=== PATIENT | female | born 1990 | race Caucasian/White ===

== ENCOUNTER 2016-02-28 20:34 | Emergency (ER) | payer BC, OTHER ==
[~2016-02-28] VITALS: Ht 162.6 cm; Wt 65.8 kg
--- OUTSIDE RECORDS SUMMARY | 2016-02-28 20:39 | XMS REPORT ---
Author Author [facility] Organization [facility] Address [address], [place] [id number] Phone [phone] Care Team Providers Care Air Conditioning Insulation Installer Name Role Phone VAHID DOWELL MD PP [phone] Summary purpose TRANSITION OF CARE AUTO GENERATION Chief Complaint and Reason for Visit No authorized Reason for Visit (Admitting Diagnosis) is available for this visit. Problem list No authorized problems tracked for continuity of care are available for this visit. Encounters No authorized problems tracked for encounter diagnoses are available for this visit. Medications No medications recorded for this patient visit Allergies, adverse reactions, alerts Allergen Category Ingredient Status Reaction Severity Onset No Known Drug Allergies No known drug allergies No Known Drug Allergies Confirmed or Verified No known food allergies No known food allergies No known food allergies Confirmed or Verified Immunizations No immunizations recorded for this patient visit Relevant diagnostic tests and/or laboratory data No authorized results are available for this patient visit History of procedures No procedures recorded for this patient visit. Functional status No functional or cognitive status observations are available for this visit. Vital signs No authorized vital signs are available for this visit. Social history No Social History or smoking status observations were recorded for this visit. ( Unknown if ever smoked.) Treatment Plan No treatment plan text is available for this visit. Hospital discharge instructions No discharge instruction text is available for this visit.
[2016-02-28] MEDS ORDERED: KETOROLAC 30 MG/ML VIAL IVP STA (20:56)
[2016-02-28] MEDS ORDERED: ONDANSETRON 4 MG/2 ML (SDV) Z0FRAN IVP ONE (21:00)
[2016-02-28 21:04] LABS: BASOPHILS % (AUTO) 0 % (0-10); EOSINOPHILS # (AUTO) 0.4 10^3/uL (0.0-0.3); EOSINOPHILS % (AUTO) 5 % (0-10); LYMPHOCYTES % (AUTO) 33 % (12-44); MEAN CORPUSCULAR HEMOGLOBIN 30 PG (25-34); MEAN CORPUSCULAR HGB CONC 35 G/DL (32-36); MEAN CORPUSCULAR VOLUME 85 FL (80-99); MEAN PLATELET VOLUME 8.5 FL (7.4-10.4); MONOCYTES # (AUTO) 0.7 X 10^3 (0.0-1.0); MONOCYTES % (AUTO) 7 % (0-12); NEUTROPHILS # (AUTO) 4.8 X 10^3 (1.8-7.8); NEUTROPHILS % (AUTO) 55 % (42-75); PLATELET COUNT 331 10^3/uL (130-400); RED BLOOD COUNT 4.55 10^6/uL (4.35-5.85); RED CELL DISTRIBUTION WIDTH 12.3 % (10.0-14.5); WHITE BLOOD COUNT 8.8 10^3/uL (4.3-11.0)
[2016-02-28 21:20] LABS: ALANINE AMINOTRANSFERASE 28 U/L (0-55); ALBUMIN 4.4 G/DL (3.2-4.5); ANION GAP 10 MMOL/L (5-14); ASPARTATE AMINO TRANSFERASE 36 U/L (5-34); BILIRUBIN,TOTAL 1.1 MG/DL (0.1-1.0); BLOOD UREA NITROGEN 11 MG/DL (7-18); BUN/CREATININE RATIO 14; CALCIUM 8.9 MG/DL (8.5-10.1); CARBON DIOXIDE 23 MMOL/L (21-32); CHLORIDE 108 MMOL/L (98-107); CREATININE SERUM 0.79 MG/DL (0.60-1.30); GFR ESTIMATED > 60; GLUCOSE 89 MG/DL (70-105); POTASSIUM 3.4 MMOL/L (3.6-5.0); SODIUM 141 MMOL/L (135-145); TOTAL PROTEIN 6.9 G/DL (6.4-8.2)
[2016-02-28 21:39] LABS: BILIRUBIN,URINE NEGATIVE (NEGATIVE); KETONES,URINE NEGATIVE (NEGATIVE); LEUKOCYTE ESTERASE ,URINE 1+ (NEGATIVE); NITRITE,URINE NEGATIVE (NEGATIVE); PH,URINE 6.5 (5-9); PROTEIN,URINE 1+ (NEGATIVE); UROBILINOGEN,URINE NORMAL (NORMAL)
[2016-02-28] MEDS ORDERED: CYCLOBENZAPRINE 10 MG (FLEXERIL) TAB PO STA (21:45)
[2016-02-28 21:54] LABS: SQUAMOUS EPITHELIAL CELL,UR 25-50 /HPF
[2016-02-28] MEDS ORDERED: LIDOCAINE 2% VISCOUS 15 ML UDC PO ONE (22:15)
[2016-02-28] MEDS ORDERED: ANTACID SUSP 30 ML UDC (MYLANTA) PO ONE (22:15)
[2016-02-28] MEDS ORDERED: DIAZEPAM INJ 10 MG/2 ML (VALIUM) SYR IV STA (22:43)
[2016-02-28] MEDS ORDERED: RX-LORAZEPAM (ATIVAN) 0.5 MG TAB PPK#4 PO ONE (23:30)
--- NOTE | 2016-02-28 23:31 | ED Chest Pain ---
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 PT DENIES CARDIAC HX BUT DOES REPORT HX OF PLEURISY. REPORTS PAIN IS CONSTANT BUT DOES WAX AND WANE. NO OTHER C/O VOICED Nursing Sepsis Screen: No Definite Risk (MARBIN SOFIA) History of Present Illness Time seen by provider: 20:45 Initial Comments Initial evaluation for chest tightness, nausea and vomiting. She reports similar "chest spasms" 3 years ago, treated at [facility] with something for spasms and felt better immediately. Sees psychologist for stress and anxiety, denies any medications. Timing/Duration: 1-3 hours Severity/Quality: moderate Location: epigastric, other (Bilat lower ribs, left greater than right. 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 Associated Symptoms: denies symptoms nausea/vomiting (MARBIN SOFIA) Allergies and Home Medications Allergies Coded Allergies: No Known Drug Allergies (Unverified , 08/16/10) Review of Systems Constitutional: no symptoms reported see HPI EENTM: No Symptoms Reported See HPI Respiratory: See HPI Other (spasms) Cardiovascular: See HPI Chest Pain Palpitations Gastrointestinal: See HPIDenies Constipated, Denies Diarrhea, Nausea Vomiting Genitourinary: No Symptoms Reported See HPI Musculoskeletal: no symptoms reported see HPI Skin: no symptoms reported see HPI Psychiatric/Neurological: No Symptoms Reported See HPI Endocrine: No Symptoms Reported See HPI Hematologic/Lymphatic: No Symptoms Reported See HPI (MARBIN SOFIA) All Other Systems Reviewed Negative Unless Noted: Yes (MARBIN SOFIA) Past Kvlucyr-Mqibzx-Lbwcvy Hx Patient Social History Alcohol Use: Occasionally Uses Recreational Drug Use: No Smoking Status: Never a Smoker Recent Foreign Travel: No Contact w/Someone Who Travel: No Recent Infectious Disease Expo: No Recent Hopitalizations: No Physical Abuse Screen: No Sexual Abuse: No (MARBIN SOFIA) Surgeries HX Surgeries: Yes (DENTAL) Surgeries: Gallbladder (MARBIN SOFIA) Respiratory Hx Respiratory Disorders: No (MARBIN SOFIA) Cardiovascular Hx Cardiac Disorders: No (MARBIN SOFIA) Neurological Hx Neurological Disorders: No (BISMARKMARBIN Parks) Genitourinary Hx Genitourinary Disorders: No (BISMARKMARBIN Parks) Gastrointestinal Hx Gastrointestinal Disorders: No (BISMARKMARBIN Parks) Musculoskeletal Hx Musculoskeletal Disorders: No (BISMARKMARBIN Parks) Endocrine Hx Endocrine Disorders: No (BISMARKMARBIN Parks) HEENT HX ENT Disorders: No (MARBIN SOFIA) Cancer Hx Cancer: No (MARBIN SOFIA) Psychosocial Hx Psychiatric Problems: No (BISMARKMARBIN Parks) Integumentary HX Skin/Integumentary Disorder: No (BISMARKMARBIN Parks) Blood Transfusions Hx Blood Disorders: No Adverse Reaction to a Blood Tr: No (BISMARKMARBIN Parks) Physical Exam Vital Signs Vital Sign - Last 12Hours 02/28/16 20:38 Temp 97.5 Pulse 93 Resp 20 B/P 124/89 Pulse Ox 96 O2 Delivery Room Air (JAIMIE HERNANDEZ MD) Vital Signs Capillary Refill : Less Than 3 Seconds (BISMARKMARBIN Parks) General Appearance: WD/WN Anxious HEENT: PERRL/EOMI TMs Normal Normal ENT Inspection Pharynx Normal Neck: Full Range of Motion Normal Inspection Non Tender Supple Respiratory: Lungs Clear Normal Breath Sounds No Accessory Muscle Use No Respiratory Distress Other (Tender Left lower rib, with some radiation to right chest wall. Patient describes as "Tightness") Cardiovascular: Regular Rate, Rhythm No Edema No Murmur Normal Peripheral Pulses Gastrointestinal: Normal Bowel Sounds No Organomegaly No Pulsatile Mass Non Tender Soft Extremity: Normal Capillary Refill Normal Inspection Normal Range of Motion No Calf Tenderness No Pedal Edema Neurologic/Psychiatric: Alert Oriented x3 No Motor/Sensory Deficits Normal Mood/Affect Skin: Normal Color Warm/Dry Lymphatic: No Adenopathy (BISMARKMARBIN Parks) Progress/Results/Core Measures Results/Orders Lab Results Laboratory Tests Test 02/28/16 20:40 02/28/16 21:30 Range/Units Alanine Aminotransferase (ALT/SGPT) 28 0-55 U/L Albumin 4.4 3.2-4.5 G/DL Alkaline Phosphatase 64 40-136 U/L Anion Gap 10 5-14 MMOL/L Aspartate Amino Transf (AST/SGOT) 36 H 5-34 U/L BUN/Creatinine Ratio 14 Basophils # (Auto) 0.0 0.0-0.1 10^3/uL Basophils (%) (Auto) 0 0-10 % Blood Urea Nitrogen 11 7-18 MG/DL Calcium Level 8.9 8.5-10.1 MG/DL Carbon Dioxide Level 23 21-32 MMOL/L Chloride Level 108 H 98-107 MMOL/L Creatinine 0.79 0.60-1.30 MG/DL Eosinophils # (Auto) 0.4 H 0.0-0.3 10^3/uL Eosinophils (%) (Auto) 5 0-10 % Estimat Glomerular Filtration Rate > 60 Glucose Level 89 70-105 MG/DL Hematocrit 39 35-52 % Hemoglobin 13.7 11.5-16.0 G/DL Lymphocytes # (Auto) 3.0 1.0-4.0 X 10^3 Lymphocytes (%) (Auto) 33 12-44 % Mean Corpuscular Hemoglobin 30 25-34 PG Mean Corpuscular Hemoglobin Concent 35 32-36 G/DL Mean Corpuscular Volume 85 80-99 FL Mean Platelet Volume 8.5 7.4-10.4 FL Monocytes # (Auto) 0.7 0.0-1.0 X 10^3 Monocytes (%) (Auto) 7 0-12 % Neutrophils # (Auto) 4.8 1.8-7.8 X 10^3 Neutrophils (%) (Auto) 55 42-75 % Platelet Count 331 130-400 10^3/uL Potassium Level 3.4 L 3.6-5.0 MMOL/L Red Blood Count 4.55 4.35-5.85 10^6/uL Red Cell Distribution Width 12.3 10.0-14.5 % Serum Test, Qualitative NEGATIVE NEGATIVE Sodium Level 141 135-145 MMOL/L Total Bilirubin 1.1 H 0.1-1.0 MG/DL Total Protein 6.9 6.4-8.2 G/DL White Blood Count 8.8 4.3-11.0 10^3/uL Urine Bacteria FEW H /HPF Urine Bilirubin NEGATIVE NEGATIVE Urine Casts NONE /LPF Urine Clarity CLEAR Urine Color YELLOW Urine Crystals NONE /LPF Urine Culture Indicated NO Urine Glucose (UA) NEGATIVE NEGATIVE Urine Ketones NEGATIVE NEGATIVE Urine Leukocyte Esterase 1+ H NEGATIVE Urine Mucus NEGATIVE /LPF Urine Nitrite NEGATIVE NEGATIVE Urine Protein 1+ H NEGATIVE Urine RBC 0-2 /HPF Urine RBC (Auto) 1+ H NEGATIVE Urine Specific [place] 1.015 L 1.016-1.022 Urine Squamous Epithelial Cells 25-50 H /HPF Urine Urobilinogen NORMAL NORMAL MG/DL Urine WBC 2-5 /HPF Urine pH 6.5 5-9 (JAIMIE HERNANDEZ MD) Vital Signs/I&O Vital Sign - Last 12Hours 02/28/16 02/28/16 20:38 23:38 Temp 97.5 98.0 Pulse 93 72 Resp 20 14 B/P 124/89 Pulse Ox 96 99 O2 Delivery Room Air (JAIMIE HERNANDEZ MD) Blood Pressure Mean: 101 Progress Note : Time: 21:00 Progress Note Initial evaluation completed, Zofran 4 mg IV and Toradol 30 mg IV. Will reevaluate. EKG normal, labs ordered. 0 Labs essentially normal; continued chest tightness Flexeril 10 mg po. 5 Pain improved slightly, then RUQ spasms noted. Pt reports "the sensation starts deep, makes me nauseated" Will try GI cocktail and obtain CXR. 0 CXR normal, continued spasms, no change with GI cocktail. Will try Valium 5 mg IV. 2300 Patient sleeping, no distress. in room. 2315 Patient aroused easily, reports pain/spasms resolved. Feels comfortable to return home, will see PCP tomorrow. (MARBIN SOFIA) ECG EKG : EKG Time: 20:41 Rate: 96 Rhythm: Normal Sinus Intervals: Normal, MO (176), QRS (80), QT (348) ECG Comparisson: Unchanged ECG Impression: Normal Comment Reviewed with Dr. Rivas, agreed with interpretation. AxisP 72; QRS -15; T 33 (MARBIN SOFIA) EKG : Comment 02/28/16, 2040. SR with nl axis, no STEMI, unchanged from previous. (JAIMIE HERNANDEZ MD) Diagnostic Imaging Diagonstic Imaging: Xray Plain Films/CT/US/NM/MRI: chest Comments Normal Chest Xray, no acute changes note. Reviewed with Dr. Rivas, agreed. (MARBIN SOFIA) Departure Impression Impression: Primary Impression: Chest wall pain Disposition: HOME, SELF-CARE Condition: Improved Departure-Patient Inst. Decision time for Depature: 23:10 (MARBIN SOFIA) Referrals: NO,LOCAL PHYSICIAN (PCP/Family) Primary Care Physician Patient Instructions: Pleuritic Chest Pain (DC) Add. Discharge Instructions: All discharge instructions reviewed with patient and/or family. Voiced understanding. Follow up with family doctor. Return to ER for acute chest pain, ongoing symptoms, worsening or new problems. MARBIN SOFIA Feb 28, 2016 23:31 JAIMIE HERNANDEZ MD Mar 02, 2016 09:07 Departure-Patient Inst. Decision time for Depature: 23:10 Referrals: NO,LOCAL PHYSICIAN (PCP/Family) Primary Care Physician Patient Instructions: Pleuritic Chest Pain (DC) Add. Discharge Instructions: All discharge instructions reviewed with patient and/or family. Voiced understanding. Follow up with family doctor. Return to ER for acute chest pain, ongoing symptoms, worsening or new problems. MARBIN SOFIA Feb 28, 2016 23:31
[2016-02-28 23:38] VITALS: BP 107/72
--- NOTE | 2016-02-29 07:24 | Diagnostic Imaging Report ---
PA and lateral views of the chest Indication: Chest pain Findings: The lungs are clear. The heart size is normal. There is no effusion or pneumothorax The mediastinum and vanessa appear unremarkable. Impression: Unremarkable study. Dictated by: Dictated on workstation # [id number]
== END 2016-02-28 23:38 | disposition home or self-care (01) ==
LOC: EDUNIT# 20:34 → ER 20:36
DX: R07.89 Other chest pain (principal); R11.2 Nausea with vomiting, unspecified; F41.9 Anxiety disorder, unspecified
CPT/HCPCS: 36415; 71020; 80053; 81000; 84703; 85025; 93005; 96374; 96375

== ENCOUNTER 2019-08-17 15:37 | Day surgery (SDC) | payer BC ==
[2019-08-17] VITALS (8 sets, daily range): BP systolic 75–112; BP diastolic 35–71
[~2019-08-17] VITALS: Ht 152 cm; Wt 68.1 kg
[2019-08-17] MEDS ORDERED: fentaNYL INJECTION 100 MCG/2 ML AMP ONE ×2 (15:48→17:27)
[2019-08-17] MEDS ORDERED: ONDANSETRON 4 MG/2 ML (SDV) Z0FRAN ONE ×3 (15:49→21:09)
[2019-08-17] MEDS ORDERED: NS IV 1000 ML 1,000 ML ONE (15:49)
--- NOTE | 2019-08-17 15:58 | ED GU-Female ---
General Chief Complaint: OB > 20 WEEKS Stated Complaint: DAY 4 OF MISCARRIAGE Source: patient Exam Limitations: no limitations History of Present Illness Date Seen by Provider: Aug 17, 2019 Time Seen by Provider: 15:55 Initial Comments TO ER with c/o faintness, lower abdominal cramping/bleeding. Started a miscarriage on 08/13/19. This would Be her third miscarriage but she states this one is very different than previous. She went to urgent care just prior to comi ng here and had a hemoglobin checked and was found to be 11. She went home but noticed more bleeding and came to the emergency room. She follows with Dr. Plata out of [place] for obstetrical care. This is her third miscarriage. 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 Timing/Duration: constant, getting worse Severity/Quality: moderate, cramping Location: suprapubic Radiation: none Activities at Onset: none Prior Genitourinary Problems: none Allergies and Home Medications Allergies Coded Allergies: No Known Drug Allergies (Unverified , 08/16/10) Home Medications Ibuprofen 800 Mg Tablet, 800 MG PO Q6H PRN for PAIN Prescribed by: STACI ZAVALA on 08/17/19 1706 Patient Home Medication List Home Medication List Reviewed: Yes Review of Systems Review of Systems Constitutional: see HPI EENTM: see HPI Respiratory: no symptoms reported Cardiovascular: no symptoms reported Genitourinary: no symptoms reported Musculoskeletal: no symptoms reported Skin: no symptoms reported Psychiatric/Neurological: No Symptoms Reported Endocrine: No Symptoms Reported Past Taudnah-Hbgtlg-Gdkske Hx Patient Social History Recent Foreign Travel: No Contact w/Someone Who Travel: No Recent Hopitalizations: No Past Medical History Gallbladder Adverse Reaction/Blood Tranf: No Physical Exam Vital Signs Vital Signs - First Documented 08/17/19 15:41 Temp 36.8 Pulse 117 Resp 18 B/P (MAP) 131/81 (98) Pulse Ox 100 Capillary Refill : Height, Weight, BMI Height: 5'4" Weight: 145lbs. oz. [age]yo; BMI Method:Stated General Appearance: WD/WN, mild distress, other (tachycardic with a rate of 120 blood pressure 130/100, lower abdominal cramping with a trail of blood from the waiting room to room 6. When she takes off her pad there is a large clot palm sized with a large amount of tissue in it. A large amount of blood in the vaginal vault with a large clot in the cervical os. This was suctioned.) Neck: non-tender, full range of motion Cardiovascular: tachycardia Respiratory: no respiratory distress, no accessory muscle use Gastrointestinal: normal bowel sounds Extremities: normal range of motion, non-tender Neurologic/Psychiatric: alert, normal mood/affect, oriented x 3 Skin: normal color, warm/dry 1550-spoke with Dr. Rodriguez, would like an ultrasound to help determine need for D&C versus expectant management. Progress/Results/Core Measures Suspected Sepsis SIRS Temperature: Pulse: Respiratory Rate: Laboratory Tests 08/17/19 15:46: White Blood Count 17.9H Blood Pressure / Mean: Laboratory Tests 08/17/19 15:46: Creatinine 0.86, INR Comment 1.0, Platelet Count 355 Results/Orders Lab Results Laboratory Tests Test 08/17/19 15:46 08/17/19 17:36 Range/Units White Blood Count 17.9 H 4.3-11.0 10^3/uL Red Blood Count 4.11 L 4.35-5.85 10^6/uL Hemoglobin 12.4 11.5-16.0 G/DL Hematocrit 36 35-52 % Mean Corpuscular Volume 88 80-99 FL Mean Corpuscular Hemoglobin 30 25-34 PG Mean Corpuscular Hemoglobin Concent 34 32-36 G/DL Red Cell Distribution Width 12.7 10.0-14.5 % Platelet Count 355 130-400 10^3/uL Mean Platelet Volume 8.5 7.4-10.4 FL Neutrophils (%) (Auto) 78 H 42-75 % Lymphocytes (%) (Auto) 15 12-44 % Monocytes (%) (Auto) 5 0-12 % Eosinophils (%) (Auto) 2 0-10 % Basophils (%) (Auto) 0 0-10 % Neutrophils # (Auto) 13.9 H 1.8-7.8 X 10^3 Lymphocytes # (Auto) 2.7 1.0-4.0 X 10^3 Monocytes # (Auto) 0.9 0.0-1.0 X 10^3 Eosinophils # (Auto) 0.4 H 0.0-0.3 10^3/uL Basophils # (Auto) 0.1 0.0-0.1 10^3/uL Neutrophils % (Manual) 77 % Lymphocytes % (Manual) 15 % Monocytes % (Manual) 5 % Eosinophils % (Manual) 2 % Basophils % (Manual) 1 % Blood Morphology Comment NORMAL Prothrombin Time 13.4 12.2-14.7 SEC INR Comment 1.0 0.8-1.4 Activated Partial Thromboplast Time 33 24-35 SEC Sodium Level 137 135-145 MMOL/L Potassium Level 3.9 3.6-5.0 MMOL/L Chloride Level 105 98-107 MMOL/L Carbon Dioxide Level 17 L 21-32 MMOL/L Anion Gap 15 H 5-14 MMOL/L Blood Urea Nitrogen 10 7-18 MG/DL Creatinine 0.86 0.60-1.30 MG/DL Estimat Glomerular Filtration Rate > 60 BUN/Creatinine Ratio 12 Glucose Level 66 L 70-105 MG/DL Calcium Level 9.0 8.5-10.1 MG/DL Human Chorionic Gonadotropin, Quant 65628 H <5 MIU/ML My Orders Orders - JACK SAN APRN Fentanyl Injection (Sublimaze Injection (08/17/19 15:48) Ns Iv 1000 Ml (Sodium Chloride 0.9%) (08/17/19 15:49) Ondansetron Injection (Zofran Injectio (08/17/19 15:49) Cbc With Automated Diff (08/17/19 15:53) Red Cells Leukocytes Reduced (08/17/19 15:53) Basic Metabolic Panel (08/17/19 15:53) Hcg,Quantitative (08/17/19 15:53) Ondansetron Injection (Zofran Injectio (08/17/19 16:00) Ns Iv 1000 Ml (Sodium Chloride 0.9%) (08/17/19 16:00) Fentanyl Injection (Sublimaze Injection (08/17/19 16:00) Type And Screen (08/17/19 15:53) Partial Thromboplastin Time (08/17/19 15:59) Protime With Inr (08/17/19 15:59) Manual Differential (08/17/19 15:46) Blood Culture (08/17/19 16:06) Clindamycin 900 Mg/50 Ml Ivpb (Cleocin P (08/17/19 16:15) Us Ob Transvaginal [id number] (08/17/19 15:53) Hydromorphone Injection (Dilaudid Inject (08/17/19 16:30) Hydromorphone Injection (Dilaudid Inject (08/17/19 17:00) Ondansetron Injection (Zofran Injectio (08/17/19 17:30) Coronavirus Sars-Cov-2 So 2018 (08/17/19 17:24) Medications Given in ED Current Medications Medications Dose Ordered Sig/Randal Route Start Time Stop Time Status Last Admin Dose Admin Clindamycin Phosphate/Dextrose 50 ml @ 100 mls/hr ONCE ONCE IV 08/17/19 16:15 08/17/19 16:44 DC 08/17/19 17:10 100 MLS/HR Fentanyl Citrate 50 mcg ONCE ONCE IVP 08/17/19 16:00 08/17/19 16:01 DC 08/17/19 16:00 50 MCG Hydromorphone HCl 0.5 mg ONCE ONCE IV 08/17/19 16:30 08/17/19 16:31 DC 08/17/19 16:33 0.5 MG Hydromorphone HCl 0.5 mg ONCE ONCE IV 08/17/19 17:00 08/17/19 17:01 DC 08/17/19 17:09 0.5 MG Ondansetron HCl 4 mg ONCE ONCE IVP 08/17/19 16:00 08/17/19 16:01 DC 08/17/19 16:00 4 MG Vital Signs/I&O 08/17/19 08/17/19 08/17/19 08/17/19 15:41 17:40 18:18 18:18 Temp 36.8 36.2 Pulse 117 100 Resp 18 18 16 B/P (MAP) 131/81 (98) 104/69 75/37 (50) Pulse Ox 100 98 100 O2 Delivery OxyMask OxyMask O2 Flow Rate 8 8 08/17/19 08/17/19 08/17/19 08/17/19 18:20 18:30 18:30 18:40 Resp 16 20 20 B/P (MAP) 78/35 (49) 78/35 (49) 86/63 (71) Pulse Ox 100 100 100 O2 Delivery OxyMask OxyMask OxyMask OxyMask O2 Flow Rate 8 8 8 5 08/17/19 08/17/19 08/17/19 08/17/19 18:45 18:50 19:00 19:00 Resp 20 20 B/P (MAP) 103/71 (82) 103/62 (76) Pulse Ox 99 100 O2 Delivery OxyMask Room Air Room Air Room Air O2 Flow Rate 5 08/17/19 08/17/19 19:10 19:10 Temp 36.6 Resp 20 B/P (MAP) 98/66 (77) Pulse Ox 100 O2 Delivery Room Air Room Air Capillary Refill : Diagnostic Imaging Diagonstic Imaging: Ultrasound Comments NAME: DIAMANTE ROBLES [facility] REC#: [id number] PT STATUS: REG [facility] : 1990 PHYSICIAN: JACK SAN APRN ADMIT DATE: 08/17/19/[facility] Draft Date of Exam:08/17/19 US OB TRANSVAGINAL [id number] INDICATION: Possible miscarriage, bleeding, cramping. COMPARISON: None available. TECHNIQUE: Transvaginal pelvic ultrasound was performed on August 17, 2019. FINDINGS: The uterus measures 11.2 x 5.4 x 5.8 cm. The endometrium is thickened measuring at least 2.8 cm. It appears extremely heterogeneous with associated cystic components. There is also prominence of the underlying cervical canal. The right ovary measures 2.9 x 2.3 x 2.3 cm. It is grossly unremarkable. Vascular flow is present in the right ovary. Left ovary is unable to be visualized secondary to overlying bowel. No abnormal adnexal mass lesion. No significant free fluid. IMPRESSION: Severely heterogeneous and thickened endometrium. This could relate to blood products and retained products of conception status post spontaneous . Recommend clinical correlation and correlation with beta-hCG levels. Alternatively, malignancy should be considered. If beta-hCG level is negative, then tissue sampling would be recommended. If beta-hCG levels is positive, then follow-up ultrasound and beta-hCG levels would be recommended in 3-5 days. No evidence of an intrauterine or extrauterine gestational sac. Dictated on workstation # [id number] Dict: 08/17/191709 Trans: 08/17/191715 [facility] [id number] Interpreted by: CORINNA FIGUEROA MD Electronically signed by: Departure Communication (Admissions) [id number]-Dr Rodriguez coming to see patient. Impression Primary Impression: Uterine hemorrhage Disposition: ADMITTED INPATIENT Condition: Stable Admissions Decision to Admit Reason: Admit from ER (General) Decision to Admit/Date: Aug 17, 2019 Time/Decision to Admit Time: 16:32 Departure-Patient Inst. Referrals: NO,LOCAL PHYSICIAN (PCP/Family) Primary Care Physician Scripts Ibuprofen (Ibuprofen) 800 Mg Tablet 800 MG PO Q6H PRN for PAIN, #60 TAB Prov: STACI RODRIGUEZ MD 08/17/19 JACK SAN APRN Aug 17, 2019 15:58
[2019-08-17 15:59] LABS: BASOPHILS # (AUTO) 0.1 10^3/uL (0.0-0.1); BASOPHILS % (AUTO) 0 % (0-10); EOSINOPHILS # (AUTO) 0.4 10^3/uL (0.0-0.3); EOSINOPHILS % (AUTO) 2 % (0-10); HEMATOCRIT 36 % (35-52); HEMOGLOBIN 12.4 G/DL (11.5-16.0); LYMPHOCYTES # (AUTO) 2.7 X 10^3 (1.0-4.0); LYMPHOCYTES % (AUTO) 15 % (12-44); MEAN CORPUSCULAR HEMOGLOBIN 30 PG (25-34); MEAN CORPUSCULAR HGB CONC 34 G/DL (32-36); MEAN CORPUSCULAR VOLUME 88 FL (80-99); MEAN PLATELET VOLUME 8.5 FL (7.4-10.4); MONOCYTES # (AUTO) 0.9 X 10^3 (0.0-1.0); MONOCYTES % (AUTO) 5 % (0-12); NEUTROPHILS # (AUTO) 13.9 X 10^3 (1.8-7.8); NEUTROPHILS % (AUTO) 78 % (42-75); PLATELET COUNT 355 10^3/uL (130-400); RED CELL DISTRIBUTION WIDTH 12.7 % (10.0-14.5); WHITE BLOOD COUNT 17.9 10^3/uL (4.3-11.0)
[2019-08-17] MEDS ORDERED: fentaNYL INJECTION 100 MCG/2 ML AMP IVP ONE ×2 (16:00→17:45)
[2019-08-17] MEDS ORDERED: ONDANSETRON 4 MG/2 ML (SDV) Z0FRAN IVP ONE ×2 (16:00→17:30)
[2019-08-17] MEDS ORDERED: NS IV 1000 ML 1,000 ML IV SCH (16:00)
[2019-08-17 16:15] LABS: CHLORIDE 105 MMOL/L (98-107); POTASSIUM 3.9 MMOL/L (3.6-5.0)
[2019-08-17] MEDS ORDERED: CLINDAMYCIN 900 MG/50 ML IVPB 50 ML IV ONE (16:15)
[2019-08-17 16:16] LABS: PROTHROMBIN TIME PATIENT 13.4 SEC (12.2-14.7); SODIUM 137 MMOL/L (135-145)
--- NOTE | 2019-08-17 16:16 | NUR ---
SONO TO BEDSIDE.
[2019-08-17 16:17] LABS: GLUCOSE 66 MG/DL (70-105)
[2019-08-17 16:19] LABS: CARBON DIOXIDE 17 MMOL/L (21-32)
[2019-08-17 16:20] LABS: BASOPHILS % (MANUAL) 1 %; EOSINOPHILS % (MANUAL) 2 %; LYMPHOCYTES % (MANUAL) 15 %; MONOCYTES % (MANUAL) 5 %; NEUTROPHILS % (MANUAL) 77 %; RBC MORPH NORMAL
[2019-08-17 16:21] LABS: CREATININE SERUM 0.86 MG/DL (0.60-1.30); GFR ESTIMATED > 60
[2019-08-17 16:22] LABS: BUN/CREATININE RATIO 12
[2019-08-17] MEDS ORDERED: HYDROmorphone 2 MG/ML VIAL (DILAUDID) IV ONE ×2 (16:30→17:00)
--- NOTE | 2019-08-17 16:40 | NUR ---
DR FALK HERE
[2019-08-17] MEDS ORDERED: D5 LR IV SOLUTION 1,000 ML IV SCH (17:04)
--- NOTE | 2019-08-17 17:04 | History & Physical ---
History and Physical Date Seen by Provider: Aug 17, 2019 Time Seen by Provider: 16:59 This patient is a 28-year-old 4 para 1 Ab 2 white female currently at about 10 weeks gestation with a last menstrual period of June 04, 2019. She reports that she has been miscarrying now for 4 days. She presented to the ED department on this day with heavy vaginal bleeding. She complains of cramps and large clots. She started having nausea last evening. She was seen this morning in an urgent care and given a prescription for Zofran that she has not feel. After that appointment she began bleeding heavier and decided to come to our emergency department. Ultrasound shows 2-1/2 cm plus echogenic debris in the uterus with apparently a somewhat open cervix. Patient is still bleeding somewhat vigorously. This patient had been seen on August 09 of this year with an material spreader who did an ultrasound so a gestational sac and a yolk sac and significant apparently subchorionic hematoma with no heart motion. 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 Past surgical history patient had a gallbladder taken out in June 2014 Patient had a T&A in childhood Social history patient is she denies tobacco or drug use she has occasional alcohol she denies any STDs Family history is noncontributory Lab work is as follows Laboratory Tests Test 08/17/19 15:46 Range/Units White Blood Count 17.9 H 4.3-11.0 10^3/uL Red Blood Count 4.11 L 4.35-5.85 10^6/uL Hemoglobin 12.4 11.5-16.0 G/DL Hematocrit 36 35-52 % Mean Corpuscular Volume 88 80-99 FL Mean Corpuscular Hemoglobin 30 25-34 PG Mean Corpuscular Hemoglobin Concent 34 32-36 G/DL Red Cell Distribution Width 12.7 10.0-14.5 % Platelet Count 355 130-400 10^3/uL Mean Platelet Volume 8.5 7.4-10.4 FL Neutrophils (%) (Auto) 78 H 42-75 % Lymphocytes (%) (Auto) 15 12-44 % Monocytes (%) (Auto) 5 0-12 % Eosinophils (%) (Auto) 2 0-10 % Basophils (%) (Auto) 0 0-10 % Neutrophils # (Auto) 13.9 H 1.8-7.8 X 10^3 Lymphocytes # (Auto) 2.7 1.0-4.0 X 10^3 Monocytes # (Auto) 0.9 0.0-1.0 X 10^3 Eosinophils # (Auto) 0.4 H 0.0-0.3 10^3/uL Basophils # (Auto) 0.1 0.0-0.1 10^3/uL Neutrophils % (Manual) 77 % Lymphocytes % (Manual) 15 % Monocytes % (Manual) 5 % Eosinophils % (Manual) 2 % Basophils % (Manual) 1 % Blood Morphology Comment NORMAL Prothrombin Time 13.4 12.2-14.7 SEC INR Comment 1.0 0.8-1.4 Activated Partial Thromboplast Time 33 24-35 SEC Sodium Level 137 135-145 MMOL/L Potassium Level 3.9 3.6-5.0 MMOL/L Chloride Level 105 98-107 MMOL/L Carbon Dioxide Level 17 L 21-32 MMOL/L Anion Gap 15 H 5-14 MMOL/L Blood Urea Nitrogen 10 7-18 MG/DL Creatinine 0.86 0.60-1.30 MG/DL Estimat Glomerular Filtration Rate > 60 BUN/Creatinine Ratio 12 Glucose Level 66 L 70-105 MG/DL Calcium Level 9.0 8.5-10.1 MG/DL Human Chorionic Gonadotropin, Quant 41215 H <5 MIU/ML Physical exam HEENT exam is normal patient appears a little bit uncomfortable she is alert and oriented 4 Neck is supple no lymphadenopathy no thyromegaly Abdomen is soft nontender nondistended Extremities show no clubbing or cyanosis. There is no Homans sign. Pelvic exam is deferred there is blood on the perineum and patient is actively bleeding Assessment and plan approximately 10 week with incomplete/missed . I have discussed treatment options with the patient including observation versus follow-up with her physician versus proceeding with a D&C. She does want to proceed with termination of the this point. Patient obviously does not have a viable . We have discussed surgical risk complication recovering follow-up and patient wishes to proceed. Surgical crews have been called. 10 week with incomplete/missed AB Allergies and Home Medications Allergies Coded Allergies: No Known Drug Allergies (Unverified , 7/8/11) Patient Home Medication List Home Medication List Reviewed: Yes STACI FALK MD Aug 17, 2019 17:04
[2019-08-17] MEDS ORDERED: IBUP-1780 PO (17:06)
--- NOTE | 2019-08-17 17:08 | Discharge Inst-Surgical ---
Discharge Inst-Surgical Depart Medication/Instructions New, Converted or Re-Newed RX: RX on Chart Consults/Follow Up Patient Instructions: As directed Orders & Referrals Follow Up Appt: Call to make follow up appt. for patient with me in 2 weeks or patient may follow up with her PCP and one or 2 weeks Activity: Rest for 24 hours, than as tolerated. Please call in RX to patient pharmacy. Diet: As tolerated-Clear Liquids only if nauseated. shower or tub bathe as desired. No driving for 24 hours, no alcoholic beverages for 24 hours, and nothing per vagina (no tampons, douching, or intercourse) for 2 weeks. Patient to return to the clinic as soon as possible for: Temperature greater than 101F, Severe Pain, Foul discharge from incision or vagina, Excessive Bleeding (more than a period). Activity Activity as Tolerated: No Diet Discharge Diet: No Restrictions STACI FALK MD Aug 17, 2019 17:08
[2019-08-17] MEDS ORDERED: HYDROcodone/APAP 10 MG/325 MG (LORTAB) TAB PO PRN (17:15)
[2019-08-17] MEDS ORDERED: MEPERIDINE (DEMEROL) INJ 100 MG/ML IM ONE (17:15)
[2019-08-17] MEDS ORDERED: ONDANSETRON 4 MG/2 ML (SDV) Z0FRAN IVP PRN ×2 (17:15→17:45)
[2019-08-17] MEDS ORDERED: PROMETHAZINE INJ 25 MG/ML (PHENERGAN) AMP IM ONE (17:15)
[2019-08-17] MEDS ORDERED: KETOROLAC 30 MG/ML VIAL IVP ONE (17:15)
--- NOTE | 2019-08-17 17:18 | Diagnostic Imaging Report ---
INDICATION: Possible miscarriage, bleeding, cramping. COMPARISON: None available. TECHNIQUE: Transvaginal pelvic ultrasound was performed on August 17, 2019. FINDINGS: The uterus measures 11.2 x 5.4 x 5.8 cm. The endometrium is thickened measuring at least 2.8 cm. It appears extremely heterogeneous with associated cystic components. There is also prominence of the underlying cervical canal. The right ovary measures 2.9 x 2.3 x 2.3 cm. It is grossly unremarkable. Vascular flow is present in the right ovary. Left ovary is unable to be visualized secondary to overlying bowel. No abnormal adnexal mass lesion. No significant free fluid. IMPRESSION: Severely heterogeneous and thickened endometrium. This could relate to blood products and retained products of conception status post spontaneous . Recommend clinical correlation and correlation with beta-hCG levels. Alternatively, malignancy should be considered. If beta-hCG level is negative, then tissue sampling would be recommended. If beta-hCG levels is positive, then follow-up ultrasound and beta-hCG levels would be recommended in 3-5 days. No evidence of an intrauterine or extrauterine gestational sac. Dictated by: Dictated on workstation # [id number]
--- NOTE | 2019-08-17 17:25 | NUR ---
CALLED TO ROOM PATIENT REPORTED THAT HER FAMILY MEMBER HAD TESTED POS FOR COVID AND THEY HAVE BEEN AROUND HIM AND NOW BOYFRIEND IS HAVING SYMPTOMS AND SHE IS NOT. JACK SAN APRN NOTIFIED. TALKED WTH DR JUAREZ WILL SWAB FOR COVID.
[2019-08-17] MEDS ORDERED: MIDAZOLAM 2 MG/2 ML (VERSED) VIAL ONE (17:27)
--- NOTE | 2019-08-17 17:30 | NUR ---
SWAB FOR COVID SURG HERE.
[2019-08-17] MEDS ORDERED: morphine INJ 10 MG/ML 1ML (SYR OR VIAL) IVP ONE (17:45)
[2019-08-17] MEDS ORDERED: MEPERIDINE (DEMEROL) INJ 50 MG/ML IVP ONE (17:45)
[2019-08-17] MEDS: LACTATED RINGERS 1,000 ML IV PRN ×2 (17:47→18:28)
[2019-08-17] MEDS ORDERED: SUCCINYLCHOLINE INJ 100 MG/5 ML SYR ONE (18:02)
[2019-08-17] MEDS ORDERED: proPOfol 200 MG/20 ML (DIPRIVAN) VIAL IV ONE (18:03)
[2019-08-17] MEDS ORDERED: LIDOCAINE PF 2% 5 ML (XYLOCAINE) VIAL ONE (18:03)
[2019-08-17] MEDS ORDERED: SEVOFLURANE (ULTANE) 15 ML INHAL SOLN ONE (18:03)
[2019-08-17] MEDS ORDERED: LACTATED RINGERS 1,000 ML IV ONE (18:21)
--- NOTE | 2019-08-17 19:10 | NUR ---
Pt. to rm 304 via bed from recovery following D&C, oriented to rm, call light given. Report rc'd from Toni Owen RN.
--- NOTE | 2019-08-17 19:40 | NUR ---
POC reviewed, pt. verbalized understanding, denies needs @ this time.
--- NOTE | 2019-08-17 19:45 | NUR ---
Strip Tank Tender notified this RN that pt. needs to be isolation as PUI d/t being tested for COVID, brought cart up. Will don & doff w/PPE.
[2019-08-17] MEDS ORDERED: oxyCODONE/APAP 10/325MG (PERCOCET 10) TABLET PO ONE (20:31)
--- NOTE | 2019-08-17 20:37 | NUR ---
Pt. c/o nausea, Zofran offered & will give. Also requesting pain meds, Percocet is only med ordered. Pt. also verbalized that she is staying all night, POC reviewed that she has D/C orders. Called Dr. Rodriguez, update given, new orders rc'd to D/C Percocet, repeat Toradol now, D/C home. POC again reviewed w/pt, verbalized understanding & stated now that she does want to go home. Meds given, pt. up to BR w/standby assist, tolerated well, voided, pericare done. Scant rubra lochia on pad, pt. back to bed on own. Instructed to call after able to drink & nausea better.
[2019-08-17] MEDS ORDERED: KETOROLAC 30 MG/ML VIAL ONE (20:39)
--- OUTSIDE RECORDS SUMMARY | 2019-08-17 21:24 | XMS REPORT ---
Author Author [facility] Medic al Staff, DIAMANTE Organization [facility] Address [address], [place] [id number] Phone [phone] Care Team Providers Care Nurse Infection Control Name Role Phone MAGALYS SHIN, VAHID ABRAHAM [phone] MAGALYS SHIN, VAHID ABRAHAM [phone] MAGALYS SHIN, VAHID PP [phone] MAGALYS SHIN, VAHID ABRAHAM [phone] Summary purpose TRANSITION OF CARE AUTO GENERATION Chief Complaint and Reason for Visit Admit Diagnosis 1 SUPERVIS NORMAL 1ST PREG Problem list No authorized problems tracked for continuity of care are available for this vis it. Encounters The following conditions tracked for encounter diagnoses were recorded for this visit: Finding or Diagnosis Status Certainty Chronicity Onset *VAGINAL DELIVERY Active Medications Discharge Medications Status Medication Directions Current Acetaminophen (TYLENOL) 325 mg: TABLET 3 25 MG oral Give PO Q4 Hours As Needed for PAIN/FEVER Current Alum-Mag Hydroxide-Simeth (MAALOX ADVANC ED SUSPENSION): ORAL SUSP 30 milliliter(s) oral Give PO Q6 Hours As Needed for HEARTBURN Current benzocaine-menthol (DERMOPLAST SPRAY) 20 -0.5 %: AEROSOL 1 spary(s) topical Give TOP As Needed for DISCOMFORT Current Diphenhydramine HCl (BENADRYL) 50 mg: CA PSULE 50 MG oral Give PO Q6 Hours As Needed for ITCHING Current Docusate Sodium (COLACE): CAPSULE 100 MG oral Give PO Twice a day Current Glycerin-Witch Shruti (A.E.R PADS) 12.5-5 0 %: MED. PAD 1 pad(s) topical Give TOP As Needed for DISCOMFORT Current IBUPROFEN 800 mg: TABLET 800 MG oral G graham PO Q8 Hours As Needed for PAIN/FEVER Current Lanolin (LANOLIN OINTMENT) 1 applicator: OINT.%28GM%29 1 applicator(s) topical Give TOP As Needed for SORENESS Current Magnesium Hydroxide (MILK OF MAGNESIA) 4 00 mg/5 mL: ORAL SUSP 2400 MG oral Give PO Q12 hours as needed for CONSTIPATION Current Oxycodone-Acetaminophen (PERCOCET) 5-325 mg: TABLET 1 tab(s) oral Give PO Q4 Hours As Needed for PAIN Current Oxycodone-Acetaminophen (PERCOCET) 5-325 mg: TABLET 2 tab(s) oral Give PO Q4 Hours As Needed for PAIN Current Polysaccharide Iron Complex (FERREX): CA PSULE 150 MG oral Give PO Daily Current 1 1 mg tablet 1 tab(s) oral Nya ly Current Vit-Iron Fumarate-FA (PRENAVITE TABLET): TABLET 1 TAB oral Give PO Daily Stopped ferrous sulfate 325 mg (65 mg iron) tabl et 325 milligram (s) oral Daily Allergies, adverse reactions, alerts Allergen Category Ingredient Status Reaction Severity Onset No Known Drug Allergies No known drug allergies No Known Drug Al lergies Confirmed or Verified No known food allergies No known food allergies No known food al lergies Confirmed or Verified Immunizations No immunizations recorded for this patient visit Relevant diagnostic tests and/or laboratory data RESULTS Routine Urinalysis :20:00 Result Normal Range Units Color YELLOW Clarity Clear Specific [place] 1.015 1.003-1.035 pH 7.0 4.5-8.0 Glucose NEGATIVE Bilirubin NEGATIVE Ketones NEGATIVE Protein NEGATIVE Urobilinogen 0.2 0-0.2 E.U./dL Nitrites NEGATIVE Blood NEGATIVE Leukocytes NEGATIVE WBCs 0-5 RBCs No RBC's Seen. Squamous Epithelial 2+ Transitional Epithelial Cells 1+ Amorphous Crystals 1+ Bacteria Occasional Hyaline Casts 2+ Mucous Occasional Hematology :30:00 Result Normal Range Units WBC 10.3 4.8-10.8 103/uL RBC L 3.5 4.2-5.4 106/uL HGB L 10.3 12.0-16.0 g/dl HCT L 30.3 36.9-47.0 % MCV 87.1 81-99 FL MCH 29.6 27-31 pg MCHC 34.0 33-37 g/dl RDW 14.3 11.5-15.5 % PLT 275 130-400 103/uL MPV 8.7 7.3-10.4 FL Body Fluid :20:00 Result Normal Range Units pH 7.0 4.5-8.0 Radiology Results :30:00 Result Normal Range Units MPV 8.7 7.3-10.4 FL History of procedures Procedure Code Code Type Description Date Performed Performing Physician 73.6 ICD9-CM EPISIOTOMY 06-26-2014 75.69 ICD9-CM REPAIR OB LACERATION NEC 06-26-2014 K TODD PORRAS 03.90 ICD9-CM INSER CATH SPINAL CANAL 06-26-2014 AUBREY JO Functional status Functional Status Finding Observation Time Hearing Prob Loc none :10 Vision Problems no :10 Ambulation Asst Dev none :10 Range of Motion full :00 Muscle Strength RUE 5 ROM full resist :00 Muscle Strength RLE 5 ROM full resist :00 Muscle Strength LUE 5 ROM full resist :00 Muscle Strength LLE 5 ROM full resist :00 Transfers independent :15 Ambulation up ad cody :15 Balance steady :00 Bathing Assistance none :10 Eating Assistance none :10 Dressing Assistance none :10 Toileting Assistance none :10 Transfer Assistance none :10 Decline Slf Care/Mob no :10 Phys Cond Stable yes :10 Nutrition normal :15 Diet regular :15 Oral Cavity moist and intact :15 Teeth intact :15 Dental Hygiene good :15 Abdomen Appearance other (specify) :15 Abdomen soft :15 Bowel Sounds present :15 NG Tube no :00 Feeding Tube none :00 Peacock no :15 Cont Bladder Irr no :00 Ostomy no :00 Stool normal [id number] Color normal :30 Consistency normal :30 Urination normal :15 Urine Clarity clear :15 Urine Color straw :15 Quality sym/unlabored : Cough absent : Secretions no : Breath Sounds RUL clear :15 Breath Sounds RML clear : Breath Sounds RLL clear :15 Breath Sounds LANI clear : Breath Sounds LLL clear :15 Airway natural :00 Chest Tube no :00 Oxygen no :15 Oxygen Mask Type non-rebreather :40 Oxygen Flow Rate 10 :40 C-PAP no :00 BI-PAP no :00 Temp >100.4 no : Temp <96.8 no :00 Chills with rigors no : HR > 90bpm yes : Respirations > 20 no :00 Systolic <90 no :00 headache stiff neck no :00 WBC > 69619 no : WBC < 4000 no :00 IV Site Location L arm :15 IV Type peripheral :15 IV Site Information discontinued :15 IV Site Start Attmpt 1 times :21 IV Site Jere 18 :15 IV Site Appearance other (specify) :15 IV Site Color other (specify) : IV Site Patent yes :23 Dressing Changed no (explain) Comment: c/d/i :23 Dressing Type occlusive :23 Nursing Note Pt here to have baby checked . States her milk coming in. States her pain is minimal. Pt and SO bonding well. NO concerns. Will cont to monitor. :40 Cognitive Status Finding Observation Time Oriented To Date 5 Yes :[address] 5 Yes :10 Name 3 Objects 3 Yes :10 Name Object in Rm 2 Yes :10 Recall 3 Objects 3 Yes :10 Repeats a Phrase 1 Yes : Follows Verbal Direc 3 Yes : Follows Written Dire 1 Yes : Write a Sentance 1 Yes : Draw an Object 1 Yes :10 Mini Mental Total 25 points :10 Learning Ability comprehends well :15 Neurological no :15 Psychological no :15 Physical no :15 Hearing no :15 Regrind Mill Operator Needed no : Sign Language no :15 Emotional no :15 Vision no :15 Laguage no :15 Financial no :15 Vital signs Type Value Date Respiration Rate 18breaths per minute : Pulse 82beats per minute :15 Oxygen Saturation 98% :15 BP Systolic 111mmHg :15 BP Diastolic 64mmHg :15 Temperature 98.5F :15 Height 64inches :19 Weight 165LB :19 Social history Type Value Smoking Status NEVER SMOKER Treatment Plan No treatment plan text is available for this visit. Hospital discharge instructions Discharge Date/Time 06-28-142009 Accompanied By Zackary Relationship spouse/signif other Dismissal Condition good Disposition on DC home Valuables yes Valuable Type cell phone Valuables Returned T patient DC Inst/Educ Give yes Exit Care Educ Given yes Med/Side Effects Rev yes DC Med Rec Rev yes Immun Indicated yes PNE Vac n/a Vaccines Ord Given yes Flu Vac utd Tetanus Vac utd Medical Equipment none Diet Explained yes Follow up appt already scheduled Follow Up Appt D/T 6 weeks
--- OUTSIDE RECORDS SUMMARY | 2019-08-17 21:24 | XMS REPORT ---
Author Author E-Health Records [employer] [facility] E-Health Records [employer] [facility] [employer] Address [address] [address] Care Team Providers Care Leather Colorer Name Role Phone COLBY INGRAM Unavailable NO, LOCAL PHYSICIAN Unavailable Unavailable VAHID DOWELL Unavailable OBDULIA MAURER Unavailable Unavailable SKYLER VO Unavailable Jennifer Caruso Unavailable Unavailable MARBIN SOFIA Unavailable Unavailable JAYLEN SHIN, STORMY Higgins Unavailable Unavailable Unavailable Unavailable [facility] Unavailable Dee vailable PCP, NONE Unavailable Unavailable [facility] Unavailable Dee vailable ADALGISA STEVENSON Unavailable Unavailable ADALGISA STEVENSON Unavailable Unavailable ADALGISA STEVENSON Unavailable Unavailable DEYA SHIN, STACI Griffiths Unavailable Unavailable Unavailable Unavailable Unavailable Unavailable Unavailable Unavailable Unavailable Unavailable Unavailable Unavailable Unavailable Unavailable Unavailable Unavailable Unavailable Unavailable Unavailable Unavailable Allergies The data below is from unstructured sources Allergy Name Reaction Description Start Date Severity Status Provider No Known Allergies 201 06/16/04 Karen Ellsworth Allergy Name Reaction Description Start Date Severity Status Provider No Known Allergies 201 06/15/15 ELIZABETH Vega Allergy Name Reaction Description Start Date Severity Status Provider No Known Allergies 201 06/11/19 Christy Jay SNOW RANGER Allergy Name Reaction Description Start Date Severity Status Provider Allergies Unknown Allergy Name Reaction Description Start Date Severity Status Provider No Known Allergies 201 06/11/30 Monika Joselin Allergy Name Reaction Description Start Date Severity Status Provider No Known Allergies 201 05/21/29 Monika Joselin Allergy Name Reaction Description Start Date Severity Status Provider No Known Allergies 201 06/11/19 Ce Infante RMA Allergy Name Reaction Description Start Date Severity Status Provider No Known Allergies 201 06/13/27 Monika Joselin Allergy Name Reaction Description Start Date Severity Status Provider No Known Allergies 201 06/13/12 Christy Jay SNOW RANGER Allergy Name Reaction Description Start Date Severity Status Provider No Known Allergies 201 06/14/28 Monika Joseiln Allergy Name Reaction Description Start Date Severity Status Provider No Known Allergies 201 06/12/13 Monika Joselin Allergy Name Reaction Description Start Date Severity Status Provider No Known Allergies 201 06/13/04 Monika Joselin Allergen Category Ingred ient Status Reaction Severity Onset No Known Drug Allergies No known drug allergies No Known Drug Allergies Confirmed or Verified Allergy Name Reaction Description Start Date Severity Status Provider No Known Allergies 201 06/10/27 Monika Joselin Allergy Name Reaction Description Start Date Severity Status Provider No Known Allergies 201 05/21/03 Monika Joselin Allergy Name Reaction Description Start Date Severity Status Provider No Known Allergies 201 05/21/01 Monika Joselin Substance Reaction Event Type Date Status N.K.D.A. Unknown Non Jean g Allergy Feb, Unknown Allergy Name Reaction Description Start Date Severity Status Provider No Known Allergies 201 09/19/26 Eugenia Shaw SNOW RANGER Allergy Name Reaction Description Start Date Severity Status Provider No Known Allergies 201 09/19/26 Eugenia Shaw SNOW RANGER Encounters Encounter Date Encounter Type Encounter Diagnosis Care Provider Facility Start: Patient encounter [facility] 08-17-2019 procedure [facility] Start: Patient encounter [facility] 07-18-2019 procedure of [facility] End: 07-18-2019 Start: Patient encounter NA NA [facility] 03-04-2019 procedure [facility] ([id number]) Start: Patient encounter NONE PCP [facility] 11-04-2018 procedure [facility] ([id number]) Start: Office outpatient panda Plata MD [facility] 01-05-2018 30 minutes Work Phone: Work Phone: Start: Patient encounter 05-28-2017 procedure End: 05-28-2017 Start: Patient encounter Evelin Vuong Not Availab le ([id number]) 07-08-2016 procedure Start: Patient encounter Evelin Vuong Not Availab le ([id number]) 06-25-2016 procedure Start: Patient encounter Jennifer Zuly Not Avail able ([id number]) 06-16-2016 procedure End: 06-17-2016 Start: Patient encounter MARBIN SOFIA Not Availab le ([id number]) 02-28-2016 procedure Patient encounter NA NA [facility] Medical Equipment No Information Goals No Information Immunizations The data below is from unstructured sources No Known ImmunizationsNo immunization records.No immunization records.No immunizations recorded for this patient visitNo immunizations recorded for this patient visitNo immunizations recorded for this patient visitNo immunizations recorded for this patient visitNo immunizations recorded for this patient visitNo immunizations recorded for this patient visitNo immunizations recorded for this patient visitNo immunizations recorded for this patient visitNo immunizations recorded for this patient visitNo immunizations recorded for this patient visitNo immunizations recorded for this patient visitNo immunizations recorded for this patient visitNo immunizations recorded for this patient visitNo immunizations recorded for this patient visitNo immunizations recorded for this patient visitNo immunizations recorded for this patient visitNo immunizations recorded for this patient visitNo immunizations recorded for this patient visitNo immunizations recorded for this patient visitNo immunizations recorded for this patient visitNo immunizations recorded for this patient visitNo immunizations recorded for this patient visitNo immunizations recorded for this patient visitNo immunizations recorded for this patient visitNo immunizations recorded for this patient visitNo immunizations recorded for this patient visitNo immunizations recorded for this patient visitNo immunizations recorded for this patient visitNo immunizations recorded for this patient visit No immunizations recorded for this patient visitNo immunizations recorded for th is patient visitNo immunizations recorded for this patient visit No Known Immunizations No Known Immunizations Interventions No Information Medications Medication Drug Dates Sig Sig (Original) Class(es) (Normalized) azithromycin 250 mg oral Macrolide Start: ZITHR OMAX Z-GABBY 250 MG ORAL TABLET 2 tablet Antimicrob 04-15-2019 tabs day 1 then one tab daily days 2-5 (1 source) ial AZITHROM YCIN [id number] Active 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 NORGESTIMATE-ETH Progestin, Start: take 1 tablet SPRINTE C 28 0.25-35 MG-MCG ORAL TABLET 1 ESTRADIOL 0.25-35 MG-MCG Estrogen 04-13-2018 by mouth once pill by mouth daily for control TABS daily NORGESTI MATE-ETH ESTRADIOL (2 sources) [id number] Active Eugenia jimenez LPN Active Start: 04-13-2018 take 1 SPRINTEC 28 tablet by 0.25-35 MG-MCG mouth once ORAL TABLET 1 daily pill by mouth daily for control NORGESTIMATE-E TH ESTRADIOL [id number] Active Eugenia Squires LPN Active FENUGREEK BLOOD SUGAR Start: FENUGREEK BLOOD SUGAR HEALTH 500 MG ORAL HEALTH 500 MG ORAL 08-07-2014 CAPSULE FENUGREEK CAPSULE [id number] No Longer Active Rhina Parks (4 sources) End: Boni SHIN Active 01-05-2018 Start: 08-07-2014 FENUGREEK End: 01-05-2018 BLOOD SUGAR HEALTH 500 MG ORAL CAPSULE FENUGREEK BLOOD SUGAR HEALTH 500 MG ORAL CAPSULE FENUGREEK Inactive fenugreek seed meal Start: FENUGREEK BLOOD S UGAR HEALTH 500 MG ORAL (4 sources) 08-07-2014 CAPSULE FENUGREEK [id number] No Longer Active Rhina Parks End: Boni SHIN Active 01-05-2018 Start: 08-07-2014 FENUGREEK End: 01-05-2018 BLOOD SUGAR HEALTH 500 MG ORAL CAPSULE FENUGREEK BLOOD SUGAR HEALTH 500 MG ORAL CAPSULE FENUGREEK Inactive Start: 08-07-2014 FENUGREEK End: 01-05-2018 BLOOD SUGAR HEALTH 500 MG ORAL CAPSULE FENUGREEK [id number] No Longer Active Rhina Plata MD Active Start: 08-07-2014 FENUGREEK End: 01-05-2018 BLOOD SUGAR HEALTH 500 MG ORAL CAPSULE FENUGREEK BLOOD SUGAR HEALTH 500 MG ORAL CAPSULE FENUGREEK Inactive 1 ml medroxyPROGESTERone Progestin Start: DEPO- PROVERA 150 MG/ML INTRAMUSCULAR acetate 150 mg/ml 01-05-2018 SUSPENSION Use as d irected injection DEPO-PROVERA 150 MG/ML (6 sources) End: INTRAMUSCULAR SUSPE NSION [id number] 04-13-2018 MEDROXYPROGESTERONE ACETATE Inactive Start: 01-05-2018 DEPO-PROVERA End: 04-13-2018 150 MG/ML INTRAMUSCULAR SUSPENSION Use as directed MEDROXYPROGEST ERONE ACETATE [id number] No Longer Active Eugenia Squires LPN Active 1 30-0.975-200 Start: take 1 capsule PRENA VENKATA 1 30-0.975-200 MG ORAL CAPSULE MG ORAL CAPSULE 08-07-2014 by mouth once 1 qDay 08/07 (2 sources) daily MV-MIN-FE FUM-FA-DHA [id number] No End: Longer Active Rhina Plata MD Active 01-05-2018 MV-MIN-FE Start: take 1 capsule 1 30-0.975-200 MG ORAL CAPSULE FUM-FA-DHA 08-07-2014 by mouth once 1 qDay (6 sources) daily MV-MIN-FE FUM-FA-DHA [id number] [id number] No End: Longer Active Rhina Plata MD Active 01-05-2018 Start: 08-07-2014 take 1 1 End: 01-05-2018 capsule by 30-0.975-200 mouth once MG ORAL daily CAPSULE 1 qDay 1 30-0.975-200 MG ORAL CAPSULE MV-MIN-FE FUM-FA-DHA Inactive Start: 08-07-2014 take 1 1 End: 01-05-2018 capsule by 30-0.975-200 mouth once MG ORAL daily CAPSULE 1 qDay MV-MIN-FE FUM-FA-DHA [id number] No Longer Active Rhina Plata MD Active Start: 08-07-2014 take 1 1 End: 01-05-2018 capsule by 30-0.975-200 mouth once MG ORAL daily CAPSULE 1 qDay 1 30-0.975-200 MG ORAL CAPSULE MV-MIN-FE FUM-FA-DHA Inactive Payers Date Payer Normalized Payer Policy ID [facility] BLUE CROSS/BLUE SHIELD [id number] [employer] BLUE CROSS/BLUE SHIELD SELF PAY Self-[place] BLUE CROSS/BLUE SHIELD [id number] [facility]UR[facility] Plan of Treatment The data below is from unstructured sources Discharge Date 02/28/16 11:38pm Disposition 01 HOME, SELF-CARE Condition at Discharge Improved Instructions/Education Provided Pleu ritic Chest Pain (DC) Prescriptions See Medication Section Referrals NO,LOCAL PHYSICIAN - [facility] Physician Additional Instructions/Education Al l discharge instructions reviewed with patient and/or family. Voiced understanding. Follow up with family doctor. Return to ER for acute chest pain, ongoing symptoms, worsening or new problems. Activity Details Follow Up prn Reason: Problems Active Problems Problem Problem Date Last Documented Episodic/Chr Provider Classificati Recorded Date onic on Administrati Encounter for pre-employment Episodi c ve/social examination ; Translations: admission [Encounter for administrati ve (2 sources) examinations, unspecified] Anxiety Anxiety disorder, unspecified Chronic MARBIN BISMARK disorders (2 sources) Past or Other Problems Problem Problem Date Last Documented Episodic/Chr Provider Classificati Recorded Date onic on Diseases of Unspecified lesions of oral mucosa Episodic Jennifer mouth; Zuly excluding dental (2 sources) Nausea and Nausea with vomiting, unspecified Episodic MARBIN BISMARK vomiting (2 sources) Procedures Date Procedure Procedure Detail Performing Cl inician Start: Therapeutic Amaris Lambert LP N 01-05-2018 prophylactic/dx Work Phone: [phone] injection subq/im Start: Medroxyprogesteron Amaris Lambert L PN 01-05-2018 e acetate Work Phone: [phone] Start: Urine Rhina Plata MD 01-05-2018 test visual color Work Phone: [phone] cmprsn meths Results Test Name Value Interpreta Reference Facilit Date tion Range y Time not yet categorized on null (ACCRELATEDVI) : No~(CONVERS) : [facility] Client Not Billing~(FTRELTNCVG) : Availab Freetext~(REALRELTNCVG) : Real~(RELATINSTR) : le Please search using the first and last name ([phone] ) in the person search box. If you select add person the first and last name will pop ulate the name jeong above. (FTRELTNCVG) : Freetext~(RELATINSTR) : Please Not search using the first and last name in the Availa b person search box. If you select add person le the first and last name will populate the ([phone]) name jeong above.~(REALRELTNCVG) : Real~(NOEMAIL) : No Email not yet categorized on 2019-08-17 RED CELLS LEUKO [phone] OP RCLR ~ READY ~[id number] Invalid PENDING REDUCED AS1 OP RCLR ~ READY Interpreta LOCATIO tion Code N [facility] ([id number]) WRISTBAND NUMBER [id number] Invalid PENDING Interpreta LOCATIO 020 tion Code N [facility] 12:19-0 ([id number]) 400 laboratory on 2019-08-17 ABO and Rh group Nom OP Invalid PENDING 08-16 (Bld) Interpreta LOCATIO 020 tion Code [facility] 12:20-0 ([id number]) 400 Anion gap 15 mmol/L High 5-14 PENDING [Moles/Vol] mmol/L LOCATIO 020 [facility] 11:46-0 ([id number]) 400 aPTT Coag (PPP) 33 s Negative 24-35 s PENDING [Time] LOCATIO 020 [facility] 11:46-0 ([id number]) 400 Basophils (Bld) 0.1 10*3/uL Negative 0.0-0.1 PENDING 08-16 [#/Vol] 10*3/uL LOCATIO 020 [facility] 11:46-0 ([id number]) 400 Basophils/100 WBC 0 % Negative 0-10 % PENDING 08-16 (Bld) LOCATIO 020 [facility] 11:46-0 (02524) 400 Basophils/100 WBC 1 % Invalid % PENDING 08-16 (Bld) Interpreta LOCATIO 020 tion Code [facility] 11:46-0 (07032) 400 Blood group antibody Negative Invalid PENDING 08-16 screen Ql Interpreta LOCATIO 020 tion Code [facility] 12:42-0 (00008) 400 Calcium [Mass/Vol] 9.0 mg/dL Negative 8.5-10.1 PENDING 07-0 8-2 mg/dL LOCATIO 020 [facility] 11:46-0 ([id number]) 400 Chloride [Moles/Vol] 105 mmol/L Negative 98-107 PENDING 0 7-08-2 mmol/L LOCATIO 020 [facility] 11:46-0 (86071) 400 CO2 [Moles/Vol] 17 mmol/L Low 21-32 PENDING mmol/L LOCATIO 020 [facility] 11:46-0 (21080) 400 Creatinine 0.86 mg/dL Negative 0.60-1.30 PENDING [Mass/Vol] mg/dL LOCATIO 020 [facility] 11:46-0 (61743) 400 Creatinine and > Invalid PENDING Glomerular Interpreta LOCATIO 020 filtration tion Code N [facility] 11:46-0 rate.predicted panel ([id number]) 400 - Serum, Plasma or Blood Eosinophils (Bld) 0.4 10*3/uL High 0.0-0.3 PENDING 09-10 [#/Vol] 10*3/uL LOCATIO 020 [facility] 11:46-0 (11943) 400 Eosinophils/100 WBC 2 % Negative 0-10 % PENDING 09-10 (Bld) LOCATIO 020 [facility] 11:46-0 (58525) 400 Eosinophils/100 WBC 2 % Invalid % PENDING 09-10 (Nose) Interpreta LOCATIO 020 tion Code N [facility] 11:46-0 ([id number]) 400 Erythrocyte 12.7 % Negative 10.0-14.5 PENDING distribution width % LOCATIO 020 (RBC) [Ratio] N [facility] 11:46-0 (07319) 400 Glucose [Mass/Vol] 66 mg/dL Low 70-105 PENDING 07-0 8-2 mg/dL LOCATIO 020 [facility] 11:46-0 (29063) [place] [address] m[IU]/mL High <5 PENDING m[iU]/mL LOCATIO 020 [facility] 11:46-0 (65823) 400 Hematocrit (Bld) 36 % Negative 35-52 % PENDING [Volume fraction] LOCATIO 020 [facility] 11:46-0 (08426) 400 Hemoglobin (Bld) 12.4 g/dL Negative 11.5-16.0 PENDING [Mass/Vol] g/dL LOCATIO 020 N [facility] 11:46-0 ([id number]) 400 INR Coag (Platelet 1.0 Negative 0.8-1.4 PENDING 8-2 poor plasma or LOCATIO 020 blood) [Relative N [facility] 11:46-0 time] ([id number]) 400 Lymphocytes (Bld) 2.7 10*3/uL Negative 1.0-4.0 PENDING 2 [#/Vol] 10*3 [facility] 11:46-0 (61747) 400 Lymphocytes/100 WBC 15 % Negative PENDING (Bld) [facility] 020 [facility] 11:46-0 (34470) 400 MCH (RBC) [Entitic 30 pg Negative 25-34 pg PENDING 8-2 mass] [facility] Anand [facility] 11:46-0 (76453) 400 MCHC (RBC) 34 g/dL Negative 32-36 g/dL PENDING [Mass/Vol] [facility] 11:46-0 (54910) 400 MCV (RBC) [Entitic 88 Negative 80-99 PENDING 8-2 vol] [foz_us] [facility] 11:46-0 (67391) 400 Monocytes (Bld) 0.9 10*3/uL Negative 0.0-1.0 PENDING 08-16 [#/Vol] 10*3 [facility] Anand [facility] 11:46-0 (57536) 400 Monocytes/100 WBC 5 % Negative PENDING (Bld) [facility] 11:46-0 (52417) 400 Neutrophils (Bld) 13.9 10*3/uL High 1.8-7.8 PENDING [#/Vol] 10*3 [facility] Anand [facility] 11:46-0 (26608) 400 Neutrophils/100 WBC 78 % High 42-75 % PENDING 2 (Bld) [facility] An[facility] 11:46-0 (88614) 400 Platelet mean volume 8.5 Negative 7.4-10.4 PENDING 2 (Bld) [Entitic vol] [foz_us] LOCATIO 020 [facility] 11:46-0 ([id number]) 400 Platelets (Bld) 355 10*3/uL Negative 130-400 PENDING 08-16 [#/Vol] 10*3/uL LOCATIO 020 N [facility] 11:46-0 (26160) 400 Potassium 3.9 mmol/L Negative 3.6-5.0 PENDING [Moles/Vol] mmol/L LOCATIO 020 [facility] 11:46-0 (28686) 400 PT Coag (PPP) [Time] 13.4 s Negative 12.2-14.7 PENDING s LOCATIO 020 N [facility] 11:46-0 (93178) 400 RBC (Bld) [#/Vol] 4.11 10*6/uL Low 4.35-5.85 PENDING 10*6/uL LOCATIO 020 [facility] 11:46-0 (76949) 400 RBC morphology NORMAL Invalid PENDING finding Nom (Bld) Interpreta LOCATIO 020 tion Code N [facility] 11:46-0 (28895) 400 Segmented 77 % Invalid % PENDING neutrophils/100 WBC Interpreta LOCATIO 020 (Bld) tion Code N [facility] 11:46-0 (70213) 400 Sodium [Moles/Vol] 137 mmol/L Negative 135-145 PENDING 09-10 mmol/L LOCATIO 020 N [facility] 11:46-0 (73630) 400 Urea nitrogen 10 mg/dL Negative 7-18 mg/dL PENDING [Mass/Vol] LOCATIO 020 [facility] 11:46-0 (37699) 400 Urea 12 mg/mg Invalid PENDING nitrogen/Creatinine Interpreta LOCATIO 020 [Mass ratio] tion Code N [facility] 11:46-0 (10702) 400 WBC (Bld) [#/Vol] 17.9 10*3/uL High 4.3-11.0 PENDING 10*3/uL LOCATIO 020 [facility] 11:46-0 (31572) 400 laboratory on 2019-07-19 HBV surface Ab Ql Non Reactive Invalid [facility] (S) Interpreta (25115) 020 tion Code 13:44-0 400 MeV IgG IA Qn (S) 128.0 Invalid Immune [facility] 07-18 Interpreta >16.4 (10371) 020 tion Code AU/mL 13:44-0 400 MuV IgG IA Qn (S) 20.3 Invalid Immune [facility] 07-18 Interpreta >10.9 (26347) 020 tion Code AU/mL 13:44-0 400 Rubella virus IgG Qn 3.76 Invalid Immune [facility] (S) Interpreta >0.99 (33123) 020 tion Code index 20:00-0 400 VZV IgG IA Qn (S) 2805 Invalid Immune [facility] 07-18 Interpreta >165 index (23788) 020 tion Code 13:44-0 400 not yet categorized on 2019-07-18 Barbiturates Negative Invalid Hospita Interpreta l 020 tion Code [facility] 07:50-[address] [place] [address] (24436) Employee Representative Marielle Sommers Invalid Hospita Interpreta l 020 tion Code [facility] 07:50-[address] [place] [address] ([id number]) Donor ID By Photo ID Invalid Hospita Interpreta l 020 tion Code [facility] 07:50-[address] [place] [address] (33063) HEP B SURFACE AB, NON REACTIVE Invalid Hospita QUAL Interpreta l 020 tion Code Distric 07:50-0 [address] [place] [address] (05716) Location C Employee Invalid Hospita Interpreta l 020 tion Code Distric 07:50-0 [address] [place] [address] (13990) MDMA Negative Invalid Hospita Interpreta l 020 tion Code Distric 07:50-0 [address] [place] [address] (55051) MEASLES ANTIBODIES, 128.0 Invalid IMMUNE Hospita 09-10 IGG Interpreta >16.4 l 020 tion Code AU/ML Distric 07:50-0 [address] [place] [address] (44819) MUMPS ABS, IGG 20.3 Invalid IMMUNE Hospita Interpreta >10.9 l 020 tion Code AU/ML Distric 07:50-0 [address] [place] [address] (27609) Oxycodone Negative Invalid Hospita Interpreta l 020 tion Code Distric 07:50-0 [address] [place] [address] (54189) PCP Negative Invalid Hospita Interpreta l 020 tion Code Distric 07:50-0 [address] [place] [address] (23301) Reason For Test Pre-Employment Invalid Hospita Interpreta l 020 tion Code Distric 07:50-0 [address] [place] [address] (71545) RUBELLA ANTIBODIES, 3.76 Invalid IMMUNE Hospita 09-10 IGG Interpreta >0.99 l 020 tion Code INDEX Distric 07:50-0 [address] [place] [address] (44469) Temperature In Range YES Invalid 90.00-100. Hospita 0 07-17-2 Interpreta 00 Deg F l 020 tion Code Distric 07:50-0 [address] [place] [address] (45863) THC Metabolite Negative Invalid Hospita Interpreta l 020 tion Code Distric 07:50-0 [address] [place] [address] (96031) VARICELLA ZOSTER IGG 2805 Invalid IMMUNE Hospita Interpreta >165 INDEX l 020 tion Code Distric 07:50-0 [address] [place] [address] (91427) laboratory on 2019-07-18 Amphetamines Ql (U) Negative Invalid Hospita Interpreta l 020 tion Code Distric 07:50-0 [address] [place] [address] (92602) Benzodiazepines Ql Negative Invalid Hospita (U) Interpreta l 020 tion Code Distric 07:50-0 [address] [place] [address] (13712) Cocaine Ql (U) Negative Invalid Hospita Interpreta l 020 tion Code Distric 07:50-0 [address] [place] [address] (03228) Dextromethamphetamin Negative Invalid Hospita 07-17 e Screen Ql (U) Interpreta l 020 tion Code Distric 07:50-0 [address] [place] [address] (00010) Ethanol Ql (U) <10.00 Low 20.00-80.0 Hospita 0 mg/dL l 020 Distric 07:50-0 t #1 of 400 [facility] (56636) Methadone Ql (U) Negative Invalid Hospita Interpreta l 020 tion Code Distric 07:50-0 t #1 of 400 [facility] (85097) Mycobacterium Submitted to [facility] tuberculosis for testing. Interpreta l 020 stimulated gamma tion Code Distric 07:50-0 interferon and spot t #1 of 400 count panel - Blood [facility] (91261) Opiates Ql (U) Negative Invalid Hospita Interpreta l 020 tion Code Distric 07:50-0 t #1 of 400 [facility] (47230) not yet categorized on 2019-03-04 COMMENT Invalid Communi Interpreta ty tion Code [facility] (26554) laboratory on 2019-03-04 C. trachomatis rRNA Detected Abnormal NOT Commun i SAMARA+probe Ql (Unsp DETECTED ty spec) [facility] (41151) N. gonorrhoeae rRNA Not detected Normal NOT Commu ni SAMARA+probe Ql (Unsp DETECTED ty spec) [facility] (44698) laboratory on 2018-01-05 Beta HCG ( Negative [place] test) Ql (U) [address] 13:00-0 (20482) 500 Work Phone: not yet categorized on 2016-06-16 TAMIR Prep No Yeast Seen Invalid Not Interpreta Availab 017 tion Code le 21:52-0 (30347) 400 Social History No Information Vital Signs Date Time Vital Sign Value Performing Clinician Facil ity 01-05-2018 Body height 165.1 cm QIE Admin [facility] 13:000500 (00346) Work Phone: 01-05-2018 Body temperature 99 [degF] QIE [facility] 13:000500 (37043) Work Phone: 01-05-2018 Body weight 66.86 kg QIE Admin [facility] 13:000500 (54764) Work Phone: 01-05-2018 Blood Pressure 125/ QIE Admin [employer] [facility] 13:00-0500 72mm[Hg] (29737) Work Phone: 01-05-2018 Heart rate 86 /min QIE Admin Luda [facility] 13:00-0500 ([id number]) Work Phone: Functional Status The data below is from unstructured sources Functional Status Finding Observation Time Hearing Prob Loc none 03:35 Vision Problems no 07-1603:35 Ambulation Asst Dev none 11-59-118916:35 Range of Motion full :00 Muscle Strength RUE 5 ROM full resist :00 Muscle Strength RLE 5 ROM full resist :00 Muscle Strength LUE 5 ROM full resist :00 Muscle Strength LLE 5 ROM full resist :00 Transfers independent 07:00 Ambulation in room 07-17:00 Balance steady 507:00 Bathing Assistance none 25-75-194051:35 Eating Assistance none 0 07-16-201403:35 Dressing Assistance none 98-60-781722:35 Toileting Assistance none :35 Transfer Assistance none :35 Decline Slf Care/Mob no :35 Phys Cond Stable yes 03:35 Nutrition normal 27539:00 Diet clear 82-15-642655 :00 Oral Cavity moist and intact :00 Teeth intact 07-17-2014 07:00 Dental Hygiene good 07:00 Abdomen Appearance flat :00 Abdomen tender 507:00 Bowel Sounds present 07:00 NG Tube no :00 Feeding Tube none 201407:00 Peacock no 12-72-492741:0 0 Cont Bladder Irr no 07:00 Ostomy no 81-24-108286: 00 Stool normal 07-17-2014 07:00 Urination normal 76135:00 Urine Clarity clear 07:00 Urine Color straw 201407:00 Quality sym/unlabored 07:00 Cough absent 07-17-2014 07:00 Secretions no 07-17-2014 07:00 Breath Sounds RUL clear 62-64-429253:00 Breath Sounds RML clear 16-66-920981:00 Breath Sounds RLL clear :00 Breath Sounds LANI clear :00 Breath Sounds LLL clear 51-76-100739:00 Airway natural 507:00 Chest Tube no 07-17-2014 07:00 Oxygen no 64-55-898722: 37 Oxygen Flow Rate RA 19:37 C-PAP no 97-80-184267:0 0 BI-PAP no 14-29-170197: 00 Temp >100.4 no 507:00 Temp <96.8 no 07-17-2014 07:00 Chills with rigors no 07:00 HR > 90bpm no 07-17-2014 07:00 Respirations > 20 no 07:00 Systolic <90 no 07-18-19 1507:00 headache stiff neck no 0 07-17-201407:00 WBC > 76689 no 507:00 WBC < 4000 no 07-17-2014 07:00 Rapid Resp no 07-17-2014 07:00 IV Site Location R AC 0 :37 IV Type peripheral 07-17:37 IV Site Information discontinued :37 IV Site Start Attmpt 1 times 15-84-695579:11 IV Site Jere 20 07-18-19 1519:37 IV Site Appearance WNL 0 :37 IV Site Color clear :37 IV Site Patent no [id number] Dressing Type gauze :37 Nursing Note Pt dc in good condition . she amb off unit accompanied by family. Has dc instructions in hand. No questions at this x. :37 Cognitive Status Finding Observation Time Oriented To Date 5 Yes 0 07-16-201403:[address] 5 Yes :35 Name 3 Objects 3 Yes :35 Name Object in Rm 2 Yes :35 Recall 3 Objects 3 Yes 0 :35 Repeats a Phrase 1 Yes 0 :35 Follows Verbal Direc 3 Yes :35 Follows Written Dire 1 Yes :35 Write a Sentance 1 Yes 0 :35 Draw an Object 1 Yes :35 Mini Mental Total 25 points 16-30-356594:35 Learning Ability comprehends well 60-53-621886:00 Neurological no 07-18-19 1507:00 Psychological no 54133:00 Physical no 7:00 Hearing no 95-87-707351 :00 Gasket Notcher Needed no 07:00 [place] [address]:00 Emotional no 07-17-2014 07:00 Vision no 87-48-198675: 00 Laguage no 83-24-004621 :00 Financial no 07-17-2014 07:00 Functional Status Finding Observation Time Diet regular 07-16-2014 00:00 Abdomen Appearance flat 95-74-926544:00 Abdomen tender 500:00 Bowel Sounds present 00:00 Peacock no 17-20-271814:0 0 Urination normal 43193:00 Quality sym/unlabored 00:00 Cough absent 07-16-2014 00:00 Secretions no 07-16-2014 00:00 Airway natural 500:00 Oxygen no 92-89-954909: 38 Temp >100.4 no 500:00 Temp <96.8 no 07-16-2014 00:00 Chills with rigors no 00:00 HR > 90bpm no 07-16-2014 00:00 Respirations > 20 no 00:00 Rapid Resp no 07-16-2014 00:00 IV Site Location Left AC 47-03-651922:35 IV Type peripheral 07-1601:35 IV Site Information discontinued 95-07-093841:35 IV Site Start Attmpt 1 times :20 IV Site Jere 20 07-17-19 1501:35 IV Site Patent yes 07-16:35 Dressing Type occlusive :35 Nursing Note patient returns to unit to get medicaitons. She however decides that the pain is back and she would like to be seen and kept for observation. Dr. Sharma notified. Will reassess patient and check in for new visit. No meds were given for take home at this time. :42 Functional Status Finding Observation Time Hearing Prob Loc none :35 Vision Problems no 07-16:35 Ambulation Asst Dev none :35 Range of Motion full :00 Muscle Strength RUE 5 ROM full resist :00 Muscle Strength RLE 5 ROM full resist :00 Muscle Strength LUE 5 ROM full resist :00 Muscle Strength LLE 5 ROM full resist :00 Transfers independent :00 Ambulation in room 07-17:00 Balance steady 507:00 Bathing Assistance none :35 Eating Assistance none 0 :35 Dressing Assistance none :35 Toileting Assistance none :35 Transfer Assistance none :35 Decline Slf Care/Mob no :35 Phys Cond Stable yes :35 Nutrition normal 37169:00 Diet clear :00 Oral Cavity moist and intact :00 Teeth intact 07-17-2014 07:00 Dental Hygiene good :00 Abdomen Appearance flat :00 Abdomen tender 507:00 Bowel Sounds present 07:00 NG Tube no :00 Feeding Tube none :00 Peacock no :0 0 Cont Bladder Irr no 06-0 8-417046:00 Ostomy no 04-66-015858: 00 Stool normal 07-17-2014 07:00 Urination normal 60830:00 Urine Clarity clear 07:00 Urine Color straw 201407:00 Quality sym/unlabored 07:00 Cough absent 07-17-2014 07:00 Secretions no 07-17-2014 07:00 Breath Sounds RUL clear 94-14-933082:00 Breath Sounds RML clear 75-73-619121:00 Breath Sounds RLL clear 95-47-631734:00 Breath Sounds LANI clear :00 Breath Sounds LLL clear 21-17-930460:00 Airway natural 507:00 Chest Tube no 07-17-2014 07:00 Oxygen no 66-09-057136: 37 Oxygen Flow Rate RA 19:37 C-PAP no 21-81-719703:0 0 BI-PAP no 90-43-327212: 00 Temp >100.4 no 507:00 Temp <96.8 no 07-17-2014 07:00 Chills with rigors no 07:00 HR > 90bpm no 07-17-2014 07:00 Respirations > 20 no 07:00 Systolic <90 no 07-18-19 1507:00 headache stiff neck no 0 07-17-201407:00 WBC > 49127 no 507:00 WBC < 4000 no 07-17-2014 07:00 Rapid Resp no 07-17-2014 07:00 IV Site Location R AC 0 :37 IV Type peripheral 07-17:37 IV Site Information discontinued 74-33-488318:37 IV Site Start Attmpt 1 times 27-03-950576:11 IV Site Jere 20 07-18-19 1519:37 IV Site Appearance WNL 0 :37 IV Site Color clear :37 IV Site Patent no [id number] Dressing Type gauze 19:37 Nursing Note Pt states she is soure but healing. Pt states doing well at home. Pt states Penelope and Edith form [facility] were woderful nurses and took care of her and her whole family. :31 Cognitive Status Finding Observation Time Oriented To Date 5 Yes 0 :[address] 5 Yes :35 Name 3 Objects 3 Yes :35 Name Object in Rm 2 Yes :35 Recall 3 Objects 3 Yes 0 :35 Repeats a Phrase 1 Yes 0 : Follows Verbal Direc 3 Yes : Follows Written Dire 1 Yes : Write a Sentance 1 Yes 0 : Draw an Object 1 Yes :35 Mini Mental Total 25 points :35 Learning Ability comprehends well :00 Neurological no 07-18-19 1507:00 Psychological no 05871:00 Physical no 7:00 Hearing no :00 Gasket Notcher Needed no :00 [place] [address]:00 Emotional no 07-17-2014 07:00 Vision no : 00 Laguage no :00 Financial no 07-17-2014 07:00 Functional Status Finding Observation Time Hearing Prob Loc none :10 Vision Problems no 06-25:10 Ambulation Asst Dev none :10 Range of Motion full :00 Muscle Strength RUE 5 ROM full resist :00 Muscle Strength RLE 5 ROM full resist :00 Muscle Strength LUE 5 ROM full resist :00 Muscle Strength LLE 5 ROM full resist :00 Transfers independent : Ambulation up ad cody :15 Balance steady 513:00 Bathing Assistance none :10 Eating Assistance none 0 :10 Dressing Assistance none :10 Toileting Assistance none :10 Transfer Assistance none 53-75-022833:10 Decline Slf Care/Mob no 04-16-316862:10 Phys Cond Stable yes :10 Nutrition normal 17656:15 Diet regular 06-28-2014 19:15 Oral Cavity moist and intact :15 Teeth intact 06-28-2014 19:15 Dental Hygiene good 06-1019:15 Abdomen Appearance other (specify) 99-15-191877:15 Abdomen soft 06-28-2014 19:15 Bowel Sounds present 19:15 NG Tube no 02-34-151978 :00 Feeding Tube none 201413:00 Peacock no 63-72-146917:1 5 Cont Bladder Irr no 06-0913:00 Ostomy no 46-18-318591: 00 Stool normal 06-25-2014 17:30 Color normal 06-25-2014 17:30 Consistency normal 06-2517:30 Urination normal 82487:15 Urine Clarity clear 06-1019:15 Urine Color straw 201419:15 Quality sym/unlabored 19:15 Cough absent 06-28-2014 19:15 Secretions no 06-28-2014 19:15 Breath Sounds RUL clear :15 Breath Sounds RML clear :15 Breath Sounds RLL clear :15 Breath Sounds LANI clear :15 Breath Sounds LLL clear 48-02-349700:15 Airway natural 513:00 Chest Tube no 06-27-2014 13:00 Oxygen no 13-53-830799: 15 Oxygen Mask Type non-rebreather 46-86-289610:40 Oxygen Flow Rate 10 15:40 C-PAP no :0 0 BI-PAP no 82-34-228897: 00 Temp >100.4 no 513:00 Temp <96.8 no 06-27-2014 13:00 Chills with rigors no 13:00 HR > 90bpm yes 513:00 Respirations > 20 no :00 Systolic <90 no 06-28-19 1513:00 headache stiff neck no 0 06-27-201413:00 WBC > 66342 no 513:00 WBC < 4000 no 06-27-2014 13:00 IV Site Location L arm :15 IV Type peripheral 06-26:15 IV Site Information discontinued : IV Site Start Attmpt 1 times 80-92-715658:21 IV Site Jere 18 06-27-19 1523:15 IV Site Appearance other (specify) : IV Site Color other (specify) : IV Site Patent yes 06-26: Dressing Changed no (explain) Comment: c/d/i : Dressing Type occlusive : Nursing Note Pt here to have baby ch ecked. States her milk coming in. States her pain is minimal. Pt and SO bonding well. NO concerns. Will cont to monitor. :40 Cognitive Status Finding Observation Time Oriented To Date 5 Yes 0 :[address] 5 Yes :10 Name 3 Objects 3 Yes :10 Name Object in Rm 2 Yes :10 Recall 3 Objects 3 Yes 0 :10 Repeats a Phrase 1 Yes 0 :10 Follows Verbal Direc 3 Yes :10 Follows Written Dire 1 Yes :10 Write a Sentance 1 Yes 0 :10 Draw an Object 1 Yes :10 Mini Mental Total 25 points :10 Learning Ability comprehends well :15 Neurological no 06-29-19 1519:15 Psychological no 06367:15 Physical no 9:15 Hearing no :15 Gasket Notcher Needed no :15 [place] [address]:15 Emotional no 06-28-2014 19:15 Vision no : 15 Laguage no :15 Financial no 06-28-2014 19:15 Functional Status Finding Observation Time Hearing Prob Loc none :10 Vision Problems no 06-25:10 Ambulation Asst Dev none :10 Range of Motion full :00 Muscle Strength RUE 5 ROM full resist :00 Muscle Strength RLE 5 ROM full resist :00 Muscle Strength LUE 5 ROM full resist :00 Muscle Strength LLE 5 ROM full resist :00 Transfers independent :15 Ambulation up ad cody :15 Balance steady 513:00 Bathing Assistance none :10 Eating Assistance none 0 :10 Dressing Assistance none :10 Toileting Assistance none :10 Transfer Assistance none :10 Decline Slf Care/Mob no :10 Phys Cond Stable yes :10 Nutrition normal 05089:15 Diet regular 06-28-2014 19:15 Oral Cavity moist and intact :15 Teeth intact 06-28-2014 19:15 Dental Hygiene good 06-1019:15 Abdomen Appearance other (specify) 46-87-145022:15 Abdomen soft 06-28-2014 19:15 Bowel Sounds present 19:15 NG Tube no 69-24-197081 :00 Feeding Tube none 201413:00 Peacock no 49-49-233604:1 5 Cont Bladder Irr no 06-09:00 Ostomy no : 00 Stool normal 06-25-2014 17:30 Color normal 06-25-2014 17:30 Consistency normal 06-2517:30 Urination normal 00387:15 Urine Clarity clear 06-1019:15 Urine Color straw 201419:15 Quality sym/unlabored 19:15 Cough absent 06-28-2014 19:15 Secretions no 06-28-2014 19:15 Breath Sounds RUL clear :15 Breath Sounds RML clear :15 Breath Sounds RLL clear :15 Breath Sounds LANI clear :15 Breath Sounds LLL clear :15 Airway natural 513:00 Chest Tube no 06-27-2014 13:00 Oxygen no : 15 Oxygen Mask Type non-rebreather :40 Oxygen Flow Rate 10 :40 C-PAP no 83-67-938016:0 0 BI-PAP no 15-68-913238: 00 Temp >100.4 no 513:00 Temp <96.8 no 06-27-2014 13:00 Chills with rigors no 13:00 HR > 90bpm yes 513:00 Respirations > 20 no :00 Systolic <90 no 06-28-19 1513:00 headache stiff neck no 0 06-27-201413:00 WBC > 62762 no 513:00 WBC < 4000 no 06-27-2014 13:00 IV Site Location L arm :15 IV Type peripheral 06-26:15 IV Site Information discontinued :15 IV Site Start Attmpt 1 times 67-46-018887:21 IV Site Jere 18 06-27-19 1523:15 IV Site Appearance other (specify) :15 IV Site Color other (specify) :15 IV Site Patent yes 06-26:23 Dressing Changed no (explain) Comment: c/d/i :23 Dressing Type occlusive :23 Nursing Note Patient dismissed with accomp by nurse and to private car. Damar secured in rear seat of car by FOB. :10 Cognitive Status Finding Observation Time Oriented To Date 5 Yes 0 :[address] 5 Yes 24-67-161865:10 Name 3 Objects 3 Yes :10 Name Object in Rm 2 Yes :10 Recall 3 Objects 3 Yes 0 :10 Repeats a Phrase 1 Yes 0 :10 Follows Verbal Direc 3 Yes : Follows Written Dire 1 Yes :10 Write a Sentance 1 Yes 0 :10 Draw an Object 1 Yes :10 Mini Mental Total 25 points :10 Learning Ability comprehends well :15 Neurological no 06-29-19 1519:15 [place] [address]:15 Physical no 9:15 Hearing no :15 Gasket Notcher Needed no : [place] [address]797:15 Emotional no 06-28-2014 19:15 Vision no : 15 Laguage no :15 Financial no 06-28-2014 19:15 Mental Status No Information Advance Directives Directive Response Recor ded Date/Time Advance Directives No 8:38pm Resuscitation Status Full Code 02/28/16 8:38pm Discharge Instructions Discharge Date/Time 07/18/2014 19:37 Accompanied By father and friend Relationship parent Dismissal Condition good Disposition on DC home Valuables yes Valuable Type cell phone Valuables Returned T patient DC Inst/Educ Give yes Exit Care Educ Given yes Med/Side Effects Rev yes DC Med Rec Rev yes Immun Indicated no PNE Vac n/a Flu Vac utd Tetanus Vac utd Medical Equipment none Diet Explained yes Follow up appt call for appointment Follow Up Appt D/T prn Dismissal Condition good Disposition on DC home DC Inst/Educ Give yes Med/Side Effects Rev yes Discharge Date/Time 07/18/2014 19:37 Accompanied By father and friend Relationship parent Dismissal Condition good Disposition on DC home Valuables yes Valuable Type cell phone Valuables Returned T patient DC Inst/Educ Give yes Exit Care Educ Given yes Med/Side Effects Rev yes DC Med Rec Rev yes Immun Indicated no PNE Vac n/a Flu Vac utd Tetanus Vac utd Medical Equipment none Diet Explained yes Follow up appt already scheduled Follow Up Appt D/T prn Discharge Date/Time 06-28-142009 Accompanied By Zackary Relationship [...] scheduled Follow Up Appt D/T 6 weeks Valuables yes Valuable Type cell phone Flu Vac 12-13-2013 Tetanus Vac 04-24-14 Summary Purpose TRANSITION OF CARE AUTO GENERATIONTRANSITION OF CARE AUTO GENERATIONeClinicalWorks SubmissionTRANSITION OF CARE AUTO GENERATIONTRANSITION OF CARE AUTO GENERATIONTRANSITION OF CARE AUTO GENERATIONTRANSITION OF CARE AUTO GENERATIONTRANSITION OF CARE AUTO GENERATIONTRANSITION OF CARE AUTO GENERATIONTRANSITION OF CARE AUTO GENERATIONTRANSITION OF CARE AUTO GENERATIONTRANSITION OF CARE AUTO GENERATIONTRANSITION OF CARE AUTO GENERATIONTRANSITION OF CARE AUTO GENERATIONTRANSITION OF CARE AUTO GENERATIONTRANSITION OF CARE AUTO GENERATIONTRANSITION OF CARE AUTO GENERATION Additional Source Comments This clinical document has been generated using [employer] software that has been certified by the Office of the National Coordinator for Health Information Technology (ONC 15.99.04.3023.Diam.[id number]) and the National Committee for Director Of Construction (NCQA, as an eMeasure certified technology). FOR RECORDS PERTAINING TO PATIENTS WHO ARE OR HAVE BEEN ENROLLED IN A CHEMICAL D EPENDENCY/SUBSTANCE ABUSE PROGRAM, SOME INFORMATION MAY BE OMITTED. This clinica l summary was aggregated from multiple sources. Caution should be exercised in using it in the provision of clinical care. This summary normalizes information from multiple sources, and as a consequence, information in this document may ma terially change the coding, format and clinical context of patient data. In martin tion, data may be omitted in some cases. CLINICAL DECISIONS SHOULD BE BASED ON T HE PRIMARY CLINICAL RECORDS. [employer]. provides no warranty or guara ntee of the accuracy or completeness of information in this document.The followi ng information is based on time limited clinical information
--- OUTSIDE RECORDS SUMMARY | 2019-08-17 21:24 | XMS REPORT ---
Author Author [facility] Medic al Staff, DIAMANTE Organization [facility] Address [address], [place] [address] Phone [phone] Care Team Providers Care Stuffing Machine Operator Name Role Phone MAGALYS SHIN, VAHID ABRAHAM [phone] VAHID DOWELL MD, PP [phone] Summary purpose TRANSITION OF CARE AUTO GENERATION Chief Complaint and Reason for Visit Admit Diagnosis 1 ABDOMINAL PAIN, RT UP QU Problem list No authorized problems tracked for continuity of care are available for this vis it. Encounters The following conditions tracked for encounter diagnoses were recorded for this visit: Finding or Diagnosis Status Certainty Chronicity Onset *ABDOMINAL PAIN Active Medications No medications recorded for this patient [...] Relevant diagnostic tests and/or laboratory data RESULTS Chemistry [id number]:45:00 Result Normal Range Units Sodium 144 134-145 mEq/l Potassium 3.7 3.5-5.1 mEq/l Chloride H 109 98-107 mEq/l CO2 H 30.2 22-28 mEq/l Glucose 76 70-105 mg/dl BUN L 6 7-18 mg/dl Creatinine 0.77 0.6-1.0 mg/dl Calcium L 8.0 8.4-10.2 mg/dl TP - Total Protein L 5.6 6.0-8.3 g /dl Albumin L 2.9 3.5-5 g/dl Bilirubin - Total 1.0 0.1-1.0 mg /dl AST 35 10-42 IU/L ALT 49 12-65 IU/L ALP H 85 25-72 IU/L Osmolality 283.2 280-300 mOsm/L Albumin/Globulin Ratio 1.1 0-8 Anion GAP L 4.8 8-16 BUN/Creatinine Ratio L 7.8 10-20 Estimated GFR 94 >= 60 mL/min /1.7 Hematology 24-28-128215:45:00 Result Normal Range Units WBC 7.8 4.8-10.8 103/uL RBC L 3.5 4.2-5.4 106/uL HGB L 10.4 12.0-16.0 g/dl HCT L 31.0 36.9-47.0 % MCV 88.1 81-99 FL MCH 29.5 27-31 pg MCHC 33.5 33-37 g/dl RDW 13.4 11.5-15.5 % PLT 328 130-400 103/uL MPV 8.5 7.3-10.4 FL Segs L 34.0 40-70 % Bands 1.0 0-5 % Lymphs H 49.0 20-40 % Kimball 8.0 0-10 % Eos 7.0 0-7 % Baso 1.0 0-2 % Special Chemistry [id number]:13:00 Result Normal Range Units HCG (Qualitative) Negative Radiology Results [id number]:18:00 Gallbladder Sono PACs Image DATE OF EXAM: 2014 [id number] SONO : RADIOLOGY REPORT DATE OF SERVICE:07/16/2014 HISTORY:Patient has right upper quad rant pain. GALLBLADDER ULTRASOUND:0842 HOURS The head and body of pancreas appear nor mal. The gallbladder contains a few very small dependent movable calculi . There is no gallbladder wall thickening. There is no biliary ductal d ilatation. The liver is homogeneous in echodensity. IMPRESSION: Cholelithiasis with multiple small stones. No dilatation of the common duct, which is only seen over a very short length. DO NENA Gutierrez/nola 07/16/2014 10:40:00 / 06/0 08/2014 17:55:45 cc:Dr Dowell This document has been electronically Signed by: On: DATE OF EXAM: 2014 [id number] SONO : RADIOLOGY REPORT DATE OF SERVICE:07/16/2014 HISTORY:Patient has right upper quad rant pain. GALLBLADDER ULTRASOUND:0842 HOURS The head and body of pancreas appear nor mal. The gallbladder contains a few very small dependent movable calculi . There is no gallbladder wall thickening. There is no biliary ductal d ilatation. The liver is homogeneous in echodensity. IMPRESSION: Cholelithiasis with multiple small stones. No dilatation of the common duct, which is only seen over a very short length. DO NENA Gutierrez/nola 07/16/2014 10:40:00 / 06/0 08/2014 17:55:45 cc:Dr Dowell This document has been electronically Signed by: TWIN PRINCE DO On: Jul 17 2014 10:18A RIGHT UPPER QUAD PAIN (RUQ) Result Amended on 2014-07-17 at 10:18:17 . Previous status was IN. RIGHT UPPER QUAD PAIN (RUQ) [id number]:45:00 Result Normal Range Units MPV 8.5 7.3-10.4 FL History of procedures Procedure Code Code Type Description Date Performed Performing Physician 51.23 ICD9-CM LAPAROSCOPIC CHOLECYSTEC 07-17-2014 92125 CPT-4 LAPAROSCOPIC CHOLECYSTECTOMY 07-17-2014 [place] [address] CPT-4 ECHO EXAM OF ABDOMEN 07-16-2014 JD DOWELL 51333 CPT-4 CHORIONIC GONADOTROPIN ASSAY 07-16-2014 VAHID DOWELL J7120 CPT-4 RINGERS LACTATE INFUSION 07-16-2014 M ARK COLT J7120 CPT-4 RINGERS LACTATE INFUSION 07-16-2014 M ARK COLT J1170 CPT-4 HYDROMORPHONE INJECTION 07-16-2014 MA RK COLT J1170 CPT-4 HYDROMORPHONE INJECTION 07-16-2014 MA RK COLT J1170 CPT-4 HYDROMORPHONE INJECTION 07-16-2014 MA RK COLT J2550 CPT-4 PROMETHAZIEN 25MG/ML 07-16-2014 JD DOWELL J2405 CPT-4 ONDANSETRON HCL INJECTION 07-16-2014 VAHID DOWELL J1170 CPT-4 HYDROMORPHONE INJECTION 07-16-2014 VE [place] DOWELL J7120 CPT-4 RINGERS LACTATE INFUSION 07-16-2014 V ZO DOWELL 93268 CPT-4 COMPLETE CBC, AUTOMATED 07-17-2014 VE [place] DOWELL 38592 CPT-4 COMPREHEN METABOLIC PANEL 07-17-2014 VAHID DOWELL 88582 CPT-4 BL SMEAR W/DIFF WBC COUNT 07-17-2014 VAHID DOWELL J1170 CPT-4 HYDROMORPHONE INJECTION 07-16-2014 MA RK COLT J7120 CPT-4 RINGERS LACTATE INFUSION 07-17-2014 M ARK COLT J1170 CPT-4 HYDROMORPHONE INJECTION 07-17-2014 MA RK COLT J1170 CPT-4 HYDROMORPHONE INJECTION 07-17-2014 MA RK COLT J1170 CPT-4 HYDROMORPHONE INJECTION 07-17-2014 NH RK COLT J2550 CPT-4 PROMETHAZIEN 25MG/ML 07-17-2014 JD DOWELL J2405 CPT-4 ONDANSETRON HCL INJECTION 07-17-2014 VAHID DOWELL J1100 CPT-4 DEXAMETHASONE SODIUM PHOS 07-17-2014 VAHID DOWELL J3010 CPT-4 FENTANYL CITRATE INJECITON 07-17-2014 VAHID DOWELL J2704 CPT-4 INJ, PROPOFOL, 10 MG 07-17-2014 JD DOWELL J0131 CPT-4 ACETAMINOPHEN INJECTION 07-17-2014 VE [place] DOWELL J2250 CPT-4 INJ MIDAZOLAM HYDROCHLORIDE 07-17-2014 VAHID DOWELL J7030 CPT-4 NORMAL SALINE SOLUTION INFUS 07-17-2014 VAHID DOWELL C9290 CPT-4 INJ, BUPIVICAINE LIPOSOME 07-17-2014 VAHID DOWELL J1170 CPT-4 HYDROMORPHONE INJECTION 07-17-2014 VE [place] DOWELL J7120 CPT-4 RINGERS LACTATE INFUSION 07-17-2014 V ZO DOWELL J1170 CPT-4 HYDROMORPHONE INJECTION 07-17-2014 VE [place] DOWELL 26651 CPT-4 ROUTINE VENIPUNCTURE 07-17-2014 JD DOWELL 32079 CPT-4 EMERGENCY DEPT VISIT 07-16-2014 TWIN GREGORY 76718 CPT-4 EMERGENCY DEPT VISIT 07-16-2014 TWIN GREGORY 68426 CPT-4 THER/PROPH/DIAG INJ, IV PUSH 07-16-2014 VAHID DOWELL 56481 CPT-4 TX/PRO/DX INJ NEW DRUG ADDON 07-16-2014 VAHID DOWELL 38780 CPT-4 OBSERVATION CARE 07-16-2014 VAHID BARAJAS 54445 CPT-4 OBSERVATION CARE 07-16-2014 VAHID BARAJAS 93220 CPT-4 OBSERVATION CARE 07-17-2014 VAHID BARAJAS 95253 CPT-4 TX/PRO/DX INJ NEW DRUG ADDON 07-16-2014 VAHID DOWELL 43886 CPT-4 TX/PRO/DX INJ NEW DRUG LOADING SHOVEL OILER 07-16-2014 VAHID DOWELL 85928 CPT-4 TX/PRO/DX INJ NEW DRUG LOADING SHOVEL OILER 07-17-2014 VAHID DOWELL Functional status Functional Status Finding Observation Time Hearing Prob Loc none 22-72-295858:35 Vision Problems no 44-82-390548:35 Ambulation Asst Dev none 22-08-481417:35 Range of Motion full :00 Muscle Strength RUE 5 ROM full resist :00 Muscle Strength RLE 5 ROM full resist :00 Muscle Strength LUE 5 ROM full resist :00 Muscle Strength LLE 5 ROM full resist :00 Transfers independent :00 Ambulation in room :00 Balance steady :00 Bathing Assistance none 00-27-020688:35 Eating Assistance none :35 Dressing Assistance none 07-72-821347:35 Toileting Assistance none :35 Transfer Assistance none :35 Decline Slf Care/Mob no 34-24-549680:35 Phys Cond Stable yes 99-15-203250:35 Nutrition normal :00 Diet clear :00 Oral Cavity moist and intact :00 Teeth intact :00 Dental Hygiene good :00 Abdomen Appearance flat :00 Abdomen tender :00 Bowel Sounds present :00 NG Tube no :00 Feeding Tube none :00 Peacock no :00 Cont Bladder Irr no :00 Ostomy no :00 Stool normal :00 Urination normal :00 Urine Clarity clear :00 Urine Color straw 00-94-512769:00 Quality sym/unlabored :00 Cough absent :00 Secretions no :00 Breath Sounds RUL clear :00 Breath Sounds RML clear :00 Breath Sounds RLL clear :00 Breath Sounds LANI clear :00 Breath Sounds LLL clear :00 Airway natural :00 Chest Tube no :00 Oxygen no :37 Oxygen Flow Rate RA :37 C-PAP no :00 BI-PAP no :00 Temp >100.4 no :00 Temp <96.8 no :00 Chills with rigors no :00 HR > 90bpm no :00 Respirations > 20 no :00 Systolic <90 no :00 headache stiff neck no :00 WBC > 29531 no :00 WBC < 4000 no :00 Rapid Resp no :00 IV Site Location R AC :37 IV Type peripheral :37 IV Site Information discontinued :37 IV Site Start Attmpt 1 times 91-44-431639:11 IV Site Jere 20 :37 IV Site Appearance WNL :37 IV Site Color clear :37 IV Site Patent no :37 Dressing Type gauze :37 Nursing Note Pt states she is soure but h ealing. Pt states doing well at home. Pt states Penelope and Edith form [facility] were woderful nurses and took care of her and her whole family. :31 Cognitive Status Finding Observation Time Oriented To Date 5 Yes :[address] 5 Yes 39-10-448673:35 Name 3 Objects 3 Yes :35 Name Object in Rm 2 Yes :35 Recall 3 Objects 3 Yes :35 Repeats a Phrase 1 Yes :35 Follows Verbal Direc 3 Yes :35 Follows Written Dire 1 Yes :35 Write a Sentance 1 Yes :35 Draw an Object 1 Yes :35 Mini Mental Total 25 points :35 Learning Ability comprehends well : Neurological no :00 Psychological no :00 Physical no :00 Hearing no :00 Nurses Assistant Needed no :00 Sign Language no :00 Emotional no :00 Vision no :00 Laguage no :00 Financial no :00 Vital signs Type Value Date Respiration Rate 20breaths per minute : 37 Pulse 84beats per minute :37 Oxygen Saturation 97% :37 BP Systolic 96mmHg :37 BP Diastolic 60mmHg :37 Temperature 98.6F :37 Height 64inches 43-25-956292:08 Weight 145LB 63-35-388257:08 Social history Type Value Smoking Status NEVER SMOKER Treatment Plan No treatment plan text is available for this visit. Hospital discharge instructions Discharge Date/Time 07/18/2014 19:37 Accompanied By father [...]
--- OUTSIDE RECORDS SUMMARY | 2019-08-17 21:24 | XMS REPORT ---
Author Author [facility] Medic al Staff, DIAMANTE Organization [facility] Address [address], [place] [address] Phone [phone] Care Team Providers Care Trash Collector Name Role Phone VAHID DOWELL MD PP [phone] Summary purpose TRANSITION OF CARE AUTO GENERATION Chief Complaint and Reason for Visit No authorized Reason for Visit (Admitting Diagnosis) is available for this visit . Problem list No authorized problems tracked for continuity of care are available for this vis it. Encounters No authorized problems tracked for encounter diagnoses are available for this vi sit. Medications No home medications recorded for this patient visit Allergies, adverse reactions, alerts Allergen Category Ingredient Status Reaction Severity Onset No Known Drug Allergies No known drug allergies No Known Drug Al lergies Confirmed or Verified Immunizations No immunizations recorded for this patient visit Relevant diagnostic tests and/or laboratory data RESULTS Routine Urinalysis 27-82-168567:15:00 Result Normal Range Units Color YELLOW Clarity Clear Specific [place] 1.010 1.003-1.035 pH 7.0 4.5-8.0 Glucose NEGATIVE Bilirubin NEGATIVE Ketones NEGATIVE Protein NEGATIVE Urobilinogen 0.2 0-0.2 E.U./dL Nitrites NEGATIVE Blood 1+ Leukocytes NEGATIVE WBCs 0-5 RBCs 10-20 Squamous Epithelial Few Bacteria 2+ Microbiology [id number]:15:00 Result Normal Range Units TAMIR Yeast Seen Body Fluid 63-01-080120:15:00 Result Normal Range Units pH 7.0 4.5-8.0 History of procedures No procedures recorded for [...]
--- OUTSIDE RECORDS SUMMARY | 2019-08-17 21:24 | XMS REPORT ---
Author Author [facility] Medic al Staff, DIAMANTE Organization [facility] Address [address], [place] [address] Phone [phone] Care Team Providers Care Regulatory Assistant Name Role Phone MAGALYS SHIN, VAHID ABRAHAM [phone] MAGALYS SHIN, VAHID ABRAHAM [phone] MAGALYS SHIN, VAHID ABRAHAM [phone] Summary purpose TRANSITION OF CARE AUTO GENERATION Chief Complaint and Reason for Visit Admit Diagnosis 1 THREAT LABOR NEC-ANTEPAR Problem list No authorized problems tracked for continuity of care are available for this vis it. Encounters No authorized problems tracked for encounter diagnoses are available for this vi sit. Medications No medications recorded for this patient visit Allergies, adverse reactions, alerts Allergen Category Ingredient Status Reaction Severity Onset No Known Drug Allergies No known drug allergies No Known Drug Al lergies Confirmed or Verified Immunizations No immunizations recorded for this patient visit Relevant diagnostic tests and/or laboratory data RESULTS Routine Urinalysis 14-67-706714:15:00 Result Normal Range Units Color YELLOW Clarity Hazy Specific [place] 1.020 1.003-1.035 pH 7.0 4.5-8.0 Glucose NEGATIVE Bilirubin NEGATIVE Ketones NEGATIVE Protein NEGATIVE Urobilinogen 0.2 0-0.2 E.U./dL Nitrites NEGATIVE Blood TRACE Leukocytes NEGATIVE WBCs 0-5 RBCs 5-10 Squamous Epithelial 1+ Amorphous Crystals 1+ Bacteria Occasional Mucous Occasional Body Fluid 49-34-672323:15:00 Result Normal Range Units pH 7.0 4.5-8.0 History of procedures Procedure Code Code Type Description Date Performed Performing Physician 94836 CPT-4 URINALYSIS, AUTO W/SCOPE 06-12-2014 Marta PORRAS 51499 CPT-4 EMERGENCY DEPT VISIT 06-12-2014 YASMINE PORRAS Functional status No functional or cognitive status [...]
--- OUTSIDE RECORDS SUMMARY | 2019-08-17 21:24 | XMS REPORT ---
Author Author [facility] Medic al Staff, DIAMANTE Organization [facility] Address [address], [place] [address] Phone [phone] Care Team Providers Care Senior Payroll Administrator Name Role Phone MAGALYS SHIN, VAHID ABRAHAM [phone] MAGALYS SHIN, VAHID ABRAHAM [phone] MAGALYS SHIN, VAHID ABRAHAM [phone] Summary purpose TRANSITION OF CARE AUTO GENERATION [...] tests and/or laboratory data RESULTS Routine Urinalysis [id number]:15:00 Result Normal Range Units Color YELLOW Clarity Hazy Specific [place] 1.020 1.003-1.035 pH 7.0 4.5-8.0 Glucose NEGATIVE Bilirubin NEGATIVE Ketones NEGATIVE Protein NEGATIVE Urobilinogen 0.2 0-0.2 E.U./dL Nitrites NEGATIVE Blood TRACE Leukocytes NEGATIVE WBCs 0-5 RBCs 5-10 Squamous Epithelial 1+ Amorphous Crystals 1+ Bacteria Occasional Mucous Occasional Body Fluid [id number]:15:00 Result Normal Range Units pH 7.0 4.5-8.0 [...]
--- OUTSIDE RECORDS SUMMARY | 2019-08-17 21:24 | XMS REPORT ---
Author Author [facility] Medic al Staff, DIAMANTE Organization [facility] Address [address] [place], [place] [address] Phone [phone] Care Team Providers Care Police Judge Name Role Phone MAGALYS SHIN, VAHID ABRAHAM [phone] MAGALYS SHIN, VAHID ABRAHAM [phone] MAGALYS SHIN, VAHID PP [phone] MAGALYS SHIN, VAHID PP [phone] Summary purpose TRANSITION OF CARE AUTO GENERATION [...] Range Units Color YELLOW Clarity Clear Specific [place] 1.015 1.003-1.035 pH 7.0 4.5-8.0 Glucose NEGATIVE [...] MPV 8.7 7.3-10.4 FL History of procedures No procedures recorded for this patient visit. Functional status Functional Status Finding Observation Time Hearing Prob Loc none :10 Vision Problems no :10 Ambulation Asst Dev none :10 Range of Motion full : Muscle Strength RUE 5 ROM full resist [...] no :00 Ostomy no :00 Stool normal :30 Color normal :30 Consistency normal :30 Urination normal :15 Urine Clarity clear :15 Urine Color straw :15 Quality sym/unlabored : Cough absent :15 Secretions no : Breath Sounds RUL clear : Breath Sounds RML clear : Breath Sounds RLL clear : Breath Sounds LANI clear : Breath Sounds LLL clear :15 Airway natural : Chest Tube no :00 Oxygen no : Oxygen Mask Type non-rebreather :40 Oxygen Flow Rate 10 :40 C-PAP no : BI-PAP no :00 Temp >100.4 no : Temp <96.8 no : Chills with rigors no : HR > 90bpm yes : Respirations > 20 no : Systolic <90 no :00 headache stiff neck no :00 WBC > 50990 no : WBC < 4000 no :00 IV Site Location L arm :15 IV Type peripheral :15 IV Site Information discontinued :15 IV Site Start Attmpt 1 times :21 IV Site Jere 18 :15 IV Site Appearance other (specify) :15 IV Site Color other (specify) :15 IV Site Patent yes :23 Dressing Changed no (explain) Comment: c/d/i : Dressing Type occlusive :23 Nursing Note Patient dismissed with william venegas accomp by nurse and to private car. secured in rear seat of car by FOB. :10 Cognitive Status Finding Observation Time Oriented To Date 5 Yes 17-13-086859:[address] 5 Yes :10 Name 3 Objects 3 Yes :10 Name Object in Rm 2 Yes :10 Recall 3 Objects 3 Yes :10 Repeats a Phrase 1 Yes :10 Follows Verbal Direc 3 Yes :10 Follows Written Dire 1 Yes : Write a Sentance 1 Yes : Draw an Object 1 Yes :10 Mini Mental Total 25 points :10 Learning Ability comprehends well :15 Neurological no :15 Psychological no :15 Physical no :15 Hearing no :15 General Engineering Teacher Needed no :15 Sign Language no :15 Emotional no :15 Vision no :15 Laguage no :15 Financial no :15 Vital signs Type Value Date Respiration Rate 18breaths per minute : 15 Pulse 82beats per minute :15 Oxygen Saturation 98% :15 BP Systolic 111mmHg :15 BP Diastolic 64mmHg :15 Temperature 98.5F :15 Height 64inches :19 Weight 165LB :19 Social history Type Value Smoking Status NEVER SMOKER Treatment Plan No treatment plan text is available for this visit. Hospital discharge instructions Valuables yes Valuable Type cell phone Flu Vac 12-13-2013 Tetanus Vac 04-24-14
--- OUTSIDE RECORDS SUMMARY | 2019-08-17 21:24 | XMS REPORT ---
Author Author [facility] Medic al Staff, DIAMANTE Organization [facility] Address [address] [place], [place] [address] Phone [phone] Care Team Providers Care Oven Dauber Name Role Phone VAHID DOWELL MD PP [phone] Summary purpose TRANSITION OF CARE AUTO GENERATION [...]
--- OUTSIDE RECORDS SUMMARY | 2019-08-17 21:25 | XMS REPORT ---
Author Author Kalina VO Organization [facility] Address [address] [place] [address] Care Team Providers Care Poultry Farmer Meat Name Role Phone GILDA SKYLER Unavailable PROBLEMS Type Condition ICD9-CM Code ZXV85-CM Code Onset Dates Condition S tatus SNOMED Code Problem Adjustment disorder with mixed anxiety and depressed mood F43.23 Active 54811028 ALLERGIES Substance Reaction Event Type Date Status N.K.D.A. Unknown Non Drug Allergy Feb, Unknown SOCIAL HISTORY No smoking Hx information available PLAN OF CARE Activity Details Follow Up prn Reason: VITAL SIGNS Height 64 in 2016-02-21 Weight 145.8 lbs 2016-02-21 Temperature 97.2 degrees Fahrenheit 2016-02-21 Heart Rate 84 bpm 2016-02-21 Respiratory Rate 18 2016-02-21 BMI 25.02 kg/m2 2016-02-21 Blood pressure systolic 122 mmHg 2016-02-21 Blood pressure diastolic 72 mmHg 2016-02-21 MEDICATIONS Medication Instructions Dosage Frequency Start Date End Date Duration S tatus Promethazine HCl 25 MG Orally every 6 hrs 1 tablet as needed 6h Feb, Feb, 4 days Active RESULTS Name Result Date Reference Range UA LONG DIP (IN HOUSE) 2016-02-21 Lot # [id number] Exp date 2017 Clarity clear Color yellow Odor none GLU negative GLADIS negative KET negative SG >1.030 BLO trace pH 5.5 Protein negative URO 0.2 NIT negative JACINTO negative Lot # [id number] Exp date 2017 03 PROCEDURES Procedure Date Ordered Related Diagnosis Body Site URINALYSIS, AUTO, W/O SCOPE Feb 21, 2016 Office Visit, Est Pt., Level 3 Feb 21, 2016 IMMUNIZATIONS No Known Immunizations
--- OUTSIDE RECORDS SUMMARY | 2019-08-17 21:25 | XMS REPORT ---
Author Author [facility] Medic al Staff, DIAMANTE Organization [facility] Address [address] [place], [place] [address] Phone [phone] Care Team Providers Care Cinema Operator Name Role Phone VAHID DOWELL MD PP [phone] Summary purpose TRANSITION OF CARE AUTO GENERATION [...] diagnostic tests and/or laboratory data RESULTS Chemistry 90-44-470238:13:00 Result Normal Range Units Sodium 142 134-145 mEq/l Potassium 4.3 3.5-5.1 mEq/l Moderate Hemolysis Chloride 106 98-107 mEq/l CO2 26.9 22-28 mEq/l Glucose 93 70-105 mg/dl BUN 12 7-18 mg/dl Creatinine 0.87 0.6-1.0 mg/dl Calcium 8.6 8.4-10.2 mg/dl TP - Total Protein 7.2 6.0-8.3 g /dl Albumin 3.8 3.5-5 g/dl Bilirubin - Total 0.5 0.1-1.0 mg /dl AST 36 10-42 IU/L ALT 29 12-65 IU/L ALP H 112 25-72 IU/L Lipase 175 73-393 U/L Osmolality 282.6 280-300 mOsm/L Albumin/Globulin Ratio 1.1 0-8 Anion GAP 9.1 8-16 BUN/Creatinine Ratio 13.8 10-20 Estimated GFR 81 >= 60 mL/min /1.7 Hematology :13:00 Result Normal Range Units WBC 9.3 4.8-10.8 103/uL RBC L 4.1 4.2-5.4 106/uL HGB 12.2 12.0-16.0 g/dl HCT L 33.8 36.9-47.0 % MCV 82.2 81-99 FL MCH 29.7 27-31 pg MCHC 36.1 33-37 g/dl RDW 13.5 11.5-15.5 % PLT H 411 130-400 103/uL MPV 8.5 7.3-10.4 FL Neutro % 51.1 40-70 % Lymph % 34.6 20-40 % [place] % 6.0 0-10.0 % Eos % H 7.8 0-7.0 % Baso % 0.5 0-2 % Neutro # 4.7 1.5-7.5 103/uL Lymph # 3.2 0.9-4.0 103/uL [place] # 0.6 0-0.8 103/uL Eos # H 0.7 0-0.6 103/uL Baso # 0.1 0-0.1 103/uL Radiology Results :13:00 Result Normal Range Units MPV 8.5 7.3-10.4 FL History of procedures No procedures recorded for this patient visit. Functional status Functional Status Finding Observation Time Diet regular 08-75-781001:00 Abdomen Appearance flat 60-59-191655:00 Abdomen tender 12-50-426673:00 Bowel Sounds present 10-10-849000:00 Peacock no :00 Urination normal 07-63-262345:00 Quality sym/unlabored :00 Cough absent 71-66-893677:00 Secretions no 87-86-336598:00 Airway natural 85-50-344898:00 Oxygen no 15-47-917751:38 Temp >100.4 no 65-66-936158:00 Temp <96.8 no 89-08-612859:00 Chills with rigors no 19-19-732039:00 HR > 90bpm no 55-38-850615:00 Respirations > 20 no :00 Rapid Resp no :00 IV Site Location Left AC 78-79-172289:35 IV Type peripheral :35 IV Site Information discontinued :35 IV Site Start Attmpt 1 times :20 IV Site Jere 20 :35 IV Site Patent yes :35 Dressing Type occlusive :35 Nursing Note patient returns to unit to [facility]. She however decides that the pain is back and she would like to be seen and kept for observation. Dr. Sharma notified. Will reassess patient and check in for new visit. No meds were given for take home at this time. 40-11-574780:42 Vital signs Type Value Date Respiration Rate 18breaths per minute : 38 Pulse 55beats per minute :38 Oxygen Saturation 99% :38 BP Systolic 107mmHg :38 BP Diastolic 60mmHg :38 Temperature 98.0F :38 Social history No Social History or smoking status observations were recorded for this visit. ( Unknown if ever smoked.) Treatment Plan No treatment plan text is available for this visit. Hospital discharge instructions Dismissal Condition good Disposition on DC home DC Inst/Educ Give yes Med/Side Effects Rev yes
--- OUTSIDE RECORDS SUMMARY | 2019-08-17 21:25 | XMS REPORT | Clinical Summary ---
Author Author Admin, Kalina Hollis Organization [employer] [facility] Address Unknown Phone Unavailable Allergies, Adverse Reactions, Alerts Allergy Name Reaction Description Start Date Severity Status Pr ovider No Known Allergies Eugenia Squires LPN Conditions or Problems Problem Name Problem Code Onset Date Status Entry Date Provider Comment Standard Description Annotate Supervision of normal first V22.0 Resolved Loren Weber DOCK ATTENDANT Supervision of normal first Pelvic pain 789.09 Resolved Loren Greerum DOCK ATTENDANT Abdominal pain, other specified site; multiple sites Uterine size date discrepancy, antepartum condition or compl ication 649.63 Resolved Loren Yokum DOCK ATTENDANT Uterine siz e date discrepancy, antepartum condition or complication Pharyngitis-Acute 462 Resolved Loren Yokum APR N Acute pharyngitis AFTERCARE FLW SURG TEETH ORL CAV&DIGESTV SYS NEC V58.75 07/25 Resolved Loren Yokum DOCK ATTENDANT Aftercare following surgery of the teeth,oral cavity and digestive system, NEC Physical examination V70.0 Active Loren Greerum A PRN Routine general medical examination at a health care facility Contraceptive management V25.9 Active Amaris Lambert FINGERER Encounter for unspecified contraceptive management Absent heart tones, unspecified trimester 659.73 08/08 Active Monika Joselin Abnormality in heart rate or rhythm, antepartum condition or complication Supervision of normal first ICD-V22.0 5 Inactive Loren Weber APRN Pelvic pain ICD-789.09 Inactive Loren JOHNSON RN Uterine size date discrepancy, antepartum condition or compl ication ICD-649.63 Inactive Loren Weber DOCK ATTENDANT Pharyngitis-Acute ICD-462 Inactive Loren slater DOCK ATTENDANT AFTERCARE FLW SURG TEETH ORL CAV&DIGESTV SYS NEC ICD-V58.75 Inactive Loren Weber DOCK ATTENDANT Medication List Medication Instructions Start Date Stop Date Generic Name NDC Status Provider Patient Instruction ZITHROMAX Z-GABBY 250 MG ORAL TABLET 2 tabs day 1 then one tab daily days 2-5 AZITHROMYCIN 07437154334 Active 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 DOCK ATTENDANT-C Active SPRINTEC 28 0.25-35 MG-MCG ORAL TABLET 1 pill by mouth daily for control NORGESTIMATE-ETH ESTRADIOL 58167528064 Active Eugenia jimenez FINGERER Active DEPO-PROVERA 150 MG/ML INTRAMUSCULAR SUSPENSION Use as directed MEDROXYPROGESTERONE ACETATE 66939758790 No Longer Active Chasidy Squires FINGERER Active FLONASE 50 MCG/ACT NASAL SUSPENSION 1 spray each nostril am and hs as needed FLUTICASONE PROPIONATE 97417701260 No Longer Active Marta Plata MD Active 1 30-0.975-200 MG ORAL CAPSULE 1 qDay 2 MV-MIN-FE FUM-FA-DHA 23256919559 No Longer Active Rhina Plata MD Active FENUGREEK BLOOD SUGAR HEALTH 500 MG ORAL CAPSULE 08/07 FENUGREEK 17368112481 No Longer Active Rhina Plata MD Active ORTHO MICRONOR 0.35 MG ORAL TABLET 1 tab po q day 2017 NORETHINDRONE (CONTRACEPTIVE) 02100051753 No Longer Active Rhina Plata MD Active [facility] IRON 325 (65 Fe) MG ORAL TABLET Take one by mouth daily 2014 FERROUS SULFATE 71251077856 No Longer Active Bev Dove APRN Active PREDNISONE 20 MG ORAL TABLET 1 tablet twice daily for 2 days, then 1 tablet once daily for 2 days PREDNISONE 25061072201 No Longer Active Rhina Plata MD Active EPIPEN 2-GABBY 0.3 MG/0.3ML INJECTION SOLUTION AUTO-INJECTOR as direc xavier EPINEPHRINE 61673045237 Active Rhina Plata MD Active PREDNISONE 20 MG ORAL TABLET 1 tablet twice daily for 2 days, then 1 tablet once daily for 2 days PREDNISONE 20 MG ORAL TABLET 204120 PREDNISONE Inactive [facility] IRON 325 (65 Fe) MG ORAL TABLET Take one by mouth daily 2014 [facility] IRON 325 (65 Fe) MG ORAL TABLET 560259 FERROUS SULF ATE Inactive ORTHO MICRONOR 0.35 MG ORAL TABLET 1 tab po q day 2017 ORTHO MICRONOR 0.35 MG ORAL TABLET 315530 NORETHINDRONE (CONTRACEPTIVE) I nactive FENUGREEK BLOOD SUGAR HEALTH 500 MG ORAL CAPSULE 08/07 FENUGREEK BLOOD SUGAR HEALTH 500 MG ORAL CAPSULE FENUGREEK Inactive 1 30-0.975-200 MG ORAL CAPSULE 1 qDay 2 1 30-0.975-200 MG ORAL CAPSULE MV-MIN-FE FUM-FA-DHA I nactive FLONASE 50 MCG/ACT NASAL SUSPENSION 1 spray each nostril am and hs as needed FLONASE 50 MCG/ACT NASAL SUSPENSION FLUTICASONE PROPIONATE Inactive DEPO-PROVERA 150 MG/ML INTRAMUSCULAR SUSPENSION Use as directed DEPO-PROVERA 150 MG/ML INTRAMUSCULAR SUSPENSION 3365098 MEDROXYPROGESTERONE ACETATE Inactive Immunizations Vaccine Administration Date Value Standard Kaiden cription hepatitis B vaccine series yes hepat itis B vaccine, unspecified formulation Encounters Code Encounter Date Provider Facility CPT-53643 Level 3 New Patient 12:35:11 GRAB OPERATOR Rhina worthy MD [facility] CPT-20477 Level 3 Est. Patient 16:43:13 CDT Loren slater APRN [facility] CPT-33233 Level 3 Est. Patient 09:56:59 GRAB OPERATOR Benjamin hussein DO [facility] Procedures Code Procedure Name Date Entry Date Standard Desc ription CPT-J1050 Depo Provera 150 mg (Medroxyprogesterone) 03/07 12:59:10 GRAB OPERATOR CPT-45488 Abx/Therapy Injection 12:59:10 GRAB OPERATOR CPT-J1050 Depo Provera 150 mg (Medroxyprogesterone) 03/07 12:35:12 GRAB OPERATOR CPT-25026 UHCG Urine - [place] ONLY 12:35:12 GRAB OPERATOR 01/05 CPT-85090 Abx/Therapy Injection 17:04:17 CDT CPT-J1050 Depo Provera 150 mg (Medroxyprogesterone) 08/15 17:04:17 CDT CPT-J1050 Depo Provera 150 mg (Medroxyprogesterone) 08/15 14:53:29 CDT CPT-44121 Postop F/U Visit 15:53:52 CDT CPT-18585 Visit 09:52:43 CDT CPT-98065 Visit 15:13:51 CDT CPT-52857 Visit 11:49:28 CDT CPT-20754 Visit 12:15:02 CDT CPT-29179 Visit 12:08:30 CDT CPT-00509 Adacel 16:55:52 CDT CPT-88605 Administration single or combination vac cine inc oral 16:55:52 CDT CPT-72668 Tdap 7yrs or > 16:19:02 CDT CPT-50608 Visit 16:19:02 CDT CPT-36926 Visit 10:35:45 GRAB OPERATOR CPT-12462 Venipuncture Draw Fee 08:56:41 GRAB OPERATOR CPT-35454 Visit 08:59:48 GRAB OPERATOR CPT-13822 Sono OB comp > 14 weeks 08:41:26 GRAB OPERATOR 02/13 CPT-19755 Visit 09:15:49 GRAB OPERATOR CPT-29406 Visit 10:52:07 GRAB OPERATOR CPT-65765 Visit 12:10:53 GRAB OPERATOR CPT-14704A Sono OB comp <14 weeks ([place] Only) 16:57:48 CDT CPT-33301 Fluzone 14:23:28 CDT CPT-74175 Spec Collection and Handling Fee 14:10:55 C DT CPT-90190 Visit 14:10:55 CDT
--- OUTSIDE RECORDS SUMMARY | 2019-08-17 21:25 | XMS REPORT | Clinical Summary ---
Author Author Tawanda, Kalina Hollis Organization [facility] [employer] Address Unknown Phone Unavailable Allergies, Adverse Reactions, Alerts Allergy Name Reaction Description Start Date Severity Status Pr ovider No Known Allergies Eugenia Squires LPN Conditions or Problems Problem Name Problem Code Onset Date Status Entry Date Provider Comment Standard Description Annotate Supervision of normal first V22.0 Resolved Loren Weber SALVAGE MACHINE OPERATOR Supervision of normal first Pelvic pain 789.09 Resolved Loren Yomesfinum SALVAGE MACHINE OPERATOR Abdominal pain, other specified site; multiple sites Uterine size date discrepancy, antepartum condition or compl ication 649.63 Resolved Loren Yokum SALVAGE MACHINE OPERATOR Uterine siz e date discrepancy, antepartum condition or complication Pharyngitis-Acute 462 Resolved Loren Yokum APR N Acute pharyngitis AFTERCARE FLW SURG TEETH ORL CAV&DIGESTV SYS NEC V58.75 07/25 Resolved Loren Yokum SALVAGE MACHINE OPERATOR Aftercare following surgery of the teeth,oral cavity and digestive system, NEC Physical examination V70.0 Active Loren Grereum A PRN Routine general medical examination at a health care facility Contraceptive management V25.9 Active Amaris Lambert INSPECTOR OUTSIDE STEAM DISTRIBUTION Encounter for unspecified contraceptive management Supervision of normal first ICD-V22.0 5 Inactive Loren Greerum SALVAGE MACHINE OPERATOR Pelvic pain ICD-789.09 Inactive Loren JOHNSON RN Uterine size date discrepancy, antepartum condition or compl ication ICD-649.63 Inactive Loren Weber SALVAGE MACHINE OPERATOR Pharyngitis-Acute ICD-462 Inactive Loren slater SALVAGE MACHINE OPERATOR AFTERCARE FLW SURG TEETH ORL CAV&DIGESTV SYS NEC ICD-V58.75 Inactive Loren Weber SALVAGE MACHINE OPERATOR Medication List Medication Instructions Start Date Stop Date Generic Name NDC Status Provider Patient Instruction DEPO-PROVERA 150 MG/ML INTRAMUSCULAR SUSPENSION Use as directed 201 09/19/26 MEDROXYPROGESTERONE ACETATE 08497459890 Active Amaris Lambert INSPECTOR OUTSIDE STEAM DISTRIBUTION Active FLONASE 50 MCG/ACT NASAL SUSPENSION 1 spray each nostril am and hs as needed FLUTICASONE PROPIONATE 43018759704 No Longer Active Mesfin Plata MD Active 1 30-0.975-200 MG ORAL CAPSULE 1 qDay 2 MV-MIN-FE FUM-FA-DHA 44534353063 No Longer Active Rhina Plata MD Active FENUGREEK BLOOD SUGAR HEALTH 500 MG ORAL CAPSULE 08/07 FENUGREEK 71450712487 No Longer Active Rhina Plata MD Active ORTHO MICRONOR 0.35 MG ORAL TABLET 1 tab po q day 2017 NORETHINDRONE (CONTRACEPTIVE) 90389084362 No Longer Active Rhina Plata MD Active [facility] IRON 325 (65 Fe) MG ORAL TABLET Take one by mouth daily 2014 FERROUS SULFATE 86638183418 No Longer Active Bev Dove SALVAGE MACHINE OPERATOR Active PREDNISONE 20 MG ORAL TABLET 1 tablet twice daily for 2 days, then 1 tablet once daily for 2 days PREDNISONE 41005896970 No Longer Active Rhina Plata MD Active EPIPEN 2-GABBY 0.3 MG/0.3ML INJECTION SOLUTION AUTO-INJECTOR as direc xavier EPINEPHRINE 33769617549 Active Rhina Plata MD Active PREDNISONE 20 MG ORAL TABLET 1 tablet twice daily for 2 days, then 1 tablet once daily for 2 days PREDNISONE 20 MG ORAL TABLET 895399 PREDNISONE Inactive [facility] IRON 325 (65 Fe) MG ORAL TABLET Take one by mouth daily 2014 [facility] IRON 325 (65 Fe) MG ORAL TABLET 490904 FERROUS SULF ATE Inactive ORTHO MICRONOR 0.35 MG ORAL TABLET 1 tab po q day 2017 ORTHO MICRONOR 0.35 MG ORAL TABLET 490103 NORETHINDRONE (CONTRACEPTIVE) I nactive FENUGREEK BLOOD SUGAR HEALTH 500 MG ORAL CAPSULE 08/07 FENUGREEK BLOOD SUGAR HEALTH 500 MG ORAL CAPSULE FENUGREEK Inactive 1 30-0.975-200 MG ORAL CAPSULE 1 qDay 2 1 30-0.975-200 MG ORAL CAPSULE MV-MIN-FE FUM-FA-DHA I nactive FLONASE 50 MCG/ACT NASAL SUSPENSION 1 spray each nostril am and hs as needed FLONASE 50 MCG/ACT NASAL SUSPENSION 4052043 FLUTICASONE PROPIONATE Inactive Immunizations Vaccine Administration Date Value Standard Kaiden cription hepatitis B vaccine series yes hepat itis B vaccine, unspecified formulation Vital Signs Date Name Value Unit Range Description blood pressure, diastolic 72 mm[Hg] BP ralph blood pressure, systolic 125 mm[Hg] BP sys height E&M 65 [in_us] Bdy height pulse rate E&M 86 /min Heart rate temperature E&M 99.0 [degF] Body temp erature weight E&M 147.40 [lb_av] Weight Measure d Diagnostic Results Date Name Value Unit Range Description Office Visit: Discuss Control - Ch emistry human chorionic gonadotropin , urine, qualitative (urine test) Negative Encounters Code Encounter Date Provider Facility CPT-68799 Level 3 New Patient 12:35:11 URBAN DESIGN CONSULTANT Rhina worthy MD [facility] CPT-68520 Level 3 Est. Patient 16:43:13 CDT Loren slater APRN [facility] CPT-34915 Level 3 Est. Patient 09:56:59 URBAN DESIGN CONSULTANT Benjamin hussein DO [facility] Procedures Code Procedure Name Date Entry Date Standard Desc ription CPT-J1050 Depo Provera 150 mg (Medroxyprogesterone) 03/07 12:59:10 URBAN DESIGN CONSULTANT CPT-13945 Abx/Therapy Injection 12:59:10 URBAN DESIGN CONSULTANT CPT-J1050 Depo Provera 150 mg (Medroxyprogesterone) 03/07 12:35:12 URBAN DESIGN CONSULTANT CPT-83925 UHCG Urine - [place] ONLY 12:35:12 URBAN DESIGN CONSULTANT 01/05 CPT-11200 Abx/Therapy Injection 17:04:17 CDT CPT-J1050 Depo Provera 150 mg (Medroxyprogesterone) 08/15 17:04:17 CDT CPT-J1050 Depo Provera 150 mg (Medroxyprogesterone) 08/15 14:53:29 CDT CPT-96306 Postop F/U Visit 15:53:52 CDT CPT-02031 Visit 09:52:43 CDT CPT-63442 Visit 15:13:51 CDT CPT-66696 Visit 11:49:28 CDT CPT-37486 Visit 12:15:02 CDT CPT-49504 Visit 12:08:30 CDT CPT-19314 Adacel 16:55:52 CDT CPT-28362 Administration single or combination vac cine inc oral 16:55:52 CDT CPT-08190 Tdap 7yrs or > 16:19:02 CDT CPT-81249 Visit 16:19:02 CDT CPT-74530 Visit 10:35:45 URBAN DESIGN CONSULTANT CPT-85438 Venipuncture Draw Fee 08:56:41 URBAN DESIGN CONSULTANT CPT-42356 Visit 08:59:48 URBAN DESIGN CONSULTANT CPT-74819 Sono OB comp > 14 weeks 08:41:26 URBAN DESIGN CONSULTANT 02/13 CPT-50887 Visit 09:15:49 URBAN DESIGN CONSULTANT CPT-09489 Visit 10:52:07 URBAN DESIGN CONSULTANT CPT-28799 Visit 12:10:53 URBAN DESIGN CONSULTANT CPT-26522N Sono OB comp <14 weeks ([place] Only) 16:57:48 CDT CPT-37189 Fluzone 14:23:28 CDT CPT-48035 Spec Collection and Handling Fee 14:10:55 C DT CPT-91980 Visit 14:10:55 CDT
--- OUTSIDE RECORDS SUMMARY | 2019-08-17 21:25 | XMS REPORT ---
Author Author Kalina INGRAM [facility] Address [address] [place] [address] Care Team Providers Care Assistant Manager Retail Name Role Phone COLBY INGRAM Unavailable PROBLEMS Type Condition ICD9-CM Code [id number] Code Onset Dates Condition S tatus SNOMED Code Problem Adjustment disorder with mixed anxiety and depressed mood F43.23 Active [id number] Assessment Adjustment disorder with mixed anxiety and depressed m ood F43.23 Dec, Active [id number] ALLERGIES Unknown Allergies SOCIAL HISTORY No smoking Hx information available PLAN OF CARE VITAL SIGNS MEDICATIONS Unknown Medications RESULTS No Results PROCEDURES Procedure Date Ordered Related Diagnosis Body Site Psych diagnostic evaluation, new patient Jan 08, 2016 IMMUNIZATIONS No Known Immunizations
--- OUTSIDE RECORDS SUMMARY | 2019-08-17 21:25 | XMS REPORT | Clinical Summary ---
Author Author Admin, Kalina Hollis Organization [employer] Address Unknown Phone Unavailable Allergies, Adverse Reactions, Alerts Allergy Name Reaction Description Start Date Severity Status Pr ovider No Known Allergies Eugenia Squires LPN Conditions or Problems Problem Name Problem Code Onset Date Status Entry Date Provider Comment Standard Description Annotate Supervision of normal first V22.0 Resolved Loren Yomesfinum CAR PRE COOLER Supervision of normal first Pelvic pain 789.09 Resolved Loren Yokum CAR PRE COOLER Abdominal pain, other specified site; multiple sites Uterine size date discrepancy, antepartum condition or compl ication 649.63 Resolved Loren Yokum CAR PRE COOLER Uterine siz e date discrepancy, antepartum condition or complication Pharyngitis-Acute 462 Resolved Loren Yokum APR N Acute pharyngitis AFTERCARE FLW SURG TEETH ORL CAV&DIGESTV SYS NEC V58.75 07/25 Resolved Loren Yokum CAR PRE COOLER Aftercare following surgery of the teeth,oral cavity and digestive system, NEC Physical examination V70.0 Active Loren Yomesfinum A PRN Routine general medical examination at a health care facility Contraceptive management V25.9 Active Amaris Lambert COOK NIGHT Encounter for unspecified contraceptive management Supervision of normal first ICD-V22.0 5 Inactive Loren Yokum CAR PRE COOLER Pelvic pain ICD-789.09 Inactive Loren JOHNSON RN Uterine size date discrepancy, antepartum condition or compl ication ICD-649.63 Inactive Loren Yokum CAR PRE COOLER Pharyngitis-Acute ICD-462 Inactive Loren slater CAR PRE COOLER AFTERCARE FLW SURG TEETH ORL CAV&DIGESTV SYS NEC ICD-V58.75 Inactive Loren Weber CAR PRE COOLER Medication List Medication Instructions Start Date Stop Date Generic Name NDC Status Provider Patient Instruction ZITHROMAX Z-GABBY 250 MG ORAL TABLET 2 tabs day 1 then one tab daily days 2-5 AZITHROMYCIN 37593739710 Active 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 CAR PRE COOLER-C Active SPRINTEC 28 0.25-35 MG-MCG ORAL TABLET 1 pill by mouth daily for control NORGESTIMATE-ETH ESTRADIOL 83943787362 Active Eugeniayani jimenez COOK NIGHT Active DEPO-PROVERA 150 MG/ML INTRAMUSCULAR SUSPENSION Use as directed MEDROXYPROGESTERONE ACETATE 86754129022 No Longer Active Chasidy Squires COOK NIGHT Active FLONASE 50 MCG/ACT NASAL SUSPENSION 1 spray each nostril am and hs as needed FLUTICASONE PROPIONATE 90747406098 No Longer Active Mesfin Plata MD Active 1 30-0.975-200 MG ORAL CAPSULE 1 qDay 2 MV-MIN-FE FUM-FA-DHA 80761169302 No Longer Active Rhina Plata MD Active FENUGREEK BLOOD SUGAR HEALTH 500 MG ORAL CAPSULE 08/07 FENUGREEK 64885391319 No Longer Active Rhina Plata MD Active ORTHO MICRONOR 0.35 MG ORAL TABLET 1 tab po q day 2017 NORETHINDRONE (CONTRACEPTIVE) 13361302858 No Longer Active Rhina Plata MD Active [facility] IRON 325 (65 Fe) MG ORAL TABLET Take one by mouth daily 2014 FERROUS SULFATE 54029416840 No Longer Active Bev Dove CAR PRE COOLER Active PREDNISONE 20 MG ORAL TABLET 1 tablet twice daily for 2 days, then 1 tablet once daily for 2 days PREDNISONE 44336287685 No Longer Active Rhina Plata MD Active EPIPEN 2-GABBY 0.3 MG/0.3ML INJECTION SOLUTION AUTO-INJECTOR as direc xavier EPINEPHRINE 78061109040 Active Rhina Plata MD Active PREDNISONE 20 MG ORAL TABLET 1 tablet twice daily for 2 days, then 1 tablet once daily for 2 days PREDNISONE 20 MG ORAL TABLET 408438 PREDNISONE Inactive [facility] IRON 325 (65 Fe) MG ORAL TABLET Take one by mouth daily 2014 [facility] IRON 325 (65 Fe) MG ORAL TABLET 633978 FERROUS SULF ATE Inactive ORTHO MICRONOR 0.35 MG ORAL TABLET 1 tab po q day 2017 ORTHO MICRONOR 0.35 MG ORAL TABLET 520016 NORETHINDRONE (CONTRACEPTIVE) I nactive FENUGREEK BLOOD SUGAR [...] as directed DEPO-PROVERA 150 MG/ML INTRAMUSCULAR SUSPENSION 4300524 MEDROXYPROGESTERONE ACETATE Inactive Immunizations Vaccine Administration Date Value Standard Kaiden cription hepatitis B vaccine series yes hepat itis B vaccine, unspecified formulation Encounters Code Encounter Date Provider Facility CPT-74818 Level 3 New Patient 12:35:11 PHOTOGRAPHER Rhina worthy MD [facility] CPT-34743 Level 3 Est. Patient 16:43:13 CDT Loren slater APRN [facility] CPT-66026 Level 3 Est. Patient 09:56:59 PHOTOGRAPHER Benjamin hussein DO [facility] Procedures Code Procedure Name Date Entry Date Standard Desc ription CPT-J1050 Depo Provera 150 mg (Medroxyprogesterone) 03/07 12:59:10 PHOTOGRAPHER CPT-76154 Abx/Therapy Injection 12:59:10 PHOTOGRAPHER CPT-J1050 Depo Provera 150 mg (Medroxyprogesterone) 03/07 12:35:12 PHOTOGRAPHER [facility]PT-60022 [facility] - [facility] ONLY 12:35:12 PHOTOGRAPHER 01/05 CPT-01964 Abx/Therapy Injection 17:04:17 CDT CPT-J1050 Depo Provera 150 mg (Medroxyprogesterone) 08/15 17:04:17 CDT CPT-J1050 Depo Provera 150 mg (Medroxyprogesterone) 08/15 14:53:29 CDT CPT-03033 Postop F/U Visit 15:53:52 CDT CPT-06333 Visit 09:52:43 CDT CPT-76179 Visit 15:13:51 CDT CPT-82661 Visit 11:49:28 CDT CPT-79655 Visit 12:15:02 CDT CPT-40894 Visit 12:08:30 CDT CPT-20321 Adacel 16:55:52 CDT CPT-44474 Administration single or combination vac cine inc oral 16:55:52 CDT CPT-06482 Tdap 7yrs or > 16:19:02 CDT CPT-56288 Visit 16:19:02 CDT CPT-40217 Visit 10:35:45 PHOTOGRAPHER CPT-39037 Venipuncture Draw Fee 08:56:41 PHOTOGRAPHER CPT-41806 Visit 08:59:48 PHOTOGRAPHER CPT-48913 Sono OB comp > 14 weeks 08:41:26 PHOTOGRAPHER 02/13 CPT-72657 Visit 09:15:49 PHOTOGRAPHER CPT-25241 Visit 10:52:07 PHOTOGRAPHER CPT-91198 Visit 12:10:53 PHOTOGRAPHER CPT-99557Y Sono OB comp <14 weeks ([place] Only) 16:57:48 CDT CPT-86377 Fluzone 14:23:28 CDT CPT-88175 Spec Collection and Handling Fee 14:10:55 C DT CPT-72143 Visit 14:10:55 CDT
--- OUTSIDE RECORDS SUMMARY | 2019-08-17 21:25 | XMS REPORT | Clinical Summary ---
Author Author Tawanda, Kalina Hollis Organization [facility] Data Address Unknown Phone Unavailable Allergies, Adverse Reactions, Alerts Allergy Name Reaction Description Start Date Severity Status Pr ovider No Known Allergies Eugenia Squires LPN Conditions or Problems Problem Name Problem Code Onset Date Status Entry Date Provider Comment Standard Description Annotate Supervision of normal first V22.0 Resolved Loren Weber PRINTING GRAY CLOTH TENDER Supervision of normal first Pelvic pain 789.09 Resolved Loren Yomesfinum PRINTING GRAY CLOTH TENDER Abdominal pain, other specified site; multiple sites Uterine size date discrepancy, antepartum condition or compl ication 649.63 Resolved Loren Yokum PRINTING GRAY CLOTH TENDER Uterine siz e date discrepancy, antepartum condition or complication Pharyngitis-Acute 462 Resolved Loren Yokum APR N Acute pharyngitis AFTERCARE FLW SURG TEETH ORL CAV&DIGESTV SYS NEC V58.75 07/25 Resolved Loren Yokum PRINTING GRAY CLOTH TENDER Aftercare following surgery of the teeth,oral cavity and digestive system, NEC Physical examination V70.0 Active Loren Greerum A PRN Routine general medical examination at a health care facility Contraceptive management V25.9 Active Amaris Lambert MEDIA SPECIALIST Encounter for unspecified contraceptive management Supervision of normal first ICD-V22.0 5 Inactive Loren Greerum PRINTING GRAY CLOTH TENDER Pelvic pain ICD-789.09 Inactive Loren JOHNSON RN Uterine size date discrepancy, antepartum condition or compl ication ICD-649.63 Inactive Loren Weber PRINTING GRAY CLOTH TENDER Pharyngitis-Acute ICD-462 Inactive Loren slater PRINTING GRAY CLOTH TENDER AFTERCARE FLW SURG TEETH ORL CAV&DIGESTV SYS NEC ICD-V58.75 Inactive Loren Weber PRINTING GRAY CLOTH TENDER Medication List Medication Instructions Start Date Stop Date Generic Name NDC Status Provider Patient Instruction DEPO-PROVERA 150 MG/ML INTRAMUSCULAR SUSPENSION Use as directed 201 09/19/26 MEDROXYPROGESTERONE ACETATE 29343029717 Active Amaris Lambert MEDIA SPECIALIST Active FLONASE 50 MCG/ACT NASAL SUSPENSION 1 spray each nostril am and hs as needed FLUTICASONE PROPIONATE 83717162718 No Longer Active Mesfin Plata MD Active 1 30-0.975-200 MG ORAL CAPSULE 1 qDay 2 MV-MIN-FE FUM-FA-DHA 52497500062 No Longer Active Rhina Plata MD Active FENUGREEK BLOOD SUGAR HEALTH 500 MG ORAL CAPSULE 08/07 FENUGREEK 14676477487 No Longer Active Rhina Plata MD Active ORTHO MICRONOR 0.35 MG ORAL TABLET 1 tab po q day 2017 NORETHINDRONE (CONTRACEPTIVE) 56603554548 No Longer Active Rhina Plata MD Active [facility] IRON 325 (65 Fe) MG ORAL TABLET Take one by mouth daily 2014 FERROUS SULFATE 58800855991 No Longer Active Bev Dove PRINTING GRAY CLOTH TENDER Active PREDNISONE 20 MG ORAL TABLET 1 tablet twice daily for 2 days, then 1 tablet once daily for 2 days PREDNISONE 43945890854 No Longer Active Rhina Plata MD Active EPIPEN 2-GABBY 0.3 MG/0.3ML INJECTION SOLUTION AUTO-INJECTOR as direc xavier EPINEPHRINE 41007716785 Active Rhina Plata MD Active PREDNISONE 20 MG ORAL TABLET 1 tablet twice daily for 2 days, then 1 tablet once daily for 2 days PREDNISONE 20 MG ORAL TABLET 597703 PREDNISONE Inactive [facility] IRON 325 (65 Fe) MG ORAL TABLET Take one by mouth daily 2014 [facility] IRON 325 (65 Fe) MG ORAL TABLET 853476 FERROUS SULF ATE Inactive ORTHO MICRONOR 0.35 MG ORAL TABLET 1 tab po q day 2017 ORTHO MICRONOR 0.35 MG ORAL TABLET 869053 NORETHINDRONE (CONTRACEPTIVE) I nactive FENUGREEK BLOOD SUGAR HEALTH 500 MG ORAL CAPSULE 08/07 FENUGREEK BLOOD SUGAR HEALTH 500 MG ORAL CAPSULE FENUGREEK Inactive 1 30-0.975-200 MG ORAL CAPSULE 1 qDay 2 1 30-0.975-200 MG ORAL CAPSULE MV-MIN-FE FUM-FA-DHA I nactive FLONASE 50 MCG/ACT NASAL SUSPENSION 1 spray each nostril am and hs as needed FLONASE 50 MCG/ACT NASAL SUSPENSION 2810251 FLUTICASONE PROPIONATE Inactive Immunizations Vaccine Administration Date [...] Negative Encounters Code Encounter Date Provider Facility CPT-13504 Level 3 New Patient 12:35:11 WAREHOUSE PERSON Rhina worthy MD [facility] CPT-77242 Level 3 Est. Patient 16:43:13 CDT Loren slater APRN [facility] CPT-34986 Level 3 Est. Patient 09:56:59 WAREHOUSE PERSON Benjamin hussein DO [facility] Procedures Code Procedure Name Date Entry Date Standard Desc ription CPT-J1050 Depo Provera 150 mg (Medroxyprogesterone) 03/07 12:59:10 WAREHOUSE PERSON CPT-63698 Abx/Therapy Injection 12:59:10 WAREHOUSE PERSON CPT-J1050 Depo Provera 150 mg (Medroxyprogesterone) 03/07 12:35:12 WAREHOUSE PERSON CPT-12394 UHCG Urine - [facility] ONLY 12:35:12 WAREHOUSE PERSON 01/05 CPT-76713 Abx/Therapy Injection 17:04:17 CDT CPT-J1050 Depo Provera 150 mg (Medroxyprogesterone) 08/15 17:04:17 CDT CPT-J1050 Depo Provera 150 mg (Medroxyprogesterone) 08/15 14:53:29 CDT CPT-37486 Postop F/U Visit 15:53:52 CDT CPT-28960 Visit 09:52:43 CDT CPT-92295 Visit 15:13:51 CDT CPT-52848 Visit 11:49:28 CDT CPT-55987 Visit 12:15:02 CDT CPT-18275 Visit 12:08:30 CDT CPT-15329 Adacel 16:55:52 CDT CPT-73562 Administration single or combination vac cine inc oral 16:55:52 CDT CPT-88023 Tdap 7yrs or > 16:19:02 CDT CPT-56976 Visit 16:19:02 CDT CPT-47790 Visit 10:35:45 WAREHOUSE PERSON CPT-40193 Venipuncture Draw Fee 08:56:41 WAREHOUSE PERSON CPT-42665 Visit 08:59:48 WAREHOUSE PERSON CPT-31386 Sono OB comp > 14 weeks 08:41:26 WAREHOUSE PERSON 02/13 CPT-82915 Visit 09:15:49 WAREHOUSE PERSON CPT-04978 Visit 10:52:07 WAREHOUSE PERSON CPT-66923 Visit 12:10:53 WAREHOUSE PERSON CPT-79831N Sono OB comp <14 weeks ([place] Only) 16:57:48 CDT CPT-31953 Fluzone 14:23:28 CDT CPT-74671 Spec Collection and Handling Fee 14:10:55 C DT CPT-60284 Visit 14:10:55 CDT
--- OUTSIDE RECORDS SUMMARY | 2019-08-17 21:25 | XMS REPORT | Clinical Summary ---
Author Author Tawanda, Kalina Hollis Organization [facility] Address Unknown Phone Unavailable Allergies, Adverse Reactions, Alerts Allergy Name Reaction Description Start Date Severity Status Pr ovider No Known Allergies Eugenia Squires LPN Conditions or Problems Problem Name Problem Code Onset Date Status Entry Date Provider Comment Standard Description Annotate Supervision of normal first V22.0 Resolved Loren Greerum CHORAL DIRECTOR Supervision of normal first Pelvic pain 789.09 Resolved Loren Yokum CHORAL DIRECTOR Abdominal pain, other specified site; multiple sites Uterine size date discrepancy, antepartum condition or compl ication 649.63 Resolved Loren Yokum CHORAL DIRECTOR Uterine siz e date discrepancy, antepartum condition or complication Pharyngitis-Acute 462 Resolved Loren Yokum APR N Acute pharyngitis AFTERCARE FLW SURG TEETH ORL CAV&DIGESTV SYS NEC V58.75 07/25 Resolved Loren Yokum CHORAL DIRECTOR Aftercare following surgery of the teeth,oral cavity and digestive system, NEC Physical examination V70.0 Active Loren Greerum A PRN Routine general medical examination at a health care facility Contraceptive management V25.9 Active Amaris Lambert CREW LEADER Encounter for unspecified contraceptive management Supervision of normal first ICD-V22.0 5 Inactive Loren Yomesfinum CHORAL DIRECTOR Pelvic pain ICD-789.09 Inactive Loren JOHNSON RN Uterine size date discrepancy, antepartum condition or compl ication ICD-649.63 Inactive Loren Weber CHORAL DIRECTOR Pharyngitis-Acute ICD-462 Inactive Loren slater CHORAL DIRECTOR AFTERCARE FLW SURG TEETH ORL CAV&DIGESTV SYS NEC ICD-V58.75 Inactive Loren Weber CHORAL DIRECTOR Medication List Medication Instructions Start Date Stop Date Generic Name NDC Status Provider Patient Instruction SPRINTEC 28 0.25-35 MG-MCG ORAL TABLET 1 pill by mouth daily for control NORGESTIMATE-ETH ESTRADIOL 67373562432 Active Eugenia M arshall CREW LEADER Active DEPO-PROVERA 150 MG/ML INTRAMUSCULAR SUSPENSION Use as directed MEDROXYPROGESTERONE ACETATE 67858823204 No Longer Active Chasidy nna Shaw CREW LEADER Active FLONASE 50 MCG/ACT NASAL SUSPENSION 1 spray each nostril am and hs as needed FLUTICASONE PROPIONATE 53044349887 No Longer Active Mesfin Plata MD Active 1 30-0.975-200 MG ORAL CAPSULE 1 qDay 2 MV-MIN-FE FUM-FA-DHA 68872146584 No Longer Active Rhina Plata MD Active FENUGREEK BLOOD SUGAR HEALTH 500 MG ORAL CAPSULE 08/07 FENUGREEK 50628529055 No Longer Active Rhina Plata MD Active ORTHO MICRONOR 0.35 MG ORAL TABLET 1 tab po q day 2017 NORETHINDRONE (CONTRACEPTIVE) 50836259100 No Longer Active Rhina Plata MD Active [facility] IRON 325 (65 Fe) MG ORAL TABLET Take one by mouth daily 2014 FERROUS SULFATE 26950294406 No Longer Active Bev Dove CHORAL DIRECTOR Active PREDNISONE 20 MG ORAL TABLET 1 tablet twice daily for 2 days, then 1 tablet once daily for 2 days PREDNISONE 18172757688 No Longer Active Rhina Plata MD Active EPIPEN 2-GABBY 0.3 MG/0.3ML INJECTION SOLUTION AUTO-INJECTOR as direc xavier EPINEPHRINE 49095069661 Active Rhina Plata MD Active PREDNISONE 20 MG ORAL TABLET 1 tablet twice daily for 2 days, then 1 tablet once daily for 2 days PREDNISONE 20 MG ORAL TABLET 422910 PREDNISONE Inactive [facility] IRON 325 (65 Fe) MG ORAL TABLET Take one by mouth daily 2014 [facility] IRON 325 (65 Fe) MG ORAL TABLET 289659 FERROUS SULF ATE Inactive ORTHO MICRONOR 0.35 MG ORAL TABLET 1 tab po q day 2017 ORTHO MICRONOR 0.35 MG ORAL TABLET 908279 NORETHINDRONE (CONTRACEPTIVE) I nactive FENUGREEK BLOOD SUGAR [...] as directed DEPO-PROVERA 150 MG/ML INTRAMUSCULAR SUSPENSION 7905609 MEDROXYPROGESTERONE ACETATE Inactive Immunizations Vaccine Administration Date [...] Negative Encounters Code Encounter Date Provider Facility CPT-95498 Level 3 New Patient 12:35:11 FUELS ENGINEER Rhina worthy MD [facility] CPT-67481 Level 3 Est. Patient 16:43:13 CDT Loren Greer bryon VASQUEZ [facility] CPT-40199 Level 3 Est. Patient 09:56:59 FUELS ENGINEER Benjamin hussein DO [facility] Procedures Code Procedure Name Date Entry Date Standard Desc ription CPT-J1050 Depo Provera 150 mg (Medroxyprogesterone) 03/07 12:59:10 FUELS ENGINEER CPT-54321 Abx/Therapy Injection 12:59:10 FUELS ENGINEER CPT-J1050 Depo Provera 150 mg (Medroxyprogesterone) 03/07 12:35:12 FUELS ENGINEER CPT-78410 [facility] [place] Urine - [facility] ONLY 12:35:12 FUELS ENGINEER 01/05 CPT-08214 Abx/Therapy Injection 17:04:17 CDT CPT-J1050 Depo Provera 150 mg (Medroxyprogesterone) 08/15 17:04:17 CDT CPT-J1050 Depo Provera 150 mg (Medroxyprogesterone) 08/15 14:53:29 CDT CPT-83312 Postop F/U Visit 15:53:52 CDT CPT-70586 Visit 09:52:43 CDT CPT-18827 Visit 15:13:51 CDT CPT-36592 Visit 11:49:28 CDT CPT-61587 Visit 12:15:02 CDT CPT-10880 Visit 12:08:30 CDT CPT-46287 Adacel 16:55:52 CDT CPT-29143 Administration single or combination vac cine inc oral 16:55:52 CDT CPT-16475 Tdap 7yrs or > 16:19:02 CDT CPT-93784 Visit 16:19:02 CDT CPT-43699 Visit 10:35:45 FUELS ENGINEER CPT-95953 Venipuncture Draw Fee 08:56:41 FUELS ENGINEER CPT-90691 Visit 08:59:48 FUELS ENGINEER CPT-74252 Sono OB comp > 14 weeks 08:41:26 FUELS ENGINEER 02/13 CPT-91553 Visit 09:15:49 FUELS ENGINEER CPT-77822 Visit 10:52:07 FUELS ENGINEER CPT-32131 Visit 12:10:53 FUELS ENGINEER CPT-24767C Sono OB comp <14 weeks ([place] Only) 16:57:48 CDT CPT-03159 Fluzone 14:23:28 CDT CPT-73901 Spec Collection and Handling Fee 14:10:55 C DT CPT-53958 Visit 14:10:55 CDT
--- OUTSIDE RECORDS SUMMARY | 2019-08-17 21:25 | XMS REPORT ---
Author Author Kalina MAURER Organization [employer] Address Unknown Phone Unavailable Care Team Providers Care Insurance Rater Name Role Phone OBDULIA MAURER Unavailable Allergies No Known Allergies Problems No Known Problems Medications No Known Medications Results No Known Results Summary Purpose [employer] Submission
--- OUTSIDE RECORDS SUMMARY | 2019-08-17 21:25 | XMS REPORT ---
Author Author EDUARDOBeijing [employer] [facility] Medic al Staff, DIAMANTE Organization [facility] Address [address], [place] [address] Phone [phone] Care Team Providers Care Center Director Name Role Phone VAHID DOWELL MD PP [phone] Summary purpose TRANSITION OF CARE AUTO GENERATION Chief Complaint and Reason for Visit Admit Diagnosis 1 SPOTTING COMP PREG-AP Problem list No authorized problems tracked for [...] tests and/or laboratory data RESULTS Routine Urinalysis [id number]:15:00 Result Normal Range Units Color YELLOW Clarity Clear Specific [place] 1.010 1.003-1.035 pH 7.0 4.5-8.0 Glucose NEGATIVE Bilirubin NEGATIVE Ketones NEGATIVE Protein NEGATIVE Urobilinogen 0.2 0-0.2 E.U./dL Nitrites NEGATIVE Blood 1+ Leukocytes NEGATIVE WBCs 0-5 RBCs 10-20 Squamous Epithelial Few Bacteria 2+ Microbiology [id number]:15:00 Result Normal Range Units TAMIR Yeast Seen Strep Screen Plate Date and Time 05/30/2014 16:27 SourceVAGINAL CULTURE REPORT Negative for Group B Streptococcus. Release Date/Time: 0 06/01/2014 12:00 Reference Lab (Sendout) [id number]:15:00 Result Normal Range Units Chlamydia Trachomatis DNA NOT DETECTED NOT DET ECTED Neisseria Gonorrhea DNA NOT DETECTED NOT DETEC [place] Notes SEE NOTE This test was performed using the APTIMA COMBO2 Assay ([employer] The analytical performance characteristi cs of this assay, when used to test SurePath specim ens have been determined by [employer]. TEST PERFORMED AT: [employer] [address] [address] [place] [address] GOLDIE BROWN DO,MPH Body Fluid [id number]:15:00 Result Normal Range Units pH 7.0 4.5-8.0 Reference Lab (Sendout) [id number]:15:00 Result Normal Range Units Chlamydia Trachomatis DNA NOT DETECTED NOT DET ECTED Neisseria Gonorrhea DNA NOT DETECTED NOT DETEC [place] Notes SEE NOTE This test was performed using the APTNovus COMBO2 Assay ([employer] The analytical performance characteristi cs of this assay, when used to test SurePath specim ens have been determined by [employer]. TEST PERFORMED AT: [employer] [facility] [employer] [address] [place] [address] GOLDIE BROWN DO,MPH History of procedures Procedure Code Code Type Description Date Performed Performing Physician 60585 CPT-4 URINALYSIS, AUTO W/SCOPE 05-30-2014 Marta PORRAS 97996 CPT-4 SMEAR, WET MOUNT, SALINE/INK 05-30-2014 YASMINE PORRAS 61185 CPT-4 CULTURE SCREEN ONLY 05-30-2014 YASMINE GREENE 74874 CPT-4 CHYLMD TRACH, DNA, AMP PROBE 05-30-2014 YASMINE PORRAS Functional status No functional or [...]
--- OUTSIDE RECORDS SUMMARY | 2019-08-17 21:25 | XMS REPORT ---
Author Author EDUARDODentalink [facility] Medic al Staff, DIAMANTE Organization [facility] Address [address], [place] [address] Phone [phone] Care Team Providers Care Vortex Operator Name Role Phone MAGALYS SHIN, VAHID ABRAHAM [phone] VAHID DOWELL MD, PP [phone] Summary purpose TRANSITION OF CARE AUTO GENERATION Chief Complaint and Reason for Visit Admit Diagnosis 1 RIGHT UPPER QUAD PAIN (RUQ) Problem list No authorized problems tracked for [...] diagnostic tests and/or laboratory data RESULTS Chemistry [id number]:45:00 Result Normal Range Units Sodium 144 134-145 [...] GFR 94 >= 60 mL/min /1.7 Hematology 05-42-406570:45:00 Result Normal Range Units WBC 7.8 4.8-10.8 103/uL RBC L 3.5 4.2-5.4 106/uL HGB L 10.4 12.0-16.0 g/dl HCT L 31.0 36.9-47.0 % MCV 88.1 81-99 FL MCH 29.5 27-31 pg MCHC 33.5 33-37 g/dl RDW 13.4 11.5-15.5 % PLT 328 130-400 103/uL MPV 8.5 7.3-10.4 FL Segs L 34.0 40-70 % Bands 1.0 0-5 % Lymphs H 49.0 20-40 % [place] 8.0 0-10 % Eos 7.0 0-7 % Baso 1.0 0-2 % Special Chemistry [id number]:13:00 Result Normal Range Units HCG (Qualitative) Negative Radiology Results [id number]:18:00 Gallbladder Sono PACs Image DATE OF EXAM: 2014 [id number] SONO : RADIOLOGY REPORT DATE OF SERVICE:07/16/2014 [...] Signed by: On: DATE OF EXAM: 2014 [id number] SONO : RADIOLOGY REPORT DATE OF SERVICE:07/16/2014 [...] 2014-07-17 at 10:18:17 . Previous status was MI. RIGHT UPPER QUAD PAIN (RUQ) [id number]:45:00 Result Normal Range Units MPV 8.5 7.3-10.4 FL History of procedures No procedures recorded for this patient visit. Functional status Functional Status Finding Observation Time Hearing Prob Loc none 93-30-493607:35 Vision Problems no 33-20-369503:35 Ambulation Asst Dev none 29-66-074436:35 Range of Motion full :00 Muscle Strength RUE 5 ROM full resist 80-32-848195:00 Muscle Strength RLE 5 ROM full resist :00 Muscle Strength LUE 5 ROM full resist 33-58-469174:00 Muscle Strength LLE 5 ROM full resist 60-70-327263:00 Transfers independent 58-70-835514:00 Ambulation in room 20-69-156415:00 Balance steady 79-68-036460:00 Bathing Assistance none 53-50-423942:35 Eating Assistance none 92-47-708855:35 Dressing Assistance none 89-95-713596:35 Toileting Assistance none 02-68-169100:35 Transfer Assistance none 45-03-844303:35 Decline Slf Care/Mob no 53-23-398568:35 Phys Cond Stable yes 40-80-857170:35 Nutrition normal 50-56-801500:00 Diet clear 52-14-686280:00 Oral Cavity moist and intact 89-22-556220:00 Teeth intact 60-77-923646:00 Dental Hygiene good 64-10-484539:00 Abdomen Appearance flat 12-06-089661:00 Abdomen tender 59-70-302549:00 Bowel Sounds present 79-10-314869:00 NG Tube no :00 Feeding Tube none :00 Peacock no :00 Cont Bladder Irr no :00 Ostomy no :00 Stool normal :00 Urination normal :00 Urine Clarity clear :00 Urine Color straw :00 Quality sym/unlabored :00 Cough absent :00 Secretions [...] headache stiff neck no :00 WBC > 36258 no :00 WBC < 4000 no :00 Rapid Resp no 67-13-926539:00 IV Site Location R AC :37 IV Type peripheral :37 IV Site Information discontinued :37 IV Site Start Attmpt 1 times 49-45-566397:11 IV Site Jere 20 :37 IV Site Appearance WNL :37 IV Site Color clear :37 IV Site Patent no :37 Dressing Type gauze :37 Nursing Note Pt dc in good condition. she amb off unit accompanied by family. Has dc instructions in hand. No questions at this x. :37 Cognitive Status Finding Observation Time Oriented To Date 5 Yes :[address] 5 Yes :35 Name 3 Objects 3 Yes :35 Name Object in Rm 2 Yes :35 Recall 3 Objects 3 Yes :35 Repeats a Phrase 1 Yes :35 Follows Verbal Direc 3 Yes :35 Follows Written Dire 1 Yes : Write a Sentance 1 Yes : Draw an Object 1 Yes :35 Mini Mental Total 25 points :35 Learning Ability comprehends well : Neurological no :00 Psychological no :00 Physical no :00 Hearing no :00 Medical Assembler Needed no :00 Sign Language no :00 Emotional no :00 Vision no :00 Laguage no :00 Financial no :00 Vital signs Type Value Date Respiration Rate 20breaths per minute : 37 Pulse 84beats per minute :37 Oxygen Saturation 97% :37 BP Systolic 96mmHg :37 BP Diastolic 60mmHg :37 Temperature 98.6F :37 Height 64inches :08 Weight 145LB :08 Social history Type Value Smoking Status NEVER [...]
--- OUTSIDE RECORDS SUMMARY | 2019-08-17 21:25 | XMS REPORT ---
Author Author EDUARDOReciclata [facility] Medic al Staff, DIAMANTE Organization [facility] Address [address], [place] [address] Phone [phone] Care Team Providers Care Paste Mixer Liquid Name Role Phone VAHID DOWELL MD PP [phone] Summary purpose TRANSITION OF CARE AUTO GENERATION Chief Complaint and Reason for Visit Admit Diagnosis 1 OTH CURR COND-ANTEPARTUM Problem list No authorized problems tracked for [...] tests and/or laboratory data RESULTS Routine Urinalysis [id number]:00:00 Result Normal Range Units Color YELLOW Clarity Clear Specific [place] 1.005 1.003-1.035 pH 6.0 4.5-8.0 Glucose NEGATIVE Bilirubin NEGATIVE Ketones NEGATIVE Protein NEGATIVE Urobilinogen 0.2 0-0.2 E.U./dL Nitrites NEGATIVE Blood 2+ Leukocytes NEGATIVE WBCs 0-5 RBCs 5-10 Squamous Epithelial 1+ Bacteria 1+ Routine Cultures [id number]:00:00 Urine Culture Plate Date and Time 05/17/2014 16:38 SourceURINE CULTURE REPORT 20,000 colonies/ml Gram Pos Maya Release Date/Time: 0 05/18/2014 07:46 CULTURE REPORT 40,000 colonies/ml Mixed Gram Pos Maya Release Date/Time: 0 05/19/2014 07:58 Chemistry 10-30-205700:55:00 Result Normal Range Units Sodium 139 134-145 mEq/l Potassium 3.9 3.5-5.1 mEq/l Chloride 106 98-107 mEq/l CO2 25.2 22-28 mEq/l Glucose 78 70-105 mg/dl BUN L 5 7-18 mg/dl Creatinine 0.68 0.6-1.0 mg/dl Calcium 8.4 8.4-10.2 mg/dl Uric Acid 2.7 2.6-7.2 mg/dl TP - Total Protein 6.2 6.0-8.3 g /dl Albumin L 2.8 3.5-5 g/dl Bilirubin - Total 0.4 0.1-1.0 mg /dl AST 20 10-42 IU/L LD 126 82-234 IU/L ALT 20 12-65 IU/L ALP H 89 25-72 IU/L Osmolality L 273.7 280-300 mOsm/L Albumin/Globulin Ratio 0.8 0-8 Anion GAP L 7.8 8-16 BUN/Creatinine Ratio L 7.4 10-20 Estimated GFR 108 >= 60 mL/min /1.7 Hematology [id number]:55:00 Result Normal Range Units WBC H 11.1 4.8-10.8 103/uL RBC L 3.3 4.2-5.4 106/uL HGB L 9.5 12.0-16.0 g/dl HCT L 29.0 36.9-47.0 % MCV 89.2 81-99 FL MCH 29.2 27-31 pg MCHC L 32.8 33-37 g/dl RDW 14.0 11.5-15.5 % PLT 287 130-400 103/uL MPV 8.1 7.3-10.4 FL Segs H 71.0 40-70 % Lymphs L 18.0 20-40 % [place] 8.0 0-10 % Eos 3.0 0-7 % Body Fluid [id number]:00:00 Result Normal Range Units pH 6.0 4.5-8.0 Thyroid Testing 56-28-733266:55:00 Result Normal Range Units TSH 1.40 0.36-3.74 uIU/mL Radiology Results [id number]:55:00 Result Normal Range Units MPV 8.1 7.3-10.4 FL History of procedures Procedure Code Code Type Description Date Performed Performing Physician 35822 CPT-4 NON-STRESS TEST 05-17-2014 JOSE PATRICK 26872 CPT-4 COMPREHEN METABOLIC PANEL 05-17-2014 YASMINE PORRAS 61966 CPT-4 ASSAY OF BLOOD/URIC ACID 05-17-2014 Marta PORRAS 37878 CPT-4 URINALYSIS, AUTO W/SCOPE 05-17-2014 Marta AMBROSIOLIN 23575 CPT-4 ASSAY THYROID STIM HORMONE 05-17-2014 YASMINE VERN 06539 CPT-4 LACTATE (LD) (LDH) ENZYME 05-17-2014 YASMINE VERN 42782 CPT-4 URINE CULTURE/COLONY COUNT 05-17-2014 YASMINE VERN 83229 CPT-4 NON-STRESS TEST 05-17-2014 JOSE Nichols DARNELL 62047 CPT-4 ROUTINE VENIPUNCTURE 05-17-2014 YASMINEJose G PORRAS 11769 CPT-4 COMPLETE CBC, AUTOMATED 05-17-2014 DEB FOY VERN 34874 CPT-4 BL SMEAR W/DIFF WBC COUNT 05-17-2014 YASMINE PORRAS Functional status No functional or [...]
--- OUTSIDE RECORDS SUMMARY | 2019-08-17 21:25 | XMS REPORT | Clinical Summary ---
Author Author Tawanda, Kalina Hollis Organization [facility] Address Unknown Phone Unavailable Allergies, Adverse Reactions, Alerts Allergy Name Reaction Description Start Date Severity Status Pr ovider No Known Allergies Eugenia Squires LPN Conditions or Problems Problem Name Problem Code Onset Date Status Entry Date Provider Comment Standard Description Annotate Supervision of normal first V22.0 Resolved Loren Weber POLICE PATROL OFFICER Supervision of normal first Pelvic pain 789.09 Resolved Loren Weber POLICE PATROL OFFICER Abdominal pain, other specified site; multiple sites Uterine size date discrepancy, antepartum condition or compl ication 649.63 Resolved Loren Weber POLICE PATROL OFFICER Uterine siz e date discrepancy, antepartum condition or complication Pharyngitis-Acute 462 Resolved Loren Yokum APR N Acute pharyngitis AFTERCARE FLW SURG TEETH ORL CAV&DIGESTV SYS NEC V58.75 07/25 Resolved Loren Weber POLICE PATROL OFFICER Aftercare following surgery of the teeth,oral cavity and digestive system, NEC Physical examination V70.0 Active Loren Long PRN Routine general medical examination at a health care facility Contraceptive management V25.9 Active Amaris Lambert SBA UNDERWRITER Encounter for unspecified contraceptive management Pelvic pain ICD-789.09 Inactive Loren JOHNSON RN Uterine size date discrepancy, antepartum condition or compl ication ICD-649.63 Inactive Loren Weber POLICE PATROL OFFICER Pharyngitis-Acute ICD-462 Inactive Loren slater POLICE PATROL OFFICER AFTERCARE FLW SURG TEETH ORL CAV&DIGESTV SYS NEC ICD-V58.75 Inactive Loren Weber POLICE PATROL OFFICER Supervision of normal first ICD-V22.0 5 Inactive Loren Weber POLICE PATROL OFFICER Medication List Medication Instructions Start Date Stop Date Generic Name NDC Status Provider Patient Instruction DEPO-PROVERA 150 MG/ML INTRAMUSCULAR SUSPENSION Use as directed 201 09/19/26 MEDROXYPROGESTERONE ACETATE 81136318081 Active Amaris Lambert SBA UNDERWRITER Active FLONASE 50 MCG/ACT NASAL SUSPENSION 1 spray each nostril am and hs as needed FLUTICASONE PROPIONATE 88811507861 No Longer Active Marta Plata MD Active 1 30-0.975-200 MG ORAL CAPSULE 1 qDay 2 MV-MIN-FE FUM-FA-DHA 80745675804 No Longer Active Rhina Plata MD Active FENUGREEK BLOOD SUGAR HEALTH 500 MG ORAL CAPSULE 08/07 FENUGREEK 59218618220 No Longer Active Rhina Plata MD Active ORTHO MICRONOR 0.35 MG ORAL TABLET 1 tab po q day 2017 NORETHINDRONE (CONTRACEPTIVE) 72297650427 No Longer Active Rhina Plata MD Active [facility] IRON 325 (65 Fe) MG ORAL TABLET Take one by mouth daily 2014 FERROUS SULFATE 20982654200 No Longer Active Bev Dove POLICE PATROL OFFICER Active PREDNISONE 20 MG ORAL TABLET 1 tablet twice daily for 2 days, then 1 tablet once daily for 2 days PREDNISONE 23246470929 No Longer Active Rhina Plata MD Active EPIPEN 2-GABBY 0.3 MG/0.3ML INJECTION SOLUTION AUTO-INJECTOR as direc xavier EPINEPHRINE 97591700530 Active Rhina Plata MD Active PREDNISONE 20 MG ORAL TABLET 1 tablet twice daily for 2 days, then 1 tablet once daily for 2 days PREDNISONE 20 MG ORAL TABLET 025816 PREDNISONE Inactive [facility] IRON 325 (65 Fe) MG ORAL TABLET Take one by mouth daily 2014 [facility] IR[facility] 325 (65 Fe) MG ORAL TABLET 364388 FERROUS SULF ATE Inactive ORTHO MICRONOR 0.35 MG ORAL TABLET 1 tab po q day 2017 ORTHO MICRONOR 0.35 MG ORAL TABLET 416358 NORETHINDRONE (CONTRACEPTIVE) I nactive FENUGREEK BLOOD SUGAR HEALTH 500 MG ORAL CAPSULE 08/07 FENUGREEK BLOOD SUGAR HEALTH 500 MG ORAL CAPSULE FENUGREEK Inactive 1 30-0.975-200 MG ORAL CAPSULE 1 qDay 2 1 30-0.975-200 MG ORAL CAPSULE MV-MIN-FE FUM-FA-DHA I nactive FLONASE 50 MCG/ACT NASAL SUSPENSION 1 spray each nostril am and hs as needed FLONASE 50 MCG/ACT NASAL SUSPENSION 4019844 FLUTICASONE PROPIONATE Inactive Immunizations Vaccine Administration Date [...] Negative Encounters Code Encounter Date Provider Facility CPT-94146 Level 3 New Patient 12:35:11 TIRE SERVICER Rhina worthy MD [facility] CPT-02188 Level 3 Est. Patient 16:43:13 CDT Loren slater APRN [facility] CPT-36373 Level 3 Est. Patient 09:56:59 TIRE SERVICER Benjamin hussein DO [facility] Procedures Code Procedure Name Date Entry Date Standard Desc ription CPT-J1050 Depo Provera 150 mg (Medroxyprogesterone) 03/07 12:59:10 TIRE SERVICER CPT-79614 Abx/Therapy Injection 12:59:10 TIRE SERVICER CPT-J1050 Depo Provera 150 mg (Medroxyprogesterone) 03/07 12:35:12 TIRE SERVICER CPT-23871 UHCG Urine - [place] ONLY 12:35:12 TIRE SERVICER 01/05 CPT-79981 Abx/Therapy Injection 17:04:17 CDT CPT-J1050 Depo Provera 150 mg (Medroxyprogesterone) 08/15 17:04:17 CDT CPT-J1050 Depo Provera 150 mg (Medroxyprogesterone) 08/15 14:53:29 CDT CPT-24105 Postop F/U Visit 15:53:52 CDT CPT-86869 Visit 09:52:43 CDT CPT-57683 Visit 15:13:51 CDT CPT-52410 Visit 11:49:28 CDT CPT-75060 Visit 12:15:02 CDT CPT-69982 Visit 12:08:30 CDT CPT-76405 Adacel 16:55:52 CDT CPT-92638 Administration single or combination vac cine inc oral 16:55:52 CDT CPT-55296 Tdap 7yrs or > 16:19:02 CDT CPT-77758 Visit 16:19:02 CDT CPT-56768 Visit 10:35:45 TIRE SERVICER CPT-56725 Venipuncture Draw Fee 08:56:41 TIRE SERVICER CPT-18566 Visit 08:59:48 TIRE SERVICER CPT-37470 Sono OB comp > 14 weeks 08:41:26 TIRE SERVICER 02/13 CPT-07164 Visit 09:15:49 TIRE SERVICER CPT-44655 Visit 10:52:07 TIRE SERVICER CPT-33080 Visit 12:10:53 TIRE SERVICER CPT-93429Q Sono OB comp <14 weeks ([place] Only) 16:57:48 CDT CPT-79735 Fluzone 14:23:28 CDT CPT-37909 Spec Collection and Handling Fee 14:10:55 C DT CPT-50150 Visit 14:10:55 CDT
--- OUTSIDE RECORDS SUMMARY | 2019-08-17 21:25 | XMS REPORT ---
Author Author [facility] Medic [facility] Staff, DIAMANTE Organization [facility] Address [address], [place] [address] Phone [phone] Care Team Providers Care Aerospace Engineer Name Role Phone VAHID DOWELL MD PP [phone] Summary purpose TRANSITION OF CARE AUTO GENERATION [...]
--- OUTSIDE RECORDS SUMMARY | 2019-08-17 21:26 | XMS REPORT | Clinical Summary ---
Author Author Tawanda, Kalina Hollis Organization [facility] [email or web address] Address Unknown Phone Unavailable Allergies, Adverse Reactions, Alerts Allergy Name Reaction Description Start Date Severity Status Pr ovider No Known Allergies Eugenia Squires LPN Conditions or Problems Problem Name Problem Code Onset Date Status Entry Date Provider Comment Standard Description Annotate Supervision of normal first V22.0 Resolved Loren Greerum HEATER HELPER Supervision of normal first Pelvic pain 789.09 Resolved Loren Yokum HEATER HELPER Abdominal pain, other specified site; multiple sites Uterine size date discrepancy, antepartum condition or compl ication 649.63 Resolved Loren Yokum HEATER HELPER Uterine siz e date discrepancy, antepartum condition or complication Pharyngitis-Acute 462 Resolved Loren Yokum APR N Acute pharyngitis AFTERCARE FLW SURG TEETH ORL CAV&DIGESTV SYS NEC V58.75 07/25 Resolved Loren Yokum HEATER HELPER Aftercare following surgery of the teeth,oral cavity and digestive system, NEC Physical examination V70.0 Active Loren Greerum A PRN Routine general medical examination at a health care facility Contraceptive management V25.9 Active Amaris Lambert MOTORCYCLE MECHANIC Encounter for unspecified contraceptive management Supervision of normal first ICD-V22.0 5 Inactive Loren Greerum HEATER HELPER Pelvic pain ICD-789.09 Inactive Loren JOHNSON RN Uterine size date discrepancy, antepartum condition or compl ication ICD-649.63 Inactive Loren Weber HEATER HELPER Pharyngitis-Acute ICD-462 Inactive Loren slater HEATER HELPER AFTERCARE FLW SURG TEETH ORL CAV&DIGESTV SYS NEC ICD-V58.75 Inactive Loren Weber HEATER HELPER Medication List Medication Instructions Start Date Stop Date Generic Name NDC Status Provider Patient Instruction DEPO-PROVERA 150 MG/ML INTRAMUSCULAR SUSPENSION Use as directed 201 09/19/26 MEDROXYPROGESTERONE ACETATE 84634665963 Active Amaris Lambert MOTORCYCLE MECHANIC Active FLONASE 50 MCG/ACT NASAL SUSPENSION 1 spray each nostril am and hs as needed FLUTICASONE PROPIONATE 59275597094 No Longer Active Marta Plata MD Active 1 30-0.975-200 MG ORAL CAPSULE 1 qDay 2 MV-MIN-FE FUM-FA-DHA 76407926391 No Longer Active Rhina Plata MD Active FENUGREEK BLOOD SUGAR HEALTH 500 MG ORAL CAPSULE 08/07 FENUGREEK 54041139259 No Longer Active Rhina Plata MD Active ORTHO MICRONOR 0.35 MG ORAL TABLET 1 tab po q day 2017 NORETHINDRONE (CONTRACEPTIVE) 51838328561 No Longer Active Rhina Plata MD Active [facility] IRON 325 (65 Fe) MG ORAL TABLET Take one by mouth daily 2014 FERROUS SULFATE 86929206816 No Longer Active Bev Dove HEATER HELPER Active PREDNISONE 20 MG ORAL TABLET 1 tablet twice daily for 2 days, then 1 tablet once daily for 2 days PREDNISONE 18351179426 No Longer Active Rhina Plata MD Active EPIPEN 2-GABBY 0.3 MG/0.3ML INJECTION SOLUTION AUTO-INJECTOR as direc xavier EPINEPHRINE 33806490965 Active Rhina Plata MD Active PREDNISONE 20 MG ORAL TABLET 1 tablet twice daily for 2 days, then 1 tablet once daily for 2 days PREDNISONE 20 MG ORAL TABLET 998612 PREDNISONE Inactive [facility] IR[facility] 325 (65 Fe) MG ORAL TABLET Take one by mouth daily 2014 [facility] IR[facility] 325 (65 Fe) MG ORAL TABLET 851148 FERROUS SULF ATE Inactive ORTHO MICRONOR 0.35 MG ORAL TABLET 1 tab po q day 2017 ORTHO MICRONOR 0.35 MG ORAL TABLET 259124 NORETHINDRONE (CONTRACEPTIVE) I nactive FENUGREEK BLOOD SUGAR HEALTH 500 MG ORAL CAPSULE 08/07 FENUGREEK BLOOD SUGAR HEALTH 500 MG ORAL CAPSULE FENUGREEK Inactive 1 30-0.975-200 MG ORAL CAPSULE 1 qDay 2 1 30-0.975-200 MG ORAL CAPSULE MV-MIN-FE FUM-FA-DHA I nactive FLONASE 50 MCG/ACT NASAL SUSPENSION 1 spray each nostril am and hs as needed FLONASE 50 MCG/ACT NASAL SUSPENSION 8118499 FLUTICASONE PROPIONATE Inactive Immunizations Vaccine Administration Date [...] Negative Encounters Code Encounter Date Provider Facility CPT-42948 Level 3 New Patient 12:35:11 NETWORK OPERATIONS ANALYST Rhina worthy MD [facility] CPT-94158 Level 3 Est. Patient 16:43:13 CDT Loren slater APRN [facility] CPT-33509 Level 3 Est. Patient 09:56:59 NETWORK OPERATIONS ANALYST Benjamin hussein DO [facility] Procedures Code Procedure Name Date Entry Date Standard Desc ription CPT-J1050 Depo Provera 150 mg (Medroxyprogesterone) 03/07 12:59:10 NETWORK OPERATIONS ANALYST CPT-64669 Abx/Therapy Injection 12:59:10 NETWORK OPERATIONS ANALYST CPT-J1050 Depo Provera 150 mg (Medroxyprogesterone) 03/07 12:35:12 NETWORK OPERATIONS ANALYST CPT-25358 UHCG Urine - [facility] ONLY 12:35:12 NETWORK OPERATIONS ANALYST 01/05 CPT-09283 Abx/Therapy Injection 17:04:17 CDT CPT-J1050 Depo Provera 150 mg (Medroxyprogesterone) 08/15 17:04:17 CDT CPT-J1050 Depo Provera 150 mg (Medroxyprogesterone) 08/15 14:53:29 CDT CPT-30799 Postop F/U Visit 15:53:52 CDT CPT-25459 Visit 09:52:43 CDT CPT-63034 Visit 15:13:51 CDT CPT-19388 Visit 11:49:28 CDT CPT-05586 Visit 12:15:02 CDT CPT-41391 Visit 12:08:30 CDT CPT-46893 Adacel 16:55:52 CDT CPT-33675 Administration single or combination vac cine inc oral 16:55:52 CDT CPT-38392 Tdap 7yrs or > 16:19:02 CDT CPT-33085 Visit 16:19:02 CDT CPT-28900 Visit 10:35:45 NETWORK OPERATIONS ANALYST CPT-27159 Venipuncture Draw Fee 08:56:41 NETWORK OPERATIONS ANALYST CPT-10865 Visit 08:59:48 NETWORK OPERATIONS ANALYST CPT-98012 Sono OB comp > 14 weeks 08:41:26 NETWORK OPERATIONS ANALYST 02/13 CPT-43488 Visit 09:15:49 NETWORK OPERATIONS ANALYST CPT-24505 Visit 10:52:07 NETWORK OPERATIONS ANALYST CPT-37857 Visit 12:10:53 NETWORK OPERATIONS ANALYST CPT-25514J Sono OB comp <14 weeks ([place] Only) 16:57:48 CDT CPT-34252 Fluzone 14:23:28 CDT CPT-38634 Spec Collection and Handling Fee 14:10:55 C DT CPT-68971 Visit 14:10:55 CDT
--- OUTSIDE RECORDS SUMMARY | 2019-08-17 21:26 | XMS REPORT | Clinical Summary ---
Author Author Tawanda, Kalina Hollis Organization [facility] Address Unknown Phone Unavailable Allergies, Adverse Reactions, Alerts Allergy Name Reaction Description Start Date Severity Status Pr ovider No Known Allergies Eugenia Squires LPN Conditions or Problems Problem Name Problem Code Onset Date Status Entry Date Provider Comment Standard Description Annotate Supervision of normal first V22.0 Resolved Loren Greerum NUCLEAR MEDICINE PHYSICIAN Supervision of normal first Pelvic pain 789.09 Resolved Loren Yokum NUCLEAR MEDICINE PHYSICIAN Abdominal pain, other specified site; multiple sites Uterine size date discrepancy, antepartum condition or compl ication 649.63 Resolved Loren Yokum NUCLEAR MEDICINE PHYSICIAN Uterine siz e date discrepancy, antepartum condition or complication Pharyngitis-Acute 462 Resolved Loren Yokum APR N Acute pharyngitis AFTERCARE FLW SURG TEETH ORL CAV&DIGESTV SYS NEC V58.75 07/25 Resolved Loren Yokum NUCLEAR MEDICINE PHYSICIAN Aftercare following surgery of the teeth,oral cavity and digestive system, NEC Physical examination V70.0 Active Loren Greerum A PRN Routine general medical examination at a health care facility Contraceptive management V25.9 Active Amaris Lambert HOOKER OPERATOR Encounter for unspecified contraceptive management Supervision of normal first ICD-V22.0 5 Inactive Loren Greerum NUCLEAR MEDICINE PHYSICIAN Pelvic pain ICD-789.09 Inactive Loren JOHNSON RN Uterine size date discrepancy, antepartum condition or compl ication ICD-649.63 Inactive Loren Weber NUCLEAR MEDICINE PHYSICIAN Pharyngitis-Acute ICD-462 Inactive Loren slater NUCLEAR MEDICINE PHYSICIAN AFTERCARE FLW SURG TEETH ORL CAV&DIGESTV SYS NEC ICD-V58.75 Inactive Loren Weber NUCLEAR MEDICINE PHYSICIAN Medication List Medication Instructions Start Date Stop Date Generic Name NDC Status Provider Patient Instruction DEPO-PROVERA 150 MG/ML INTRAMUSCULAR SUSPENSION Use as directed 201 09/19/26 MEDROXYPROGESTERONE ACETATE 30332508923 Active Amaris Lambert HOOKER OPERATOR Active FLONASE 50 MCG/ACT NASAL SUSPENSION 1 spray each nostril am and hs as needed FLUTICASONE PROPIONATE 38543813275 No Longer Active Marta Plata MD Active 1 30-0.975-200 MG ORAL CAPSULE 1 qDay 2 MV-MIN-FE FUM-FA-DHA 23456730288 No Longer Active Rhina Plata MD Active FENUGREEK BLOOD SUGAR HEALTH 500 MG ORAL CAPSULE 08/07 FENUGREEK 91849947086 No Longer Active Rhina Plata MD Active ORTHO MICRONOR 0.35 MG ORAL TABLET 1 tab po q day 2017 NORETHINDRONE (CONTRACEPTIVE) 59630635214 No Longer Active Rhina Plata MD Active [facility] IRON 325 (65 Fe) MG ORAL TABLET Take one by mouth daily 2014 FERROUS SULFATE 87147918164 No Longer Active Bev Dove NUCLEAR MEDICINE PHYSICIAN Active PREDNISONE 20 MG ORAL TABLET 1 tablet twice daily for 2 days, then 1 tablet once daily for 2 days PREDNISONE 39805912432 No Longer Active Rhina Plata MD Active EPIPEN 2-GABBY 0.3 MG/0.3ML INJECTION SOLUTION AUTO-INJECTOR as direc xavier EPINEPHRINE 27769291848 Active Rhina Plata MD Active PREDNISONE 20 MG ORAL TABLET 1 tablet twice daily for 2 days, then 1 tablet once daily for 2 days PREDNISONE 20 MG ORAL TABLET 450325 PREDNISONE Inactive [facility] 325 (65 Fe) MG ORAL TABLET Take one by mouth daily 2014 [facility] IR[facility] 325 (65 Fe) MG ORAL TABLET 993133 FERROUS SULF ATE Inactive ORTHO MICRONOR 0.35 MG ORAL TABLET 1 tab po q day 2017 ORTHO MICRONOR 0.35 MG ORAL TABLET 104836 NORETHINDRONE (CONTRACEPTIVE) I nactive FENUGREEK BLOOD SUGAR HEALTH 500 MG ORAL CAPSULE 08/07 FENUGREEK BLOOD SUGAR HEALTH 500 MG ORAL CAPSULE FENUGREEK Inactive 1 30-0.975-200 MG ORAL CAPSULE 1 qDay 2 1 30-0.975-200 MG ORAL CAPSULE MV-MIN-FE FUM-FA-DHA I nactive FLONASE 50 MCG/ACT NASAL SUSPENSION 1 spray each nostril am and hs as needed FLONASE 50 MCG/ACT NASAL SUSPENSION 0614784 FLUTICASONE PROPIONATE Inactive Immunizations Vaccine Administration Date [...] Negative Encounters Code Encounter Date Provider Facility CPT-49646 Level 3 New Patient 12:35:11 TARIFF PUBLISHING AGENT Rhina worthy MD [facility] CPT-44811 Level 3 Est. Patient 16:43:13 CDT Loren slater APRN [facility] CPT-06437 Level 3 Est. Patient 09:56:59 TARIFF PUBLISHING AGENT Benjamin hussein DO [facility] Procedures Code Procedure Name Date Entry Date Standard Desc ription CPT-J1050 Depo Provera 150 mg (Medroxyprogesterone) 03/07 12:59:10 TARIFF PUBLISHING AGENT CPT-30883 Abx/Therapy Injection 12:59:10 TARIFF PUBLISHING AGENT CPT-J1050 Depo Provera 150 mg (Medroxyprogesterone) 03/07 12:35:12 TARIFF PUBLISHING AGENT CPT-80374 UHCG Urine - [facility] ONLY 12:35:12 TARIFF PUBLISHING AGENT 01/05 CPT-46537 Abx/Therapy Injection 17:04:17 CDT CPT-J1050 Depo Provera 150 mg (Medroxyprogesterone) 08/15 17:04:17 CDT CPT-J1050 Depo Provera 150 mg (Medroxyprogesterone) 08/15 14:53:29 CDT CPT-88415 Postop F/U Visit 15:53:52 CDT CPT-90524 Visit 09:52:43 CDT CPT-99965 Visit 15:13:51 CDT CPT-70452 Visit 11:49:28 CDT CPT-31341 Visit 12:15:02 CDT CPT-54834 Visit 12:08:30 CDT CPT-59223 Adacel 16:55:52 CDT CPT-34083 Administration single or combination vac cine inc oral 16:55:52 CDT CPT-15240 Tdap 7yrs or > 16:19:02 CDT CPT-63514 Visit 16:19:02 CDT CPT-63861 Visit 10:35:45 TARIFF PUBLISHING AGENT CPT-67857 Venipuncture Draw Fee 08:56:41 TARIFF PUBLISHING AGENT CPT-81590 Visit 08:59:48 TARIFF PUBLISHING AGENT CPT-08503 Sono OB comp > 14 weeks 08:41:26 TARIFF PUBLISHING AGENT 02/13 CPT-93484 Visit 09:15:49 TARIFF PUBLISHING AGENT CPT-46136 Visit 10:52:07 TARIFF PUBLISHING AGENT CPT-02535 Visit 12:10:53 TARIFF PUBLISHING AGENT CPT-06051V Sono OB comp <14 weeks ([place] Only) 16:57:48 CDT CPT-79768 Fluzone 14:23:28 CDT CPT-51485 Spec Collection and Handling Fee 14:10:55 C DT CPT-09991 Visit 14:10:55 CDT
--- OUTSIDE RECORDS SUMMARY | 2019-08-17 21:26 | XMS REPORT | Clinical Summary ---
Author Author Tawanda, Kalina Hollis Organization [employer] [facility] Address Unknown Phone Unavailable Allergies, Adverse Reactions, Alerts Allergy Name Reaction Description Start Date Severity Status Pr ovider No Known Allergies Karen Seng Conditions or Problems Problem Name Problem Code Onset Date Status Entry Date Provider Comment Standard Description Annotate Supervision of normal first V22.0 Resolved Loren Yomesfinum SENIOR SOFTWARE DEVELOPMENT ENGINEER Supervision of normal first Pelvic pain 789.09 Resolved Loren Yokum SENIOR SOFTWARE DEVELOPMENT ENGINEER Abdominal pain, other specified site; multiple sites Uterine size date discrepancy, antepartum condition or compl ication 649.63 Resolved Loren Yokum SENIOR SOFTWARE DEVELOPMENT ENGINEER Uterine siz e date discrepancy, antepartum condition or complication Pharyngitis-Acute 462 Resolved Loren Yokum APR N Acute pharyngitis AFTERCARE FLW SURG TEETH ORL CAV&DIGESTV SYS NEC V58.75 07/25 Resolved Loren Yokum SENIOR SOFTWARE DEVELOPMENT ENGINEER Aftercare following surgery of the teeth,oral cavity and digestive system, NEC Physical examination V70.0 Active Loren Yokum A PRN Routine general medical examination at a health care facility Contraceptive management V25.9 Active Amaris Lambert SOFTWOOD FALLER Encounter for unspecified contraceptive management Supervision of normal first ICD-V22.0 5 Inactive Loren Yokum SENIOR SOFTWARE DEVELOPMENT ENGINEER Pelvic pain ICD-789.09 Inactive Loren JOHNSON RN Uterine size date discrepancy, antepartum condition or compl ication ICD-649.63 Inactive Loren Yokum SENIOR SOFTWARE DEVELOPMENT ENGINEER Pharyngitis-Acute ICD-462 Inactive Loren slater SENIOR SOFTWARE DEVELOPMENT ENGINEER AFTERCARE FLW SURG TEETH ORL CAV&DIGESTV SYS NEC ICD-V58.75 Inactive Loren Weber SENIOR SOFTWARE DEVELOPMENT ENGINEER Medication List Medication Instructions Start Date Stop Date Generic Name NDC Status Provider Patient Instruction DEPO-PROVERA 150 MG/ML INTRAMUSCULAR SUSPENSION Use as directed 201 09/19/26 MEDROXYPROGESTERONE ACETATE 29867217733 Active Amaris Lambert SOFTWOOD FALLER Active FLONASE 50 MCG/ACT NASAL SUSPENSION 1 spray each nostril am and hs as needed FLUTICASONE PROPIONATE 68932837560 No Longer Active Mesfin Plata MD Active 1 30-0.975-200 MG ORAL CAPSULE 1 qDay 2 MV-MIN-FE FUM-FA-DHA 72069065579 No Longer Active Rhina Plata MD Active FENUGRJARAD BLOOD SUGAR HEALTH 500 MG ORAL CAPSULE 08/07 FENUGREEK 15854843015 No Longer Active Rhina Plata MD Active ORTHO MICRONOR 0.35 MG ORAL TABLET 1 tab po q day 2017 NORETHINDRONE (CONTRACEPTIVE) 47864396613 No Longer Active Rhina Plata MD Active [facility] IRON 325 (65 Fe) MG ORAL TABLET Take one by mouth daily 2014 FERROUS SULFATE 24379211614 No Longer Active Bev Dove SENIOR SOFTWARE DEVELOPMENT ENGINEER Active PREDNISONE 20 MG ORAL TABLET 1 tablet twice daily for 2 days, then 1 tablet once daily for 2 days PREDNISONE 89353139157 No Longer Active Rhina Plata MD Active EPIPEN 2-GABBY 0.3 MG/0.3ML INJECTION SOLUTION AUTO-INJECTOR as direc xavier EPINEPHRINE 06758153301 Active Rhina Plata MD Active PREDNISONE 20 MG ORAL TABLET 1 tablet twice daily for 2 days, then 1 tablet once daily for 2 days PREDNISONE 20 MG ORAL TABLET 896362 PREDNISONE Inactive [facility] IRON 325 (65 Fe) MG ORAL TABLET Take one by mouth daily 2014 [facility] 325 (65 Fe) MG ORAL TABLET 506985 FERROUS SULF ATE Inactive ORTHO MICRONOR 0.35 MG ORAL TABLET 1 tab po q day 2017 ORTHO MICRONOR 0.35 MG ORAL TABLET 174249 NORETHINDRONE (CONTRACEPTIVE) I nactive FENUGREEK BLOOD SUGAR HEALTH 500 MG ORAL CAPSULE 08/07 FENUGREEK BLOOD SUGAR HEALTH 500 MG ORAL CAPSULE FENUGREEK Inactive 1 30-0.975-200 MG ORAL CAPSULE 1 qDay 2 1 30-0.975-200 MG ORAL CAPSULE MV-MIN-FE FUM-FA-DHA I nactive FLONASE 50 MCG/ACT NASAL SUSPENSION 1 spray each nostril am and hs as needed FLONASE 50 MCG/ACT NASAL SUSPENSION 4019498 FLUTICASONE PROPIONATE Inactive Immunizations Vaccine Administration Date Value Standard Kaiden cription hepatitis B vaccine series yes hepat itis B vaccine, unspecified formulation Encounters Code Encounter Date Provider Facility CPT-74116 Level 3 New Patient 12:35:11 INSTALLATION SUPERINTENDENT Rhina worthy MD [facility] CPT-95645 Level 3 Est. Patient 16:43:13 CDT Loren slater APRN [facility] CPT-05956 Level 3 Est. Patient 09:56:59 INSTALLATION SUPERINTENDENT Benjamin hussein DO [facility] Procedures Code Procedure Name Date Entry Date Standard Desc ription CPT-J1050 Depo Provera 150 mg (Medroxyprogesterone) 03/07 12:59:10 INSTALLATION SUPERINTENDENT CPT-15270 Abx/Therapy Injection 12:59:10 INSTALLATION SUPERINTENDENT CPT-J1050 Depo Provera 150 mg (Medroxyprogesterone) 03/07 12:35:12 INSTALLATION SUPERINTENDENT CPT-67718 [facility] Urine - [place] ONLY 12:35:12 INSTALLATION SUPERINTENDENT 01/05 CPT-27813 Abx/Therapy Injection 17:04:17 CDT CPT-J1050 Depo Provera 150 mg (Medroxyprogesterone) 08/15 17:04:17 CDT CPT-J1050 Depo Provera 150 mg (Medroxyprogesterone) 08/15 14:53:29 CDT CPT-63939 Postop F/U Visit 15:53:52 CDT CPT-28700 Visit 09:52:43 CDT CPT-20376 Visit 15:13:51 CDT CPT-28930 Visit 11:49:28 CDT CPT-59776 Visit 12:15:02 CDT CPT-75850 Visit 12:08:30 CDT CPT-69897 Adacel 16:55:52 CDT CPT-04411 Administration single or combination vac cine inc oral 16:55:52 CDT CPT-00063 Tdap 7yrs or > 16:19:02 CDT CPT-22256 Visit 16:19:02 CDT CPT-13865 Visit 10:35:45 INSTALLATION SUPERINTENDENT CPT-12446 Venipuncture Draw Fee 08:56:41 INSTALLATION SUPERINTENDENT CPT-06571 Visit 08:59:48 INSTALLATION SUPERINTENDENT CPT-57521 Sono OB comp > 14 weeks 08:41:26 INSTALLATION SUPERINTENDENT 02/13 CPT-86113 Visit 09:15:49 INSTALLATION SUPERINTENDENT CPT-71419 Visit 10:52:07 INSTALLATION SUPERINTENDENT CPT-20700 Visit 12:10:53 INSTALLATION SUPERINTENDENT CPT-31093D Sono OB comp <14 weeks ([place] Only) 16:57:48 CDT CPT-12749 Fluzone 14:23:28 CDT CPT-23960 Spec Collection and Handling Fee 14:10:55 C DT CPT-64767 Visit 14:10:55 CDT
--- OUTSIDE RECORDS SUMMARY | 2019-08-17 21:26 | XMS REPORT | Clinical Summary ---
Author Author Tawanda, Kalina Hollis Organization [facility] Address Unknown Phone Unavailable Allergies, Adverse Reactions, Alerts Allergy Name Reaction Description Start Date Severity Status Pr ovider No Known Allergies Monika Olivera Conditions or Problems Problem Name Problem Code Onset Date Status Entry Date Provider Comment Standard Description Annotate Supervision of normal first V22.0 Active Rhina Plata MD Supervision of normal first Pelvic pain 789.09 Active Rhina Plata MD Abdominal pain, other specified site; multiple sites Uterine size date discrepancy, antepartum condition or compl ication 649.63 Active Rhina Plata MD Uterine siz e date discrepancy, antepartum condition or complication Pharyngitis-Acute 462 Active Benjamin Bejarano DO Acute pharyngitis Medication List Medication Instructions Start Date Stop Date Generic Name NDC Status Provider Patient Instruction FLONASE 50 MCG/ACT SUSP 1 spray each nostril am and hs FLUTICASONE PROPIONATE 89989986277 Active Benjamin Bejarano DO Active PREDNISONE 20 MG TAB 1 tablet twice daily for 2 d ays, then 1 tablet once daily for 2 days PREDNISONE 59059057760 Active Benjamin Bejarano DO Active EPIPEN 2-GABBY 0.3 MG/0.3ML SOAJ as directed EPINEPHRINE 5 6771581510 Active Rhina Plata MD Active Immunizations Vaccine Administration Date Value Standard Kaiden cription hepatitis B vaccine series yes hepat itis B vaccine, unspecified formulation Vital Signs Date Name Value Unit Range Description blood pressure, diastolic - 8462-4 66 mm[Hg] BP ralph blood pressure, systolic - 8480-6 93 mm[Hg] BP sys pulse rate E&M - 8867-4 80 /min H eart rate temperature E&M 98.5 [degF] Body temp erature weight E&M - 3141-9 162 [lb_av] Weigh t Measured blood pressure, diastolic - 8462-4 76 mm[Hg] BP ralph blood pressure, systolic - 8480-6 96 mm[Hg] BP sys pulse rate E&M - 8867-4 84 /min H eart rate temperature E&M 98.8 [degF] Body temp erature weight E&M - 3141-9 160 [lb_av] Weigh t Measured blood pressure, diastolic - 8462-4 75 mm[Hg] BP ralph blood pressure, systolic - 8480-6 115 mm[Hg] BP sys pulse rate E&M - 8867-4 93 /min H eart rate temperature E&M 98.6 [degF] Body temp erature weight E&M - 3141-9 161 [lb_av] Weigh t Measured blood pressure, diastolic - 8462-4 76 mm[Hg] BP ralph blood pressure, systolic - 8480-6 111 mm[Hg] BP sys pulse rate E&M - 8867-4 94 /min H eart rate temperature E&M 97.8 [degF] Body temp erature weight E&M - 3141-9 158.6 [lb_av] Weigh t Measured blood pressure, diastolic - 8462-4 68 mm[Hg] BP ralph blood pressure, systolic - 8480-6 100 mm[Hg] BP sys pulse rate E&M - 8867-4 92 /min H eart rate temperature E&M 99.1 [degF] Body temp erature weight E&M - 3141-9 158 [lb_av] Weigh t Measured blood pressure, diastolic - 8462-4 71 mm[Hg] BP ralph blood pressure, systolic - 8480-6 103 mm[Hg] BP sys pulse rate E&M - 8867-4 92 /min H eart rate temperature E&M 97.5 [degF] Body temp erature weight E&M - 3141-9 155 [lb_av] Weigh t Measured blood pressure, diastolic - 8462-4 65 mm[Hg] BP ralph blood pressure, systolic - 8480-6 97 mm[Hg] BP sys pulse rate E&M - 8867-4 89 /min H eart rate temperature E&M 97.6 [degF] Body temp erature weight E&M - 3141-9 149 [lb_av] Weigh t Measured blood pressure, diastolic - 8462-4 87 mm[Hg] BP ralph blood pressure, systolic - 8480-6 102 mm[Hg] BP sys pulse rate E&M - 8867-4 89 /min H eart rate temperature E&M 98.7 [degF] Body temp erature weight E&M - 3141-9 144 [lb_av] Weigh t Measured blood pressure, diastolic - 8462-4 72 mm[Hg] BP ralph blood pressure, systolic - 8480-6 104 mm[Hg] BP sys pulse rate E&M - 8867-4 88 /min H eart rate temperature E&M 97.2 [degF] Body temp erature weight E&M - 3141-9 143 [lb_av] Weigh t Measured blood pressure, diastolic - 8462-4 58 mm[Hg] BP ralph blood pressure, systolic - 8480-6 109 mm[Hg] BP sys height E&M - 8302-2 65 [in_us] Bdy h eight pulse rate E&M - 8867-4 91 /min H eart rate temperature E&M 98.8 [degF] Body temp erature weight E&M - 3141-9 145 [lb_av] Weigh t Measured Diagnostic Results Date Name Value Unit Range Description Chart Maintenance: Outside labs entered on flowsheet - Chemistry sodium, serum 137 mmol/L potassium, serum 3.3 mmol/L blood glucose 81 mg/dL creatinine, serum 0.61 mg/dL aspartate aminotransferase (SGOT), serum 34 U/L alanine aminotransferase (SGPT), serum 29 U/L alkaline phosphatase, serum 80 U/L thyroid stimulating hormone, serum 1.40 u[iU]/mL sodium, serum 139 mmol/L potassium, serum 3.9 mmol/L blood glucose 78 mg/dL creatinine, serum 0.68 mg/dL aspartate aminotransferase (SGOT), serum 20 U/L alanine aminotransferase (SGPT), serum 20 U/L alkaline phosphatase, serum 89 U/L protein, total urine random Negative mg/dL Chart Maintenance: Outside labs entered on flowsheet - Hematology leukocyte count, blood 9.5 10*3/mm3 hemoglobin, blood 10.8 g/dL platelet count 225 10*3/mm3 leukocyte count, blood 11.1 10*3/mm3 hemoglobin, blood 9.5 g/dL platelet count 287 10*3/mm3 Lab Report: ABO GROUP & RH TYPE, ANTIBOD Y SCREEN, RBCW/REFL I, CBC (IN ... - Blood bank Rh antigen RH(D) POSITIVE antibody screen, serum NO ANTIBODIES DETECTED Lab Report: ABO GROUP & RH TYPE, ANTIBOD Y SCREEN, RBCW/REFL I, CBC (IN ... - Chemistry hepatitis B surface antigen NON-REACTIVE NON-RE ACTIVE Lab Report: ABO GROUP & RH TYPE, ANTIBOD Y SCREEN, RBCW/REFL I, CBC (IN ... - Hematology leukocyte count, blood 10.5 THOUSAND/UL 10*3/mm3 3.8-10. 8 erythrocyte (RBC) count 4.19 MILLION/UL 10*6/mm3 3.80-5. 10 hemoglobin, blood 12.3 g/dL 11.7-15.5 hematocrit, blood 36.8 % 35.0-45.0 mean corpuscular volume, RBC 87.8 fL 80.0-10 0.0 mean corpuscular hemoglobin, RBC 29.5 pg 27. 0-33.0 mean corpuscular hemoglobin concentration, RBC 33.6 G/DL % 32.0-36.0 red blood cell distribution width 12.5 % 11 .0-15.0 platelet count 315 THOUSAND/UL 10*3/mm3 840-884 9049/10/01 Blood type O Lab Report: ABO GROUP & RH TYPE, ANTIBOD Y SCREEN, RBCW/REFL I, CBC (IN ... - Lab chlamydia DNA probe NOT DETECTED NOT DETECTED Lab Report: ABO GROUP & RH TYPE, ANTIBOD Y SCREEN, RBCW/REFL I, CBC (IN ... - Microbiology Neisseria gonorrhoeae DNA probe NOT DETECTED NO T DETECTED Lab Report: ABO GROUP & RH TYPE, ANTIBOD Y SCREEN, RBCW/REFL I, CBC (IN ... - Serology rapid plasma reagin antibody titer NON-REACTIVE NON-REACTIVE rubella antibody, serum, IgG 2.80 Lab Report: ANTIBODY SCREEN, RBCW/REFL I - Blood bank antibody screen, serum NO ANTIBODIES DETECTED Lab Report: CBC - Hematology leukocyte count, blood 10.4 10^3/MM^3 10*3/mm3 4.6-10.2 erythrocyte (RBC) count 3.45 10^6/MM^3 10*6/mm3 4.04-5.4 8 hemoglobin, blood 10.6 g/dL 12.0-16.0 hematocrit, blood 31.2 % 36.0-46.0 mean corpuscular volume, RBC 90 fL 80-97 mean corpuscular hemoglobin, RBC 30.7 pg 27. 0-31.2 mean corpuscular hemoglobin concentration, RBC 33.9 G/DL % 31.8-35.4 red blood cell distribution width 12.9 % 11 .6-14.8 platelet count 309 10^3/MM^3 10*3/mm3 142-424 Office Visit: Initial OB Visit - Blood b ank blood type with RH factor O Office Visit: Initial OB Visit - Wrestling Coach ry Neisseria gonorrhoeae, genital culture negative protein, total urine random N mg/dL Office Visit: Initial OB Visit - Genetic s/fertility test, date 10/14/2013 Office Visit: Initial OB Visit - Microbi ology Herpes Simplex Virus Genital no urine culture (with units of CFunits/mL) negative {cfu}/ mL Office Visit: Initial OB Visit - Urinaly sis glucose, urine, semiquantitative N nitrite, urine, semiquantitative N Office Visit: OB Visit - Chemistry protein, total urine random N mg/dL protein, total urine random Tr mg/dL protein, total urine random Tr mg/dL protein, total urine random N mg/dL protein, total urine random N mg/dL protein, total urine random Tr mg/dL protein, total urine random Tr mg/dL Office Visit: OB Visit - Urinalysis glucose, urine, semiquantitative N nitrite, urine, semiquantitative N glucose, urine, semiquantitative N nitrite, urine, semiquantitative N glucose, urine, semiquantitative N nitrite, urine, semiquantitative N urine color yellow appearance, urine clear leukocyte esterase, urine, by dipstick N glucose, urine, semiquantitative N nitrite, urine, semiquantitative N glucose, urine, semiquantitative N nitrite, urine, semiquantitative N glucose, urine, semiquantitative N nitrite, urine, semiquantitative N glucose, urine, semiquantitative N nitrite, urine, semiquantitative N Encounters Code Encounter Date Provider Facility CPT-72799 Level 3 Est. Patient 09:56:59 COMMUNITY PRODUCT SPECIALIST Benjamin hussein [facility] Procedures Code Procedure Name Date Entry Date Standard Desc ription CPT-32156 Visit 12:15:02 CDT CPT-49750 Visit 12:08:30 CDT CPT-78750 Adacel 16:55:52 CDT CPT-83720 Administration single or combination vac cine inc oral 16:55:52 CDT CPT-32358 Tdap 7yrs or > 16:19:02 CDT CPT-12164 Visit 16:19:02 CDT CPT-46277 Visit 10:35:45 COMMUNITY PRODUCT SPECIALIST CPT-38408 Venipuncture Draw Fee 08:56:41 COMMUNITY PRODUCT SPECIALIST CPT-84296 Visit 08:59:48 COMMUNITY PRODUCT SPECIALIST CPT-47867 Sono OB comp > 14 weeks 08:41:26 COMMUNITY PRODUCT SPECIALIST 02/13 CPT-99987 Visit 09:15:49 COMMUNITY PRODUCT SPECIALIST CPT-81721 Visit 10:52:07 COMMUNITY PRODUCT SPECIALIST CPT-25281 Visit 12:10:53 COMMUNITY PRODUCT SPECIALIST CPT-97794O Sono OB comp <14 weeks ([place] Only) 16:57:48 CDT CPT-84394 Fluzone 14:23:28 CDT CPT-83875 Spec Collection and Handling Fee 14:10:55 C DT CPT-20115 Visit 14:10:55 CDT
--- OUTSIDE RECORDS SUMMARY | 2019-08-17 21:26 | XMS REPORT | Clinical Summary ---
Author Author Tawanda, Kalina Hollis Organization [facility] Address Unknown Phone Unavailable Allergies, Adverse Reactions, [...] each nostril am and hs FLUTICASONE PROPIONATE 57890736456 Active Benjamin Bejarano DO Active PREDNISONE 20 MG TAB 1 tablet twice daily for 2 d ays, then 1 tablet once daily for 2 days PREDNISONE 94030675228 Active Benjamin Bejarano DO Active EPIPEN 2-GABBY 0.3 MG/0.3ML SOAJ as directed EPINEPHRINE 5 1379328494 Active Rhina Plata MD Active Immunizations Vaccine Administration Date Value Standard Kaiden cription hepatitis B vaccine series yes hepat itis B vaccine, unspecified formulation Vital Signs Date Name Value Unit Range Description blood pressure, diastolic - 8462-4 69 mm[Hg] BP ralph blood pressure, systolic - 8480-6 105 mm[Hg] BP sys pulse rate E&M - 8867-4 88 /min H eart rate temperature E&M 98.1 [degF] Body temp erature weight E&M - 3141-9 163 [lb_av] Weigh t Measured blood pressure, diastolic - 8462-4 70 mm[Hg] BP ralph blood pressure, systolic - 8480-6 102 mm[Hg] BP sys pulse rate E&M - 8867-4 92 /min H eart rate temperature E&M 98.6 [degF] Body temp erature weight E&M - 3141-9 163 [lb_av] Weigh t Measured blood pressure, diastolic - 8462-4 66 mm[Hg] [...] 11 .0-15.0 platelet count 315 THOUSAND/UL 10*3/mm3 372-612 8533/10/01 Blood type O Lab Report: ABO GROUP [...] O Office Visit: Initial OB Visit - Deep Fryer Assembler ry Neisseria gonorrhoeae, genital culture negative protein, [...] N Encounters Code Encounter Date Provider Facility CPT-12052 Level 3 Est. Patient 09:56:59 RAHUL hussein [facility] Procedures Code Procedure Name Date Entry Date Standard Desc ription CPT-84541 Visit 15:13:51 CDT CPT-95926 Visit 11:49:28 CDT CPT-31312 Visit 12:15:02 CDT CPT-22796 Visit 12:08:30 CDT CPT-27463 Adacel 16:55:52 CDT CPT-07905 Administration single or combination vac cine inc oral 16:55:52 CDT CPT-21849 Tdap 7yrs or > 16:19:02 CDT CPT-39912 Visit 16:19:02 CDT CPT-91682 Visit 10:35:45 ELECTRICAL EQUIPMENT ASSEMBLER CPT-88072 Venipuncture Draw Fee 08:56:41 ELECTRICAL EQUIPMENT ASSEMBLER CPT-93794 Visit 08:59:48 ELECTRICAL EQUIPMENT ASSEMBLER CPT-32142 Sono OB comp > 14 weeks 08:41:26 ELECTRICAL EQUIPMENT ASSEMBLER 02/13 CPT-43588 Visit 09:15:49 ELECTRICAL EQUIPMENT ASSEMBLER CPT-53087 Visit 10:52:07 ELECTRICAL EQUIPMENT ASSEMBLER CPT-91998 Visit 12:10:53 ELECTRICAL EQUIPMENT ASSEMBLER CPT-95353U Sono OB comp <14 weeks ([place] Only) 16:57:48 CDT CPT-55739 Fluzone 14:23:28 CDT CPT-21409 Spec Collection and Handling Fee 14:10:55 C DT CPT-94558 Visit 14:10:55 CDT
--- OUTSIDE RECORDS SUMMARY | 2019-08-17 21:26 | XMS REPORT | Clinical Summary ---
Author Author Tawanda, Kalina Hollis Organization [facility] Address Unknown Phone Unavailable Allergies, Adverse Reactions, Alerts Allergy Name Reaction Description Start Date Severity Status Pr ovider No Known Allergies Yana hutchinsonMELOMercedes Conditions or Problems Problem Name Problem Code [...] 462 Active Benjamin Bejarano DO Acute pharyngitis AFTERCARE FLW SURG TEETH ORL CAV&DIGESTV SYS NEC V58.75 07/25 Active Walter Lo MD Aftercare following surgery of the teeth,oral cavity and digestive system, NEC Medication List Medication Instructions Start Date Stop Date Generic Name NDC Status Provider Patient Instruction MICRONOR 0.35 MG TAB 1 tab po q day NORETHINDRO NE (CONTRACEPTIVE) 38884982646 Active Jillina Fragilsonl DIRECTOR SCRIPT Active FENUGREEK BLOOD SUGAR HEALTH 500 MG ORAL CAPS FENUGREEK 76929732132 Active Jillina Fragilsonl DIRECTOR SCRIPT Active 1 30-0.975-200 MG CAPS 1 qDay MV-MIN-FE FUM-FA-DHA 39278934047 Active Jillina Frazell DIRECTOR SCRIPT Active [facility] IRON 325 (65 FE) MG ORAL TABS Take one by mouth daily 6 FERROUS SULFATE 21929849167 No Longer Active Bev Dove APRN Active PREDNISONE 20 MG TAB 1 tablet twice daily for 2 d ays, then 1 tablet once daily for 2 days PREDNISONE 75621784755 No Longer Active Rhina Plata MD Active FLONASE 50 MCG/ACT SUSP 1 spray each nostril am and hs FLUTICASONE PROPIONATE 97023211294 Active Benjamin Bejarano DO Active EPIPEN 2-GABBY 0.3 MG/0.3ML SOAJ as directed EPINEPHRINE 5 8834415975 Active Rhina Plata MD Active PREDNISONE 20 MG TAB 1 tablet twice daily for 2 d ays, then 1 tablet once daily for 2 days PREDNISONE 20 MG TAB 730893 PREDNISONE Inac tive [facility] IRON 325 (65 FE) MG ORAL TABS Take one by mouth daily 6 [facility] IRON 325 (65 FE) MG ORAL TABS 879486 FERROUS SULFATE Inacti ve Immunizations Vaccine Administration Date Value Standard Kaiden cription hepatitis B vaccine series yes hepat itis B vaccine, unspecified formulation Vital Signs Date Name Value Unit Range Description blood pressure, diastolic - 8462-4 62 mm[Hg] BP ralph blood pressure, systolic - 8480-6 93 mm[Hg] BP sys pulse rate E&M - 8867-4 90 /min H eart rate temperature E&M 98.8 [degF] Body temp erature weight E&M - 3141-9 139 [lb_av] Weigh t Measured blood pressure, diastolic - 8462-4 73 mm[Hg] BP ralph blood pressure, systolic - 8480-6 108 mm[Hg] BP sys pulse rate E&M - 8867-4 92 /min H eart rate temperature E&M 98.8 [degF] Body temp erature weight E&M - 3141-9 165.6 [lb_av] Weigh t Measured blood pressure, diastolic - 8462-4 69 mm[Hg] [...] 11 .0-15.0 platelet count 315 THOUSAND/UL 10*3/mm3 896-366 2596/10/01 Blood type O Lab Report: ABO GROUP [...] .6-14.8 platelet count 309 10^3/MM^3 10*3/mm3 142-424 Lab Report: Chlamydia/GC APTIMA/[id number] - Lab chlamydia DNA probe NOT DETECTED NOT DETECTED Lab Report: Chlamydia/GC APTIMA/[id number] - Microbiology Neisseria gonorrhoeae DNA probe NOT DETECTED NO T DETECTED Office Visit: Initial OB Visit - Blood b ank blood type with RH factor O Office Visit: Initial OB Visit - Cloth Mercerizer Operator ry Neisseria gonorrhoeae, genital culture negative protein, [...] urine, semiquantitative N nitrite, urine, semiquantitative N leukocyte esterase, urine, by dipstick negative glucose, urine, semiquantitative N nitrite, urine, semiquantitative [...] N Encounters Code Encounter Date Provider Facility CPT-97318 Level 3 Est. Patient 09:56:59 FIRER POWERHOUSE Benjamin hussein [facility] Procedures Code Procedure Name Date Entry Date Standard Desc ription CPT-76663 Postop F/U Visit 15:53:52 CDT CPT-53145 Visit 09:52:43 CDT CPT-41867 Visit 15:13:51 CDT CPT-49877 Visit 11:49:28 CDT CPT-21361 Visit 12:15:02 CDT CPT-17120 Visit 12:08:30 CDT CPT-94151 Adacel 16:55:52 CDT CPT-22123 Administration single or combination vac cine inc oral 16:55:52 CDT CPT-93602 Tdap 7yrs or > 16:19:02 CDT CPT-44022 Visit 16:19:02 CDT CPT-02479 Visit 10:35:45 FIRER POWERHOUSE CPT-92768 Venipuncture Draw Fee 08:56:41 FIRER POWERHOUSE CPT-83619 Visit 08:59:48 FIRER POWERHOUSE CPT-47438 Sono OB comp > 14 weeks 08:41:26 FIRER POWERHOUSE 02/13 CPT-18166 Visit 09:15:49 FIRER POWERHOUSE CPT-50237 Visit 10:52:07 FIRER POWERHOUSE CPT-81085 Visit 12:10:53 FIRER POWERHOUSE CPT-76591W Sono OB comp <14 weeks ([place] Only) 16:57:48 CDT CPT-80485 Fluzone 14:23:28 CDT CPT-90903 Spec Collection and Handling Fee 14:10:55 C DT CPT-01259 Visit 14:10:55 CDT
--- OUTSIDE RECORDS SUMMARY | 2019-08-17 21:26 | XMS REPORT | Clinical Summary ---
Author Author Admin, Kalina Hollis Organization [facility] Address Unknown Phone Unavailable Allergies, Adverse Reactions, Alerts Allergy Name Reaction Description Start Date Severity Status Pr ovider Allergies Unknown Conditions or Problems Problem Name Problem Code Onset Date Status Entry Date Provider Comment Standard Description Annotate Supervision of normal first V22.0 Resolved Loren Yokum MUFFLE OPERATOR Supervision of normal first Pelvic pain 789.09 Resolved Loren Yokum MUFFLE OPERATOR Abdominal pain, other specified site; multiple sites Uterine size date discrepancy, antepartum condition or compl ication 649.63 Resolved Loren Yokum MUFFLE OPERATOR Uterine siz e date discrepancy, antepartum condition or complication Pharyngitis-Acute 462 Resolved Loren Yokum APR N Acute pharyngitis AFTERCARE FLW SURG TEETH ORL CAV&DIGESTV SYS NEC V58.75 07/25 Resolved Loren Yokum MUFFLE OPERATOR Aftercare following surgery of the teeth,oral cavity and digestive system, NEC Physical examination V70.0 Active Loren Weber A PRN Routine general medical examination at a health care facility Supervision of normal first ICD-V22.0 5 Inactive Loren Yokum MUFFLE OPERATOR Pelvic pain ICD-789.09 Inactive Loren JOHSNON RN Uterine size date discrepancy, antepartum condition or compl ication ICD-649.63 Inactive Loren Yokum MUFFLE OPERATOR Pharyngitis-Acute ICD-462 Inactive Loren slater MUFFLE OPERATOR AFTERCARE FLW SURG TEETH ORL CAV&DIGESTV SYS NEC ICD-V58.75 Inactive Loren Weber APRN Medication List Medication Instructions Start Date Stop Date Generic Name NDC Status Provider Patient Instruction FLONASE 50 MCG/ACT SUSP 1 spray each nostril am and hs as needed 20 26/03/19 FLUTICASONE PROPIONATE 68590618923 Active Loren Weber APRN A ctive MICRONOR 0.35 MG TAB 1 tab po q day NORETHINDRO NE (CONTRACEPTIVE) 44076685221 Active Rhina Plata MD Active FENUGRJARAD BLOOD SUGAR HEALTH 500 MG ORAL CAPS FENUGREEK 15322876110 Active Bev Dove APRN Active 1 30-0.975-200 MG CAPS 1 qDay MV-MIN-FE FUM-FA-DHA 76853708667 Active Bev Dove APRN Active [facility] IRON 325 (65 FE) MG ORAL TABS Take one by mouth daily 6 FERROUS SULFATE 88549351010 No Longer Active Bev Dove APRN Active PREDNISONE 20 MG TAB 1 tablet twice daily for 2 d ays, then 1 tablet once daily for 2 days PREDNISONE 86826859036 No Longer Active Rhina Plata MD Active EPIPEN 2-GABBY 0.3 MG/0.3ML SOAJ as directed EPINEPHRINE 5 5662743671 Active Rhina Plata MD Active PREDNISONE 20 MG TAB 1 tablet twice daily for 2 d ays, then 1 tablet once daily for 2 days PREDNISONE 20 MG TAB 170455 PREDNISONE Inac tive [facility] IRON 325 (65 FE) MG ORAL TABS Take one by mouth daily 6 [facility] IRON 325 (65 FE) MG ORAL TABS 176942 FERROUS SULFATE Inacti ve Immunizations Vaccine Administration Date Value Standard Kaiden cription hepatitis B vaccine series yes hepat itis B vaccine, unspecified formulation Vital Signs Date Name Value Unit Range Description blood pressure, diastolic - 8462-4 66 mm[Hg] BP ralph blood pressure, systolic - 8480-6 98 mm[Hg] BP sys pulse rate E&M - 8867-4 75 /min H eart rate temperature E&M 98.2 [degF] Body temp erature weight E&M - 3141-9 138 [lb_av] Weigh t Measured blood pressure, diastolic - 8462-4 62 mm[Hg] [...] 11 .0-15.0 platelet count 315 THOUSAND/UL 10*3/mm3 276-155 4140/10/01 Blood type O Lab Report: ABO GROUP [...] 309 10^3/MM^3 10*3/mm3 142-424 Lab Report: Chlamydia/GC APTIMA/[id number] - Lab chlamydia DNA probe NOT DETECTED NOT DETECTED Lab Report: Chlamydia/GC APTIMA/[id number] - Microbiology Neisseria gonorrhoeae DNA probe NOT DETECTED NO T DETECTED Office Visit: Initial OB Visit - Blood b ank blood type with RH factor O Office Visit: Initial OB Visit - 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 Patient 16:43:13 CDT Loren slater APRN [facility] CPT-23780 Level 3 Est. Patient 09:56:59 RECHECKER Benjamin hussein DO [facility] Procedures Code Procedure Name Date Entry Date Standard Desc ription CPT-85485 Postop F/U Visit 15:53:52 CDT CPT-73387 Visit 09:52:43 CDT CPT-49389 Visit 15:13:51 CDT CPT-51359 Visit 11:49:28 CDT CPT-20395 Visit 12:15:02 CDT CPT-76489 Visit 12:08:30 CDT CPT-62965 Adacel 16:55:52 CDT CPT-84971 Administration single or combination vac cine inc oral 16:55:52 CDT CPT-11988 Tdap 7yrs or > 16:19:02 CDT CPT-17720 Visit 16:19:02 CDT CPT-72418 Visit 10:35:45 RECHECKER CPT-49056 Venipuncture Draw Fee 08:56:41 RECHECKER CPT-90316 Visit 08:59:48 RECHECKER CPT-31116 Sono OB comp > 14 weeks 08:41:26 RECHECKER 02/13 CPT-09306 Visit 09:15:49 RECHECKER CPT-47755 Visit 10:52:07 RECHECKER CPT-45092 Visit 12:10:53 RECHECKER CPT-43912V Sono OB comp <14 weeks ([place] Only) 16:57:48 CDT CPT-31998 Fluzone 14:23:28 CDT CPT-97803 Spec Collection and Handling Fee 14:10:55 C DT CPT-71547 Visit 14:10:55 CDT
--- OUTSIDE RECORDS SUMMARY | 2019-08-17 21:26 | XMS REPORT | Clinical Summary ---
Author Author Tawanda, Kalina Hollis Organization [facility] Address Unknown Phone Unavailable Allergies, Adverse Reactions, Alerts Allergy Name Reaction Description Start Date Severity Status Pr ovider No Known Allergies Karen Seng Conditions or Problems Problem Name Problem Code Onset Date Status Entry Date Provider Comment Standard Description Annotate Supervision of normal first V22.0 Resolved Loren Yomesfinum VOICE ENGINEER Supervision of normal first Pelvic pain 789.09 Resolved Loren Yokum VOICE ENGINEER Abdominal pain, other specified site; multiple sites Uterine size date discrepancy, antepartum condition or compl ication 649.63 Resolved Loren Yokum VOICE ENGINEER Uterine siz e date discrepancy, antepartum condition or complication Pharyngitis-Acute 462 Resolved Loren Yokum APR N Acute pharyngitis AFTERCARE FLW SURG TEETH ORL CAV&DIGESTV SYS NEC V58.75 07/25 Resolved Loren Yokum VOICE ENGINEER Aftercare following surgery of the teeth,oral cavity and digestive system, NEC Physical examination V70.0 Active Loren Yokum A PRN Routine general medical examination at a health care facility Contraceptive management V25.9 Active Amaris Lambert WIRELESS DEVELOPMENT MANAGER Encounter for unspecified contraceptive management Supervision of normal first ICD-V22.0 5 Inactive Loren Yokum VOICE ENGINEER Pelvic pain ICD-789.09 Inactive Loren JOHNSON RN Uterine size date discrepancy, antepartum condition or compl ication ICD-649.63 Inactive Loren Yokum VOICE ENGINEER Pharyngitis-Acute ICD-462 Inactive Loren slater VOICE ENGINEER AFTERCARE FLW SURG TEETH ORL CAV&DIGESTV SYS NEC ICD-V58.75 Inactive Loren Weber VOICE ENGINEER Medication List Medication Instructions Start Date Stop Date Generic Name NDC Status Provider Patient Instruction DEPO-PROVERA 150 MG/ML INTRAMUSCULAR SUSPENSION Use as directed 201 09/19/26 MEDROXYPROGESTERONE ACETATE 90131434555 Active Amaris Lambert WIRELESS DEVELOPMENT MANAGER Active FLONASE 50 MCG/ACT NASAL SUSPENSION 1 spray each nostril am and hs as needed FLUTICASONE PROPIONATE 41473405010 No Longer Active Mesfin Plata MD Active 1 30-0.975-200 MG ORAL CAPSULE 1 qDay 2 MV-MIN-FE FUM-FA-DHA 54843901739 No Longer Active Rhina Plata MD Active FENUGRJARAD BLOOD SUGAR HEALTH 500 MG ORAL CAPSULE 08/07 FENUGREEK 06676988607 No Longer Active Rhina Plata MD Active ORTHO MICRONOR 0.35 MG ORAL TABLET 1 tab po q day 2017 NORETHINDRONE (CONTRACEPTIVE) 59411443348 No Longer Active Rhina Plata MD Active [facility] IRON 325 (65 Fe) MG ORAL TABLET Take one by mouth daily 2014 FERROUS SULFATE 58547455395 No Longer Active Bev Dove VOICE ENGINEER Active PREDNISONE 20 MG ORAL TABLET 1 tablet twice daily for 2 days, then 1 tablet once daily for 2 days PREDNISONE 64277371894 No Longer Active Rhina Plata MD Active EPIPEN 2-GABBY 0.3 MG/0.3ML INJECTION SOLUTION AUTO-INJECTOR as direc xavier EPINEPHRINE 77881068343 Active Rhina Plata MD Active PREDNISONE 20 MG ORAL TABLET 1 tablet twice daily for 2 days, then 1 tablet once daily for 2 days PREDNISONE 20 MG ORAL TABLET 753898 PREDNISONE Inactive [facility] IRON 325 (65 Fe) MG ORAL TABLET Take one by mouth daily 2014 [facility] IRON 325 (65 Fe) MG ORAL TABLET 342841 FERROUS SULF ATE Inactive ORTHO MICRONOR 0.35 MG ORAL TABLET 1 tab po q day 2017 ORTHO MICRONOR 0.35 MG ORAL TABLET 472382 NORETHINDRONE (CONTRACEPTIVE) I nactive FENUGREEK BLOOD SUGAR HEALTH 500 MG ORAL CAPSULE 08/07 FENUGREEK BLOOD SUGAR HEALTH 500 MG ORAL CAPSULE FENUGREEK Inactive 1 30-0.975-200 MG ORAL CAPSULE 1 qDay 2 1 30-0.975-200 MG ORAL CAPSULE MV-MIN-FE FUM-FA-DHA I nactive FLONASE 50 MCG/ACT NASAL SUSPENSION 1 spray each nostril am and hs as needed FLONASE 50 MCG/ACT NASAL SUSPENSION 5055461 FLUTICASONE PROPIONATE Inactive Immunizations Vaccine Administration Date Value Standard Kaiden cription hepatitis B vaccine series yes hepat itis B vaccine, unspecified formulation Encounters Code Encounter Date Provider Facility CPT-21323 Level 3 New Patient 12:35:11 ROAD SUPERVISOR Rhina worthy MD [facility] CPT-05876 Level 3 Est. Patient 16:43:13 CDT Loren slater APRN [facility] CPT-77132 Level 3 Est. Patient 09:56:59 RO[address] SUPERVISOR Benjamin hussein DO [facility] Procedures Code Procedure Name Date Entry Date Standard Desc ription CPT-J1050 Depo Provera 150 mg (Medroxyprogesterone) 03/07 12:59:10 ROAD SUPERVISOR CPT-41793 Abx/Therapy Injection 12:59:10 ROAD SUPERVISOR CPT-J1050 Depo Provera 150 mg (Medroxyprogesterone) 03/07 12:35:12 ROAD SUPERVISOR CPT-37562 [facility] [place] - [place] ONLY 12:35:12 ROAD SUPERVISOR 01/05 CPT-82773 Abx/Therapy Injection 17:04:17 CDT CPT-J1050 Depo Provera 150 mg (Medroxyprogesterone) 08/15 17:04:17 CDT CPT-J1050 Depo Provera 150 mg (Medroxyprogesterone) 08/15 14:53:29 CDT CPT-09655 Postop F/U Visit 15:53:52 CDT CPT-71848 Visit 09:52:43 CDT CPT-46096 Visit 15:13:51 CDT CPT-27374 Visit 11:49:28 CDT CPT-33496 Visit 12:15:02 CDT CPT-75123 Visit 12:08:30 CDT CPT-24418 Adacel 16:55:52 CDT CPT-87211 Administration single or combination vac cine inc oral 16:55:52 CDT CPT-43594 Tdap 7yrs or > 16:19:02 CDT CPT-65125 Visit 16:19:02 CDT CPT-71659 Visit 10:35:45 RO[address] SUPERVISOR CPT-78460 Venipuncture Draw Fee 08:56:41 RO[address] SUPERVISOR CPT-38336 Visit 08:59:48 [address] SUPERVISOR CPT-37034 Sono OB comp > 14 weeks 08:41:26 [address] SUPERVISOR 02/13 CPT-54807 Visit 09:15:[address] SUPERVISOR CPT-81817 Visit 10:52:[address] SUPERVISOR CPT-68752 Visit 12:10:53 RO[address] SUPERVISOR CPT-52689H Sono OB comp <14 weeks ([place] Only) 16:57:48 CDT CPT-50583 Fluzone 14:23:28 CDT CPT-59160 Spec Collection and Handling Fee 14:10:55 C DT CPT-04382 Visit 14:10:55 CDT
--- OUTSIDE RECORDS SUMMARY | 2019-08-17 21:27 | XMS REPORT | Clinical Summary ---
Author Author Tawanda, Kalina Hollis Organization [facility] Address Unknown Phone Unavailable Allergies, Adverse Reactions, Alerts Allergy Name Reaction Description Start Date Severity Status Pr ovider No Known Allergies Agnes Jay MANAGER SPANISH Conditions or Problems Problem Name Problem Code [...] Generic Name NDC Status Provider Patient Instruction PREDNISONE 20 MG TAB 1 tablet twice daily for 2 d ays, then 1 tablet once daily for 2 days PREDNISONE 50060178436 No Longer Active Rhina Plata MD Active FLONASE 50 MCG/ACT SUSP 1 spray each nostril am and hs FLUTICASONE PROPIONATE 59838142704 Active Benjamin Bejarano DO Active EPIPEN 2-GABBY 0.3 MG/0.3ML SOAJ as directed EPINEPHRINE 5 2244719998 Active Rhina Plata MD Active PREDNISONE 20 MG TAB 1 tablet twice daily for 2 d ays, then 1 tablet once daily for 2 days PREDNISONE 20 MG TAB 770104 PREDNISONE Inac tive Immunizations Vaccine Administration Date Value Standard Kaiden cription hepatitis B vaccine series yes hepat itis B vaccine, unspecified formulation Vital Signs Date Name Value Unit Range Description blood pressure, diastolic - 8462-4 73 mm[Hg] [...] on flowsheet - Hematology leukocyte count, blood 11.1 10*3/mm3 hemoglobin, blood 9.5 g/dL platelet count 287 10*3/mm3 leukocyte count, blood 9.5 10*3/mm3 hemoglobin, blood 10.8 g/dL platelet count 225 10*3/mm3 Lab Report: ABO GROUP & RH TYPE, ANTIBOD Y SCREEN, RBCW/REFL I, CBC (IN ... - Blood bank antibody screen, serum NO ANTIBODIES DETECTED Rh antigen RH(D) POSITIVE Lab Report: ABO GROUP & RH TYPE, ANTIBOD Y SCREEN, RBCW/REFL I, CBC (IN ... - Chemistry hepatitis B surface antigen NON-REACTIVE NON-RE ACTIVE Lab Report: ABO GROUP & RH TYPE, ANTIBOD Y SCREEN, RBCW/REFL I, CBC (IN ... - Hematology hemoglobin, blood 12.3 g/dL 11.7-15.5 hematocrit, blood 36.8 % 35.0-45.0 mean corpuscular volume, RBC 87.8 fL 80.0-10 0.0 mean corpuscular hemoglobin, RBC 29.5 pg 27. 0-33.0 mean corpuscular hemoglobin concentration, RBC 33.6 G/DL % 32.0-36.0 red blood cell distribution width 12.5 % 11 .0-15.0 platelet count 315 THOUSAND/UL 10*3/mm3 116-617 4372/10/01 Blood type O erythrocyte (RBC) count 4.19 MILLION/UL 10*6/mm3 3.80-5. 10 leukocyte count, blood 10.5 THOUSAND/UL 10*3/mm3 3.8-10. 8 Lab Report: ABO GROUP & RH TYPE, [...] ANTIBODIES DETECTED Lab Report: CBC - Hematology hemoglobin, blood 10.6 g/dL 12.0-16.0 hematocrit, blood 31.2 % 36.0-46.0 mean corpuscular volume, RBC 90 fL 80-97 mean corpuscular hemoglobin, RBC 30.7 pg 27. 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 Patient 09:56:59 OTORHINOLARYNGOLOGIST Benjamin Parker [facility] Procedures Code Procedure Name Date Entry Date Standard Desc ription CPT-01430 Visit 09:52:43 CDT CPT-00164 Visit 15:13:51 CDT CPT-27282 Visit 11:49:28 CDT CPT-81257 Visit 12:15:02 CDT CPT-09143 Visit 12:08:30 CDT CPT-78079 Adacel 16:55:52 CDT CPT-64026 Administration single or combination vac cine inc oral 16:55:52 CDT CPT-29552 Tdap 7yrs or > 16:19:02 CDT CPT-99222 Visit 16:19:02 CDT CPT-22954 Visit 10:35:45 OTORHINOLARYNGOLOGIST CPT-90222 Venipuncture Draw Fee 08:56:41 OTORHINOLARYNGOLOGIST CPT-33391 Visit 08:59:48 OTORHINOLARYNGOLOGIST CPT-05665 Sono OB comp > 14 weeks 08:41:26 OTORHINOLARYNGOLOGIST 02/13 CPT-57925 Visit 09:15:49 OTORHINOLARYNGOLOGIST CPT-03438 Visit 10:52:07 OTORHINOLARYNGOLOGIST CPT-48853 Visit 12:10:53 OTORHINOLARYNGOLOGIST CPT-36212L Sono OB comp <14 weeks ([place] Only) 16:57:48 CDT CPT-01735 Fluzone 14:23:28 CDT CPT-03055 Spec Collection and Handling Fee 14:10:55 C DT CPT-69337 Visit 14:10:55 CDT
--- OUTSIDE RECORDS SUMMARY | 2019-08-17 21:27 | XMS REPORT | Clinical Summary ---
Author Author Tawanda, Kalina Hollis Organization [facility] Address Unknown Phone Unavailable Allergies, Adverse Reactions, [...] tab po q day NORETHINDRO NE (CONTRACEPTIVE) 23456033475 Active Jillina Frazell COMPREHENSIVE OPHTHALMOLOGIST Active FENUGREEK BLOOD SUGAR HEALTH 500 MG ORAL CAPS FENUGREEK 81879054402 Active Jillina Frazell COMPREHENSIVE OPHTHALMOLOGIST Active 1 30-0.975-200 MG CAPS 1 qDay MV-MIN-FE FUM-FA-DHA 19443943645 Active Jillina Frazell COMPREHENSIVE OPHTHALMOLOGIST Active [facility]S IRON 325 (65 FE) MG ORAL TABS Take one by mouth daily 6 FERROUS SULFATE 28221438911 No Longer Active Jillina Frazell COMPREHENSIVE OPHTHALMOLOGIST Active PREDNISONE 20 MG TAB 1 tablet twice daily for 2 d ays, then 1 tablet once daily for 2 days PREDNISONE 65347407402 No Longer Active Rhina Plata MD Active FLONASE 50 MCG/ACT SUSP 1 spray each nostril am and hs FLUTICASONE PROPIONATE 65646346825 Active Benjamin Bejarano DO Active EPIPEN 2-GABBY 0.3 MG/0.3ML SOAJ as directed EPINEPHRINE 5 4512352351 Active Rhina Plata MD Active PREDNISONE 20 MG TAB 1 tablet twice daily for 2 d ays, then 1 tablet once daily for 2 days PREDNISONE 20 MG TAB 685380 PREDNISONE Inac tive [facility] IRON 325 (65 FE) MG ORAL TABS Take one by mouth daily 6 [facility] IRON 325 (65 FE) MG ORAL TABS 982561 FERROUS SULFATE Inacti ve Immunizations Vaccine Administration [...] 11 .0-15.0 platelet count 315 THOUSAND/UL 10*3/mm3 219-786 4662/10/01 Blood type O Lab Report: ABO GROUP [...] 309 10^3/MM^3 10*3/mm3 142-424 Lab Report: Chlamydia/GC APTIMA/94008 - Lab chlamydia DNA probe NOT DETECTED NOT DETECTED Lab Report: Chlamydia/GC APTIMA/80031 - Microbiology Neisseria gonorrhoeae DNA probe NOT DETECTED NO T DETECTED Office Visit: Initial OB Visit - Blood b ank blood type with RH factor O Office Visit: Initial OB Visit - Billet Heater ry Neisseria gonorrhoeae, genital culture negative protein, [...] N Encounters Code Encounter Date Provider Facility CPT-13605 Level 3 Est. Patient 09:56:59 ENTRY LEVEL MANUFACTURING ENGINEER Benjamin hussein [facility] Procedures Code Procedure Name Date Entry Date Standard Desc ription CPT-74700 Postop F/U Visit 15:53:52 CDT CPT-43792 Visit 09:52:43 CDT CPT-43024 Visit 15:13:51 CDT CPT-66294 Visit 11:49:28 CDT CPT-46209 Visit 12:15:02 CDT CPT-46082 Visit 12:08:30 CDT CPT-46629 Adacel 16:55:52 CDT CPT-88276 Administration single or combination vac cine inc oral 16:55:52 CDT CPT-19229 Tdap 7yrs or > 16:19:02 CDT CPT-16534 Visit 16:19:02 CDT CPT-94131 Visit 10:35:45 ENTRY LEVEL MANUFACTURING ENGINEER CPT-81162 Venipuncture Draw Fee 08:56:41 ENTRY LEVEL MANUFACTURING ENGINEER CPT-65119 Visit 08:59:48 ENTRY LEVEL MANUFACTURING ENGINEER CPT-58044 Sono OB comp > 14 weeks 08:41:26 ENTRY LEVEL MANUFACTURING ENGINEER 02/13 CPT-19398 Visit 09:15:49 ENTRY LEVEL MANUFACTURING ENGINEER CPT-56835 Visit 10:52:07 ENTRY LEVEL MANUFACTURING ENGINEER CPT-37245 Visit 12:10:53 ENTRY LEVEL MANUFACTURING ENGINEER CPT-10631E Sono OB comp <14 weeks ([place] Only) 16:57:48 CDT CPT-47990 Fluzone 14:23:28 CDT CPT-71426 Spec Collection and Handling Fee 14:10:55 C DT CPT-71840 Visit 14:10:55 CDT
--- OUTSIDE RECORDS SUMMARY | 2019-08-17 21:27 | XMS REPORT | Clinical Summary ---
Author Author Tawanda, Kalina Hollis Organization [facility] Address Unknown Phone Unavailable Allergies, Adverse [...] each nostril am and hs FLUTICASONE PROPIONATE 58829145490 Active Benjamin Bejarano DO Active PREDNISONE 20 MG TAB 1 tablet twice daily for 2 d ays, then 1 tablet once daily for 2 days PREDNISONE 07147269369 Active Benjamin Bejarano DO Active EPIPEN 2-GABBY 0.3 MG/0.3ML SOAJ as directed EPINEPHRINE 5 3164057472 Active Rhina Plata MD Active Immunizations Vaccine Administration Date Value Standard Kaiden cription hepatitis B vaccine series yes hepat itis B vaccine, unspecified formulation Vital Signs Date Name Value Unit Range Description blood pressure, diastolic - 8462-4 70 mm[Hg] [...] 11 .0-15.0 platelet count 315 THOUSAND/UL 10*3/mm3 576-400 1586/10/01 Blood type O Lab Report: ABO GROUP [...] O Office Visit: Initial OB Visit - Cigar Making Supervisor ry Neisseria gonorrhoeae, genital culture negative protein, [...] N Encounters Code Encounter Date Provider Facility CPT-95953 Level 3 Est. 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 Benjamin hussein [facility] Procedures Code Procedure Name Date Entry Date Standard Desc ription CPT-35483 Visit 11:49:28 CDT CPT-51082 Visit 12:15:02 CDT CPT-70603 Visit 12:08:30 CDT CPT-51597 Adacel 16:55:52 CDT CPT-44831 Administration single or combination vac cine inc oral 16:55:52 CDT CPT-36452 Tdap 7yrs or > 16:19:02 CDT CPT-51357 Visit 16:19:02 CDT CPT-34314 Visit 10:35:45 TREE AND SHRUB TECHNICIAN CPT-65486 Venipuncture Draw Fee 08:56:41 TREE AND SHRUB TECHNICIAN CPT-76365 Visit 08:59:48 TREE AND SHRUB TECHNICIAN CPT-16678 Sono OB comp > 14 weeks 08:41:26 TREE AND SHRUB TECHNICIAN 02/13 CPT-25685 Visit 09:15:49 TREE AND SHRUB TECHNICIAN CPT-33355 Visit 10:52:07 TREE AND SHRUB TECHNICIAN CPT-73102 Visit 12:10:53 TREE AND SHRUB TECHNICIAN CPT-75584O Sono OB comp <14 weeks ([place] Only) 16:57:48 CDT CPT-40870 Fluzone 14:23:28 CDT CPT-73768 Spec Collection and Handling Fee 14:10:55 C DT CPT-49643 Visit 14:10:55 CDT
--- OUTSIDE RECORDS SUMMARY | 2019-08-17 21:27 | XMS REPORT | Clinical Summary ---
Author Author Tawanda, Kalina Hollis Organization [facility] Address Unknown Phone Unavailable Allergies, Adverse [...] each nostril am and hs FLUTICASONE PROPIONATE 07599175082 Active Benjamin Bejarano DO Active PREDNISONE 20 MG TAB 1 tablet twice daily for 2 d ays, then 1 tablet once daily for 2 days PREDNISONE 62232055826 Active Benjamin Bejarano DO Active EPIPEN 2-GABBY 0.3 MG/0.3ML SOAJ as directed EPINEPHRINE 5 2759686751 Active Rhina Plata MD Active Immunizations Vaccine Administration Date Value Standard Kaiden cription hepatitis B vaccine series yes hepat itis B vaccine, unspecified formulation Vital Signs Date Name Value Unit Range Description blood pressure, diastolic - 8462-4 76 mm[Hg] [...] 29 U/L alkaline phosphatase, serum 80 U/L Chart Maintenance: Outside labs entered on flowsheet [...] RBCW/REFL I, CBC (IN ... - Hematology erythrocyte (RBC) count 4.19 MILLION/UL 10*6/mm3 3.80-5. 10 hemoglobin, blood 12.3 g/dL 11.7-15.5 hematocrit, blood 36.8 % 35.0-45.0 mean corpuscular volume, RBC 87.8 fL 80.0-10 0.0 mean corpuscular hemoglobin, RBC 29.5 pg 27. 0-33.0 mean corpuscular hemoglobin concentration, RBC 33.6 G/DL % 32.0-36.0 red blood cell distribution width 12.5 % 11 .0-15.0 platelet count 315 THOUSAND/UL 10*3/mm3 691-199 2730/10/01 Blood type O leukocyte count, blood 10.5 THOUSAND/UL 10*3/mm3 3.8-10. 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 Patient 09:56:59 YOGHURT MAKER Benjamin hussein [facility] Procedures Code Procedure Name Date Entry Date Standard Desc ription CPT-58683 Visit 12:08:30 CDT CPT-44358 Adacel 16:55:52 CDT CPT-73764 Administration single or combination vac cine inc oral 16:55:52 CDT CPT-48597 Tdap 7yrs or > 16:19:02 CDT CPT-12374 Visit 16:19:02 CDT CPT-03236 Visit 10:35:45 YOGHURT MAKER CPT-98974 Venipuncture Draw Fee 08:56:41 YOGHURT MAKER CPT-19714 Visit 08:59:48 YOGHURT MAKER CPT-49081 Sono OB comp > 14 weeks 08:41:26 YOGHURT MAKER 02/13 CPT-15300 Visit 09:15:49 YOGHURT MAKER CPT-61617 Visit 10:52:07 YOGHURT MAKER CPT-67580 Visit 12:10:53 YOGHURT MAKER CPT-76622Z Sono OB comp <14 weeks ([place] Only) 16:57:48 CDT CPT-29936 Fluzone 14:23:28 CDT CPT-09441 Spec Collection and Handling Fee 14:10:55 C DT CPT-82235 Visit 14:10:55 CDT
--- OUTSIDE RECORDS SUMMARY | 2019-08-17 21:27 | XMS REPORT | Clinical Summary ---
Author Author Tawanda, Kalina Hollis Organization [facility] Address Unknown Phone Unavailable Allergies, Adverse [...] each nostril am and hs FLUTICASONE PROPIONATE 49856137637 Active Benjamin Bejarano DO Active PREDNISONE 20 MG TAB 1 tablet twice daily for 2 d ays, then 1 tablet once daily for 2 days PREDNISONE 92179646756 Active Benjamin Bejarano DO Active EPIPEN 2-GABBY 0.3 MG/0.3ML SOAJ as directed EPINEPHRINE 5 8471332607 Active Rhina Plata MD Active Immunizations Vaccine [...] 11 .0-15.0 platelet count 315 THOUSAND/UL 10*3/mm3 953-854 4300/10/01 Blood type O Lab Report: ABO GROUP [...] O Office Visit: Initial OB Visit - Physician Neonatology ry Neisseria gonorrhoeae, genital culture negative protein, [...] N Encounters Code Encounter Date Provider Facility CPT-67888 Level 3 Est. 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 Benjamin hussein [facility] Procedures Code Procedure Name Date Entry Date Standard Desc ription CPT-89885 Visit 12:08:30 CDT CPT-20637 Adacel 16:55:52 CDT CPT-47816 Administration single or combination vac cine inc oral 16:55:52 CDT CPT-36158 Tdap 7yrs or > 16:19:02 CDT CPT-00032 Visit 16:19:02 CDT CPT-12329 Visit 10:35:45 TELESALES PROFESSIONAL CPT-60029 Venipuncture Draw Fee 08:56:41 TELESALES PROFESSIONAL CPT-36386 Visit 08:59:48 TELESALES PROFESSIONAL CPT-08447 Sono OB comp > 14 weeks 08:41:26 TELESALES PROFESSIONAL 02/13 CPT-32774 Visit 09:15:49 TELESALES PROFESSIONAL CPT-98931 Visit 10:52:07 TELESALES PROFESSIONAL CPT-71272 Visit 12:10:53 TELESALES PROFESSIONAL CPT-59216G Sono OB comp <14 weeks ([place] Only) 16:57:48 CDT CPT-24135 Fluzone 14:23:28 CDT CPT-03447 Spec Collection and Handling Fee 14:10:55 C DT CPT-06699 Visit 14:10:55 CDT
--- OUTSIDE RECORDS SUMMARY | 2019-08-17 21:27 | XMS REPORT | Clinical Summary ---
Author Author Tawanda, Kalina Hollis Organization [facility] Address Unknown Phone Unavailable Allergies, Adverse Reactions, Alerts Allergy Name Reaction Description Start Date Severity Status Pr ovider No Known Allergies Karen Seng Conditions or Problems Problem Name Problem Code Onset Date Status Entry Date Provider Comment Standard Description Annotate Supervision of normal first V22.0 Resolved Loren Yomesfinum GAMEPLAY ENGINEER Supervision of normal first Pelvic pain 789.09 Resolved Loren Yokum GAMEPLAY ENGINEER Abdominal pain, other specified site; multiple sites Uterine size date discrepancy, antepartum condition or compl ication 649.63 Resolved Loren Yokum GAMEPLAY ENGINEER Uterine siz e date discrepancy, antepartum condition or complication Pharyngitis-Acute 462 Resolved Loren Yokum APR N Acute pharyngitis AFTERCARE FLW SURG TEETH ORL CAV&DIGESTV SYS NEC V58.75 07/25 Resolved Loren Yokum GAMEPLAY ENGINEER Aftercare following surgery of the teeth,oral cavity and digestive system, NEC Physical examination V70.0 Active Loren Greerum A PRN Routine general medical examination at a health care facility Supervision of normal first ICD-V22.0 5 Inactive Loren Yokum GAMEPLAY ENGINEER Pelvic pain ICD-789.09 Inactive Loren JOHNSON RN Uterine size date discrepancy, antepartum condition or compl ication ICD-649.63 Inactive Loren Yokum GAMEPLAY ENGINEER Pharyngitis-Acute ICD-462 Inactive Loren slater GAMEPLAY ENGINEER AFTERCARE FLW SURG TEETH ORL CAV&DIGESTV SYS NEC ICD-V58.75 Inactive Loren Weber GAMEPLAY ENGINEER Medication List Medication Instructions Start Date Stop Date Generic Name NDC Status Provider Patient Instruction FLONASE 50 MCG/ACT SUSP 1 spray each nostril am and hs as needed 20 26/03/19 FLUTICASONE PROPIONATE 06345523260 Active Loren Weber GAMEPLAY ENGINEER A ctive MICRONOR 0.35 MG TAB 1 tab po q day NORETHINDRO NE (CONTRACEPTIVE) 32295010709 Active Rhina Plata MD Active FENUGREEMesfin BLOOD SUGAR HEALTH 500 MG ORAL CAPS FENUGREEK 57005531410 Active Bev Dove APRN Active 1 30-0.975-200 MG CAPS 1 qDay MV-MIN-FE FUM-FA-DHA 27632143629 Active Bev Dove APRN Active CVS IRON 325 (65 FE) MG ORAL TABS Take one by mouth daily 6 FERROUS SULFATE 36830898064 No Longer Active Bev Dove APRN Active PREDNISONE 20 MG TAB 1 tablet twice daily for 2 d ays, then 1 tablet once daily for 2 days PREDNISONE 38475088897 No Longer Active Rhina Plata MD Active EPIPEN 2-GABBY 0.3 MG/0.3ML SOAJ as directed EPINEPHRINE 5 6077592753 Active Rhina Plata MD Active PREDNISONE 20 MG TAB 1 tablet twice daily for 2 d ays, then 1 tablet once daily for 2 days PREDNISONE 20 MG TAB 737510 PREDNISONE Inac tive CVS IRON 325 (65 FE) MG ORAL TABS Take one by mouth daily 6 CVS IRON 325 (65 FE) MG ORAL TABS 627740 FERROUS SULFATE Inacti ve Immunizations Vaccine Administration Date Value Standard Kaiden cription hepatitis B vaccine series yes hepat itis B vaccine, unspecified formulation Vital Signs Date Name Value Unit Range Description blood pressure, diastolic - 8462-4 60 mm[Hg] BP ralph blood pressure, systolic - 8480-6 95 mm[Hg] BP sys pulse rate E&M - 8867-4 59 /min H eart rate temperature E&M 97.8 [degF] Body temp erature weight E&M - 3141-9 139.2 [lb_av] Weigh t Measured Encounters Code Encounter Date Provider Facility CPT-70467 Level 3 Est. Patient 16:43:13 CDT Loren slater GAMEPLAY ENGINEER [facility] CPT-77549 Level 3 Est. Patient 09:56:59 EDUCATIONAL INTERPRETER Benjamin hussein DO [facility] Procedures Code Procedure Name Date Entry Date Standard Desc ription CPT-J1050 Depo Provera 150 mg (Medroxyprogesterone) 08/15 14:53:29 CDT CPT-06625 Postop F/U Visit 15:53:52 CDT CPT-32247 Visit 09:52:43 CDT CPT-70341 Visit 15:13:51 CDT CPT-71169 Visit 11:49:28 CDT CPT-62039 Visit 12:15:02 CDT CPT-36797 Visit 12:08:30 CDT CPT-86662 Adacel 16:55:52 CDT CPT-26581 Administration single or combination vac cine inc oral 16:55:52 CDT CPT-56043 Tdap 7yrs or > 16:19:02 CDT CPT-83658 Visit 16:19:02 CDT CPT-51319 Visit 10:35:45 EDUCATIONAL INTERPRETER CPT-20484 Venipuncture Draw Fee 08:56:41 EDUCATIONAL INTERPRETER CPT-63979 Visit 08:59:48 EDUCATIONAL INTERPRETER CPT-54907 Sono OB comp > 14 weeks 08:41:26 EDUCATIONAL INTERPRETER 02/13 CPT-64045 Visit 09:15:49 EDUCATIONAL INTERPRETER CPT-98696 Visit 10:52:07 EDUCATIONAL INTERPRETER CPT-44050 Visit 12:10:53 EDUCATIONAL INTERPRETER CPT-53577N Sono OB comp <14 weeks ([place] Only) 16:57:48 CDT CPT-19454 Fluzone 14:23:28 CDT CPT-34698 Spec Collection and Handling Fee 14:10:55 C DT CPT-08005 Visit 14:10:55 CDT
--- OUTSIDE RECORDS SUMMARY | 2019-08-17 21:27 | XMS REPORT | Clinical Summary ---
Author Author Tawanda, Kalina Hollis Organization [facility] Address Unknown Phone Unavailable Allergies, Adverse Reactions, Alerts Allergy Name Reaction Description Start Date Severity Status Pr ovider No Known Allergies Karen Seng Conditions or Problems Problem Name Problem Code Onset Date Status Entry Date Provider Comment Standard Description Annotate Supervision of normal first V22.0 Resolved Loren Yomesfinum LOGGING SHOVEL OPERATOR Supervision of normal first Pelvic pain 789.09 Resolved Loren Yokum LOGGING SHOVEL OPERATOR Abdominal pain, other specified site; multiple sites Uterine size date discrepancy, antepartum condition or compl ication 649.63 Resolved Loren Yokum LOGGING SHOVEL OPERATOR Uterine siz e date discrepancy, antepartum condition or complication Pharyngitis-Acute 462 Resolved Loren Yokum APR N Acute pharyngitis AFTERCARE FLW SURG TEETH ORL CAV&DIGESTV SYS NEC V58.75 07/25 Resolved Loren Yokum LOGGING SHOVEL OPERATOR Aftercare following surgery of the teeth,oral cavity and digestive system, NEC Physical examination V70.0 Active Loren Yokum A PRN Routine general medical examination at a health care facility Contraceptive management V25.9 Active Amaris Lambert APPRENTICE JOCKEY Encounter for unspecified contraceptive management Supervision of normal first ICD-V22.0 5 Inactive Loren Yokum LOGGING SHOVEL OPERATOR Pelvic pain ICD-789.09 Inactive Loren JOHNSON RN Uterine size date discrepancy, antepartum condition or compl ication ICD-649.63 Inactive Loren Yokum LOGGING SHOVEL OPERATOR Pharyngitis-Acute ICD-462 Inactive Loren slater LOGGING SHOVEL OPERATOR AFTERCARE FLW SURG TEETH ORL CAV&DIGESTV SYS NEC ICD-V58.75 Inactive Loren Weber LOGGING SHOVEL OPERATOR Medication List Medication Instructions Start Date Stop Date Generic Name NDC Status Provider Patient Instruction FLONASE 50 MCG/ACT SUSP 1 spray each nostril am and hs as needed 20 26/03/19 FLUTICASONE PROPIONATE 67218465195 Active Loren Weber LOGGING SHOVEL OPERATOR A ctive MICRONOR 0.35 MG TAB 1 tab po q day NORETHINDRO NE (CONTRACEPTIVE) 18462461139 Active Rhina Plata MD Active FENMARI BLOOD SUGAR HEALTH 500 MG ORAL CAPS FENUGREEK 69993303801 Active Bev Dove APRN Active 1 30-0.975-200 MG CAPS 1 qDay MV-MIN-FE FUM-FA-DHA 24540987650 Active Bev Dove APRN Active CVS IRON 325 (65 FE) MG ORAL TABS Take one by mouth daily 6 FERROUS SULFATE 60714059356 No Longer Active Bev Dove APRN Active PREDNISONE 20 MG TAB 1 tablet twice daily for 2 d ays, then 1 tablet once daily for 2 days PREDNISONE 97941033548 No Longer Active Rhina Plata MD Active EPIPEN 2-GABBY 0.3 MG/0.3ML SOAJ as directed EPINEPHRINE 5 0850967705 Active Rhina Plata MD Active PREDNISONE 20 MG TAB 1 tablet twice daily for 2 d ays, then 1 tablet once daily for 2 days PREDNISONE 20 MG TAB 495896 PREDNISONE Inac tive CVS IRON 325 (65 FE) MG ORAL TABS Take one by mouth daily 6 CVS IRON 325 (65 FE) MG ORAL TABS 897385 FERROUS SULFATE Inacti ve Immunizations Vaccine Administration Date Value Standard Kadien cription hepatitis B vaccine series yes hepat [...] - 3141-9 139.2 [lb_av] Weigh t Measured Diagnostic Results Date Name Value Unit Range Description Lab Report: [facility] - Chemistry human chorionic gonadotropin , urine, qualitative (urine test) Negative Negative Encounters Code Encounter Date Provider Facility CPT-66478 Level 3 Est. Patient 16:43:13 CDT Loren slater [facility] CPT-53208 Level 3 Est. 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 BEAM DEPARTMENT Benjamin hussein [facility] Procedures Code Procedure Name Date Entry Date Standard Desc ription CPT-88533 Abx/Therapy Injection 17:04:17 CDT CPT-J1050 Depo Provera 150 mg (Medroxyprogesterone) 08/15 17:04:17 CDT CPT-J1050 Depo Provera 150 mg (Medroxyprogesterone) 08/15 14:53:29 CDT CPT-60221 Postop F/U Visit 15:53:52 CDT CPT-96927 Visit 09:52:43 CDT CPT-25475 Visit 15:13:51 CDT CPT-26947 Visit 11:49:28 CDT CPT-52376 Visit 12:15:02 CDT CPT-43685 Visit 12:08:30 CDT CPT-90401 Adacel 16:55:52 CDT CPT-68531 Administration single or combination vac cine inc oral 16:55:52 CDT CPT-47259 Tdap 7yrs or > 16:19:02 CDT CPT-14915 Visit 16:19:02 CDT CPT-17933 Visit 10:35:45 SUPERVISOR BEAM DEPARTMENT CPT-20005 Venipuncture Draw Fee 08:56:41 SUPERVISOR BEAM DEPARTMENT CPT-89204 Visit 08:59:48 SUPERVISOR BEAM DEPARTMENT CPT-73258 Sono OB comp > 14 weeks 08:41:26 SUPERVISOR BEAM DEPARTMENT 02/13 CPT-68301 Visit 09:15:49 SUPERVISOR BEAM DEPARTMENT CPT-07504 Visit 10:52:07 SUPERVISOR BEAM DEPARTMENT CPT-79035 Visit 12:10:53 SUPERVISOR BEAM DEPARTMENT CPT-56047L Sono OB comp <14 weeks ([place] Only) 16:57:48 CDT CPT-47990 Fluzone 14:23:28 CDT CPT-39182 Spec Collection and Handling Fee 14:10:55 C DT CPT-25878 Visit 14:10:55 CDT
--- OUTSIDE RECORDS SUMMARY | 2019-08-17 21:27 | XMS REPORT | Clinical Summary ---
Author Author Tawanda, Kalina Hollis Organization [facility] Address Unknown Phone Unavailable Allergies, Adverse Reactions, [...] each nostril am and hs FLUTICASONE PROPIONATE 86311765808 Active Benjamin Bejarano DO Active PREDNISONE 20 MG TAB 1 tablet twice daily for 2 d ays, then 1 tablet once daily for 2 days PREDNISONE 43114977082 Active Benjamin Bejarano DO Active EPIPEN 2-GABBY 0.3 MG/0.3ML SOAJ as directed EPINEPHRINE 5 7425338986 Active Rhina Plata MD Active Immunizations Vaccine [...] 11 .0-15.0 platelet count 315 THOUSAND/UL 10*3/mm3 807-668 1204/10/01 Blood type O Lab Report: ABO GROUP [...] O Office Visit: 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 Patient 09:56:59 MERCHANDISING DIRECTOR Benjamin hussein [facility] Procedures Code Procedure Name Date Entry Date Standard Desc ription CPT-90379 Visit 11:49:28 CDT CPT-31201 Visit 12:15:02 CDT CPT-01468 Visit 12:08:30 CDT CPT-35683 Adacel 16:55:52 CDT CPT-99112 Administration single or combination vac cine inc oral 16:55:52 CDT CPT-46306 Tdap 7yrs or > 16:19:02 CDT CPT-38228 Visit 16:19:02 CDT CPT-94427 Visit 10:35:45 MERCHANDISING DIRECTOR CPT-30404 Venipuncture Draw Fee 08:56:41 MERCHANDISING DIRECTOR CPT-46741 Visit 08:59:48 MERCHANDISING DIRECTOR CPT-41461 Sono OB comp > 14 weeks 08:41:26 MERCHANDISING DIRECTOR 02/13 CPT-73035 Visit 09:15:49 MERCHANDISING DIRECTOR CPT-44766 Visit 10:52:07 MERCHANDISING DIRECTOR CPT-28587 Visit 12:10:53 MERCHANDISING DIRECTOR CPT-53876L Sono OB comp <14 weeks ([place] Only) 16:57:48 CDT CPT-05848 Fluzone 14:23:28 CDT CPT-53576 Spec Collection and Handling Fee 14:10:55 C DT CPT-92302 Visit 14:10:55 CDT
--- OUTSIDE RECORDS SUMMARY | 2019-08-17 21:28 | XMS REPORT | Clinical Summary ---
Author Author Tawanda, Kalina Hollis Organization [facility] Address Unknown Phone Unavailable Allergies, Adverse Reactions, Alerts Allergy Name Reaction Description Start Date Severity Status Pr ovider No Known Allergies Agnes Jay POOL HAND Conditions or Problems Problem Name Problem Code [...] tablet once daily for 2 days PREDNISONE 19231969055 No Longer Active Rhina Plata MD Active FLONASE 50 MCG/ACT SUSP 1 spray each nostril am and hs FLUTICASONE PROPIONATE 73351231417 Active Benjamin Bejarano DO Active EPIPEN 2-GABBY 0.3 MG/0.3ML SOAJ as directed EPINEPHRINE 5 0508458936 Active Rhina Plata MD Active PREDNISONE 20 MG TAB 1 tablet twice daily for 2 d ays, then 1 tablet once daily for 2 days PREDNISONE 20 MG TAB 549520 PREDNISONE Inac tive Immunizations Vaccine Administration Date [...] 11 .0-15.0 platelet count 315 THOUSAND/UL 10*3/mm3 414-914 7398/10/01 Blood type O Lab Report: ABO GROUP [...] O Office Visit: Initial OB Visit - 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 Patient 09:56:59 COPY CHASER Benjamin Parker [facility] Procedures Code Procedure Name Date Entry Date Standard Desc ription CPT-81468 Visit 09:52:43 CDT CPT-14186 Visit 15:13:51 CDT CPT-39283 Visit 11:49:28 CDT CPT-42084 Visit 12:15:02 CDT CPT-03218 Visit 12:08:30 CDT CPT-56700 Adacel 16:55:52 CDT CPT-94689 Administration single or combination vac cine inc oral 16:55:52 CDT CPT-22803 Tdap 7yrs or > 16:19:02 CDT CPT-39207 Visit 16:19:02 CDT CPT-03024 Visit 10:35:45 COPY CHASER CPT-18296 Venipuncture Draw Fee 08:56:41 COPY CHASER CPT-06253 Visit 08:59:48 COPY CHASER CPT-12825 Sono OB comp > 14 weeks 08:41:26 COPY CHASER 02/13 CPT-69301 Visit 09:15:49 COPY CHASER CPT-66118 Visit 10:52:07 COPY CHASER CPT-21354 Visit 12:10:53 COPY CHASER CPT-71851I Sono OB comp <14 weeks ([place] Only) 16:57:48 CDT CPT-10059 Fluzone 14:23:28 CDT CPT-93712 Spec Collection and Handling Fee 14:10:55 C DT CPT-61449 Visit 14:10:55 CDT
--- OUTSIDE RECORDS SUMMARY | 2019-08-17 21:28 | XMS REPORT | Clinical Summary ---
Author Author Tawanda, Kalina Hollis Organization [facility] Address Unknown Phone Unavailable Allergies, Adverse [...] each nostril am and hs FLUTICASONE PROPIONATE 82326140673 Active Benjamin Bejarano DO Active PREDNISONE 20 MG TAB 1 tablet twice daily for 2 d ays, then 1 tablet once daily for 2 days PREDNISONE 61815616981 Active Benjamin Bejaraon DO Active EPIPEN 2-GABBY 0.3 MG/0.3ML SOAJ as directed EPINEPHRINE 5 1576311847 Active Rhina Plata MD Active Immunizations Vaccine [...] 11 .0-15.0 platelet count 315 THOUSAND/UL 10*3/mm3 814-057 2434/10/01 Blood type O erythrocyte (RBC) count 4.19 [...] O Office Visit: Initial OB Visit - Deaf Interpreter ry Neisseria gonorrhoeae, genital culture negative protein, [...] N Encounters Code Encounter Date Provider Facility CPT-84061 Level 3 Est. 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 Benjamin hussein [facility] Procedures Code Procedure Name Date Entry Date Standard Desc ription CPT-36536 Visit 12:08:30 CDT CPT-52091 Adacel 16:55:52 CDT CPT-01410 Administration single or combination vac cine inc oral 16:55:52 CDT CPT-82077 Tdap 7yrs or > 16:19:02 CDT CPT-02868 Visit 16:19:02 CDT CPT-74454 Visit 10:35:45 MUSIC VIDEO PRODUCER CPT-40504 Venipuncture Draw Fee 08:56:41 MUSIC VIDEO PRODUCER CPT-49942 Visit 08:59:48 MUSIC VIDEO PRODUCER CPT-23366 Sono OB comp > 14 weeks 08:41:26 MUSIC VIDEO PRODUCER 02/13 CPT-88781 Visit 09:15:49 MUSIC VIDEO PRODUCER CPT-13819 Visit 10:52:07 MUSIC VIDEO PRODUCER CPT-80160 Visit 12:10:53 MUSIC VIDEO PRODUCER CPT-29671T Sono OB comp <14 weeks ([place] Only) 16:57:48 CDT CPT-14228 Fluzone 14:23:28 CDT CPT-56793 Spec Collection and Handling Fee 14:10:55 C DT CPT-11776 Visit 14:10:55 CDT
--- OUTSIDE RECORDS SUMMARY | 2019-08-17 21:28 | XMS REPORT | Clinical Summary ---
Author Author Tawanda, Kalina Hollis Organization [facility] Address Unknown Phone Unavailable Allergies, Adverse Reactions, Alerts Allergy Name Reaction Description Start Date Severity Status Pr ovider No Known Allergies ELIZABETH [place] Conditions or Problems Problem Name Problem Code [...] Generic Name NDC Status Provider Patient Instruction CVS IRON 325 (65 FE) MG ORAL TABS Take one by mouth daily 6 FERROUS SULFATE 40069331747 Active Walter Lo MD Active PREDNISONE 20 MG TAB 1 tablet twice daily for 2 d ays, then 1 tablet once daily for 2 days PREDNISONE 36944968753 No Longer Active Rhina Plata MD Active FLONASE 50 MCG/ACT SUSP 1 spray each nostril am and hs FLUTICASONE PROPIONATE 59676618038 Active Benjamin Bejarano DO Active EPIPEN 2-GABBY 0.3 MG/0.3ML SOAJ as directed EPINEPHRINE 5 4461649691 Active Rhina Plata MD Active PREDNISONE 20 MG TAB 1 tablet twice daily for 2 d ays, then 1 tablet once daily for 2 days PREDNISONE 20 MG TAB 405656 PREDNISONE Inac tive Immunizations Vaccine Administration Date [...] Outside labs entered on flowsheet - Chemistry blood glucose 81 mg/dL creatinine, serum 0.61 mg/dL aspartate aminotransferase (SGOT), serum 34 U/L alanine aminotransferase (SGPT), serum 29 U/L alkaline phosphatase, serum 80 U/L sodium, serum 139 mmol/L potassium, serum 3.9 mmol/L blood glucose 78 mg/dL creatinine, serum 0.68 mg/dL aspartate aminotransferase (SGOT), serum 20 U/L alanine aminotransferase (SGPT), serum 20 U/L alkaline phosphatase, serum 89 U/L protein, total urine random Negative mg/dL thyroid stimulating hormone, serum 1.40 u[iU]/mL sodium, serum 137 mmol/L potassium, serum 3.3 mmol/L Chart Maintenance: Outside labs entered on flowsheet [...] RBCW/REFL I, CBC (IN ... - Hematology red blood cell distribution width 12.5 % 11 .0-15.0 platelet count 315 THOUSAND/UL 10*3/mm3 336-504 8722/10/01 Blood type O mean corpuscular hemoglobin, RBC 29.5 pg 27. 0-33.0 mean corpuscular volume, RBC 87.8 fL 80.0-10 0.0 hematocrit, blood 36.8 % 35.0-45.0 hemoglobin, blood 12.3 g/dL 11.7-15.5 mean corpuscular hemoglobin concentration, RBC 33.6 G/DL % 32.0-36.0 erythrocyte (RBC) count 4.19 MILLION/UL 10*6/mm3 3.80-5. [...] 11 .6-14.8 platelet count 309 10^3/MM^3 10*3/mm3 971-924 6787/02/20 erythrocyte (RBC) count 3.45 10^6/MM^3 10*6/mm3 4.04-5.4 8 hemoglobin, blood 10.6 g/dL 12.0-16.0 hematocrit, blood 31.2 % 36.0-46.0 mean corpuscular volume, RBC 90 fL 80-97 mean corpuscular hemoglobin, RBC 30.7 pg 27. 0-31.2 Office Visit: Initial OB Visit - Blood b ank blood type with RH factor O Office Visit: Initial OB Visit - Bankruptcy Manager ry Neisseria gonorrhoeae, genital culture negative protein, [...] N Encounters Code Encounter Date Provider Facility CPT-47695 Level 3 Est. Patient 09:56:59 RAHUL hussein [facility] Procedures Code Procedure Name Date Entry Date Standard Desc ription CPT-04961 Postop F/U Visit 15:53:52 CDT CPT-39492 Visit 09:52:43 CDT CPT-54411 Visit 15:13:51 CDT CPT-03243 Visit 11:49:28 CDT CPT-66870 Visit 12:15:02 CDT CPT-65864 Visit 12:08:30 CDT CPT-02209 Adacel 16:55:52 CDT CPT-81128 Administration single or combination vac cine inc oral 16:55:52 CDT CPT-06584 Tdap 7yrs or > 16:19:02 CDT CPT-03012 Visit 16:19:02 CDT CPT-51831 Visit 10:35:45 BRICK WASHER CPT-20361 Venipuncture Draw Fee 08:56:41 BRICK WASHER CPT-50235 Visit 08:59:48 BRICK WASHER CPT-30613 Sono OB comp > 14 weeks 08:41:26 BRICK WASHER 02/13 CPT-12395 Visit 09:15:49 BRICK WASHER CPT-53325 Visit 10:52:07 BRICK WASHER CPT-18696 Visit 12:10:53 BRICK WASHER CPT-40561O Sono OB comp <14 weeks ([place] Only) 16:57:48 CDT CPT-73441 Fluzone 14:23:28 CDT CPT-49603 Spec Collection and Handling Fee 14:10:55 C DT CPT-20755 Visit 14:10:55 CDT
--- OUTSIDE RECORDS SUMMARY | 2019-08-17 21:28 | XMS REPORT | Clinical Summary ---
Author Author Tawanda, Kalina Hollis Organization [facility] Address Unknown Phone Unavailable Allergies, Adverse Reactions, Alerts Allergy Name Reaction Description Start Date Severity Status Pr ovider No Known Allergies Agnes Jay CLIENT ADVOCATE Conditions or Problems Problem Name Problem Code [...] tablet once daily for 2 days PREDNISONE 72410433940 No Longer Active Rhina Plata MD Active FLONASE 50 MCG/ACT SUSP 1 spray each nostril am and hs FLUTICASONE PROPIONATE 98647430728 Active Benjamin Bejarano DO Active EPIPEN 2-GABBY 0.3 MG/0.3ML SOAJ as directed EPINEPHRINE 5 3480419524 Active Rhina Plata MD Active PREDNISONE 20 MG TAB 1 tablet twice daily for 2 d ays, then 1 tablet once daily for 2 days PREDNISONE 20 MG TAB 830095 PREDNISONE Inac tive Immunizations Vaccine Administration Date [...] 11 .0-15.0 platelet count 315 THOUSAND/UL 10*3/mm3 581-917 8280/10/01 Blood type O Lab Report: ABO GROUP [...] O Office Visit: Initial OB Visit - Shaker Operator ry Neisseria gonorrhoeae, genital culture negative [...] N Encounters Code Encounter Date Provider Facility CPT-04718 Level 3 Est. 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 Benjamin Parker [facility] Procedures Code Procedure Name Date Entry Date Standard Desc ription CPT-91742 Visit 09:52:43 CDT CPT-88281 Visit 15:13:51 CDT CPT-11271 Visit 11:49:28 CDT CPT-62246 Visit 12:15:02 CDT CPT-35677 Visit 12:08:30 CDT CPT-15588 Adacel 16:55:52 CDT CPT-80525 Administration single or combination vac cine inc oral 16:55:52 CDT CPT-79687 Tdap 7yrs or > 16:19:02 CDT CPT-82772 Visit 16:19:02 CDT CPT-98327 Visit 10:35:45 PUBLIC HEALTH STAFF NURSE CPT-94842 Venipuncture Draw Fee 08:56:41 PUBLIC HEALTH STAFF NURSE CPT-69582 Visit 08:59:48 PUBLIC HEALTH STAFF NURSE CPT-82647 Sono OB comp > 14 weeks 08:41:26 PUBLIC HEALTH STAFF NURSE 02/13 CPT-07177 Visit 09:15:49 PUBLIC HEALTH STAFF NURSE CPT-32093 Visit 10:52:07 PUBLIC HEALTH STAFF NURSE CPT-49951 Visit 12:10:53 PUBLIC HEALTH STAFF NURSE CPT-73523X Sono OB comp <14 weeks ([place] Only) 16:57:48 CDT CPT-48671 Fluzone 14:23:28 CDT CPT-68306 Spec Collection and Handling Fee 14:10:55 C DT CPT-71833 Visit 14:10:55 CDT
--- OUTSIDE RECORDS SUMMARY | 2019-08-17 21:28 | XMS REPORT | Clinical Summary ---
Author Author Tawanda, Kalina Hollis Organization [employer] Address Unknown Phone Unavailable Allergies, Adverse Reactions, Alerts Allergy Name Reaction Description Start Date Severity Status Pr ovider No Known Allergies Karen Seng Conditions or Problems Problem Name Problem Code Onset Date Status Entry Date Provider Comment Standard Description Annotate Supervision of normal first V22.0 Resolved Loren Yomesfinum TRUCK PACKER Supervision of normal first Pelvic pain 789.09 Resolved Loren Yokum TRUCK PACKER Abdominal pain, other specified site; multiple sites Uterine size date discrepancy, antepartum condition or compl ication 649.63 Resolved Loren Yokum TRUCK PACKER Uterine siz e date discrepancy, antepartum condition or complication Pharyngitis-Acute 462 Resolved Loren Yokum APR N Acute pharyngitis AFTERCARE FLW SURG TEETH ORL CAV&DIGESTV SYS NEC V58.75 07/25 Resolved Loren Yokum TRUCK PACKER Aftercare following surgery of the teeth,oral cavity and digestive system, NEC Physical examination V70.0 Active Loren Greerum A PRN Routine general medical examination at a health care facility Supervision of normal first ICD-V22.0 5 Inactive Loren Yokum TRUCK PACKER Pelvic pain ICD-789.09 Inactive Loren JOHNSON RN Uterine size date discrepancy, antepartum condition or compl ication ICD-649.63 Inactive Loren Yokum TRUCK PACKER Pharyngitis-Acute ICD-462 Inactive Loren slater TRUCK PACKER AFTERCARE FLW SURG TEETH ORL CAV&DIGESTV SYS NEC ICD-V58.75 Inactive Loren Weber TRUCK PACKER Medication List Medication Instructions Start Date Stop Date Generic Name NDC Status Provider Patient Instruction FLONASE 50 MCG/ACT SUSP 1 spray each nostril am and hs as needed 20 26/03/19 FLUTICASONE PROPIONATE 76006970602 Active Loren Weber TRUCK PACKER A ctive MICRONOR 0.35 MG TAB 1 tab po q day NORETHINDRO NE (CONTRACEPTIVE) 04682554242 Active Rhina Plata MD Active FENUGREEMesfin BLOOD SUGAR HEALTH 500 MG ORAL CAPS FENUGREEK 43220602250 Active Bev Dove APRN Active 1 30-0.975-200 MG CAPS 1 qDay MV-MIN-FE FUM-FA-DHA 66275451321 Active Bev Dove APRN Active [facility] IRON 325 (65 FE) MG ORAL TABS Take one by mouth daily 6 FERROUS SULFATE 47546435206 No Longer Active Bev Dove APRN Active PREDNISONE 20 MG TAB 1 tablet twice daily for 2 d ays, then 1 tablet once daily for 2 days PREDNISONE 96676067941 No Longer Active Rhina Plata MD Active EPIPEN 2-GABBY 0.3 MG/0.3ML SOAJ as directed EPINEPHRINE 5 3690616310 Active Rhina Plata MD Active PREDNISONE 20 MG TAB 1 tablet twice daily for 2 d ays, then 1 tablet once daily for 2 days PREDNISONE 20 MG TAB 272766 PREDNISONE Inac tive [facility] IRON 325 (65 FE) MG ORAL TABS Take one by mouth daily 6 [facility] IRON 325 (65 FE) MG ORAL TABS 090528 FERROUS SULFATE Inacti ve Immunizations Vaccine Administration [...] - 3141-9 139.2 [lb_av] Weigh t Measured blood pressure, diastolic [...] 11 .0-15.0 platelet count 315 THOUSAND/UL 10*3/mm3 666-685 6543/10/01 Blood type O Lab Report: ABO GROUP [...] 309 10^3/MM^3 10*3/mm3 142-424 Lab Report: Chlamydia/GC APTIMA/80497 - Lab chlamydia DNA probe NOT DETECTED NOT DETECTED Lab Report: Chlamydia/GC APTIMA/46450 - Microbiology Neisseria gonorrhoeae DNA probe NOT DETECTED NO T DETECTED Office Visit: Initial OB Visit - Blood b ank blood type with RH factor O Office Visit: Initial OB Visit - Bobbin Fixer ry Neisseria gonorrhoeae, genital culture negative protein, [...] N Encounters Code Encounter Date Provider Facility CPT-32241 Level 3 Est. Patient 16:43:13 CDT Loren slater TRUCK PACKER [facility] CPT-55589 Level 3 Est. Patient 09:56:59 PRINCIPAL CLERK TYPIST Benjamin hussein DO [facility] Procedures Code Procedure Name Date Entry Date Standard Desc ription CPT-43060 Postop F/U Visit 15:53:52 CDT CPT-33973 Visit 09:52:43 CDT CPT-10102 Visit 15:13:51 CDT CPT-96950 Visit 11:49:28 CDT CPT-37365 Visit 12:15:02 CDT CPT-26885 Visit 12:08:30 CDT CPT-98873 Adacel 16:55:52 CDT CPT-75536 Administration single or combination vac cine inc oral 16:55:52 CDT CPT-33164 Tdap 7yrs or > 16:19:02 CDT CPT-04362 Visit 16:19:02 CDT CPT-34986 Visit 10:35:45 PRINCIPAL CLERK TYPIST CPT-85465 Venipuncture Draw Fee 08:56:41 PRINCIPAL CLERK TYPIST CPT-19222 Visit 08:59:48 PRINCIPAL CLERK TYPIST CPT-39256 Sono OB comp > 14 weeks 08:41:26 PRINCIPAL CLERK TYPIST 02/13 CPT-98054 Visit 09:15:49 PRINCIPAL CLERK TYPIST CPT-74240 Visit 10:52:07 PRINCIPAL CLERK TYPIST CPT-56037 Visit 12:10:53 PRINCIPAL CLERK TYPIST CPT-58614C Sono OB comp <14 weeks ([place] Only) 16:57:48 CDT CPT-51996 Fluzone 14:23:28 CDT CPT-91332 Spec Collection and Handling Fee 14:10:55 C DT CPT-51092 Visit 14:10:55 CDT
--- OUTSIDE RECORDS SUMMARY | 2019-08-17 21:28 | XMS REPORT | Clinical Summary ---
Author Author Tawanda, Kalina Hollis Organization [employer] Address Unknown Phone Unavailable Allergies, Adverse Reactions, [...] tab po q day NORETHINDRO NE (CONTRACEPTIVE) 11474393425 Active Jillina Fragilsonl HORSE RACE STARTER Active FENUGREEK BLOOD SUGAR HEALTH 500 MG ORAL CAPS FENUGREEK 76588740757 Active Jillina Fragilsonl HORSE RACE STARTER Active 1 30-0.975-200 MG CAPS 1 qDay MV-MIN-FE FUM-FA-DHA 45586920881 Active Jillina Frazell HORSE RACE STARTER Active [facility]S IRON 325 (65 FE) MG ORAL TABS Take one by mouth daily 6 FERROUS SULFATE 55987197772 No Longer Active Bev Dvoe APRN Active PREDNISONE 20 MG TAB 1 tablet twice daily for 2 d ays, then 1 tablet once daily for 2 days PREDNISONE 98122106106 No Longer Active Rhina Plata MD Active FLONASE 50 MCG/ACT SUSP 1 spray each nostril am and hs FLUTICASONE PROPIONATE 43663520200 Active Benjamin Bejarano DO Active EPIPEN 2-GABBY 0.3 MG/0.3ML SOAJ as directed EPINEPHRINE 5 6652943507 Active Rhina Plata MD Active PREDNISONE 20 MG TAB 1 tablet twice daily for 2 d ays, then 1 tablet once daily for 2 days PREDNISONE 20 MG TAB 239422 PREDNISONE Inac tive [facility]S IRON 325 (65 FE) MG ORAL TABS Take one by mouth daily 6 [facility]S IRON 325 (65 FE) MG ORAL TABS 762929 FERROUS SULFATE Inacti ve Immunizations Vaccine Administration [...] 11 .0-15.0 platelet count 315 THOUSAND/UL 10*3/mm3 190-808 8263/10/01 Blood type O Lab Report: ABO GROUP [...] 309 10^3/MM^3 10*3/mm3 142-424 Lab Report: Chlamydia/GC APTIMA/54869 - Lab chlamydia DNA probe NOT DETECTED NOT DETECTED Lab Report: Chlamydia/GC APTIMA/67876 - Microbiology Neisseria gonorrhoeae DNA probe NOT DETECTED NO T DETECTED Office Visit: Initial OB Visit - Blood b ank blood type with RH factor O Office Visit: Initial OB Visit - [employer] ry Neisseria gonorrhoeae, genital culture negative protein, [...] N Encounters Code Encounter Date Provider Facility CPT-11856 Level 3 Est. 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 Benjamin hussein [facility] Procedures Code Procedure Name Date Entry Date Standard Desc ription CPT-08294 Postop F/U Visit 15:53:52 CDT CPT-88764 Visit 09:52:43 CDT CPT-69453 Visit 15:13:51 CDT CPT-00503 Visit 11:49:28 CDT CPT-34705 Visit 12:15:02 CDT CPT-20992 Visit 12:08:30 CDT CPT-92558 Adacel 16:55:52 CDT CPT-13718 Administration single or combination vac cine inc oral 16:55:52 CDT CPT-85065 Tdap 7yrs or > 16:19:02 CDT CPT-94875 Visit 16:19:02 CDT CPT-56226 Visit 10:35:45 MERCHANDISE FLOW TEAM LEADER CPT-66850 Venipuncture Draw Fee 08:56:41 MERCHANDISE FLOW TEAM LEADER CPT-66215 Visit 08:59:48 MERCHANDISE FLOW TEAM LEADER CPT-95205 Sono OB comp > 14 weeks 08:41:26 MERCHANDISE FLOW TEAM LEADER 02/13 CPT-22473 Visit 09:15:49 MERCHANDISE FLOW TEAM LEADER CPT-26314 Visit 10:52:07 MERCHANDISE FLOW TEAM LEADER CPT-49977 Visit 12:10:53 MERCHANDISE FLOW TEAM LEADER CPT-79088T Sono OB comp <14 weeks ([place] Only) 16:57:48 CDT CPT-34353 Fluzone 14:23:28 CDT CPT-63576 Spec Collection and Handling Fee 14:10:55 C DT CPT-76327 Visit 14:10:55 CDT
--- OUTSIDE RECORDS SUMMARY | 2019-08-17 21:28 | XMS REPORT | Clinical Summary ---
Author Author Tawanda, Kalina Hollis Organization [facility] Address Unknown Phone Unavailable Allergies, Adverse Reactions, [...] each nostril am and hs FLUTICASONE PROPIONATE 33007356470 Active Benjamin Bejarano DO Active PREDNISONE 20 MG TAB 1 tablet twice daily for 2 d ays, then 1 tablet once daily for 2 days PREDNISONE 39199572509 Active Benjamin Bejarano DO Active EPIPEN 2-GABBY 0.3 MG/0.3ML SOAJ as directed EPINEPHRINE 5 6498519334 Active Rhina Plata MD Active Immunizations Vaccine [...] 11 .0-15.0 platelet count 315 THOUSAND/UL 10*3/mm3 129-614 9156/10/01 Blood type O Lab Report: ABO GROUP [...] O Office Visit: Initial OB 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 Patient 09:56:59 RAHUL hussein [facility] Procedures Code Procedure Name Date Entry Date Standard Desc ription CPT-65336 Visit 15:13:51 CDT CPT-26798 Visit 11:49:28 CDT CPT-79570 Visit 12:15:02 CDT CPT-25497 Visit 12:08:30 CDT CPT-15192 Adacel 16:55:52 CDT CPT-64271 Administration single or combination vac cine inc oral 16:55:52 CDT CPT-20825 Tdap 7yrs or > 16:19:02 CDT CPT-17946 Visit 16:19:02 CDT CPT-78497 Visit 10:35:45 BEARING MACHINE OPERATOR CPT-38032 Venipuncture Draw Fee 08:56:41 BEARING MACHINE OPERATOR CPT-66149 Visit 08:59:48 BEARING MACHINE OPERATOR CPT-86104 Sono OB comp > 14 weeks 08:41:26 BEARING MACHINE OPERATOR 02/13 CPT-38466 Visit 09:15:49 BEARING MACHINE OPERATOR CPT-66870 Visit 10:52:07 BEARING MACHINE OPERATOR CPT-07947 Visit 12:10:53 BEARING MACHINE OPERATOR CPT-87426A Sono OB comp <14 weeks ([place] Only) 16:57:48 CDT CPT-14913 Fluzone 14:23:28 CDT CPT-11919 Spec Collection and Handling Fee 14:10:55 C DT CPT-47620 Visit 14:10:55 CDT
--- OUTSIDE RECORDS SUMMARY | 2019-08-17 21:29 | XMS REPORT | Clinical Summary ---
Author Author Tawanda, Kalina Hollis Organization [employer] Address Unknown Phone Unavailable Allergies, Adverse Reactions, Alerts Allergy Name Reaction Description Start Date Severity Status Pr ovider No Known Allergies Karen Seng Conditions or Problems Problem Name Problem Code Onset Date Status Entry Date Provider Comment Standard Description Annotate Supervision of normal first V22.0 Resolved Loren Yomesfinum OR ASSISTANT Supervision of normal first Pelvic pain 789.09 Resolved Loren Yokum OR ASSISTANT Abdominal pain, other specified site; multiple sites Uterine size date discrepancy, antepartum condition or compl ication 649.63 Resolved Loren Yokum OR ASSISTANT Uterine siz e date discrepancy, antepartum condition or complication Pharyngitis-Acute 462 Resolved Loren Yokum APR N Acute pharyngitis AFTERCARE FLW SURG TEETH ORL CAV&DIGESTV SYS NEC V58.75 07/25 Resolved Loren Yokum OR ASSISTANT Aftercare following surgery of the teeth,oral cavity and digestive system, NEC Physical examination V70.0 Active Loren Greerum A PRN Routine general medical examination at a health care facility Supervision of normal first ICD-V22.0 5 Inactive Loren Yokum OR ASSISTANT Pelvic pain ICD-789.09 Inactive Loren JOHNSON RN Uterine size date discrepancy, antepartum condition or compl ication ICD-649.63 Inactive Loren Yokum OR ASSISTANT Pharyngitis-Acute ICD-462 Inactive Loren slater OR ASSISTANT AFTERCARE FLW SURG TEETH ORL CAV&DIGESTV SYS NEC ICD-V58.75 Inactive Loren Weber OR ASSISTANT Medication List Medication Instructions Start Date Stop Date Generic Name NDC Status Provider Patient Instruction FLONASE 50 MCG/ACT SUSP 1 spray each nostril am and hs as needed 20 26/03/19 FLUTICASONE PROPIONATE 81171038458 Active Loren Weber OR ASSISTANT A ctive MICRONOR 0.35 MG TAB 1 tab po q day NORETHINDRO NE (CONTRACEPTIVE) 17650608236 Active Rhina Plata MD Active FENUGREEMesfin BLOOD SUGAR HEALTH 500 MG ORAL CAPS FENUGREEK 41053638595 Active Bev Dove APRN Active 1 30-0.975-200 MG CAPS 1 qDay MV-MIN-FE FUM-FA-DHA 73486277370 Active Bev Dove APRN Active [facility]S IRON 325 (65 FE) MG ORAL TABS Take one by mouth daily 6 FERROUS SULFATE 84844863911 No Longer Active Bev Dove APRN Active PREDNISONE 20 MG TAB 1 tablet twice daily for 2 d ays, then 1 tablet once daily for 2 days PREDNISONE 29636454978 No Longer Active Rhina Plata MD Active EPIPEN 2-GABBY 0.3 MG/0.3ML SOAJ as directed EPINEPHRINE 5 6410280987 Active Rhina Plata MD Active PREDNISONE 20 MG TAB 1 tablet twice daily for 2 d ays, then 1 tablet once daily for 2 days PREDNISONE 20 MG TAB 561514 PREDNISONE Inac tive [facility]S IRON 325 (65 FE) MG ORAL TABS Take one by mouth daily 6 [facility]S IRON 325 (65 FE) MG ORAL TABS 332900 FERROUS SULFATE Inacti ve Immunizations Vaccine Administration [...] Measured Encounters Code Encounter Date Provider Facility CPT-36053 Level 3 Est. Patient 16:43:13 CDT Loren slater OR ASSISTANT [facility] CPT-65622 Level 3 Est. Patient 09:56:59 CUTTER IN Benjamin hussein DO [facility] Procedures Code Procedure Name Date Entry Date Standard Desc ription CPT-J1050 Depo Provera 150 mg (Medroxyprogesterone) 08/15 14:53:29 CDT CPT-42098 Postop F/U Visit 15:53:52 CDT CPT-77474 Visit 09:52:43 CDT CPT-76624 Visit 15:13:51 CDT CPT-88803 Visit 11:49:28 CDT CPT-24039 Visit 12:15:02 CDT CPT-57697 Visit 12:08:30 CDT CPT-03072 Adacel 16:55:52 CDT CPT-12016 Administration single or combination vac cine inc oral 16:55:52 CDT CPT-87358 Tdap 7yrs or > 16:19:02 CDT CPT-10011 Visit 16:19:02 CDT CPT-11982 Visit 10:35:45 CUTTER IN CPT-09683 Venipuncture Draw Fee 08:56:41 CUTTER IN CPT-57649 Visit 08:59:48 CUTTER IN CPT-00365 Sono OB comp > 14 weeks 08:41:26 CUTTER IN 02/13 CPT-38083 Visit 09:15:49 CUTTER IN CPT-33705 Visit 10:52:07 CUTTER IN CPT-79410 Visit 12:10:53 CUTTER IN CPT-43919O Sono OB comp <14 weeks ([place] Only) 16:57:48 CDT CPT-59709 Fluzone 14:23:28 CDT CPT-18521 Spec Collection and Handling Fee 14:10:55 C DT CPT-01037 Visit 14:10:55 CDT
--- OUTSIDE RECORDS SUMMARY | 2019-08-17 21:29 | XMS REPORT | Clinical Summary ---
Author Author Tawanda, Kalina Hollis Organization [facility] Address Unknown Phone Unavailable Allergies, Adverse Reactions, [...] one by mouth daily 6 FERROUS SULFATE 05436183509 Active Walter Lo MD Active PREDNISONE 20 MG TAB 1 tablet twice daily for 2 d ays, then 1 tablet once daily for 2 days PREDNISONE 53774441615 No Longer Active Rhina Plata MD Active FLONASE 50 MCG/ACT SUSP 1 spray each nostril am and hs FLUTICASONE PROPIONATE 92116218289 Active Benjamin Bejarano DO Active EPIPEN 2-GABBY 0.3 MG/0.3ML SOAJ as directed EPINEPHRINE 5 1261924406 Active Rhina Plata MD Active PREDNISONE 20 MG TAB 1 tablet twice daily for 2 d ays, then 1 tablet once daily for 2 days PREDNISONE 20 MG TAB 351940 PREDNISONE Inac tive Immunizations Vaccine Administration Date [...] 11 .0-15.0 platelet count 315 THOUSAND/UL 10*3/mm3 893-443 9068/10/01 Blood type O Lab Report: ABO GROUP [...] O Office Visit: Initial OB Visit - Healthcare Administration Intern ry Neisseria gonorrhoeae, genital culture negative protein, [...] N Encounters Code Encounter Date Provider Facility CPT-63216 Level 3 Est. Patient 09:56:59 RAHUL hussein [facility] Procedures Code Procedure Name Date Entry Date Standard Desc ription CPT-87518 Postop F/U Visit 15:53:52 CDT CPT-86541 Visit 09:52:43 CDT CPT-90993 Visit 15:13:51 CDT CPT-40464 Visit 11:49:28 CDT CPT-59724 Visit 12:15:02 CDT CPT-18221 Visit 12:08:30 CDT CPT-03877 Adacel 16:55:52 CDT CPT-70319 Administration single or combination vac cine inc oral 16:55:52 CDT CPT-19823 Tdap 7yrs or > 16:19:02 CDT CPT-61208 Visit 16:19:02 CDT CPT-36509 Visit 10:35:45 CANCELING AND CUTTING CONTROL CLERK CPT-68326 Venipuncture Draw Fee 08:56:41 CANCELING AND CUTTING CONTROL CLERK CPT-00637 Visit 08:59:48 CANCELING AND CUTTING CONTROL CLERK CPT-18283 Sono OB comp > 14 weeks 08:41:26 CANCELING AND CUTTING CONTROL CLERK 02/13 CPT-61400 Visit 09:15:49 CANCELING AND CUTTING CONTROL CLERK CPT-99035 Visit 10:52:07 CANCELING AND CUTTING CONTROL CLERK CPT-12674 Visit 12:10:53 CANCELING AND CUTTING CONTROL CLERK CPT-13517G Sono OB comp <14 weeks ([place] Only) 16:57:48 CDT CPT-34555 Fluzone 14:23:28 CDT CPT-67965 Spec Collection and Handling Fee 14:10:55 C DT CPT-76033 Visit 14:10:55 CDT
--- OUTSIDE RECORDS SUMMARY | 2019-08-17 21:29 | XMS REPORT | Clinical Summary ---
Author Author Tawanda, Kalina Hollis Organization [facility] Address Unknown Phone Unavailable Allergies, Adverse Reactions, Alerts Allergy Name Reaction Description Start Date Severity Status Pr ovider No Known Allergies Agnes Jay HYDRAULIC BOOM OPERATOR Conditions or Problems Problem Name Problem Code [...] tablet once daily for 2 days PREDNISONE 95632815086 No Longer Active Rhina Plata MD Active FLONASE 50 MCG/ACT SUSP 1 spray each nostril am and hs FLUTICASONE PROPIONATE 65176271395 Active Benjamin Bejarano DO Active EPIPEN 2-GABBY 0.3 MG/0.3ML SOAJ as directed EPINEPHRINE 5 8504082276 Active Rhina Plata MD Active PREDNISONE 20 MG TAB 1 tablet twice daily for 2 d ays, then 1 tablet once daily for 2 days PREDNISONE 20 MG TAB 818299 PREDNISONE Inac tive Immunizations Vaccine Administration Date [...] 11 .0-15.0 platelet count 315 THOUSAND/UL 10*3/mm3 854-106 3697/10/01 Blood type O Lab Report: ABO GROUP [...] O Office Visit: Initial OB Visit - Siderographist ry Neisseria gonorrhoeae, genital culture negative protein, [...] N Encounters Code Encounter Date Provider Facility CPT-71887 Level 3 Est. 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 Benjamin Parker [facility] Procedures Code Procedure Name Date Entry Date Standard Desc ription CPT-21608 Visit 09:52:43 CDT CPT-47798 Visit 15:13:51 CDT CPT-59984 Visit 11:49:28 CDT CPT-16896 Visit 12:15:02 CDT CPT-39964 Visit 12:08:30 CDT CPT-02535 Adacel 16:55:52 CDT CPT-45633 Administration single or combination vac cine inc oral 16:55:52 CDT CPT-20094 Tdap 7yrs or > 16:19:02 CDT CPT-19498 Visit 16:19:02 CDT CPT-80442 Visit 10:35:45 EXTERIOR DOOR INSTALLER CPT-11866 Venipuncture Draw Fee 08:56:41 EXTERIOR DOOR INSTALLER CPT-23792 Visit 08:59:48 EXTERIOR DOOR INSTALLER CPT-42358 Sono OB comp > 14 weeks 08:41:26 EXTERIOR DOOR INSTALLER 02/13 CPT-38955 Visit 09:15:49 EXTERIOR DOOR INSTALLER CPT-22914 Visit 10:52:07 EXTERIOR DOOR INSTALLER CPT-48929 Visit 12:10:53 EXTERIOR DOOR INSTALLER CPT-93120I Sono OB comp <14 weeks ([place] Only) 16:57:48 CDT CPT-58614 Fluzone 14:23:28 CDT CPT-68548 Spec Collection and Handling Fee 14:10:55 C DT CPT-54749 Visit 14:10:55 CDT
--- OUTSIDE RECORDS SUMMARY | 2019-08-17 21:29 | XMS REPORT | Clinical Summary ---
Author Author Tawanda, Kalina Hollis Organization [employer] Address Unknown Phone Unavailable Allergies, Adverse Reactions, [...] tab po q day NORETHINDRO NE (CONTRACEPTIVE) 03861753681 Active Jillina Frazell HEALTH AND SAFETY ADVISOR Active FENUGREEK BLOOD SUGAR HEALTH 500 MG ORAL CAPS FENUGREEK 86054009689 Active Jillina Frazell HEALTH AND SAFETY ADVISOR Active 1 30-0.975-200 MG CAPS 1 qDay MV-MIN-FE FUM-FA-DHA 88042060517 Active Jillina Frazell HEALTH AND SAFETY ADVISOR Active [facility] IRON 325 (65 FE) MG ORAL TABS Take one by mouth daily 6 FERROUS SULFATE 16823013015 No Longer Active Jillina Frazell HEALTH AND SAFETY ADVISOR Active PREDNISONE 20 MG TAB 1 tablet twice daily for 2 d ays, then 1 tablet once daily for 2 days PREDNISONE 55586203467 No Longer Active Rhina Plata MD Active FLONASE 50 MCG/ACT SUSP 1 spray each nostril am and hs FLUTICASONE PROPIONATE 11091411265 Active Benjamin Bejarano DO Active EPIPEN 2-GABBY 0.3 MG/0.3ML SOAJ as directed EPINEPHRINE 5 7890031907 Active Rhina Plata MD Active PREDNISONE 20 MG TAB 1 tablet twice daily for 2 d ays, then 1 tablet once daily for 2 days PREDNISONE 20 MG TAB 697798 PREDNISONE Inac tive [facility]S IRON 325 (65 FE) MG ORAL TABS Take one by mouth daily 6 [facility]S IRON 325 (65 FE) MG ORAL TABS 086884 FERROUS SULFATE Inacti ve Immunizations Vaccine Administration [...] 11 .0-15.0 platelet count 315 THOUSAND/UL 10*3/mm3 276-302 8920/10/01 Blood type O Lab Report: ABO GROUP [...] 309 10^3/MM^3 10*3/mm3 142-424 Lab Report: Chlamydia/GC APTIMA/72408 - Lab chlamydia DNA probe NOT DETECTED NOT DETECTED Lab Report: Chlamydia/GC APTIMA/11180 - Microbiology Neisseria gonorrhoeae DNA probe NOT DETECTED NO T DETECTED Office Visit: Initial OB Visit - Blood b ank blood type with RH factor O Office Visit: Initial OB Visit - 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 Patient 09:56:59 TEAMSITE DEVELOPER Benjamin hsusein [facility] Procedures Code Procedure Name Date Entry Date Standard Desc ription CPT-64578 Postop F/U Visit 15:53:52 CDT CPT-39862 Visit 09:52:43 CDT CPT-98091 Visit 15:13:51 CDT CPT-70751 Visit 11:49:28 CDT CPT-04209 Visit 12:15:02 CDT CPT-23621 Visit 12:08:30 CDT CPT-01174 Adacel 16:55:52 CDT CPT-35024 Administration single or combination vac cine inc oral 16:55:52 CDT CPT-62263 Tdap 7yrs or > 16:19:02 CDT CPT-45325 Visit 16:19:02 CDT CPT-42545 Visit 10:35:45 TEAMSITE DEVELOPER CPT-76980 Venipuncture Draw Fee 08:56:41 TEAMSITE DEVELOPER CPT-71766 Visit 08:59:48 TEAMSITE DEVELOPER CPT-72756 Sono OB comp > 14 weeks 08:41:26 TEAMSITE DEVELOPER 02/13 CPT-93491 Visit 09:15:49 TEAMSITE DEVELOPER CPT-05977 Visit 10:52:07 TEAMSITE DEVELOPER CPT-05689 Visit 12:10:53 TEAMSITE DEVELOPER CPT-27445G Sono OB comp <14 weeks ([place] Only) 16:57:48 CDT CPT-50931 Fluzone 14:23:28 CDT CPT-50195 Spec Collection and Handling Fee 14:10:55 C DT CPT-79742 Visit 14:10:55 CDT
--- OUTSIDE RECORDS SUMMARY | 2019-08-17 21:29 | XMS REPORT | Clinical Summary ---
Author Author Tawanda, Kalina Hollis Organization [facility] Address Unknown Phone Unavailable Allergies, Adverse Reactions, Alerts Allergy Name Reaction Description Start Date Severity Status Pr ovider No Known Allergies Agnes Jay CAMP NURSE Conditions or Problems Problem Name Problem Code [...] tablet once daily for 2 days PREDNISONE 33884176510 No Longer Active Rhina Plata MD Active FLONASE 50 MCG/ACT SUSP 1 spray each nostril am and hs FLUTICASONE PROPIONATE 56594006091 Active Benjamin Bejarano DO Active EPIPEN 2-GABBY 0.3 MG/0.3ML SOAJ as directed EPINEPHRINE 5 4883533646 Active Rhina Plata MD Active PREDNISONE 20 MG TAB 1 tablet twice daily for 2 d ays, then 1 tablet once daily for 2 days PREDNISONE 20 MG TAB [id number] PREDNISONE Inac tive Immunizations Vaccine Administration Date [...] 29 U/L alkaline phosphatase, serum 80 U/L potassium, serum 3.3 mmol/L sodium, serum 137 mmol/L thyroid stimulating hormone, serum 1.40 u[iU]/mL blood glucose 78 mg/dL creatinine, serum 0.68 mg/dL aspartate aminotransferase (SGOT), serum 20 U/L alanine aminotransferase (SGPT), serum 20 U/L alkaline phosphatase, serum 89 U/L protein, total urine random Negative mg/dL sodium, serum 139 mmol/L potassium, serum 3.9 mmol/L Chart Maintenance: Outside labs entered on flowsheet - Hematology leukocyte count, blood 11.1 10*3/mm3 hemoglobin, blood 9.5 g/dL platelet count 287 10*3/mm3 platelet count 225 10*3/mm3 hemoglobin, blood 10.8 g/dL leukocyte count, blood 9.5 10*3/mm3 Lab Report: ABO GROUP & RH [...] 11 .0-15.0 platelet count 315 THOUSAND/UL 10*3/mm3 278-149 2517/10/01 Blood type O erythrocyte (RBC) count 4.19 [...] ANTIBODIES DETECTED Lab Report: CBC - Hematology erythrocyte (RBC) count 3.45 10^6/MM^3 10*6/mm3 4.04-5.4 8 hemoglobin, blood 10.6 g/dL 12.0-16.0 hematocrit, blood 31.2 % 36.0-46.0 mean corpuscular volume, RBC 90 fL 80-97 mean corpuscular hemoglobin, RBC 30.7 pg 27. 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 Benjamin Parker [facility] Procedures Code Procedure Name Date Entry Date Standard Desc ription CPT-27609 Visit 09:52:43 CDT CPT-84990 Visit 15:13:51 CDT CPT-16008 Visit 11:49:28 CDT CPT-81938 Visit 12:15:02 CDT CPT-51551 Visit 12:08:30 CDT CPT-97564 Adacel 16:55:52 CDT CPT-00324 Administration single or combination vac cine inc oral 16:55:52 CDT CPT-92862 Tdap 7yrs or > 16:19:02 CDT CPT-52436 Visit 16:19:02 CDT CPT-27266 Visit 10:35:45 ASSISTANT PROFESSOR OF ECONOMICS CPT-62745 Venipuncture Draw Fee 08:56:41 ASSISTANT PROFESSOR OF ECONOMICS CPT-67614 Visit 08:59:48 ASSISTANT PROFESSOR OF ECONOMICS CPT-59981 Sono OB comp > 14 weeks 08:41:26 ASSISTANT PROFESSOR OF ECONOMICS 02/13 CPT-00164 Visit 09:15:49 ASSISTANT PROFESSOR OF ECONOMICS CPT-57430 Visit 10:52:07 ASSISTANT PROFESSOR OF ECONOMICS CPT-38459 Visit 12:10:53 ASSISTANT PROFESSOR OF ECONOMICS CPT-08997S Sono OB comp <14 weeks ([place] Only) 16:57:48 CDT CPT-73392 Fluzone 14:23:28 CDT CPT-87605 Spec Collection and Handling Fee 14:10:55 C DT CPT-42682 Visit 14:10:55 CDT
--- OUTSIDE RECORDS SUMMARY | 2019-08-17 21:29 | XMS REPORT | Clinical Summary ---
Author Author Tawanda, Kalina Hollis Organization [facility] Address Unknown Phone Unavailable Allergies, Adverse [...] each nostril am and hs FLUTICASONE PROPIONATE 05309866694 Active Benjamin Bejarano DO Active PREDNISONE 20 MG TAB 1 tablet twice daily for 2 d ays, then 1 tablet once daily for 2 days PREDNISONE 28076907446 Active Benjamin Bejarano DO Active EPIPEN 2-GABBY 0.3 MG/0.3ML SOAJ as directed EPINEPHRINE 5 5576563483 Active Rhina Plata MD Active Immunizations Vaccine [...] 11 .0-15.0 platelet count 315 THOUSAND/UL 10*3/mm3 523-243 5618/10/01 Blood type O Lab Report: ABO GROUP [...] O Office Visit: Initial OB Visit - Cna ry Neisseria gonorrhoeae, genital culture negative protein, [...] N Encounters Code Encounter Date Provider Facility CPT-90914 Level 3 Est. 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 Benjamin hussein [facility] Procedures Code Procedure Name Date Entry Date Standard Desc ription CPT-17825 Visit 12:08:30 CDT CPT-85477 Adacel 16:55:52 CDT CPT-52319 Administration single or combination vac cine inc oral 16:55:52 CDT CPT-60871 Tdap 7yrs or > 16:19:02 CDT CPT-19667 Visit 16:19:02 CDT CPT-91920 Visit 10:35:45 COMMUNITY ENGAGEMENT LEADER CPT-47313 Venipuncture Draw Fee 08:56:41 COMMUNITY ENGAGEMENT LEADER CPT-24464 Visit 08:59:48 COMMUNITY ENGAGEMENT LEADER CPT-26507 Sono OB comp > 14 weeks 08:41:26 COMMUNITY ENGAGEMENT LEADER 02/13 CPT-82894 Visit 09:15:49 COMMUNITY ENGAGEMENT LEADER CPT-19561 Visit 10:52:07 COMMUNITY ENGAGEMENT LEADER CPT-43776 Visit 12:10:53 COMMUNITY ENGAGEMENT LEADER CPT-64486L Sono OB comp <14 weeks ([place] Only) 16:57:48 CDT CPT-67571 Fluzone 14:23:28 CDT CPT-63939 Spec Collection and Handling Fee 14:10:55 C DT CPT-74291 Visit 14:10:55 CDT
--- OUTSIDE RECORDS SUMMARY | 2019-08-17 21:29 | XMS REPORT | Clinical Summary ---
Author Author Tawanda, Kalina Hollis Organization [facility] Address Unknown Phone Unavailable Allergies, Adverse Reactions, Alerts Allergy Name Reaction Description Start Date Severity Status Pr ovider No Known Allergies Karen Seng Conditions or Problems Problem Name Problem Code Onset Date Status Entry Date Provider Comment Standard Description Annotate Supervision of normal first V22.0 Resolved Loren Yomesfinum BOILER HOUSE MECHANIC Supervision of normal first Pelvic pain 789.09 Resolved Loren Yokum BOILER HOUSE MECHANIC Abdominal pain, other specified site; multiple sites Uterine size date discrepancy, antepartum condition or compl ication 649.63 Resolved Loren Yokum BOILER HOUSE MECHANIC Uterine siz e date discrepancy, antepartum condition or complication Pharyngitis-Acute 462 Resolved Loren Yokum APR N Acute pharyngitis AFTERCARE FLW SURG TEETH ORL CAV&DIGESTV SYS NEC V58.75 07/25 Resolved Loren Yokum BOILER HOUSE MECHANIC Aftercare following surgery of the teeth,oral cavity and digestive system, NEC Physical examination V70.0 Active Loren Yokum A PRN Routine general medical examination at a health care facility Contraceptive management V25.9 Active Amaris Lambert SUPERVISOR DRAWING Encounter for unspecified contraceptive management Supervision of normal first ICD-V22.0 5 Inactive Loren Yokum BOILER HOUSE MECHANIC Pelvic pain ICD-789.09 Inactive Loren JOHNSON RN Uterine size date discrepancy, antepartum condition or compl ication ICD-649.63 Inactive Loren Yokum BOILER HOUSE MECHANIC Pharyngitis-Acute ICD-462 Inactive Loren slater BOILER HOUSE MECHANIC AFTERCARE FLW SURG TEETH ORL CAV&DIGESTV SYS NEC ICD-V58.75 Inactive Loren Weber BOILER HOUSE MECHANIC Medication List Medication Instructions Start Date Stop Date Generic Name NDC Status Provider Patient Instruction FLONASE 50 MCG/ACT SUSP 1 spray each nostril am and hs as needed 20 26/03/19 FLUTICASONE PROPIONATE 99599295911 Active Loren Weber BOILER HOUSE MECHANIC A ctive MICRONOR 0.35 MG TAB 1 tab po q day NORETHINDRO NE (CONTRACEPTIVE) 01512616925 Active Rhina Plata MD Active FENMARI BLOOD SUGAR HEALTH 500 MG ORAL CAPS FENUGREEK 42824470685 Active Bev Dove APRN Active 1 30-0.975-200 MG CAPS 1 qDay MV-MIN-FE FUM-FA-DHA 25955959806 Active Bev Dove APRN Active [facility] IRON 325 (65 FE) MG ORAL TABS Take one by mouth daily 6 FERROUS SULFATE 19442262611 No Longer Active Bev Dove APRN Active PREDNISONE 20 MG TAB 1 tablet twice daily for 2 d ays, then 1 tablet once daily for 2 days PREDNISONE 23038198928 No Longer Active Rhina Plata MD Active EPIPEN 2-GABBY 0.3 MG/0.3ML SOAJ as directed EPINEPHRINE 5 5904510649 Active Rhina Plata MD Active PREDNISONE 20 MG TAB 1 tablet twice daily for 2 d ays, then 1 tablet once daily for 2 days PREDNISONE 20 MG TAB 028270 PREDNISONE Inac tive CVS IRON 325 (65 FE) MG ORAL TABS Take one by mouth daily 6 [facility] IRON 325 (65 FE) MG ORAL TABS 103734 FERROUS SULFATE Inacti ve Immunizations Vaccine Administration [...] Name Value Unit Range Description Lab Report: [facility] [place] human chorionic gonadotropin , urine, qualitative (urine test) Negative Negative Encounters Code Encounter Date Provider Facility CPT-45626 Level 3 Est. Patient 16:43:13 CDT Loern slater [facility] [place] [facility] CPT-83005 Level 3 Est. 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 Benjamin hussein [facility] Procedures Code Procedure Name Date Entry Date Standard Desc ription CPT-30865 Abx/Therapy Injection 17:04:17 CDT CPT-J1050 Depo Provera 150 mg (Medroxyprogesterone) 08/15 17:04:17 CDT CPT-J1050 Depo Provera 150 mg (Medroxyprogesterone) 08/15 14:53:29 CDT CPT-75169 Postop F/U Visit 15:53:52 CDT CPT-04660 Visit 09:52:43 CDT CPT-18370 Visit 15:13:51 CDT CPT-84155 Visit 11:49:28 CDT CPT-64855 Visit 12:15:02 CDT CPT-89813 Visit 12:08:30 CDT CPT-37994 Adacel 16:55:52 CDT CPT-91719 Administration single or combination vac cine inc oral 16:55:52 CDT CPT-81397 Tdap 7yrs or > 16:19:02 CDT CPT-80679 Visit 16:19:02 CDT CPT-47526 Visit 10:35:45 LABEL STITCHER CPT-38147 Venipuncture Draw Fee 08:56:41 LABEL STITCHER CPT-78215 Visit 08:59:48 LABEL STITCHER CPT-71241 Sono OB comp > 14 weeks 08:41:26 LABEL STITCHER 02/13 CPT-29604 Visit 09:15:49 LABEL STITCHER CPT-05078 Visit 10:52:07 LABEL STITCHER CPT-66316 Visit 12:10:53 LABEL STITCHER CPT-99948Z Sono OB comp <14 weeks ([place] Only) 16:57:48 CDT CPT-00750 Fluzone 14:23:28 CDT CPT-72900 Spec Collection and Handling Fee 14:10:55 C DT CPT-04378 Visit 14:10:55 CDT
--- OUTSIDE RECORDS SUMMARY | 2019-08-17 21:30 | XMS REPORT | Clinical Summary ---
Author Author Tawanda, Kalina Hollis Organization [facility] Address Unknown Phone Unavailable Allergies, Adverse Reactions, Alerts Allergy Name Reaction Description Start Date Severity Status Pr ovider No Known Allergies Karen Seng Conditions or Problems Problem Name Problem Code Onset Date Status Entry Date Provider Comment Standard Description Annotate Supervision of normal first V22.0 Resolved Loren Yokum MOBILE SECURITY SPECIALIST Supervision of normal first Pelvic pain 789.09 Resolved Loren Yokum MOBILE SECURITY SPECIALIST Abdominal pain, other specified site; multiple sites Uterine size date discrepancy, antepartum condition or compl ication 649.63 Resolved Loren Yokum MOBILE SECURITY SPECIALIST Uterine siz e date discrepancy, antepartum condition or complication Pharyngitis-Acute 462 Resolved Loren Yokum APR N Acute pharyngitis AFTERCARE FLW SURG TEETH ORL CAV&DIGESTV SYS NEC V58.75 07/25 Resolved Loren Yokum MOBILE SECURITY SPECIALIST Aftercare following surgery of the teeth,oral cavity and digestive system, NEC Physical examination V70.0 Active Loren Yokum A PRN Routine general medical examination at a health care facility Contraceptive management V25.9 Active Amaris Lambert HUMAN RESOURCES MGR Encounter for unspecified contraceptive management Supervision of normal first ICD-V22.0 5 Inactive Loren Yokum MOBILE SECURITY SPECIALIST Pelvic pain ICD-789.09 Inactive Loren JOHNSON RN Uterine size date discrepancy, antepartum condition or compl ication ICD-649.63 Inactive Loren Yokum MOBILE SECURITY SPECIALIST Pharyngitis-Acute ICD-462 Inactive Loren slater MOBILE SECURITY SPECIALIST AFTERCARE FLW SURG TEETH ORL CAV&DIGESTV SYS NEC ICD-V58.75 Inactive Loren Weber MOBILE SECURITY SPECIALIST Medication List Medication Instructions Start Date Stop Date Generic Name NDC Status Provider Patient Instruction FLONASE 50 MCG/ACT SUSP 1 spray each nostril am and hs as needed 20 26/03/19 FLUTICASONE PROPIONATE 17063161931 Active Loren Weber MOBILE SECURITY SPECIALIST A ctive MICRONOR 0.35 MG TAB 1 tab po q day NORETHINDRO NE (CONTRACEPTIVE) 00979097830 Active Rhina Plata MD Active FENMAIR BLOOD SUGAR HEALTH 500 MG ORAL CAPS FENUGREEK 88265092233 Active Bev Dove APRN Active 1 30-0.975-200 MG CAPS 1 qDay MV-MIN-FE FUM-FA-DHA 71251435761 Active Bev Dove APRN Active [facility]S IRON 325 (65 FE) MG ORAL TABS Take one by mouth daily 6 FERROUS SULFATE 44676454136 No Longer Active Bev Dove APRN Active PREDNISONE 20 MG TAB 1 tablet twice daily for 2 d ays, then 1 tablet once daily for 2 days PREDNISONE 65738312790 No Longer Active Rhina Plata MD Active EPIPEN 2-GABBY 0.3 MG/0.3ML SOAJ as directed EPINEPHRINE 5 2295931446 Active Rhina Plata MD Active PREDNISONE 20 MG TAB 1 tablet twice daily for 2 d ays, then 1 tablet once daily for 2 days PREDNISONE 20 MG TAB 791708 PREDNISONE Inac tive CVS IRON 325 (65 FE) MG ORAL TABS Take one by mouth daily 6 CVS IRON 325 (65 FE) MG ORAL TABS 528706 FERROUS SULFATE Inacti ve Immunizations Vaccine Administration [...] Measured Encounters Code Encounter Date Provider Facility CPT-98500 Level 3 Est. Patient 16:43:13 CDT Loren Greer bryon [facility] CPT-18503 Level 3 Est. Patient 09:56:59 ICE CARVER Benjamin hussein [facility] Procedures Code Procedure Name Date Entry Date Standard Desc ription CPT-47951 Abx/Therapy Injection 17:04:17 CDT CPT-J1050 Depo Provera 150 mg (Medroxyprogesterone) 08/15 17:04:17 CDT CPT-J1050 Depo Provera 150 mg (Medroxyprogesterone) 08/15 14:53:29 CDT CPT-57442 Postop F/U Visit 15:53:52 CDT CPT-25353 Visit 09:52:43 CDT CPT-92081 Visit 15:13:51 CDT CPT-75762 Visit 11:49:28 CDT CPT-15724 Visit 12:15:02 CDT CPT-08441 Visit 12:08:30 CDT CPT-00783 Adacel 16:55:52 CDT CPT-51137 Administration single or combination vac cine inc oral 16:55:52 CDT CPT-55743 Tdap 7yrs or > 16:19:02 CDT CPT-00827 Visit 16:19:02 CDT CPT-15456 Visit 10:35:45 ICE CARVER CPT-37340 Venipuncture Draw Fee 08:56:41 ICE CARVER CPT-41866 Visit 08:59:48 ICE CARVER CPT-26770 Sono OB comp > 14 weeks 08:41:26 ICE CARVER 02/13 CPT-32403 Visit 09:15:49 ICE CARVER CPT-81653 Visit 10:52:07 ICE CARVER CPT-97017 Visit 12:10:53 ICE CARVER CPT-54371N Sono OB comp <14 weeks ([place] Only) 16:57:48 CDT CPT-24257 Fluzone 14:23:28 CDT CPT-84108 Spec Collection and Handling Fee 14:10:55 C DT CPT-49474 Visit 14:10:55 CDT
--- OUTSIDE RECORDS SUMMARY | 2019-08-17 21:30 | XMS REPORT | Clinical Summary ---
Author Author Tawanda, Kalina Hollis Organization [facility] Address Unknown Phone Unavailable Allergies, Adverse Reactions, Alerts Allergy Name Reaction Description Start Date Severity Status Pr ovider No Known Allergies Agnes Jay HAM STRIPPER Conditions or Problems Problem Name Problem Code [...] tablet once daily for 2 days PREDNISONE 27939028070 No Longer Active Rhina Plata MD Active FLONASE 50 MCG/ACT SUSP 1 spray each nostril am and hs FLUTICASONE PROPIONATE 70298080489 Active Benjamin Bejarano DO Active EPIPEN 2-GABBY 0.3 MG/0.3ML SOAJ as directed EPINEPHRINE 5 6218781968 Active Rhina Plata MD Active PREDNISONE 20 MG TAB 1 tablet twice daily for 2 d ays, then 1 tablet once daily for 2 days PREDNISONE 20 MG TAB 083271 PREDNISONE Inac tive Immunizations Vaccine Administration Date [...] 11 .0-15.0 platelet count 315 THOUSAND/UL 10*3/mm3 367-958 6862/10/01 Blood type O Lab Report: ABO GROUP [...] O Office Visit: 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 CLAIMS Benjamin Parker [facility] Procedures Code Procedure Name Date Entry Date Standard Desc ription CPT-84218 Visit 09:52:43 CDT CPT-08049 Visit 15:13:51 CDT CPT-45072 Visit 11:49:28 CDT CPT-07621 Visit 12:15:02 CDT CPT-86549 Visit 12:08:30 CDT CPT-18493 Adacel 16:55:52 CDT CPT-88752 Administration single or combination vac cine inc oral 16:55:52 CDT CPT-73976 Tdap 7yrs or > 16:19:02 CDT CPT-41855 Visit 16:19:02 CDT CPT-08038 Visit 10:35:45 SUPERVISOR CLAIMS CPT-38986 Venipuncture Draw Fee 08:56:41 SUPERVISOR CLAIMS CPT-03933 Visit 08:59:48 SUPERVISOR CLAIMS CPT-70313 Sono OB comp > 14 weeks 08:41:26 SUPERVISOR CLAIMS 02/13 CPT-45311 Visit 09:15:49 SUPERVISOR CLAIMS CPT-98575 Visit 10:52:07 SUPERVISOR CLAIMS CPT-33713 Visit 12:10:53 SUPERVISOR CLAIMS CPT-59467F Sono OB comp <14 weeks ([place] Only) 16:57:48 CDT CPT-49192 Fluzone 14:23:28 CDT CPT-62296 Spec Collection and Handling Fee 14:10:55 C DT CPT-87560 Visit 14:10:55 CDT
--- OUTSIDE RECORDS SUMMARY | 2019-08-17 21:30 | XMS REPORT | Clinical Summary ---
Author Author Tawanda, Kalina Hollis Organization [facility] Address Unknown Phone Unavailable Allergies, Adverse Reactions, [...] tab po q day NORETHINDRO NE (CONTRACEPTIVE) 22613374763 Active Rhina Plata MD Active FENUGREEK BLOOD SUGAR HEALTH 500 MG ORAL CAPS FENUGREEK 16480968330 Active Jillina Derrell VASQUEZ Active 1 30-0.975-200 MG CAPS 1 qDay MV-MIN-FE FUM-FA-DHA 30969771115 Active Jillina Derrell VASQUEZ Active [facility]S IRON 325 (65 FE) MG ORAL TABS Take one by mouth daily 6 FERROUS SULFATE 17679120279 No Longer Active Bev Dove APRN Active PREDNISONE 20 MG TAB 1 tablet twice daily for 2 d ays, then 1 tablet once daily for 2 days PREDNISONE 42378343094 No Longer Active Rhina Plata MD Active FLONASE 50 MCG/ACT SUSP 1 spray each nostril am and hs FLUTICASONE PROPIONATE 36199550638 Active Benjamin Bejarano DO Active EPIPEN 2-GABBY 0.3 MG/0.3ML SOAJ as directed EPINEPHRINE 5 6233556229 Active Rhina Plata MD Active PREDNISONE 20 MG TAB 1 tablet twice daily for 2 d ays, then 1 tablet once daily for 2 days PREDNISONE 20 MG TAB 467980 PREDNISONE Inac tive CVS IRON 325 (65 FE) MG ORAL TABS Take one by mouth daily 6 CVS IRON 325 (65 FE) MG ORAL TABS 182413 FERROUS SULFATE Inacti ve Immunizations Vaccine Administration [...] mg/dL thyroid stimulating hormone, serum 1.40 u[iU]/mL Chart Maintenance: Outside labs entered on flowsheet [...] 11 .0-15.0 platelet count 315 THOUSAND/UL 10*3/mm3 276-159 9332/10/01 Blood type O leukocyte count, blood 10.5 [...] 309 10^3/MM^3 10*3/mm3 142-424 Lab Report: Chlamydia/GC [id number] - Lab chlamydia DNA probe NOT DETECTED NOT DETECTED Lab Report: Chlamydia/GC APTIMA/[id number] - Microbiology Neisseria gonorrhoeae DNA probe NOT DETECTED NO T DETECTED Office Visit: Initial OB Visit - Blood b ank blood type with RH factor O Office Visit: Initial OB Visit - Group Exercise Instructor ry Neisseria gonorrhoeae, genital culture negative protein, [...] N Encounters Code Encounter Date Provider Facility CPT-94377 Level 3 Est. Patient 09:56:59 CAR GREASER Benjamin hussein [facility] Procedures Code Procedure Name Date Entry Date Standard Desc ription CPT-94162 Postop F/U Visit 15:53:52 CDT CPT-47849 Visit 09:52:43 CDT CPT-96226 Visit 15:13:51 CDT CPT-96513 Visit 11:49:28 CDT CPT-57070 Visit 12:15:02 CDT CPT-20878 Visit 12:08:30 CDT CPT-60380 Adacel 16:55:52 CDT CPT-01903 Administration single or combination vac cine inc oral 16:55:52 CDT CPT-28479 Tdap 7yrs or > 16:19:02 CDT CPT-86670 Visit 16:19:02 CDT CPT-57918 Visit 10:35:45 CAR GREASER CPT-19374 Venipuncture Draw Fee 08:56:41 CAR GREASER CPT-95592 Visit 08:59:48 CAR GREASER CPT-11958 Sono OB comp > 14 weeks 08:41:26 CAR GREASER 02/13 CPT-72572 Visit 09:15:49 CAR GREASER CPT-31100 Visit 10:52:07 CAR GREASER CPT-73412 Visit 12:10:53 CAR GREASER CPT-40785S Sono OB comp <14 weeks ([place] Only) 16:57:48 CDT CPT-53250 Fluzone 14:23:28 CDT CPT-73697 Spec Collection and Handling Fee 14:10:55 C DT CPT-64627 Visit 14:10:55 CDT
--- OUTSIDE RECORDS SUMMARY | 2019-08-17 21:30 | XMS REPORT | Clinical Summary ---
Author Author Tawanda, Kalina Hollis Organization [facility] Address Unknown Phone Unavailable Allergies, Adverse Reactions, Alerts Allergy Name Reaction Description Start Date Severity Status Pr ovider No Known Allergies Karen Seng Conditions or Problems Problem Name Problem Code Onset Date Status Entry Date Provider Comment Standard Description Annotate Supervision of normal first V22.0 Resolved Loren Greerum YOUTH DIRECTOR Supervision of normal first Pelvic pain 789.09 Resolved Loren Yomesfinum YOUTH DIRECTOR Abdominal pain, other specified site; multiple sites Uterine size date discrepancy, antepartum condition or compl ication 649.63 Resolved Loren Yomesfinum YOUTH DIRECTOR Uterine siz e date discrepancy, antepartum condition or complication Pharyngitis-Acute 462 Resolved Loren Yokum APR N Acute pharyngitis AFTERCARE FLW SURG TEETH ORL CAV&DIGESTV SYS NEC V58.75 07/25 Resolved Loren Yokum YOUTH DIRECTOR Aftercare following surgery of the teeth,oral cavity and digestive system, NEC Physical examination V70.0 Active Loren Weber A PRN Routine general medical examination at a health care facility Contraceptive management V25.9 Active Amaris Lambert CROP ADJUSTER Encounter for unspecified contraceptive management Pelvic pain ICD-789.09 Inactive Loren JOHNSON RN Uterine size date discrepancy, antepartum condition or compl ication ICD-649.63 Inactive Loren Weber YOUTH DIRECTOR Pharyngitis-Acute ICD-462 Inactive Loren slater YOUTH DIRECTOR AFTERCARE FLW SURG TEETH ORL CAV&DIGESTV SYS NEC ICD-V58.75 Inactive Loren Weber YOUTH DIRECTOR Supervision of normal first ICD-V22.0 5 Inactive Loren Weber YOUTH DIRECTOR Medication List Medication Instructions Start Date Stop Date Generic Name NDC Status Provider Patient Instruction FLONASE 50 MCG/ACT SUSP 1 spray each nostril am and hs as needed 20 26/03/19 FLUTICASONE PROPIONATE 88602153674 Active Loren Gus YOUTH DIRECTOR A ctive MICRONOR 0.35 MG TAB 1 tab po q day NORETHINDRO NE (CONTRACEPTIVE) 34483738916 Active Rhina Plata MD Active FENMARI BLOOD SUGAR HEALTH 500 MG ORAL CAPS FENUGREEK 86332629904 Active Bev Dove APRN Active 1 30-0.975-200 MG CAPS 1 qDay MV-MIN-FE FUM-FA-DHA 55188550508 Active Bev Dove APRN Active [facility] IRON 325 (65 FE) MG ORAL TABS Take one by mouth daily 6 FERROUS SULFATE 79268536068 No Longer Active Bev Dove APRN Active PREDNISONE 20 MG TAB 1 tablet twice daily for 2 d ays, then 1 tablet once daily for 2 days PREDNISONE 66300532554 No Longer Active Rhina Plata MD Active EPIPEN 2-GABBY 0.3 MG/0.3ML SOAJ as directed EPINEPHRINE 5 3271507631 Active Rhina Plata MD Active PREDNISONE 20 MG TAB 1 tablet twice daily for 2 d ays, then 1 tablet once daily for 2 days PREDNISONE 20 MG TAB 592347 PREDNISONE Inac tive [facility] IRON 325 (65 FE) MG ORAL TABS Take one by mouth daily 6 [facility] IRON 325 (65 FE) MG ORAL TABS 516319 FERROUS SULFATE Inacti ve Immunizations Vaccine Administration [...] Name Value Unit Range Description Lab Report: [facility] [place] - Chemistry human chorionic gonadotropin , urine, qualitative (urine test) Negative Negative Encounters Code Encounter Date Provider Facility CPT-92380 Level 3 Est. Patient 16:43:13 CDT Loren slater [facility] CPT-46518 Level 3 Est. Patient 09:56:59 SKOOG PATCHING MACHINE OPERATOR Benjamin hussein [facility] Procedures Code Procedure Name Date Entry Date Standard Desc ription CPT-84587 Abx/Therapy Injection 17:04:17 CDT CPT-J1050 Depo Provera 150 mg (Medroxyprogesterone) 08/15 17:04:17 CDT CPT-J1050 Depo Provera 150 mg (Medroxyprogesterone) 08/15 14:53:29 CDT CPT-29152 Postop F/U Visit 15:53:52 CDT CPT-18328 Visit 09:52:43 CDT CPT-08230 Visit 15:13:51 CDT CPT-74624 Visit 11:49:28 CDT CPT-28404 Visit 12:15:02 CDT CPT-42160 Visit 12:08:30 CDT CPT-11479 Adacel 16:55:52 CDT CPT-51011 Administration single or combination vac cine inc oral 16:55:52 CDT CPT-99491 Tdap 7yrs or > 16:19:02 CDT CPT-45701 Visit 16:19:02 CDT CPT-56737 Visit 10:35:45 SKOOG PATCHING MACHINE OPERATOR CPT-35121 Venipuncture Draw Fee 08:56:41 SKOOG PATCHING MACHINE OPERATOR CPT-36150 Visit 08:59:48 SKOOG PATCHING MACHINE OPERATOR CPT-03496 Sono OB comp > 14 weeks 08:41:26 SKOOG PATCHING MACHINE OPERATOR 02/13 CPT-59390 Visit 09:15:49 SKOOG PATCHING MACHINE OPERATOR CPT-80267 Visit 10:52:07 SKOOG PATCHING MACHINE OPERATOR CPT-11780 Visit 12:10:53 SKOOG PATCHING MACHINE OPERATOR CPT-69327B Sono OB comp <14 weeks ([place] Only) 16:57:48 CDT CPT-98407 Fluzone 14:23:28 CDT CPT-82284 Spec Collection and Handling Fee 14:10:55 C DT CPT-13740 Visit 14:10:55 CDT
--- OUTSIDE RECORDS SUMMARY | 2019-08-17 21:30 | XMS REPORT | Clinical Summary ---
Author Author Tawanda, Kalina Hollis Organization [facility] Address Unknown Phone Unavailable Allergies, Adverse Reactions, [...] tab po q day NORETHINDRO NE (CONTRACEPTIVE) 12643585112 Active Jillina Fragilsonl COLOR WEIGHER Active FENUGREEK BLOOD SUGAR HEALTH 500 MG ORAL CAPS FENUGREEK 86238907940 Active Jillina Fragilsonl COLOR WEIGHER Active 1 30-0.975-200 MG CAPS 1 qDay MV-MIN-FE FUM-FA-DHA 99097335216 Active Jillina Frazell COLOR WEIGHER Active [facility] IRON 325 (65 FE) MG ORAL TABS Take one by mouth daily 6 FERROUS SULFATE 14570437463 No Longer Active Bev Dove APRN Active PREDNISONE 20 MG TAB 1 tablet twice daily for 2 d ays, then 1 tablet once daily for 2 days PREDNISONE 45542190609 No Longer Active Rhina Plata MD Active FLONASE 50 MCG/ACT SUSP 1 spray each nostril am and hs FLUTICASONE PROPIONATE 33089632146 Active Benjamin Bejarano DO Active EPIPEN 2-GABBY 0.3 MG/0.3ML SOAJ as directed EPINEPHRINE 5 3093801988 Active Rhina Plata MD Active PREDNISONE 20 MG TAB 1 tablet twice daily for 2 d ays, then 1 tablet once daily for 2 days PREDNISONE 20 MG TAB 591832 PREDNISONE Inac tive [facility] IRON 325 (65 FE) MG ORAL TABS Take one by mouth daily 6 [facility] IRON 325 (65 FE) MG ORAL TABS 809272 FERROUS SULFATE Inacti ve Immunizations Vaccine Administration [...] 11 .0-15.0 platelet count 315 THOUSAND/UL 10*3/mm3 678-016 7509/10/01 Blood type O Lab Report: ABO GROUP [...] O Office Visit: Initial OB Visit - Campus Security Officer ry Neisseria gonorrhoeae, genital culture negative protein, [...] N Encounters Code Encounter Date Provider Facility CPT-16550 Level 3 Est. Patient 09:56:59 SCENIC ARTIST Benjamin hussein [facility] Procedures Code Procedure Name Date Entry Date Standard Desc ription CPT-35833 Postop F/U Visit 15:53:52 CDT CPT-85585 Visit 09:52:43 CDT CPT-37499 Visit 15:13:51 CDT CPT-84987 Visit 11:49:28 CDT CPT-77256 Visit 12:15:02 CDT CPT-59049 Visit 12:08:30 CDT CPT-82346 Adacel 16:55:52 CDT CPT-07539 Administration single or combination vac cine inc oral 16:55:52 CDT CPT-93805 Tdap 7yrs or > 16:19:02 CDT CPT-28114 Visit 16:19:02 CDT CPT-17262 Visit 10:35:45 SCENIC ARTIST CPT-57620 Venipuncture Draw Fee 08:56:41 SCENIC ARTIST CPT-46732 Visit 08:59:48 SCENIC ARTIST CPT-84289 Sono OB comp > 14 weeks 08:41:26 SCENIC ARTIST 02/13 CPT-74750 Visit 09:15:49 SCENIC ARTIST CPT-80853 Visit 10:52:07 SCENIC ARTIST CPT-59532 Visit 12:10:53 SCENIC ARTIST CPT-04968E Sono OB comp <14 weeks ([place] Only) 16:57:48 CDT CPT-48748 Fluzone 14:23:28 CDT CPT-56610 Spec Collection and Handling Fee 14:10:55 C DT CPT-28582 Visit 14:10:55 CDT
--- OUTSIDE RECORDS SUMMARY | 2019-08-17 21:30 | XMS REPORT | Clinical Summary ---
Author Author Tawanda, Kalina Hollis Organization 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 Patient 09:56:59 PETROLEUM GEOLOGY FACULTY MEMBER Benjamin hussein [facility] Procedures Code Procedure Name Date Entry Date Standard Desc ription CPT-01917 Visit 12:08:30 CDT CPT-23319 Adacel 16:55:52 CDT CPT-24058 Administration single or combination vac cine inc oral 16:55:52 CDT CPT-42581 Tdap 7yrs or > 16:19:02 CDT CPT-55973 Visit 16:19:02 CDT CPT-02622 Visit 10:35:45 PETROLEUM GEOLOGY FACULTY MEMBER CPT-11926 Venipuncture Draw Fee 08:56:41 PETROLEUM GEOLOGY FACULTY MEMBER CPT-07360 Visit 08:59:48 PETROLEUM GEOLOGY FACULTY MEMBER CPT-60361 Sono OB comp > 14 weeks 08:41:26 PETROLEUM GEOLOGY FACULTY MEMBER 02/13 CPT-74541 Visit 09:15:49 PETROLEUM GEOLOGY FACULTY MEMBER CPT-69851 Visit 10:52:07 PETROLEUM GEOLOGY FACULTY MEMBER CPT-36663 Visit 12:10:53 PETROLEUM GEOLOGY FACULTY MEMBER CPT-14781Q Sono OB comp <14 weeks ([place] Only) 16:57:48 CDT CPT-62987 Fluzone 14:23:28 CDT CPT-72684 Spec Collection and Handling Fee 14:10:55 C DT CPT-64375 Visit 14:10:55 CDT
--- OUTSIDE RECORDS SUMMARY | 2019-08-17 21:30 | XMS REPORT | Clinical Summary ---
Author Author Tawanda, Kalina Hollis Organization [facility] Address Unknown Phone Unavailable Allergies, [...] one by mouth daily 6 FERROUS SULFATE 38908913776 Active Walter Lo MD Active PREDNISONE 20 MG TAB 1 tablet twice daily for 2 d ays, then 1 tablet once daily for 2 days PREDNISONE 68651700502 No Longer Active Rhina Plata MD Active FLONASE 50 MCG/ACT SUSP 1 spray each nostril am and hs FLUTICASONE PROPIONATE 98773050675 Active Benjamin Bejarano DO Active EPIPEN 2-GABBY 0.3 MG/0.3ML SOAJ as directed EPINEPHRINE 5 3322914223 Active Rhina Plata MD Active PREDNISONE 20 MG TAB 1 tablet twice daily for 2 d ays, then 1 tablet once daily for 2 days PREDNISONE 20 MG TAB 304385 PREDNISONE Inac tive Immunizations Vaccine Administration Date [...] 11 .0-15.0 platelet count 315 THOUSAND/UL 10*3/mm3 191-311 1011/10/01 Blood type O Lab Report: ABO GROUP [...] O Office Visit: Initial OB 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 Patient 09:56:59 RAHUL hussein [facility] Procedures Code Procedure Name Date Entry Date Standard Desc ription CPT-61655 Postop F/U Visit 15:53:52 CDT CPT-67116 Visit 09:52:43 CDT CPT-03949 Visit 15:13:51 CDT CPT-08283 Visit 11:49:28 CDT CPT-27742 Visit 12:15:02 CDT CPT-91929 Visit 12:08:30 CDT CPT-74437 Adacel 16:55:52 CDT CPT-33834 Administration single or combination vac cine inc oral 16:55:52 CDT CPT-73533 Tdap 7yrs or > 16:19:02 CDT CPT-40899 Visit 16:19:02 CDT CPT-44484 Visit 10:35:45 EXERCISER HORSE CPT-48848 Venipuncture Draw Fee 08:56:41 EXERCISER HORSE CPT-13727 Visit 08:59:48 EXERCISER HORSE CPT-24253 Sono OB comp > 14 weeks 08:41:26 EXERCISER HORSE 02/13 CPT-73627 Visit 09:15:49 EXERCISER HORSE CPT-38870 Visit 10:52:07 EXERCISER HORSE CPT-75300 Visit 12:10:53 EXERCISER HORSE CPT-99189F Sono OB comp <14 weeks ([place] Only) 16:57:48 CDT CPT-07514 Fluzone 14:23:28 CDT CPT-11220 Spec Collection and Handling Fee 14:10:55 C DT CPT-15728 Visit 14:10:55 CDT
--- OUTSIDE RECORDS SUMMARY | 2019-08-17 21:31 | XMS REPORT | Clinical Summary ---
Author Author Kalina Neff Organization [facility] Address Unknown Phone Unavailable Allergies, Adverse Reactions, [...] Abdominal pain, other specified site; multiple sites Medication List Medication Instructions Start Date Stop Date Generic Name NDC Status Provider Patient Instruction EPIPEN 2-GABBY 0.3 MG/0.3ML SOAJ as directed EPINEPHRINE 5 2268231881 Active Rhina Plata MD Active Vital Signs Date Name Value Unit Range Description blood pressure, diastolic 58 mm[Hg] BP ralph blood pressure, systolic 109 mm[Hg] BP sys height E&M 65 [in_us] Bdy height pulse rate E&M 91 /min Heart rate temperature E&M 98.8 [degF] Body temp erature weight E&M 145 [lb_av] Weight Measure d Diagnostic Results Date Name Value Unit Range Description Lab Report: ABO GROUP & RH TYPE, [...] RBCW/REFL I, CBC (IN ... - Hematology Blood type O leukocyte count, blood 10.5 [...] 11 .0-15.0 platelet count 315 THOUSAND/UL 10*3/mm3 140-400 Lab Report: ABO GROUP & RH TYPE, [...] NON-REACTIVE NON-REACTIVE rubella antibody, serum, IgG 2.80 Procedures Code Procedure Name Date Entry Date Standard Desc ription CPT-88687K Sono OB comp <14 weeks ([place] Only) 16:57:48 CDT CPT-07969 Fluzone 14:23:28 CDT CPT-22202 Spec Collection and Handling Fee 14:10:55 C DT CPT-63951 Visit 14:10:55 CDT
--- OUTSIDE RECORDS SUMMARY | 2019-08-17 21:31 | XMS REPORT | Clinical Summary ---
Author Author Tawanda, Kalina Hollis Organization [facility] Address Unknown Phone Unavailable Allergies, Adverse Reactions, Alerts Allergy Name Reaction Description Start Date Severity Status Pr ovider No Known Allergies Karen Seng Conditions or Problems Problem Name Problem Code Onset Date Status Entry Date Provider Comment Standard Description Annotate Supervision of normal first V22.0 Resolved Loren Yomesfinum PHYSICAL THERAPIST CLINIC DIRECTOR Supervision of normal first Pelvic pain 789.09 Resolved Loren Yokum PHYSICAL THERAPIST CLINIC DIRECTOR Abdominal pain, other specified site; multiple sites Uterine size date discrepancy, antepartum condition or compl ication 649.63 Resolved Loren Yokum PHYSICAL THERAPIST CLINIC DIRECTOR Uterine siz e date discrepancy, antepartum condition or complication Pharyngitis-Acute 462 Resolved Lroen Yokum APR N Acute pharyngitis AFTERCARE FLW SURG TEETH ORL CAV&DIGESTV SYS NEC V58.75 07/25 Resolved Loren Yokum PHYSICAL THERAPIST CLINIC DIRECTOR Aftercare following surgery of the teeth,oral cavity and digestive system, NEC Physical examination V70.0 Active Loren Greerum A PRN Routine general medical examination at a health care facility Supervision of normal first ICD-V22.0 5 Inactive Loren Yokum PHYSICAL THERAPIST CLINIC DIRECTOR Pelvic pain ICD-789.09 Inactive Loren JOHNSON RN Uterine size date discrepancy, antepartum condition or compl ication ICD-649.63 Inactive Loren Yokum PHYSICAL THERAPIST CLINIC DIRECTOR Pharyngitis-Acute ICD-462 Inactive Loren slater PHYSICAL THERAPIST CLINIC DIRECTOR AFTERCARE FLW SURG TEETH ORL CAV&DIGESTV SYS NEC ICD-V58.75 Inactive Loren Weber PHYSICAL THERAPIST CLINIC DIRECTOR Medication List Medication Instructions Start Date Stop Date Generic Name NDC Status Provider Patient Instruction FLONASE 50 MCG/ACT SUSP 1 spray each nostril am and hs as needed 20 26/03/19 FLUTICASONE PROPIONATE 71557622441 Active Loren Weber PHYSICAL THERAPIST CLINIC DIRECTOR A ctive MICRONOR 0.35 MG TAB 1 tab po q day NORETHINDRO NE (CONTRACEPTIVE) 90341172330 Active Rhina Plata MD Active FENUGREEMesfin BLOOD SUGAR HEALTH 500 MG ORAL CAPS FENUGREEK 58112736956 Active Bev Dove APRN Active 1 30-0.975-200 MG CAPS 1 qDay MV-MIN-FE FUM-FA-DHA 59878165573 Active Bev Dove APRN Active [facility] IRON 325 (65 FE) MG ORAL TABS Take one by mouth daily 6 FERROUS SULFATE 36663032000 No Longer Active Bev Dove APRN Active PREDNISONE 20 MG TAB 1 tablet twice daily for 2 d ays, then 1 tablet once daily for 2 days PREDNISONE 36770653863 No Longer Active Rhina Plata MD Active EPIPEN 2-GABBY 0.3 MG/0.3ML SOAJ as directed EPINEPHRINE 5 3116190976 Active Rhina Plata MD Active PREDNISONE 20 MG TAB 1 tablet twice daily for 2 d ays, then 1 tablet once daily for 2 days PREDNISONE 20 MG TAB 102853 PREDNISONE Inac tive [facility] IRON 325 (65 FE) MG ORAL TABS Take one by mouth daily 6 [facility] IRON 325 (65 FE) MG ORAL TABS 203428 FERROUS SULFATE Inacti ve Immunizations Vaccine Administration [...] 11 .0-15.0 platelet count 315 THOUSAND/UL 10*3/mm3 217-457 2651/10/01 Blood type O Lab Report: ABO GROUP [...] 309 10^3/MM^3 10*3/mm3 142-424 Lab Report: Chlamydia/GC APTIMA/[id number] - Lab chlamydia DNA probe NOT DETECTED NOT DETECTED Lab Report: Chlamydia/GC APTIMA/[id number] - Microbiology Neisseria gonorrhoeae DNA probe NOT DETECTED NO T DETECTED Office Visit: Initial OB Visit - Blood b ank blood type with RH factor O Office Visit: Initial OB 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 Patient 16:43:13 CDT Loren slater PHYSICAL THERAPIST CLINIC DIRECTOR [facility] CPT-25035 Level 3 Est. Patient 09:56:59 NURSE LDR Benjamin hussein DO [facility] Procedures Code Procedure Name Date Entry Date Standard Desc ription CPT-47839 Postop F/U Visit 15:53:52 CDT CPT-23013 Visit 09:52:43 CDT CPT-76056 Visit 15:13:51 CDT CPT-32531 Visit 11:49:28 CDT CPT-41996 Visit 12:15:02 CDT CPT-26367 Visit 12:08:30 CDT CPT-42539 Adacel 16:55:52 CDT CPT-45557 Administration single or combination vac cine inc oral 16:55:52 CDT CPT-37180 Tdap 7yrs or > 16:19:02 CDT CPT-89059 Visit 16:19:02 CDT CPT-12178 Visit 10:35:45 NURSE LDR CPT-27719 Venipuncture Draw Fee 08:56:41 NURSE LDR CPT-36353 Visit 08:59:48 NURSE LDR CPT-23429 Sono OB comp > 14 weeks 08:41:26 NURSE LDR 02/13 CPT-45511 Visit 09:15:49 NURSE LDR CPT-00937 Visit 10:52:07 NURSE LDR CPT-59901 Visit 12:10:53 NURSE LDR CPT-42852A Sono OB comp <14 weeks ([place] Only) 16:57:48 CDT CPT-18038 Fluzone 14:23:28 CDT CPT-68209 Spec Collection and Handling Fee 14:10:55 C DT CPT-00976 Visit 14:10:55 CDT
--- OUTSIDE RECORDS SUMMARY | 2019-08-17 21:31 | XMS REPORT | Clinical Summary ---
Author Author Tawanda, Kalina Hollis Organization [facility] Address Unknown Phone Unavailable Allergies, Adverse Reactions, [...] e date discrepancy, antepartum condition or complication Medication List Medication Instructions Start Date Stop Date Generic Name NDC Status Provider Patient Instruction EPIPEN 2-GABBY 0.3 MG/0.3ML SOAJ as directed EPINEPHRINE 5 5654299848 Active Rhina Plata MD Active Immunizations Vaccine Administration Date Value Standard [place] cription hepatitis B vaccine series yes hepat itis B vaccine, unspecified formulation Vital Signs Date Name Value Unit Range Description blood pressure, diastolic - 8462-4 65 mm[Hg] [...] 11 .0-15.0 platelet count 315 THOUSAND/UL 10*3/mm3 171-180 6160/10/01 Blood type O Lab Report: ABO GROUP [...] NON-REACTIVE NON-REACTIVE rubella antibody, serum, IgG 2.80 Office Visit: Initial OB Visit - Blood b ank blood type with RH factor O Office Visit: Initial OB Visit - [place] Contractor ry Neisseria gonorrhoeae, genital culture negative protein, [...] urine, semiquantitative N nitrite, urine, semiquantitative N Procedures Code Procedure Name Date Entry Date Standard Desc ription CPT-20220 Sono OB comp > 14 weeks 08:41:26 SOLDERER PRODUCTION LINE 02/13 CPT-21061 Visit 09:15:49 SOLDERER PRODUCTION LINE CPT-79431 Visit 10:52:07 SOLDERER PRODUCTION LINE CPT-26189 Visit 12:10:53 SOLDERER PRODUCTION LINE CPT-80071W Sono OB comp <14 weeks ([place] Only) 16:57:48 CDT CPT-67491 Fluzone 14:23:28 CDT CPT-42395 Spec Collection and Handling Fee 14:10:55 C DT CPT-89963 Visit 14:10:55 CDT
--- OUTSIDE RECORDS SUMMARY | 2019-08-17 21:31 | XMS REPORT | Clinical Summary ---
Author Author Tawanda, Kalina Hollis Organization [facility] Address Unknown Phone Unavailable Allergies, [...] 0.3 MG/0.3ML SOAJ as directed EPINEPHRINE 5 5120566224 Active Rhina Plata MD Active Diagnostic Results Date Name Value Unit Range [...] count, blood 10.5 THOUSAND/UL 10*3/mm3 3.8-10. 8 Blood type O hemoglobin, blood 12.3 g/dL 11.7-15.5 hematocrit, blood [...] Name Date Entry Date Standard Desc ription CPT-08053U Sono OB comp <14 weeks ([place] Only) 16:57:48 CDT CPT-57765 Fluzone 14:23:28 CDT CPT-61921 Spec Collection and Handling Fee 14:10:55 C DT CPT-22174 Visit 14:10:55 CDT
--- OUTSIDE RECORDS SUMMARY | 2019-08-17 21:31 | XMS REPORT ---
Author Author [facility] Medic al Staff, DIAMANTE Organization [facility] Address [address], [place] [address] Phone [phone] Care Team Providers Care Service Rig Operator Name Role Phone VAHID DOWELL MD PP [phone] Summary purpose TRANSITION OF CARE AUTO GENERATION Chief Complaint and Reason for Visit No authorized Reason for Visit (Admitting Diagnosis) is available for this visit . Problem list No authorized problems tracked for continuity of care are available for this vis it. Encounters No authorized problems tracked for encounter diagnoses are available for this vi sit. Medications Home Medications Medication Directions Started Status Source vit #26-iron ps-folic acid-dha 29 mg iron-1 m g-200 mg capsule 1 tablet oral 1 Daily Current Patient recall Iron (ferrous sulfate) 325 mg (65 mg iron) tablet 1 tablet oral 1 Daily Current Patient recall Allergies, adverse reactions, alerts Allergen Category Ingredient Status Reaction Severity Onset No Known Drug Allergies No known drug allergies No Known Drug Al lergies Confirmed or Verified Immunizations No immunizations recorded for this patient visit Relevant diagnostic tests and/or laboratory data RESULTS Routine Urinalysis [id number]:00:00 Result Normal Range Units Color YELLOW Clarity Slighty cloudy Specific [place] 1.005 pH 7.0 4.5-8.0 Glucose NEGATIVE Bilirubin NEGATIVE Ketones 2+ Protein NEGATIVE Urobilinogen 0.2 0-0.2 E.U./dL Nitrites NEGATIVE Blood NEGATIVE Leukocytes NEGATIVE WBCs 0-5 RBCs No RBC's Seen. Squamous Epithelial 1+ Bacteria 2+ Chemistry [id number]:08:00 Result Normal Range Units Sodium 137 134-145 mEq/l Potassium L 3.3 3.5-5.1 mEq/l Chloride 105 98-107 mEq/l CO2 L 19.7 22-28 mEq/l Glucose 81 70-105 mg/dl BUN L 5 7-18 mg/dl Creatinine 0.61 0.6-1.0 mg/dl Calcium L 8.3 8.4-10.2 mg/dl TP - Total Protein 6.4 6.0-8.3 g /dl Albumin L 2.9 3.5-5 g/dl Bilirubin - Total 1.0 0.1-1.0 mg /dl AST 34 10-42 IU/L ALT 29 12-65 IU/L ALP H 80 25-72 IU/L Osmolality L 270.1 280-300 mOsm/L Albumin/Globulin Ratio 0.8 0-8 Anion GAP 12.3 8-16 BUN/Creatinine Ratio L 8.2 10-20 Estimated GFR 123 >= 60 mL/min /1.7 Hematology [id number]:08:00 Result Normal Range Units WBC 9.5 4.8-10.8 103/uL RBC L 3.6 4.2-5.4 106/uL HGB L 10.8 12.0-16.0 g/dl HCT L 32.1 36.9-47.0 % MCV 88.7 81-99 FL MCH 29.8 27-31 pg MCHC 33.6 33-37 g/dl RDW 13.8 11.5-15.5 % PLT 225 130-400 103/uL MPV 8.6 7.3-10.4 FL Segs H 83.0 40-70 % Bands 4.0 0-5 % Lymphs L 3.0 20-40 % [place] 5.0 0-10 % Eos 4.0 0-7 % Baso 1.0 0-2 % Atypical Lymphs 0.0 0-5 % Body Fluid :00:00 Result Normal Range Units pH 7.0 4.5-8.0 Radiology Results :08:00 Result Normal Range Units MPV 8.6 7.3-10.4 FL History of procedures No procedures [...]
--- OUTSIDE RECORDS SUMMARY | 2019-08-17 21:31 | XMS REPORT | Clinical Summary ---
Author Author Tawanda, Kalina Hollis Organization [facility] Address Unknown Phone Unavailable Allergies, Adverse Reactions, [...] 0.3 MG/0.3ML SOAJ as directed EPINEPHRINE 5 7574944731 Active Rhina Plata MD Active Immunizations Vaccine [...] RBCW/REFL I, CBC (IN ... - Hematology mean corpuscular hemoglobin concentration, RBC 33.6 G/DL % 32.0-36.0 red blood cell distribution width 12.5 % 11 .0-15.0 platelet count 315 THOUSAND/UL 10*3/mm3 414-208 2323/10/01 Blood type O mean corpuscular hemoglobin, RBC 29.5 pg 27. 0-33.0 mean corpuscular volume, RBC 87.8 fL 80.0-10 0.0 hematocrit, blood 36.8 % 35.0-45.0 hemoglobin, blood 12.3 g/dL 11.7-15.5 erythrocyte (RBC) count 4.19 MILLION/UL 10*6/mm3 3.80-5. [...] O Office Visit: Initial OB Visit - Coating Inspector ry Neisseria gonorrhoeae, genital culture negative protein, total urine random N mg/dL Office Visit: Initial OB Visit - Genetic s/fertility test, date 10/14/2013 Office Visit: Initial OB Visit - Microbi ology urine culture (with units of CFunits/mL) negative {cfu}/ mL Herpes Simplex Virus Genital no Office Visit: Initial OB Visit - Urinaly [...] Name Date Entry Date Standard Desc ription [facility]-35253 Visit 09:15:49 ELECTRIC MOTOR REPAIR SUPERVISOR CPT-01239 Visit 10:52:07 ELECTRIC MOTOR REPAIR SUPERVISOR CPT-95167 Visit 12:10:53 ELECTRIC MOTOR REPAIR SUPERVISOR CPT-07855F Sono OB comp <14 weeks ([place] Only) 16:57:48 CDT CPT-65556 Fluzone 14:23:28 CDT CPT-41478 Spec Collection and Handling Fee 14:10:55 C DT CPT-50834 Visit 14:10:55 CDT
--- OUTSIDE RECORDS SUMMARY | 2019-08-17 21:31 | XMS REPORT | Clinical Summary ---
Author Author Tawanda, Kalina Hollis Organization [facility] Address Unknown Phone Unavailable Allergies, Adverse [...] 0.3 MG/0.3ML SOAJ as directed EPINEPHRINE 5 4881145866 Active Rhina Plata MD Active Diagnostic Results [...] Name Date Entry Date Standard Desc ription CPT-63284 Fluzone 14:23:28 CDT CPT-61437 Spec Collection and Handling Fee 14:10:55 C DT CPT-63117 Visit 14:10:55 CDT
--- OUTSIDE RECORDS SUMMARY | 2019-08-17 21:31 | XMS REPORT | Clinical Summary ---
Author Author Tawanda, Kalina Hollis Organization [facility] Address Unknown Phone Unavailable Allergies, Adverse Reactions, [...] tab po q day NORETHINDRO NE (CONTRACEPTIVE) 07040985331 Active Jillina Fragilsonl ORDER CHECKER PACKER PROCESSER Active FENUGREEK BLOOD SUGAR HEALTH 500 MG ORAL CAPS FENUGREEK 28037735086 Active Jillina Fragilsonl ORDER CHECKER PACKER PROCESSER Active 1 30-0.975-200 MG CAPS 1 qDay MV-MIN-FE FUM-FA-DHA 50828020651 Active Jillina Frazell ORDER CHECKER PACKER PROCESSER Active [facility] IRON 325 (65 FE) MG ORAL TABS Take one by mouth daily 6 FERROUS SULFATE 03279476325 No Longer Active Bev Dove APRN Active PREDNISONE 20 MG TAB 1 tablet twice daily for 2 d ays, then 1 tablet once daily for 2 days PREDNISONE 87748404891 No Longer Active Rhina Plata MD Active FLONASE 50 MCG/ACT SUSP 1 spray each nostril am and hs FLUTICASONE PROPIONATE 32810393613 Active Benjamin Bejarano DO Active EPIPEN 2-GABBY 0.3 MG/0.3ML SOAJ as directed EPINEPHRINE 5 6997412704 Active Rhina Plata MD Active PREDNISONE 20 MG TAB 1 tablet twice daily for 2 d ays, then 1 tablet once daily for 2 days PREDNISONE 20 MG TAB 744137 PREDNISONE Inac tive [facility] IRON 325 (65 FE) MG ORAL TABS Take one by mouth daily 6 [facility] IRON 325 (65 FE) MG ORAL TABS 169341 FERROUS SULFATE Inacti ve Immunizations Vaccine Administration [...] pressure, diastolic - 8462-4 66 mm[Hg] BP arlph blood pressure, systolic - 8480-6 93 mm[Hg] [...] 11 .0-15.0 platelet count 315 THOUSAND/UL 10*3/mm3 339-540 0219/10/01 Blood type O Lab Report: ABO GROUP [...] 309 10^3/MM^3 10*3/mm3 142-424 Lab Report: Chlamydia/GC [facility]/13070 - Lab chlamydia DNA probe NOT DETECTED NOT DETECTED Lab Report: Chlamydia/GC [facility]TIMA/41250 - Microbiology Neisseria gonorrhoeae DNA probe NOT DETECTED NO T DETECTED Office Visit: Initial OB Visit - Blood b ank blood type with RH factor O Office Visit: Initial OB Visit - Acid Splicer ry Neisseria gonorrhoeae, genital culture negative protein, [...] N Encounters Code Encounter Date Provider Facility CPT-84591 Level 3 Est. Patient 09:56:59 BUSINESS PERFORMANCE ANALYST Benjamin hussein [facility] Procedures Code Procedure Name Date Entry Date Standard Desc ription CPT-87757 Postop F/U Visit 15:53:52 CDT CPT-95536 Visit 09:52:43 CDT CPT-03891 Visit 15:13:51 CDT CPT-20041 Visit 11:49:28 CDT CPT-14793 Visit 12:15:02 CDT CPT-03190 Visit 12:08:30 CDT CPT-64902 Adacel 16:55:52 CDT CPT-53022 Administration single or combination vac cine inc oral 16:55:52 CDT CPT-09017 Tdap 7yrs or > 16:19:02 CDT CPT-92607 Visit 16:19:02 CDT CPT-29659 Visit 10:35:45 BUSINESS PERFORMANCE ANALYST CPT-73147 Venipuncture Draw Fee 08:56:41 BUSINESS PERFORMANCE ANALYST CPT-78675 Visit 08:59:48 BUSINESS PERFORMANCE ANALYST CPT-12757 Sono OB comp > 14 weeks 08:41:26 BUSINESS PERFORMANCE ANALYST 02/13 CPT-30097 Visit 09:15:49 BUSINESS PERFORMANCE ANALYST CPT-34283 Visit 10:52:07 BUSINESS PERFORMANCE ANALYST CPT-10382 Visit 12:10:53 BUSINESS PERFORMANCE ANALYST CPT-93960Z Sono OB comp <14 weeks ([place] Only) 16:57:48 CDT CPT-45768 Fluzone 14:23:28 CDT CPT-68772 Spec Collection and Handling Fee 14:10:55 C DT CPT-65025 Visit 14:10:55 CDT
--- OUTSIDE RECORDS SUMMARY | 2019-08-17 21:31 | XMS REPORT | Clinical Summary ---
Author Author Tawanda, Kalina Hollis Organization [facility] Address Unknown Phone Unavailable Allergies, Adverse Reactions, Alerts Allergy Name Reaction Description Start Date Severity Status Pr ovider No Known Allergies Karen Seng Conditions or Problems Problem Name Problem Code Onset Date Status Entry Date Provider Comment Standard Description Annotate Supervision of normal first V22.0 Resolved Loren Yomesfinum BUSINESS SEGMENT MANAGER Supervision of normal first Pelvic pain 789.09 Resolved Loren Yokum BUSINESS SEGMENT MANAGER Abdominal pain, other specified site; multiple sites Uterine size date discrepancy, antepartum condition or compl ication 649.63 Resolved Loren Yokum BUSINESS SEGMENT MANAGER Uterine siz e date discrepancy, antepartum condition or complication Pharyngitis-Acute 462 Resolved Loren Yokum APR N Acute pharyngitis AFTERCARE FLW SURG TEETH ORL CAV&DIGESTV SYS NEC V58.75 07/25 Resolved Loren Yokum BUSINESS SEGMENT MANAGER Aftercare following surgery of the teeth,oral cavity and digestive system, NEC Physical examination V70.0 Active Loren Greerum A PRN Routine general medical examination at a health care facility Supervision of normal first ICD-V22.0 5 Inactive Loren Yokum BUSINESS SEGMENT MANAGER Pelvic pain ICD-789.09 Inactive Loren JOHNSON RN Uterine size date discrepancy, antepartum condition or compl ication ICD-649.63 Inactive Loren Yokum BUSINESS SEGMENT MANAGER Pharyngitis-Acute ICD-462 Inactive Loren slater BUSINESS SEGMENT MANAGER AFTERCARE FLW SURG TEETH ORL CAV&DIGESTV SYS NEC ICD-V58.75 Inactive Loren Weber BUSINESS SEGMENT MANAGER Medication List Medication Instructions Start Date Stop Date Generic Name NDC Status Provider Patient Instruction FLONASE 50 MCG/ACT SUSP 1 spray each nostril am and hs as needed 20 26/03/19 FLUTICASONE PROPIONATE 73554353928 Active Loren Weber BUSINESS SEGMENT MANAGER A ctive MICRONOR 0.35 MG TAB 1 tab po q day NORETHINDRO NE (CONTRACEPTIVE) 02273167037 Active Rhina Plata MD Active FENUGREEMesfin BLOOD SUGAR HEALTH 500 MG ORAL CAPS FENUGREEK 00000802780 Active Bev Dove APRN Active 1 30-0.975-200 MG CAPS 1 qDay MV-MIN-FE FUM-FA-DHA 70023008189 Active Bev Dove APRN Active [facility] IRON 325 (65 FE) MG ORAL TABS Take one by mouth daily 6 FERROUS SULFATE 11186693256 No Longer Active Bev Dove APRN Active PREDNISONE 20 MG TAB 1 tablet twice daily for 2 d ays, then 1 tablet once daily for 2 days PREDNISONE 34776886388 No Longer Active Rhina Plata MD Active EPIPEN 2-GABBY 0.3 MG/0.3ML SOAJ as directed EPINEPHRINE 5 7128627599 Active Rhina Plata MD Active PREDNISONE 20 MG TAB 1 tablet twice daily for 2 d ays, then 1 tablet once daily for 2 days PREDNISONE 20 MG TAB 587826 PREDNISONE Inac tive [facility] IRON 325 (65 FE) MG ORAL TABS Take one by mouth daily 6 [facility] IRON 325 (65 FE) MG ORAL TABS 780119 FERROUS SULFATE Inacti ve Immunizations Vaccine Administration [...] 11 .0-15.0 platelet count 315 THOUSAND/UL 10*3/mm3 011-862 7893/10/01 Blood type O Lab Report: ABO GROUP [...] 309 10^3/MM^3 10*3/mm3 142-424 Lab Report: Chlamydia/GC [facility]TIM[facility]/35010 - Lab chlamydia DNA probe NOT DETECTED NOT DETECTED Lab Report: Chlamydia/GC APTIM[facility]/71817 - Microbiology Neisseria gonorrhoeae DNA probe NOT DETECTED NO T DETECTED Office Visit: Initial OB Visit - Blood b ank blood type with RH factor O Office Visit: Initial OB Visit - Retail Field Supervisor ry Neisseria gonorrhoeae, genital culture negative [...] N Encounters Code Encounter Date Provider Facility CPT-23357 Level 3 Est. Patient 16:43:13 CDT Loren slater BUSINESS SEGMENT MANAGER [facility] CPT-78221 Level 3 Est. Patient 09:56:59 JUNIOR BOOKKEEPER Benjamin hussein DO [facility] Procedures Code Procedure Name Date Entry Date Standard Desc ription CPT-87993 Postop F/U Visit 15:53:52 CDT CPT-59457 Visit 09:52:43 CDT CPT-47009 Visit 15:13:51 CDT CPT-69769 Visit 11:49:28 CDT CPT-52760 Visit 12:15:02 CDT CPT-73391 Visit 12:08:30 CDT CPT-67874 Adacel 16:55:52 CDT CPT-85607 Administration single or combination vac cine inc oral 16:55:52 CDT CPT-49420 Tdap 7yrs or > 16:19:02 CDT CPT-42704 Visit 16:19:02 CDT CPT-12341 Visit 10:35:45 JUNIOR BOOKKEEPER CPT-53984 Venipuncture Draw Fee 08:56:41 JUNIOR BOOKKEEPER CPT-72363 Visit 08:59:48 JUNIOR BOOKKEEPER CPT-15789 Sono OB comp > 14 weeks 08:41:26 JUNIOR BOOKKEEPER 02/13 CPT-67037 Visit 09:15:49 JUNIOR BOOKKEEPER CPT-68287 Visit 10:52:07 JUNIOR BOOKKEEPER CPT-03644 Visit 12:10:53 JUNIOR BOOKKEEPER CPT-42182O Sono OB comp <14 weeks ([place] Only) 16:57:48 CDT CPT-78585 Fluzone 14:23:28 CDT CPT-30168 Spec Collection and Handling Fee 14:10:55 C DT CPT-37622 Visit 14:10:55 CDT
--- OUTSIDE RECORDS SUMMARY | 2019-08-17 21:32 | XMS REPORT | Clinical Summary ---
Author Author Tawanda, Kalina Hollis Organization [facility] Address Unknown Phone Unavailable Allergies, Adverse Reactions, Alerts Allergy Name Reaction Description Start Date Severity Status Pr ovider No Known Allergies Agnes Jay MONOGRAM MACHINE OPERATOR Conditions or Problems Problem Name Problem [...] each nostril am and hs FLUTICASONE PROPIONATE 04391524121 Active Benjamin Bejarano DO Active PREDNISONE 20 MG TAB 1 tablet twice daily for 2 d ays, then 1 tablet once daily for 2 days PREDNISONE 32872984462 Active Benjamin Bejarano DO Active EPIPEN 2-GABBY 0.3 MG/0.3ML SOAJ as directed EPINEPHRINE 5 8039961877 Active Rhina Plata MD Active Immunizations Vaccine Administration Date Value Standard Kaiden cription hepatitis B vaccine series yes hepat itis B vaccine, unspecified formulation Vital Signs Date Name Value Unit Range Description blood pressure, diastolic - 8462-4 75 mm[Hg] [...] pressure, diastolic - 8462-4 58 mm[Hg] BP rlaph blood pressure, systolic - 8480-6 109 mm[Hg] [...] U/L Chart Maintenance: Outside labs entered on [facility]heet - Hematology leukocyte count, blood 9.5 10*3/mm3 [...] 11 .0-15.0 platelet count 315 THOUSAND/UL 10*3/mm3 011-115 2293/10/01 Blood type O erythrocyte (RBC) count 4.19 [...] O Office Visit: Initial OB Visit - Senior Energy Market Coordinator ry Neisseria gonorrhoeae, genital culture negative protein, [...] mg/dL protein, total urine random N mg/dL Office Visit: OB Visit - Urinalysis [...] N Encounters Code Encounter Date Provider Facility CPT-60147 Level 3 Est. Patient 09:56:59 VALUE STREAM LEADER Benjamin hussein [facility] Procedures Code Procedure Name Date Entry Date Standard Desc ription CPT-42807 Adacel 16:55:52 CDT CPT-69794 Administration single or combination vac cine inc oral 16:55:52 CDT CPT-39490 Tdap 7yrs or > 16:19:02 CDT CPT-74029 Visit 16:19:02 CDT CPT-39286 Visit 10:35:45 VALUE STREAM LEADER CPT-72396 Venipuncture Draw Fee 08:56:41 VALUE STREAM LEADER CPT-87199 Visit 08:59:48 VALUE STREAM LEADER CPT-62703 Sono OB comp > 14 weeks 08:41:26 VALUE STREAM LEADER 02/13 CPT-22661 Visit 09:15:49 VALUE STREAM LEADER CPT-17715 Visit 10:52:07 VALUE STREAM LEADER CPT-75355 Visit 12:10:53 VALUE STREAM LEADER CPT-50199Y Sono OB comp <14 weeks ([place] Only) 16:57:48 CDT CPT-98070 Fluzone 14:23:28 CDT CPT-65299 Spec Collection and Handling Fee 14:10:55 C DT CPT-59255 Visit 14:10:55 CDT
--- OUTSIDE RECORDS SUMMARY | 2019-08-17 21:32 | XMS REPORT | Clinical Summary ---
Author Author Tawanda, Kalina Hollis Organization [facility] Address Unknown Phone Unavailable Allergies, Adverse Reactions, Alerts Allergy Name Reaction Description Start Date Severity Status Pr ovider No Known Allergies ELIZABETH Orozco Conditions or Problems Problem Name Problem Code [...] each nostril am and hs FLUTICASONE PROPIONATE 58953361078 Active Benjamin Bejarano DO Active PREDNISONE 20 MG TAB 1 tablet twice daily for 2 d ays, then 1 tablet once daily for 2 days PREDNISONE 40678304882 Active Benjamin Bejarano DO Active EPIPEN 2-GABBY 0.3 MG/0.3ML SOAJ as directed EPINEPHRINE 5 4824779851 Active Rhina Plata MD Active Immunizations Vaccine Administration Date Value Standard Kaiden cription hepatitis B vaccine series yes hepat itis B vaccine, unspecified formulation Vital Signs Date Name Value Unit Range Description blood pressure, diastolic - 8462-4 68 mm[Hg] [...] 11 .0-15.0 platelet count 315 THOUSAND/UL 10*3/mm3 586-241 4418/10/01 Blood type O Lab Report: ABO GROUP [...] O Office Visit: Initial OB Visit - Switch Cleaner ry Neisseria gonorrhoeae, genital culture negative protein, [...] N Encounters Code Encounter Date Provider Facility CPT-47584 Level 3 Est. Patient 09:56:59 PALEOLOGIST Benjamin hussein [facility] Procedures Code Procedure Name Date Entry Date Standard Desc ription CPT-69154 Venipuncture Draw Fee 08:56:41 PALEOLOGIST CPT-80320 Visit 08:59:48 PALEOLOGIST CPT-63640 Sono OB comp > 14 weeks 08:41:26 PALEOLOGIST 02/13 CPT-51748 Visit 09:15:49 PALEOLOGIST CPT-84940 Visit 10:52:07 PALEOLOGIST CPT-63184 Visit 12:10:53 PALEOLOGIST CPT-33566L Sono OB comp <14 weeks ([place] Only) 16:57:48 CDT CPT-08087 Fluzone 14:23:28 CDT CPT-57817 Spec Collection and Handling Fee 14:10:55 C DT CPT-56066 Visit 14:10:55 CDT
--- OUTSIDE RECORDS SUMMARY | 2019-08-17 21:32 | XMS REPORT ---
Author Author [facility] Medic [facility] Staff, DIAMANTE Organization [facility] Address [address], [place] [address] Phone [phone] Care Team Providers Care Building Wrecker Name Role Phone VAHID DOWELL MD PP [phone] Summary purpose TRANSITION OF CARE AUTO GENERATION Chief Complaint and Reason for Visit Admit Diagnosis 1 NAUSEA WITH VOMITING Problem list No authorized problems tracked for [...] tests and/or laboratory data RESULTS Routine Urinalysis [id number]:00:00 Result Normal Range Units Color YELLOW Clarity Slighty cloudy Specific Mackey 1.005 pH 7.0 4.5-8.0 Glucose NEGATIVE Bilirubin NEGATIVE Ketones 2+ Protein NEGATIVE Urobilinogen 0.2 0-0.2 E.U./dL Nitrites NEGATIVE Blood NEGATIVE Leukocytes NEGATIVE WBCs 0-5 RBCs No RBC's Seen. Squamous Epithelial 1+ Bacteria 2+ Chemistry [id number]:08:00 Result Normal Range Units Sodium 137 134-145 [...] GFR 123 >= 60 mL/min /1.7 Hematology [id number]:08:00 Result Normal Range Units WBC 9.5 4.8-10.8 103/uL RBC L 3.6 4.2-5.4 106/uL HGB L 10.8 12.0-16.0 g/dl HCT L 32.1 36.9-47.0 % MCV 88.7 81-99 FL MCH 29.8 27-31 pg MCHC 33.6 33-37 g/dl RDW 13.8 11.5-15.5 % PLT 225 130-400 103/uL MPV 8.6 7.3-10.4 FL Segs H 83.0 40-70 % Bands 4.0 0-5 % Lymphs L 3.0 20-40 % [place] 5.0 0-10 % Eos 4.0 0-7 % Baso 1.0 0-2 % Atypical Lymphs 0.0 0-5 % Body Fluid [id number]:00:00 Result Normal Range Units pH 7.0 4.5-8.0 Radiology Results [id number]:08:00 Result Normal Range Units MPV 8.6 7.3-10.4 FL History of procedures Procedure Code Code Type Description Date Performed Performing Physician 29581 CPT-4 COMPREHEN METABOLIC PANEL 04-26-2014 YASMINE PORRAS 75507 CPT-4 URINALYSIS, AUTO W/SCOPE 04-26-2014 Marta PORRAS J7120 CPT-4 RINGERS LACTATE INFUSION 04-26-2014 Marta PORRAS J2550 CPT-4 PROMETHAZIEN 25MG/ML 04-26-2014 YASMINE PORRAS J7120 CPT-4 RINGERS LACTATE INFUSION 04-26-2014 Marta PORRAS 89762 CPT-4 ROUTINE VENIPUNCTURE 04-26-2014 YASMINE PORRAS 55928 CPT-4 COMPLETE CBC, AUTOMATED 04-26-2014 DEB FOY VERN 58263 CPT-4 BL SMEAR W/DIFF WBC COUNT 04-26-2014 YASMINE PORRAS 82141 CPT-4 EMERGENCY DEPT VISIT 04-26-2014 YASMINE PORRAS 80331 CPT-4 THER/PROPH/DIAG INJ, IV PUSH 04-26-2014 YASMINE PORRAS 37649 CPT-4 HYDRATE IV INFUSION, ADD-ON 04-26-2014 YASMINE PORRAS Functional status No functional or [...]
--- OUTSIDE RECORDS SUMMARY | 2019-08-17 21:32 | XMS REPORT | Clinical Summary ---
Author Author Tawanda, Kalina Hollis Organization [facility] Address Unknown Phone Unavailable Allergies, Adverse Reactions, Alerts Allergy Name Reaction Description Start Date Severity Status Pr ovider No Known Allergies Agnes Jay BOX INSPECTOR Conditions or Problems Problem Name Problem Code [...] each nostril am and hs FLUTICASONE PROPIONATE 33328227155 Active Benjamin Bejarano DO Active PREDNISONE 20 MG TAB 1 tablet twice daily for 2 d ays, then 1 tablet once daily for 2 days PREDNISONE 91001322572 Active Benjamin Bejarano DO Active EPIPEN 2-GABBY 0.3 MG/0.3ML SOAJ as directed EPINEPHRINE 5 1987901928 Active Rhina Plata MD Active Immunizations Vaccine [...] 11 .0-15.0 platelet count 315 THOUSAND/UL 10*3/mm3 654-459 7017/10/01 Blood type O Lab Report: ABO GROUP [...] O Office Visit: Initial OB Visit - Geriatrician ry Neisseria gonorrhoeae, genital culture negative protein, [...] N Encounters Code Encounter Date Provider Facility CPT-89749 Level 3 Est. Patient 09:56:59 SENIOR ASSET MANAGER Benjamin Parker [facility] Procedures Code Procedure Name Date Entry Date Standard Desc ription CPT-55623 Adacel 16:55:52 CDT CPT-71405 Administration single or combination vac cine inc oral 16:55:52 CDT CPT-77062 Tdap 7yrs or > 16:19:02 CDT CPT-20802 Visit 16:19:02 CDT CPT-60315 Visit 10:35:45 SENIOR ASSET MANAGER CPT-47125 Venipuncture Draw Fee 08:56:41 SENIOR ASSET MANAGER CPT-91793 Visit 08:59:48 SENIOR ASSET MANAGER CPT-68820 Sono OB comp > 14 weeks 08:41:26 SENIOR ASSET MANAGER 02/13 CPT-24996 Visit 09:15:49 SENIOR ASSET MANAGER CPT-13782 Visit 10:52:07 SENIOR ASSET MANAGER CPT-23381 Visit 12:10:53 SENIOR ASSET MANAGER CPT-36599D Sono OB comp <14 weeks ([place] Only) 16:57:48 CDT CPT-31193 Fluzone 14:23:28 CDT CPT-36584 Spec Collection and Handling Fee 14:10:55 C DT CPT-24708 Visit 14:10:55 CDT
--- OUTSIDE RECORDS SUMMARY | 2019-08-17 21:32 | XMS REPORT | Clinical Summary ---
Author Author Tawanda, Kalina Hollis Organization [facility] Address Unknown Phone Unavailable Allergies, Adverse Reactions, Alerts Allergy Name Reaction Description Start Date Severity Status Pr ovider No Known Allergies Agnes Jay FIRE LIEUTENANT Conditions or Problems Problem Name Problem Code [...] each nostril am and hs FLUTICASONE PROPIONATE 57708628641 Active Benjamin Bejarano DO Active PREDNISONE 20 MG TAB 1 tablet twice daily for 2 d ays, then 1 tablet once daily for 2 days PREDNISONE 40960674512 Active Benjamin Bejarano DO Active EPIPEN 2-GABBY 0.3 MG/0.3ML SOAJ as directed EPINEPHRINE 5 1009915016 Active Rhina Plata MD Active Immunizations Vaccine [...] U/L Chart Maintenance: Outside labs entered on [employer] ([employer])heet - Hematology leukocyte count, blood 9.5 10*3/mm3 [...] 11 .0-15.0 platelet count 315 THOUSAND/UL 10*3/mm3 307-622 0175/10/01 Blood type O Lab Report: ABO GROUP [...] O Office Visit: Initial OB Visit - Laborer Cutting Tool ry Neisseria gonorrhoeae, genital culture negative protein, [...] N Encounters Code Encounter Date Provider Facility CPT-90466 Level 3 Est. Patient 09:56:59 FIBERGLASS FABRICATOR Benjamin hussein [facility] Procedures Code Procedure Name Date Entry Date Standard Desc ription CPT-69832 Adacel 16:55:52 CDT CPT-80079 Administration single or combination vac cine inc oral 16:55:52 CDT CPT-54687 Tdap 7yrs or > 16:19:02 CDT CPT-50868 Visit 16:19:02 CDT CPT-54863 Visit 10:35:45 FIBERGLASS FABRICATOR CPT-64670 Venipuncture Draw Fee 08:56:41 FIBERGLASS FABRICATOR CPT-40954 Visit 08:59:48 FIBERGLASS FABRICATOR CPT-34647 Sono OB comp > 14 weeks 08:41:26 FIBERGLASS FABRICATOR 02/13 CPT-71053 Visit 09:15:49 FIBERGLASS FABRICATOR CPT-89943 Visit 10:52:07 FIBERGLASS FABRICATOR CPT-79569 Visit 12:10:53 FIBERGLASS FABRICATOR CPT-19380F Sono OB comp <14 weeks ([place] Only) 16:57:48 CDT CPT-24481 Fluzone 14:23:28 CDT CPT-06694 Spec Collection and Handling Fee 14:10:55 C DT CPT-36898 Visit 14:10:55 CDT
--- OUTSIDE RECORDS SUMMARY | 2019-08-17 21:32 | XMS REPORT | Clinical Summary ---
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 Problem Name Problem Code [...] each nostril am and hs FLUTICASONE PROPIONATE 37961907337 Active Benjamin Bejarano DO Active PREDNISONE 20 MG TAB 1 tablet twice daily for 2 d ays, then 1 tablet once daily for 2 days PREDNISONE 76331115046 Active Benjamin Bejarano DO Active EPIPEN 2-GABBY 0.3 MG/0.3ML SOAJ as directed EPINEPHRINE 5 2793078946 Active Rhina Plata MD Active Immunizations Vaccine [...] 11 .0-15.0 platelet count 315 THOUSAND/UL 10*3/mm3 674-268 2259/10/01 Blood type O Lab Report: ABO GROUP [...] O Office Visit: Initial OB Visit - Fleet Salesperson ry Neisseria gonorrhoeae, genital culture negative protein, [...] N Encounters Code Encounter Date Provider Facility CPT-45981 Level 3 Est. Patient 09:56:59 BOILERHOUSE MECHANIC Benjamin Parker [facility] Procedures Code Procedure Name Date Entry Date Standard Desc ription CPT-01635 Adacel 16:55:52 CDT CPT-10495 Administration single or combination vac cine inc oral 16:55:52 CDT CPT-18215 Tdap 7yrs or > 16:19:02 CDT CPT-98472 Visit 16:19:02 CDT CPT-31309 Visit 10:35:45 BOILERHOUSE MECHANIC CPT-89347 Venipuncture Draw Fee 08:56:41 BOILERHOUSE MECHANIC CPT-47679 Visit 08:59:48 BOILERHOUSE MECHANIC CPT-07230 Sono OB comp > 14 weeks 08:41:26 BOILERHOUSE MECHANIC 02/13 CPT-61684 Visit 09:15:49 BOILERHOUSE MECHANIC CPT-51793 Visit 10:52:07 BOILERHOUSE MECHANIC CPT-67917 Visit 12:10:53 BOILERHOUSE MECHANIC CPT-98248G Sono OB comp <14 weeks ([place] Only) 16:57:48 CDT CPT-57475 Fluzone 14:23:28 CDT CPT-95963 Spec Collection and Handling Fee 14:10:55 C DT CPT-80420 Visit 14:10:55 CDT
--- OUTSIDE RECORDS SUMMARY | 2019-08-17 21:32 | XMS REPORT | Clinical Summary ---
Author Author Tawanda, Kalina Hollis Organization [facility] Address Unknown Phone Unavailable Allergies, Adverse Reactions, [...] 0.3 MG/0.3ML SOAJ as directed EPINEPHRINE 5 7927977447 Active Rhina Plata MD Active Immunizations Vaccine Administration Date Value Standard Kaiden cription hepatitis B vaccine series yes hepat itis B vaccine, unspecified formulation Vital Signs Date Name Value Unit Range Description blood pressure, diastolic - 8462-4 71 mm[Hg] [...] 11 .0-15.0 platelet count 315 THOUSAND/UL 10*3/mm3 063-317 9377/10/01 Blood type O Lab Report: ABO GROUP [...] O Office Visit: Initial OB Visit - Crystal Report Developer ry Neisseria gonorrhoeae, genital culture negative protein, [...] Name Date Entry Date Standard Desc ription CPT-50980 Visit 08:59:48 COLLECTIONS REP CPT-85788 Sono OB comp > 14 weeks 08:41:26 COLLECTIONS REP 02/13 CPT-67557 Visit 09:15:49 COLLECTIONS REP CPT-45919 Visit 10:52:07 COLLECTIONS REP CPT-30373 Visit 12:10:53 COLLECTIONS REP CPT-01426H Sono OB comp <14 weeks ([place] Only) 16:57:48 CDT CPT-77864 Fluzone 14:23:28 CDT CPT-55279 Spec Collection and Handling Fee 14:10:55 C DT CPT-85754 Visit 14:10:55 CDT
--- OUTSIDE RECORDS SUMMARY | 2019-08-17 21:32 | XMS REPORT | Clinical Summary ---
Author Author Tawanda, Kalina Hollis Organization [employer] Address Unknown Phone Unavailable Allergies, Adverse Reactions, [...] each nostril am and hs FLUTICASONE PROPIONATE 38918029551 Active Benjamin Bejarano DO Active PREDNISONE 20 MG TAB 1 tablet twice daily for 2 d ays, then 1 tablet once daily for 2 days PREDNISONE 16495034046 Active Benjamin Bejarano DO Active EPIPEN 2-GABBY 0.3 MG/0.3ML SOAJ as directed EPINEPHRINE 5 1951619133 Active Rhina Plata MD Active Immunizations Vaccine [...] 11 .0-15.0 platelet count 315 THOUSAND/UL 10*3/mm3 416-778 1239/10/01 Blood type O erythrocyte (RBC) count 4.19 [...] rubella antibody, serum, IgG 2.80 Lab Report: CBC - Hematology mean corpuscular volume, RBC 90 fL 80-97 mean corpuscular hemoglobin, RBC 30.7 pg 27. 0-31.2 mean corpuscular hemoglobin concentration, RBC 33.9 G/DL % 31.8-35.4 red blood cell distribution width 12.9 % 11 .6-14.8 platelet count 309 10^3/MM^3 10*3/mm3 680-485 5854/02/20 leukocyte count, blood 10.4 10^3/MM^3 10*3/mm3 4.6-10.2 erythrocyte (RBC) count 3.45 10^6/MM^3 10*6/mm3 4.04-5.4 8 hemoglobin, blood 10.6 g/dL 12.0-16.0 hematocrit, blood 31.2 % 36.0-46.0 Office Visit: Initial OB Visit - Blood b ank blood type with RH factor O Office Visit: Initial OB Visit - Global Upstream Marketing Manager ry Neisseria gonorrhoeae, genital culture negative [...] N Encounters Code Encounter Date Provider Facility CPT-19892 Level 3 Est. Patient 09:56:59 CLINICAL INFORMATICS EDUCATOR Benjamin Parker [facility] Procedures Code Procedure Name Date Entry Date Standard Desc ription CPT-44704 Visit 10:35:45 CLINICAL INFORMATICS EDUCATOR CPT-59619 Venipuncture Draw Fee 08:56:41 CLINICAL INFORMATICS EDUCATOR CPT-78199 Visit 08:59:48 CLINICAL INFORMATICS EDUCATOR CPT-63420 Sono OB comp > 14 weeks 08:41:26 CLINICAL INFORMATICS EDUCATOR 02/13 CPT-63365 Visit 09:15:49 CLINICAL INFORMATICS EDUCATOR CPT-09380 Visit 10:52:07 CLINICAL INFORMATICS EDUCATOR CPT-94515 Visit 12:10:53 CLINICAL INFORMATICS EDUCATOR CPT-39569E Sono OB comp <14 weeks ([place] Only) 16:57:48 CDT CPT-70238 Fluzone 14:23:28 CDT CPT-96789 Spec Collection and Handling Fee 14:10:55 C DT CPT-95189 Visit 14:10:55 CDT
--- OUTSIDE RECORDS SUMMARY | 2019-08-17 21:32 | XMS REPORT | Clinical Summary ---
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 Problem Name Problem Code [...] each nostril am and hs FLUTICASONE PROPIONATE 15074355926 Active Benjamin Bejarano DO Active PREDNISONE 20 MG TAB 1 tablet twice daily for 2 d ays, then 1 tablet once daily for 2 days PREDNISONE 27893439717 Active Benjamin Bejarano DO Active EPIPEN 2-GABBY 0.3 MG/0.3ML SOAJ as directed EPINEPHRINE 5 8662718057 Active Rhina Plata MD Active Immunizations Vaccine [...] 11 .0-15.0 platelet count 315 THOUSAND/UL 10*3/mm3 473-703 9657/10/01 Blood type O Lab Report: ABO GROUP [...] O Office Visit: Initial OB Visit - Quality Control Lead ry Neisseria gonorrhoeae, genital culture negative protein, [...] N Encounters Code Encounter Date Provider Facility CPT-45772 Level 3 Est. 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 Benjamin Parker [facility] Procedures Code Procedure Name Date Entry Date Standard Desc ription CPT-54737 Adacel 16:55:52 CDT CPT-22873 Administration single or combination vac cine inc oral 16:55:52 CDT CPT-63853 Tdap 7yrs or > 16:19:02 CDT CPT-22205 Visit 16:19:02 CDT CPT-74088 Visit 10:35:45 STOCKROOM INVENTORY CLERK CPT-41251 Venipuncture Draw Fee 08:56:41 STOCKROOM INVENTORY CLERK CPT-94607 Visit 08:59:48 STOCKROOM INVENTORY CLERK CPT-49025 Sono OB comp > 14 weeks 08:41:26 STOCKROOM INVENTORY CLERK 02/13 CPT-03716 Visit 09:15:49 STOCKROOM INVENTORY CLERK CPT-77641 Visit 10:52:07 STOCKROOM INVENTORY CLERK CPT-95140 Visit 12:10:53 STOCKROOM INVENTORY CLERK CPT-43354F Sono OB comp <14 weeks ([place] Only) 16:57:48 CDT CPT-72555 Fluzone 14:23:28 CDT CPT-43797 Spec Collection and Handling Fee 14:10:55 C DT CPT-77219 Visit 14:10:55 CDT
--- OUTSIDE RECORDS SUMMARY | 2019-08-17 21:32 | XMS REPORT | Clinical Summary ---
Author Author Tawanda, Kalina Hollis Organization [employer] Address Unknown Phone Unavailable Allergies, Adverse Reactions, [...] each nostril am and hs FLUTICASONE PROPIONATE 87643551938 Active Benjamin Bejarano DO Active PREDNISONE 20 MG TAB 1 tablet twice daily for 2 d ays, then 1 tablet once daily for 2 days PREDNISONE 10359257668 Active Benjamin Bejarano DO Active EPIPEN 2-GABBY 0.3 MG/0.3ML SOAJ as directed EPINEPHRINE 5 2435434781 Active Rhina Plata MD Active Immunizations Vaccine Administration Date Value Standard Kaiden cription hepatitis B vaccine series yes hepat itis B vaccine, unspecified formulation Vital Signs Date Name Value Unit Range Description blood pressure, diastolic - 8462-4 68 mm[Hg] BP rlaph blood pressure, systolic - 8480-6 100 mm[Hg] [...] 11 .0-15.0 platelet count 315 THOUSAND/UL 10*3/mm3 118-223 3963/10/01 Blood type O Lab Report: ABO GROUP [...] IgG 2.80 Lab Report: CBC - Hematology leukocyte count, [...] O Office Visit: Initial OB Visit - Tire Vulcanizer ry Neisseria gonorrhoeae, genital culture negative protein, [...] N Encounters Code Encounter Date Provider Facility CPT-95114 Level 3 Est. Patient 09:56:59 SCOOP FILLER Benjamin Parker [facility] Procedures Code Procedure Name Date Entry Date Standard Desc ription CPT-92791 Visit 10:35:45 SCOOP FILLER CPT-35590 Venipuncture Draw Fee 08:56:41 SCOOP FILLER CPT-68097 Visit 08:59:48 SCOOP FILLER CPT-42244 Sono OB comp > 14 weeks 08:41:26 SCOOP FILLER 02/13 CPT-67794 Visit 09:15:49 SCOOP FILLER CPT-23739 Visit 10:52:07 SCOOP FILLER CPT-88435 Visit 12:10:53 SCOOP FILLER CPT-01519X Sono OB comp <14 weeks ([place] Only) 16:57:48 CDT CPT-67431 Fluzone 14:23:28 CDT CPT-09802 Spec Collection and Handling Fee 14:10:55 C DT CPT-18667 Visit 14:10:55 CDT
--- OUTSIDE RECORDS SUMMARY | 2019-08-17 21:33 | XMS REPORT | Clinical Summary ---
Author Author Tawanda, Kalina Hollis Organization [facility] Address Unknown Phone Unavailable Allergies, Adverse Reactions, [...] 0.3 MG/0.3ML SOAJ as directed EPINEPHRINE 5 5751009302 Active Rhina Plata MD Active Immunizations Vaccine Administration Date Value Standard Kaiden cription hepatitis B vaccine series yes hepat itis B vaccine, unspecified formulation Vital Signs Date Name Value Unit Range Description blood pressure, diastolic 72 mm[Hg] BP ralph blood pressure, systolic 104 mm[Hg] BP sys pulse rate E&M 88 /min Heart rate temperature E&M 97.2 [degF] Body temp erature weight E&M 143 [lb_av] Weight Measure d blood pressure, diastolic 58 mm[Hg] BP ralph [...] 11 .0-15.0 platelet count 315 THOUSAND/UL 10*3/mm3 934-982 6621/10/01 Blood type O Lab Report: ABO GROUP [...] O Office Visit: Initial OB Visit - Child Care Nurse ry Neisseria gonorrhoeae, genital culture negative protein, [...] Name Date Entry Date Standard Desc ription CPT-55203 Visit 12:10:53 THEATRICAL RIGGER CPT-65572O Sono OB comp <14 weeks ([place] Only) 16:57:48 CDT CPT-14645 Fluzone 14:23:28 CDT CPT-37421 Spec Collection and Handling Fee 14:10:55 C DT CPT-04493 Visit 14:10:55 CDT
--- OUTSIDE RECORDS SUMMARY | 2019-08-17 21:33 | XMS REPORT | Clinical Summary ---
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 Problem Name Problem Code [...] each nostril am and hs FLUTICASONE PROPIONATE 38939253364 Active Benjamin Bejarano DO Active PREDNISONE 20 MG TAB 1 tablet twice daily for 2 d ays, then 1 tablet once daily for 2 days PREDNISONE 56821229917 Active Benjamin Bejarano DO Active EPIPEN 2-GABBY 0.3 MG/0.3ML SOAJ as directed EPINEPHRINE 5 0316361053 Active Rhina Plata MD Active Immunizations Vaccine [...] 11 .0-15.0 platelet count 315 THOUSAND/UL 10*3/mm3 988-110 2179/10/01 Blood type O Lab Report: ABO GROUP [...] O Office Visit: Initial OB Visit - Pbx Installer ry Neisseria gonorrhoeae, genital culture negative protein, [...] N Encounters Code Encounter Date Provider Facility CPT-03675 Level 3 Est. Patient 09:56:59 PARTS CHASER Benjamin hussein [facility] Procedures Code Procedure Name Date Entry Date Standard Desc ription CPT-55088 Tdap 7yrs or > 16:19:02 CDT CPT-80095 Visit 16:19:02 CDT CPT-49726 Visit 10:35:45 PARTS CHASER CPT-25167 Venipuncture Draw Fee 08:56:41 PARTS CHASER CPT-15895 Visit 08:59:48 PARTS CHASER CPT-54839 Sono OB comp > 14 weeks 08:41:26 PARTS CHASER 02/13 CPT-61683 Visit 09:15:49 PARTS CHASER CPT-64328 Visit 10:52:07 PARTS CHASER CPT-88817 Visit 12:10:53 PARTS CHASER CPT-37611K Sono OB comp <14 weeks ([place] Only) 16:57:48 CDT CPT-15381 Fluzone 14:23:28 CDT CPT-74647 Spec Collection and Handling Fee 14:10:55 C DT CPT-63661 Visit 14:10:55 CDT
--- OUTSIDE RECORDS SUMMARY | 2019-08-17 21:33 | XMS REPORT | Clinical Summary ---
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 Problem Name Problem Code [...] each nostril am and hs FLUTICASONE PROPIONATE 49907685655 Active Benjamin Bejarano DO Active PREDNISONE 20 MG TAB 1 tablet twice daily for 2 d ays, then 1 tablet once daily for 2 days PREDNISONE 56243276226 Active Benjamin Bejarano DO Active EPIPEN 2-GABBY 0.3 MG/0.3ML SOAJ as directed EPINEPHRINE 5 5234837144 Active Rhina Plata MD Active Immunizations Vaccine [...] 11 .0-15.0 platelet count 315 THOUSAND/UL 10*3/mm3 972-352 2775/10/01 Blood type O Lab Report: ABO GROUP [...] O Office Visit: Initial OB Visit - Closet Builder ry Neisseria gonorrhoeae, genital culture negative protein, [...] N Encounters Code Encounter Date Provider Facility CPT-28603 Level 3 Est. 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 Benjamin Parker [facility] Procedures Code Procedure Name Date Entry Date Standard Desc ription CPT-43166 Adacel 16:55:52 CDT CPT-71378 Administration single or combination vac cine inc oral 16:55:52 CDT CPT-22985 Tdap 7yrs or > 16:19:02 CDT CPT-42890 Visit 16:19:02 CDT CPT-20374 Visit 10:35:45 MAIL DISTRIBUTION CLERK CPT-63047 Venipuncture Draw Fee 08:56:41 MAIL DISTRIBUTION CLERK CPT-55664 Visit 08:59:48 MAIL DISTRIBUTION CLERK CPT-69281 Sono OB comp > 14 weeks 08:41:26 MAIL DISTRIBUTION CLERK 02/13 CPT-43076 Visit 09:15:49 MAIL DISTRIBUTION CLERK CPT-55253 Visit 10:52:07 MAIL DISTRIBUTION CLERK CPT-88686 Visit 12:10:53 MAIL DISTRIBUTION CLERK CPT-28696U Sono OB comp <14 weeks ([place] Only) 16:57:48 CDT CPT-37395 Fluzone 14:23:28 CDT CPT-31369 Spec Collection and Handling Fee 14:10:55 C DT CPT-89927 Visit 14:10:55 CDT
--- OUTSIDE RECORDS SUMMARY | 2019-08-17 21:33 | XMS REPORT | Clinical Summary ---
[...] 0.3 MG/0.3ML SOAJ as directed EPINEPHRINE 5 4750790201 Active Rhina Plata MD Active Diagnostic Results [...] Name Date Entry Date Standard Desc ription CPT-45336 Fluzone 14:23:28 CDT CPT-91050 Spec Collection and Handling Fee 14:10:55 C DT CPT-80234 Visit 14:10:55 CDT
--- OUTSIDE RECORDS SUMMARY | 2019-08-17 21:33 | XMS REPORT | Clinical Summary ---
[...] 0.3 MG/0.3ML SOAJ as directed EPINEPHRINE 5 3547188734 Active Rhina Plata MD Active Diagnostic Results [...] Name Date Entry Date Standard Desc ription CPT-75294T Sono OB comp <14 weeks ([place] Only) 16:57:48 CDT CPT-09695 Fluzone 14:23:28 CDT CPT-98244 Spec Collection and Handling Fee 14:10:55 C DT CPT-72732 Visit 14:10:55 CDT
--- OUTSIDE RECORDS SUMMARY | 2019-08-17 21:33 | XMS REPORT | Clinical Summary ---
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 Problem Name Problem [...] each nostril am and hs FLUTICASONE PROPIONATE 16345768141 Active Benjamin Bejarano DO Active PREDNISONE 20 MG TAB 1 tablet twice daily for 2 d ays, then 1 tablet once daily for 2 days PREDNISONE 63369669262 Active Benjamin Bejarano DO Active EPIPEN 2-GABBY 0.3 MG/0.3ML SOAJ as directed EPINEPHRINE 5 6737886423 Active Rhina Plata MD Active Immunizations Vaccine [...] U/L Chart Maintenance: Outside labs entered on [employer] - Hematology leukocyte count, blood 9.5 10*3/mm3 [...] 11 .0-15.0 platelet count 315 THOUSAND/UL 10*3/mm3 097-694 4813/10/01 Blood type O Lab Report: ABO GROUP [...] O Office Visit: Initial OB Visit - Brand Advisor ry Neisseria gonorrhoeae, genital culture negative protein, [...] N Encounters Code Encounter Date Provider Facility CPT-19907 Level 3 Est. Patient 09:56:59 SEASONER Benjamin hussein [facility] Procedures Code Procedure Name Date Entry Date Standard Desc ription CPT-41643 Adacel 16:55:52 CDT CPT-10675 Administration single or combination vac cine inc oral 16:55:52 CDT CPT-74562 Tdap 7yrs or > 16:19:02 CDT CPT-56526 Visit 16:19:02 CDT CPT-18505 Visit 10:35:45 SEASONER CPT-88368 Venipuncture Draw Fee 08:56:41 SEASONER CPT-09285 Visit 08:59:48 SEASONER CPT-86717 Sono OB comp > 14 weeks 08:41:26 SEASONER 02/13 CPT-56295 Visit 09:15:49 SEASONER CPT-82614 Visit 10:52:07 SEASONER CPT-82168 Visit 12:10:53 SEASONER CPT-73801C Sono OB comp <14 weeks ([place] Only) 16:57:48 CDT CPT-96409 Fluzone 14:23:28 CDT CPT-80617 Spec Collection and Handling Fee 14:10:55 C DT CPT-44920 Visit 14:10:55 CDT
--- OUTSIDE RECORDS SUMMARY | 2019-08-17 21:33 | XMS REPORT | Clinical Summary ---
Author Author Admin, Kalina Hollis Organization [facility] Address Unknown Phone Unavailable Allergies, Adverse Reactions, [...] 0.3 MG/0.3ML SOAJ as directed EPINEPHRINE 5 2788230463 Active Rhina Plata MD Active Procedures Code Procedure Name Date Entry Date Standard Desc ription CPT-37974 Fluzone 14:23:28 CDT CPT-47024 Spec Collection and Handling Fee 14:10:55 C DT CPT-25538 Visit 14:10:55 CDT
--- OUTSIDE RECORDS SUMMARY | 2019-08-17 21:33 | XMS REPORT | Clinical Summary ---
Author Author Tawanda, Kalina Hollis Organization [facility] Address Unknown Phone Unavailable Allergies, Adverse [...] 0.3 MG/0.3ML SOAJ as directed EPINEPHRINE 5 9742983269 Active Rhina Plata MD Active Diagnostic Results [...] Name Date Entry Date Standard Desc ription CPT-18935A Sono OB comp <14 weeks ([place] Only) 16:57:48 CDT CPT-77082 Fluzone 14:23:28 CDT CPT-28067 Spec Collection and Handling Fee 14:10:55 C DT CPT-09039 Visit 14:10:55 CDT
--- OUTSIDE RECORDS SUMMARY | 2019-08-17 21:33 | XMS REPORT | Clinical Summary ---
Author Author Tawanda, Kalina Hollis Organization [employer] Address Unknown Phone Unavailable Allergies, Adverse Reactions, [...] 0.3 MG/0.3ML SOAJ as directed EPINEPHRINE 5 9895794687 Active Rhina Plata MD Active Immunizations Vaccine [...] 11 .0-15.0 platelet count 315 THOUSAND/UL 10*3/mm3 620-485 4976/10/01 Blood type O Lab Report: ABO GROUP [...] O Office Visit: Initial OB Visit - Orthopedic Surgeon ry Neisseria gonorrhoeae, genital culture negative protein, [...] Name Date Entry Date Standard Desc ription CPT-53710 Sono OB comp > 14 weeks 08:41:26 CONSTRUCTION PIT WORKER 02/13 CPT-88110 Visit 09:15:49 CONSTRUCTION PIT WORKER CPT-14308 Visit 10:52:07 CONSTRUCTION PIT WORKER CPT-97326 Visit 12:10:53 CONSTRUCTION PIT WORKER CPT-20487W Sono OB comp <14 weeks ([place] Only) 16:57:48 CDT CPT-90766 Fluzone 14:23:28 CDT CPT-73427 Spec Collection and Handling Fee 14:10:55 C DT CPT-99372 Visit 14:10:55 CDT
--- OUTSIDE RECORDS SUMMARY | 2019-08-17 21:33 | XMS REPORT | Clinical Summary ---
Author Author Tawanda, Kalina Hollis Organization [facility] Address Unknown Phone Unavailable Allergies, [...] 0.3 MG/0.3ML SOAJ as directed EPINEPHRINE 5 0655172737 Active Rhina Plata MD Active Diagnostic Results [...] Name Date Entry Date Standard Desc ription CPT-72760L Sono OB comp <14 weeks ([place] Only) 16:57:48 CDT CPT-69089 Fluzone 14:23:28 CDT CPT-97915 Spec Collection and Handling Fee 14:10:55 C DT CPT-44977 Visit 14:10:55 CDT
--- OUTSIDE RECORDS SUMMARY | 2019-08-17 21:33 | XMS REPORT | Clinical Summary ---
Author Author Tawanda, Kalina Hollis Organization [employer] Address Unknown Phone Unavailable Allergies, Adverse Reactions, [...] 0.3 MG/0.3ML SOAJ as directed EPINEPHRINE 5 6049582759 Active Rhina Plata MD Active Immunizations Vaccine [...] 11 .0-15.0 platelet count 315 THOUSAND/UL 10*3/mm3 250-905 2186/10/01 Blood type O Lab Report: ABO GROUP [...] O Office Visit: Initial OB Visit - Dental Instructor ry Neisseria gonorrhoeae, genital culture negative [...] Name Date Entry Date Standard Desc ription CPT-78173 Sono OB comp > 14 weeks 08:41:26 PROFESSOR OF GERMAN 02/13 CPT-85232 Visit 09:15:49 PROFESSOR OF GERMAN CPT-56362 Visit 10:52:07 PROFESSOR OF GERMAN CPT-78047 Visit 12:10:53 PROFESSOR OF GERMAN CPT-70579I Sono OB comp <14 weeks ([place] Only) 16:57:48 CDT CPT-88707 Fluzone 14:23:28 CDT CPT-07294 Spec Collection and Handling Fee 14:10:55 C DT CPT-44871 Visit 14:10:55 CDT
--- OUTSIDE RECORDS SUMMARY | 2019-08-17 21:33 | XMS REPORT | Clinical Summary ---
Author Author Tawanda, Kalina Hollis Organization [employer] Address Unknown Phone Unavailable Allergies, Adverse Reactions, [...] 0.3 MG/0.3ML SOAJ as directed EPINEPHRINE 5 9467264272 Active Rhina Plata MD Active Immunizations Vaccine [...] 11 .0-15.0 platelet count 315 THOUSAND/UL 10*3/mm3 573-171 9178/10/01 Blood type O Lab Report: ABO GROUP [...] O Office Visit: Initial OB Visit - Spiral Weaver ry Neisseria gonorrhoeae, genital culture negative protein, [...] Name Date Entry Date Standard Desc ription CPT-08129 Sono OB comp > 14 weeks 08:41:26 LIGHT TECHNICIAN 02/13 CPT-72919 Visit 09:15:49 LIGHT TECHNICIAN CPT-54586 Visit 10:52:07 LIGHT TECHNICIAN CPT-26791 Visit 12:10:53 LIGHT TECHNICIAN CPT-65982G Sono OB comp <14 weeks ([place] Only) 16:57:48 CDT CPT-55567 Fluzone 14:23:28 CDT CPT-66609 Spec Collection and Handling Fee 14:10:55 C DT CPT-91032 Visit 14:10:55 CDT
--- OUTSIDE RECORDS SUMMARY | 2019-08-17 21:33 | XMS REPORT | Clinical Summary ---
Author Author Tawanda, Kalina Hollis Organization [employer] Address Unknown Phone Unavailable Allergies, Adverse Reactions, [...] 0.3 MG/0.3ML SOAJ as directed EPINEPHRINE 5 1531497562 Active Rhina Plata MD Active Immunizations Vaccine [...] 11 .0-15.0 platelet count 315 THOUSAND/UL 10*3/mm3 729-503 4853/10/01 Blood type O Lab Report: ABO GROUP [...] O Office Visit: Initial OB Visit - Sleep Medicine Physician ry Neisseria gonorrhoeae, genital culture negative protein, [...] Name Date Entry Date Standard Desc ription CPT-64082 Sono OB comp > 14 weeks 08:41:26 INFUSION THERAPY NURSE 02/13 CPT-67216 Visit 09:15:49 INFUSION THERAPY NURSE CPT-43713 Visit 10:52:07 INFUSION THERAPY NURSE CPT-12866 Visit 12:10:53 INFUSION THERAPY NURSE CPT-95425R Sono OB comp <14 weeks ([place] Only) 16:57:48 CDT CPT-16379 Fluzone 14:23:28 CDT CPT-41039 Spec Collection and Handling Fee 14:10:55 C DT CPT-72682 Visit 14:10:55 CDT
--- OUTSIDE RECORDS SUMMARY | 2019-08-17 21:33 | XMS REPORT | Clinical Summary ---
Author Author Admin, Kalina Hollis Organization [facility] Address Unknown Phone Unavailable Allergies, Adverse Reactions, [...] 0.3 MG/0.3ML SOAJ as directed EPINEPHRINE 5 0794135715 Active Rhina Plata MD Active Procedures Code Procedure Name Date Entry Date Standard Desc ription CPT-36333 Fluzone 14:23:28 CDT CPT-96340 Spec Collection and Handling Fee 14:10:55 C DT CPT-90679 Visit 14:10:55 CDT
--- OUTSIDE RECORDS SUMMARY | 2019-08-17 21:34 | XMS REPORT | Clinical Summary ---
Author Author Tawanda, Kalina Hollis Organization [employer] Address Unknown Phone Unavailable Allergies, Adverse Reactions, Alerts Allergy Name Reaction Description Start Date Severity Status Pr ovider No Known Allergies Agnes Jay ACTIVITIES COORDINATOR Conditions or Problems Problem Name Problem Code Onset Date Status Entry Date Provider Comment Standard Description Annotate Supervision of normal first V22.0 Active Rihna Plata MD Supervision of normal first Pelvic [...] each nostril am and hs FLUTICASONE PROPIONATE 35303891184 Active Benjamin Bejarano DO Active PREDNISONE 20 MG TAB 1 tablet twice daily for 2 d ays, then 1 tablet once daily for 2 days PREDNISONE 64339502792 Active Benjamin Bejarano DO Active EPIPEN 2-GABBY 0.3 MG/0.3ML SOAJ as directed EPINEPHRINE 5 3221204279 Active Rhina Plata MD Active Immunizations Vaccine [...] 11 .0-15.0 platelet count 315 THOUSAND/UL 10*3/mm3 341-656 0440/10/01 Blood type O Lab Report: ABO GROUP [...] O Office Visit: Initial OB Visit - Medical Concierge ry Neisseria gonorrhoeae, genital culture negative protein, [...] N Encounters Code Encounter Date Provider Facility CPT-63212 Level 3 Est. Patient 09:56:59 BRICK GRADER Benjamin Parker [facility] Procedures Code Procedure Name Date Entry Date Standard Desc ription CPT-60876 Adacel 16:55:52 CDT CPT-22456 Administration single or combination vac cine inc oral 16:55:52 CDT CPT-42807 Tdap 7yrs or > 16:19:02 CDT CPT-12543 Visit 16:19:02 CDT CPT-36730 Visit 10:35:45 BRICK GRADER CPT-39716 Venipuncture Draw Fee 08:56:41 BRICK GRADER CPT-87493 Visit 08:59:48 BRICK GRADER CPT-07937 Sono OB comp > 14 weeks 08:41:26 BRICK GRADER 02/13 CPT-59032 Visit 09:15:49 BRICK GRADER CPT-90628 Visit 10:52:07 BRICK GRADER CPT-56955 Visit 12:10:53 BRICK GRADER CPT-95495S Sono OB comp <14 weeks ([place] Only) 16:57:48 CDT CPT-67423 Fluzone 14:23:28 CDT CPT-82237 Spec Collection and Handling Fee 14:10:55 C DT CPT-50312 Visit 14:10:55 CDT
--- OUTSIDE RECORDS SUMMARY | 2019-08-17 21:34 | XMS REPORT | Continuity of Care Document ---
Author Organization Unknown Address Unknown Phone Unavailable Allergies Active Description Code Type Severity Reaction Onset Reported/Identified Relationship to Patient Clinical Status Yes No known allergies Drug N/A N/A Yes No Known Drug Allergies [id number] ND N/A N/A Yes No known food allergies NO KNOWN FOOD ALLERG NF N/A N/A Confirmed or Verified Yes No Known Drug Allergies [id number] Drug Allergy Unknown N/A 08/16/2010 Medications There is no data. Problems Date Dx Coded Attending Type Code Diagnosis Diagnosed By 05/17/2014 RHINA PLATA 368.9 VISUAL DISTURBANCE NOS 05/17/2014 RHINA PLATA 648.93 OTH CURR COND-ANTEPARTUM 05/17/2014 RHINA PLATA 784.0 HEADACHE 05/30/2014 RHINA PLATA 112.1 CANDIDAL VULVOVAGINITIS 05/30/2014 RHINA PLATA 646.63 INFECTION-ANTEPARTUM 05/30/2014 RHINA PLATA 649.53 SPOTTING COMP PREG-AP 06/12/2014 RHINA PLATA 644.13 THREAT LABOR NEC-ANTEPAR 02/28/2016 MARBIN SOFIAP Ot F41.9 ANXIETY DISORDER, UNSPECIFIED 02/28/2016 MARBIN SOFIAP Ot R07.89 OTHER CHEST PAIN 02/28/2016 MARBIN SOFIAP Ot R11.2 NAUSEA WITH VOMITING, UNSPECIFIED 02/29/2016 BISMARKMARBIN Parks [employer] Ot F41.9 ANXIETY DISORDER, UNSPECIFIED 02/29/2016 BISMARKMARBIN ParksP Ot R07.89 OTHER CHEST PAIN 02/29/2016 MARBIN SOFIA Ot R11.2 NAUSEA WITH VOMITING, UNSPECIFIED 05/28/2017 MARIA G WOLF F Z02 .1 Encounter for pre-employment examination 05/28/2017 F Z02.9 Enco unter for administrative examinations, unspecified 08/09/2019 Boni SHIN, Rhina O36.899 0 Absent heart tones, unspecified trimester Procedures Code Description [place] [address] ROUT INE VENIPUNCTURE 05/17/2014 42443 FETA L NON-STRESS TEST 05/17/2014 28519 COMP REHEN METABOLIC PANEL 05/17/2014 29583 URIN ALYSIS, AUTO W/SCOPE 05/17/2014 89648 LACT ATE (LD) (LDH) ENZYME 05/17/2014 96165 ASSA Y THYROID STIM HORMONE 05/17/2014 04593 ASSA Y OF BLOOD/URIC ACID 05/17/2014 24390 BL S MEAR W/DIFF WBC COUNT 05/17/2014 23562 COMP LETE CBC, AUTOMATED 05/17/2014 15461 URIN E CULTURE/COLONY COUNT 05/17/2014 87221 URIN ALYSIS, AUTO W/SCOPE 05/30/2014 36048 CULT URE SCREEN ONLY 05/30/2014 87256 SMEA R, WET M[place], SALINE/INK 05/30/2014 81540 RICK SHIN TRACH, DNA, AMP PROBE 05/30/2014 52705 URIN ALYSIS, AUTO W/SCOPE 06/12/2014 74665 DHARA GENCY DEPT VISIT 06/12/2014 Results Test Result Range CBC WITH DIFF - 05/17/14 00:00 EOS 3.0 % 0-7 HCT 29.0 % 36.9-47.0 HGB 9.5 G/DL 12.0-16.0 LYMPH 18.0 % 20-40 MCH 29.2 PG 27-31 MCHC 32.8 G/DL 33-37 MCV 89.2 FL 81-99 MONO 8.0 % 0-10 MPV 8.1 FL 7.3-10.4 PLT 287 10^3u 130-400 RBC 3.3 10^6u 4.2-5.4 RDW 14.0 % 11.5-15.5 WBC 11.1 10^3u 4.8-10.8 SEGS 71.0 % 40-70 UA - 05/17/14 00:00 PH 6.0 4.5-8.0 SG 1.005 1.003-1.035 UABILI NEGATIVE UABLD 2+ UACOLOR YEL UAGLU NEGATIVE UAKET NEGATIVE UALEUK NEGATIVE UANIT NEGATIVE UAURO 0.2 0-0.2 CLARITY CL PROTEIN NEGATIVE UA WBC R05 UA RBC R510 SQUAMOUS EPITHELIAL CELLS 1+ BACTERIA 1+ TSH - 05/17/14 00:00 TSH 1.40 UIUML 0.36-3.74 LD - 05/17/14 00:00 LD 126 IU/L 82-234 URIC - 05/17/14 00:00 URIC 2.7 MG/DL 2.6-7.2 CMP - 05/17/14 00:00 ALB 2.8 G/DL 3.5-5 ALP 89 IU/L 25-72 ALT 20 IU/L 12-65 AST 20 IU/L 10-42 BCR 7.4 10-20 BUN 5 MG/DL 7-18 CA 8.4 MG/DL 8.4-10.2 CL 106 MEQ/L 98-107 CO2 25.2 MEQ/L 22-28 CREA 0.68 MG/DL 0.6-1.0 EGFR 108 eGFR >= 60 GLU 78 MG/DL 70-105 K 3.9 MEQ/L 3.5-5.1 NA 139 MEQ/L 134-145 OSMSC 273.7 MOSML 280-300 TBIL 0.4 MG/DL 0.1-1.0 TP 6.2 G/DL 6.0-8.3 Albumin/Globulin Ratio 0.8 0-8 Anion Gap 7.8 8-16 TAMIR - 05/30/14 00:00 TAMIR YSTS UA - 05/30/14 00:00 PH 7.0 4.5-8.0 SG 1.010 1.003-1.035 UABILI NEGATIVE UABLD 1+ UACOLOR YEL UAGLU NEGATIVE UAKET NEGATIVE UALEUK NEGATIVE UANIT NEGATIVE UAURO 0.2 0-0.2 CLARITY CL PROTEIN NEGATIVE UA WBC R05 UA RBC R1020 SQUAMOUS EPITHELIAL CELLS FEW BACTERIA 2+ CHLAMYDIA GC DNA - 05/30/14 00:00 CHLGCU1 NOT DETECTED NOT DETECTED CHLGCU2 NOT DETECTED NOT DETECTED NOTES: SEE NOTE UA - 06/12/14 00:00 PH 7.0 4.5-8.0 SG 1.020 1.003-1.035 UABILI NEGATIVE UABLD TRACE UACOLOR YEL UAGLU NEGATIVE UAKET NEGATIVE UALEUK NEGATIVE UANIT NEGATIVE UAURO 0.2 0-0.2 CLARITY HAZY PROTEIN NEGATIVE UA WBC R05 UA RBC R510 SQUAMOUS EPITHELIAL CELLS 1+ BACTERIA OCC AMORPHOUS CRYSTALS 1+ MUCOUS OCC CBC - 06/25/14 00:00 HCT 30.3 % 36.9-47.0 HGB 10.3 G/DL 12.0-16.0 MCH 29.6 PG 27-31 MCHC 34.0 G/DL 33-37 MCV 87.1 FL 81-99 MPV 8.7 FL 7.3-10.4 PLT 275 10^3u 130-400 RBC 3.5 10^6u 4.2-5.4 RDW 14.3 % 11.5-15.5 WBC 10.3 10^3u 4.8-10.8 UA - 06/25/14 00:00 PH 7.0 4.5-8.0 SG 1.015 1.003-1.035 UABILI NEGATIVE UABLD NEGATIVE UACOLOR YEL UAGLU NEGATIVE UAKET NEGATIVE UALEUK NEGATIVE UANIT NEGATIVE UAURO 0.2 0-0.2 CLARITY CL PROTEIN NEGATIVE UA WBC R05 UA RBC NORBC SQUAMOUS EPITHELIAL CELLS 2+ BACTERIA OCC AMORPHOUS CRYSTALS 1+ HYALINE CASTS 2+ MUCOUS OCC TRANSITIONAL EPITHELIAL CELLS 1+ TYPE AND SCREEN - 06/25/14 00:00 ABO O ABSCRN N Negative RH P CBC WITH DIFF - 07/16/14 00:00 BASO% 0.5 % 0-2 EOS% 7.8 % 0-7.0 HCT 33.8 % 36.9-47.0 HGB 12.2 G/DL 12.0-16.0 LYMPH% 34.6 % 20-40 MCH 29.7 PG 27-31 MCHC 36.1 G/DL 33-37 MCV 82.2 FL 81-99 MONO% 6.0 % 0-10.0 MPV 8.5 FL 7.3-10.4 NEUTRO% 51.1 % 40-70 PLT 411 10^3u 130-400 RBC 4.1 10^6u 4.2-5.4 RDW 13.5 % 11.5-15.5 WBC 9.3 10^3u 4.8-10.8 NEUTRO# 4.7 10^3u 1.5-7.5 LYMPH# 3.2 10^3u 0.9-4.0 MONO# 0.6 10^3u 0-0.8 EOS# 0.7 10^3u 0-0.6 BASO# 0.1 10^3u 0-0.1 LIP - 07/16/14 00:00 LIP 175 U/L 73-393 CMP - 07/16/14 00:00 ALB 3.8 G/DL 3.5-5 ALP 112 IU/L 25-72 ALT 29 IU/L 12-65 AST 36 IU/L 10-42 BCR 13.8 10-20 BUN 12 MG/DL 7-18 CA 8.6 MG/DL 8.4-10.2 CL 106 MEQ/L 98-107 CO2 26.9 MEQ/L 22-28 CREA 0.87 MG/DL 0.6-1.0 EGFR 81 eGFR >= 60 GLU 93 MG/DL 70-105 K 4.3 MEQ/L 3.5-5.1 NA 142 MEQ/L 134-145 OSMSC 282.6 MOSML 280-300 TBIL 0.5 MG/DL 0.1-1.0 TP 7.2 G/DL 6.0-8.3 Albumin/Globulin Ratio 1.1 0-8 Anion Gap 9.1 8-16 HCG QUAL - 07/16/14 00:00 HCG N CBC - 07/17/14 00:00 HCT 31.0 % 36.9-47.0 HGB 10.4 G/DL 12.0-16.0 MCH 29.5 PG 27-31 MCHC 33.5 G/DL 33-37 MCV 88.1 FL 81-99 MPV 8.5 FL 7.3-10.4 PLT 328 10^3u 130-400 RBC 3.5 10^6u 4.2-5.4 RDW 13.4 % 11.5-15.5 WBC 7.8 10^3u 4.8-10.8 DIFFERENTIAL, MANUAL - 07/17/14 00:00 BANDS 1.0 % 0-5 BASO 1.0 % 0-2 EOS 7.0 % 0-7 LYMPH 49.0 % 20-40 MONO 8.0 % 0-10 SEGS 34.0 % 40-70 CMP - 07/17/14 00:00 ALB 2.9 G/DL 3.5-5 ALP 85 IU/L 25-72 ALT 49 IU/L 12-65 AST 35 IU/L 10-42 BCR 7.8 10-20 BUN 6 MG/DL 7-18 CA 8.0 MG/DL 8.4-10.2 CL 109 MEQ/L 98-107 CO2 30.2 MEQ/L 22-28 CREA 0.77 MG/DL 0.6-1.0 EGFR 94 eGFR >= 60 GLU 76 MG/DL 70-105 K 3.7 MEQ/L 3.5-5.1 NA 144 MEQ/L 134-145 OSMSC 283.2 MOSML 280-300 TBIL 1.0 MG/DL 0.1-1.0 TP 5.6 G/DL 6.0-8.3 Albumin/Globulin Ratio 1.1 0-8 Anion Gap 4.8 8-16 Complete blood count (CBC) with automate d white blood cell (WBC) differential - 02/28/16 20:40 Blood leukocytes automated count (number/volume) 8.8 10*3/uL 4.3-11.0 Blood erythrocytes automated count (number/volume) 4.55 10*6/uL 4.35-5.85 Venous blood hemoglobin measurement (mass/volume) 13.7 g/dL 11.5-16.0 Blood hematocrit (volume fraction) 39 % 35-52 Automated erythrocyte mean corpuscular volume 85 [ foz_us] 80-99 Automated erythrocyte mean corpuscular h emoglobin (mass per erythrocyte) 30 pg 25-34 Automated erythrocyte mean corpuscular h emoglobin concentration measurement (mass/volume) 35 g/dL 32-36 Automated erythrocyte distribution width ratio 12. 3 % 10.0- 14.5 Automated blood platelet count (count/volume) 331 10*3/uL 130-400 Automated blood platelet mean volume measurement 8.5 [foz_us] 7.4-10.4 Automated blood neutrophils/100 leukocytes 55 % 42-75 Automated blood lymphocytes/100 leukocytes 33 % 12-44 Blood monocytes/100 leukocytes 7 % 0-12 Automated blood eosinophils/100 leukocytes 5 % 0-10 Automated blood basophils/100 leukocytes 0 % 0-10 Blood neutrophils automated count (number/volume) 4.8 10*3 1.8-7.8 Blood lymphocytes automated count (number/volume) 3.0 10*3 1.0-4.0 Blood monocytes automated count (number/volume) 0. 7 10*3 0.0-1.0 Automated eosinophil count 0.4 10*3/uL 0 .0-0.3 Automated blood basophil count (count/volume) 0.0 10*3/uL 0.0-0.1 Serum or plasma choriogonadotropin (preg rachna test) detection - 02/28/16 20:40 Serum or plasma choriogonadotropin ( test) de tection NEGATIVE NEGATIVE Comprehensive metabolic panel - 02/28/16 20:40 Serum or plasma sodium measurement (moles/volume) 141 mmol/L 135-145 Serum or plasma potassium measurement (moles/volume) 3.4 mmol/L 3.6-5.0 Serum or plasma chloride measurement (moles/volume) 108 mmol/L 98-107 Carbon dioxide 23 mmol/L 21-32 Serum or plasma anion gap determination (moles/volume) 10 mmol/L 5-14 Serum or plasma urea nitrogen measurement (mass/volume ) 11 mg/dL 7-18 Serum or plasma creatinine measurement (mass/volume) 0.79 mg/dL 0.60-1.30 Serum or plasma urea nitrogen/creatinine mass ratio 14 NRG Serum or plasma creatinine measurement w ith calculation of estimated glomerular filtration rate > NRG Serum or plasma glucose measurement (mass/volume) 89 mg/dL 70-105 Serum or plasma calcium measurement (mass/volume) 8.9 mg/dL 8.5-10.1 Serum or plasma total bilirubin measurement (mass/volu me) 1.1 mg/dL 0.1-1.0 Serum or plasma alkaline phosphatase lester surement (enzymatic activity/volume) 64 U/L 40-136 Serum or plasma aspartate aminotransfera se measurement (enzymatic activity/volume) 36 U/L 5-34 Serum or plasma alanine aminotransferase measurement (enzymatic activity/volume) 28 U/L 0-55 Serum or plasma protein measurement (mass/volume) 6.9 g/dL 6.4-8.2 Serum or plasma albumin measurement (mass/volume) 4.4 g/dL 3.2-4.5 Complete urinalysis with reflex to cultu re - 02/28/16 21:30 Urine color determination YELLOW NRG Urine clarity determination CLEAR NR G Urine pH measurement by test strip 6.5 5-9 Specific gravity of urine by test strip 1.015 1.016-1.022 Urine protein assay by test strip, semi-quantitative 1+ NEGATIVE Urine glucose detection by automated test strip NE GATIVE NEGATIVE Erythrocytes detection in urine sediment by light micr oscopy 1+ NEGATIVE Urine ketones detection by automated test strip NE GATIVE NEGATIVE Urine nitrite detection by test strip NEGATIVE NEGATIVE Urine total bilirubin detection by test strip NEGA TIVE NEGATIVE Urine urobilinogen measurement by automated test strip (mass/volume) NORMAL NORMAL Urine leukocyte esterase detection by dipstick 1+ NEGATIVE Automated urine sediment erythrocyte cou nt by microscopy (number/high power field) [HPF] NRG Automated urine sediment leukocyte count by microscopy (number/high power field) [HPF] NRG Bacteria detection in urine sediment by light microsco py FEW NRG Squamous epithelial cells detection in u rine sediment by light microscopy 25-50 NRG Crystals detection in urine sediment by light microsco py NONE NRG Casts detection in urine sediment by light microscopy NONE NRG Mucus detection in urine sediment by light microscopy NEGATIVE NRG Complete urinalysis with reflex to culture NO NRG GC/CHLAMYDIA (SWAB OR URINE)-RAPID - 13:36 CHLAMYDIA TRACHOMATIS RNA, TMA DETECTED NOT DETECTED NEISSERIA GONORRHOEAE RNA, TMA NOT DETECTED NOT DETECTED COMMENT NRG TB Spot - 07/18/19 11:50 TB Spot Submitted to [facility] for testing. Varicella-Zoster V Ab, IgG - 07/18/19 11 :50 VARICELLA ZOSTER IGG 2805 INDEX IMMUNE > 165 Measles/Mumps/Rubella Immunity - 0 11:50 Rubella Antibodies, IgG 3.76 index Immun e >0.99 Rubeola Ab, IgG 128.0 AU/mL Immune >16.4 Mumps Abs, IgG 20.3 AU/mL Immune >10.9 Hep B Surface Ab - 07/18/19 11:50 Hep B Surface Ab, Qual Non Reactive Varicella-Zoster V Ab, IgG - 07/18/19 11 :50 Varicella Zoster IgG 2805 index Immune > 165 Complete blood count (CBC) with automate d white blood cell (WBC) differential - 08/17/19 15:46 Blood leukocytes automated count (number/volume) 17.9 10*3/uL 4.3-11.0 Blood erythrocytes automated count (number/volume) 4.11 10*6/uL 4.35-5.85 Venous blood hemoglobin measurement (mass/volume) 12.4 g/dL 11.5-16.0 Blood hematocrit (volume fraction) 36 % 35-52 Automated erythrocyte mean corpuscular volume 88 [ foz_us] 80-99 Automated erythrocyte mean corpuscular h emoglobin (mass per erythrocyte) 30 pg 25-34 Automated erythrocyte mean corpuscular h emoglobin concentration measurement (mass/volume) 34 g/dL 32-36 Automated erythrocyte distribution width ratio 12. 7 % 10.0- 14.5 Automated blood platelet count (count/volume) 355 10*3/uL 130-400 Automated blood platelet mean volume measurement 8.5 [foz_us] 7.4-10.4 Automated blood neutrophils/100 leukocytes 78 % 42-75 Automated blood lymphocytes/100 leukocytes 15 % 12-44 Blood monocytes/100 leukocytes 5 % 0-12 Automated blood eosinophils/100 leukocytes 2 % 0-10 Automated blood basophils/100 leukocytes 0 % 0-10 Blood neutrophils automated count (number/volume) 13.9 10*3 1.8-7.8 Blood lymphocytes automated count (number/volume) 2.7 10*3 1.0-4.0 Blood monocytes automated count (number/volume) 0. 9 10*3 0.0-1.0 Automated eosinophil count 0.4 10*3/uL 0 .0-0.3 Automated blood basophil count (count/volume) 0.1 10*3/uL 0.0-0.1 Whole blood basic metabolic panel - 09/28 15:46 Serum or plasma sodium measurement (moles/volume) 137 mmol/L 135-145 Serum or plasma potassium measurement (moles/volume) 3.9 mmol/L 3.6-5.0 Serum or plasma chloride measurement (moles/volume) 105 mmol/L 98-107 Carbon dioxide 17 mmol/L 21-32 Serum or plasma anion gap determination (moles/volume) 15 mmol/L 5-14 Serum or plasma urea nitrogen measurement (mass/volume ) 10 mg/dL 7-18 Serum or plasma creatinine measurement (mass/volume) 0.86 mg/dL 0.60-1.30 Serum or plasma urea nitrogen/creatinine mass ratio 12 NRG Serum or plasma creatinine measurement w ith calculation of estimated glomerular filtration rate > NRG Serum or plasma glucose measurement (mass/volume) 66 mg/dL 70-105 Serum or plasma calcium measurement (mass/volume) 9.0 mg/dL 8.5-10.1 Manual absolute plasma cell count - 09/28 15:46 Blood monocytes/100 leukocytes 5 % NRG Manual blood segmented neutrophils/100 leukocytes 77 % NRG Manual blood lymphocytes/100 leukocytes 15 % NRG Manual eosinophils/100 leukocytes in nose 2 % NRG Manual blood basophils/100 leukocytes 1 % NRG Blood erythrocyte morphology finding identification NORMAL NRG PT panel in platelet poor plasma by coag ulation assay - 08/17/19 15:46 Prothrombin time (PT) in platelet poor plasma by coagu lation assay 13.4 s 12.2-14.7 INR in platelet poor plasma or blood by coagulation as say 1.0 0.8-1.4 Activated partial thromboplastin time (a PTT) in platelet poor plasma bycoagulation assay - 08/17/19 15:46 Activated partial thromboplastin time (a PTT) in platelet poor plasma bycoagulation assay 33 s 24-35 Serum or plasma choriogonadotropin measu rement (units/volume) - 08/17/19 15:46 Serum or plasma choriogonadotropin measurement (units/ volume) 10720 m[iU]/mL <5 RED CELLS LEUKO REDUCED AS1 - 08/17/19 1 5:46 RED CELLS LEUKO REDUCED AS1 R BERT NRG Blood type T Indirect antibody screen pa arthur - 08/17/19 15:46 WRISTBAND NUMBER [id number] NRG ABO+Rh group OP NRG Blood group antibody screen NEGATIVE NR G Encounters ACCT No. Visit Date/Time Discharge Status Pt. Type Provider Facility Loc./Unit Complaint [id number] 07/08/2016 13:30:00 7 23:59:59 CLS Outpatient PEACE JACOB [facility] [id number] 06/25/2016 13:30:00 7 23:59:59 CLS Outpatient PEACE JACOB [facility] [id number] 06/16/2016 20:05:01 7 23:59:59 CLS Outpatient IDALMIS GOMEZ [facility] lab [id number] 03/01/2015 10:58:00 03/01/2015 10:58 :00 DIS Outpatient CAROLYNN MOREAU [facility] [id number] 07/16/2014 03:00:00 07/17/2014 20:05 :00 DIS Inpatient VAHID DOWELL [facility] OBS [id number] 07/15/2014 23:52:00 07/15/2014 23:59 :59 CLS Emergency TWIN GREGORY [facility] EMR [id number] 06/25/2014 17:07:00 06/28/2014 20:10 :00 DIS Inpatient BONI [facility] OB [id number] 06/12/2014 03:00:00 06/12/2014 04:29 :00 DIS Emergency BONI, [facility] OB [id number] 05/30/2014 15:08:00 05/30/2014 18:00 :00 DIS Outpatient BONI [facility] OB [id number] 05/17/2014 11:35:00 05/17/2014 15:00 :00 DIS Outpatient BONI [facility] OB [id number] 01/08/2014 00:00:00 Document Registration [id number] 01/08/2014 00:00:00 Document Registration [id number] 01/08/2014 00:00:00 Document Registration [id number] 01/08/2014 00:00:00 Document Registration [id number] 01/08/2014 00:00:00 Document Registration [id number] 01/08/2014 00:00:00 Document Registration [id number] 02/28/2016 20:36:00 017 23:38:00 DIS Emergency MARBIN SOFIA [facility] CP [id number] 08/17/2019 17:03:[address] Outpatient STACI FALK MD [facility] DN [id number] 07/18/2019 11:45:00 07/18/2019 23:59 :00 DIS Outpatient Benjamin Bejarano [id number] 07/20/2019 00:07:00 Document Registration [id number] 12/27/2018 19:16:49 ACT Document Registration [id number] 08/09/2019 15:57:00 ACT Unknown Rhina Plata MD [id number] 05/28/2017 14:56:00 05/28/2017 18: 56:00 DIS Outpatient [id number] 05/28/2017 14:15:00 05/28/2017 18: 15:00 DIS Outpatient MARIA G WOLF [facility] [id number] 03/04/2019 12:35:00 Document Registration
--- OUTSIDE RECORDS SUMMARY | 2019-08-17 21:34 | XMS REPORT | Clinical Summary ---
Author Author Tawanda, Kalina Hollis Organization [employer] Address Unknown Phone Unavailable Allergies, Adverse Reactions, [...] 0.3 MG/0.3ML SOAJ as directed EPINEPHRINE 5 [id number] Active Rhina Plata MD Active Immunizations Vaccine Administration Date Value Standard Kaiden cription hepatitis B vaccine series yes hepat itis B vaccine, unspecified formulation Vital Signs Date Name Value Unit Range Description blood pressure, diastolic - 8462-4 87 mm[Hg] [...] 11 .0-15.0 platelet count 315 THOUSAND/UL 10*3/mm3 032-826 3843/10/01 Blood type O Lab Report: ABO GROUP [...] O Office Visit: Initial OB Visit - 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
--- OUTSIDE RECORDS SUMMARY | 2019-08-17 21:34 | XMS REPORT | Clinical Summary ---
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
--- OUTSIDE RECORDS SUMMARY | 2019-08-17 21:34 | XMS REPORT | Clinical Summary ---
Author Author Tawanda, Kalina Hollis Organization [employer] Address Unknown Phone Unavailable Allergies, Adverse Reactions, [...] each nostril am and hs FLUTICASONE PROPIONATE [id number] Active Benjamin Bejarano DO Active PREDNISONE 20 MG TAB 1 tablet twice daily for 2 d ays, then 1 tablet once daily for 2 days PREDNISONE 23417277710 Active Benjamin Bejarano DO Active EPIPEN 2-GABBY 0.3 MG/0.3ML SOAJ as directed EPINEPHRINE 5 7302575548 Active Rhina Plata MD Active Immunizations Vaccine [...] 11 .0-15.0 platelet count 315 THOUSAND/UL 10*3/mm3 526-346 6361/10/01 Blood type O Lab Report: ABO GROUP [...] O Office Visit: Initial OB Visit - 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 [facility] Procedures Code Procedure Name Date Entry Date Standard Desc ription CPT-40762 Visit 10:35:45 RACK ROOM WORKER CPT-39424 Venipuncture Draw Fee 08:56:41 RACK ROOM WORKER CPT-15899 Visit 08:59:48 RACK ROOM WORKER CPT-20365 Sono OB comp > 14 weeks 08:41:26 RACK ROOM WORKER 02/13 CPT-92390 Visit 09:15:49 RACK ROOM WORKER CPT-71118 Visit 10:52:07 RACK ROOM WORKER CPT-08471 Visit 12:10:53 RACK ROOM WORKER CPT-43375E Sono OB comp <14 weeks ([place] Only) 16:57:48 CDT CPT-52794 Fluzone 14:23:28 CDT CPT-50310 Spec Collection and Handling Fee 14:10:55 C DT CPT-02723 Visit 14:10:55 CDT
--- OUTSIDE RECORDS SUMMARY | 2019-08-17 21:34 | XMS REPORT | Clinical Summary ---
Author Author Tawanda, Kalina Hollis Organization [facility] Address Unknown Phone Unavailable [...] 0.3 MG/0.3ML SOAJ as directed EPINEPHRINE 5 2868497745 Active Rhina Plata MD Active Diagnostic Results [...] Name Date Entry Date Standard Desc ription CPT-46836R Sono OB comp <14 weeks ([place] Only) 16:57:48 CDT CPT-99863 Fluzone 14:23:28 CDT CPT-81925 Spec Collection and Handling Fee 14:10:55 C DT CPT-89108 Visit 14:10:55 CDT
--- OUTSIDE RECORDS SUMMARY | 2019-08-17 21:34 | XMS REPORT | Clinical Summary ---
Author Author Tawanda, Kalina Hollis Organization [employer] 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
--- NOTE | 2019-08-17 22:00 | NUR ---
Pt. states nausea & pain better, voices desire to go home, she is calling [facility] to pick her up.
--- NOTE | 2019-08-17 22:25 | NUR ---
D/C instructions given & explained, pt. verbalized understanding & signed, copy of D/C instructions to pt. Pt. states she does not want ibuprofen Rx called in to pharmacy. Pt. left [facility] via W/C escorted by this RN, to home via private vehicle w/[facility]. Pt's belongings & D/C with her.
--- NOTE | 2019-08-18 04:46 | OPERATIVE REPORT ---
DATE OF SERVICE: 08/17/2019 PREOPERATIVE DIAGNOSIS: Incomplete/missed . POSTOPERATIVE DIAGNOSIS: Incomplete/missed . OPERATIVE PROCEDURE: D and C for completion of a 10-week missed AB. OPERATIVE DESCRIPTION: The patient was placed in supine position under satisfactory general anesthesia. She was repositioned in dorsal lithotomy position in the [facility] stirrups and prepped and draped in the usual fashion for vaginal surgery. Urinary bladder was drained with a straight catheter. A weighted speculum was placed in posterior fornix of vagina. A large quantity of clot and debris was evacuated from the vaginal vault and then a large amount of blood clot and debris was filling the cervix, this was removed with a ring clamp. The cervix was dilated adequately #10 curved suction curette was introduced and a large amount of trophoblastic and decidual appearing tissue, blood clot, amniotic fluid and debris was evacuated from the uterus. Uterine cavity was sharply curettaged in all 4 quadrants to good uterine cry. Then, the curved sucking curette was reintroduced. All blood clot and debris evacuated. The curette was removed as was the tenaculum from the cervix. There was bleeding from one of the puncture sites from the tenaculum. This was touched with silver nitrate stick to effect hemostasis. Hemostasis was complete at the puncture site. There was minimal bleeding at the cervical os. Uterus was significantly decreased in size from the bimanual exam preoperative to postoperative. The uterus contracted nicely. There was minimal bleeding. Blood loss was estimated around 100 mL including the blood that was removed from the vagina prior to the suction curettaged. Sponge and needle counts were correct. The patient was uneventfully awakened from general anesthesia and transferred to recovery room in stable condition with plans for discharge home PAR. Job ID: [id number] DocumentID: [id number] Dictated Date: 08/17/2019 18:07:06 Refractory Technician Date: 08/18/2019 04:46:20 Dictated By: STACI FALK MD
--- NOTE | 2019-08-18 14:27 | Anesthesia-General Post-Op ---
General Patient Condition Mental Status/LOC: Same as Preop Cardiovascular: Satisfactory Nausea/Vomiting: Absent Respiratory: Satisfactory Pain: Controlled Complications: Absent Post Op Complications Complications None Follow Up Care/Instructions Patient Instructions None needed. Anesthesia/Patient Condition Patient Condition Patient was already discharged to home this morning during post op rounds but she was doing well, no complaints, stable vital signs, no apparent adverse anesthesia problems prior to her discharge to home per nursing staff. SHARI URIOSETGUI DO Aug 18, 2019 14:27
== END 2019-08-17 22:25 | disposition home or self-care (01) ==
LOC: EDUNIT# 15:37 → ER 15:39 → SDC 17:03 → WS 19:10 → SDC 22:25
PROVIDERS: ATTEND Obstetrics & Gynecology
DX: O02.1 Missed abortion (principal)
CPT/HCPCS: 59820; 76817; 80048; 84702; 85007; 85027; 85610; 85730; 86850; 86900; 86901; 86920; 87040; 87070; 87075; 87205; U0002; 36415; 87635

== ENCOUNTER → 2021-04-26 | Outpatient (CLI) | payer BC, OTHER ==
[~2021-04-26] MED LIST: IBUP-1780 PO
--- NOTE | 2021-04-26 13:16 | Diagnostic Imaging Report ---
INDICATION: survey. TECHNIQUE: Multiple Real-time grayscale images were obtained over the gravid uterus. COMPARISON: None FINDINGS: There is a a single live fetus in breech presentation. The heart rate was recorded at 147 BPM. The placenta is posterior and low-lying. The amniotic fluid volume is normal. The cervical length is 3.9 cm. The survey shows the kidneys, bladder, and stomach to be unremarkable. The brain is unremarkable. There is a four-chamber heart. There is a three-vessel cord with normal insertion. The spine is unremarkable. Biometrical measurements are as follows: Biparietal 4.15 cm, age 18 weeks 5 days. Head circumference 16.43 cm, age 19 weeks 2 days. Abdominal circumference 13.49 cm, age 19 weeks 0 days. Femur length 2.91 cm, age 19 weeks 0 days. Sonographic estimate age: 19 weeks 0 days. Sonographic estimated date of delivery: 09/20/2021. Estimated Weight: 267 gm (+/- 39 gm). LMP percentile: 43%. heart rate: 147 beats per minute. number: 1 of 1. IMPRESSION: Single live IUP of 19 weeks 0 days gestational age. The estimated date of confinement sonographically is 09/20/2021. Note is made that the posterior placenta is somewhat low-lying in position. Dictated by: Dictated on workstation # [id number]
== END ==
LOC: RAD 10:00
PROVIDERS: ATTEND Nurse Practitioner Women's Health
DX: Z34.02 Encounter for supervision of normal first pregnancy, second trimester (principal); Z3A.19 19 weeks gestation of pregnancy
CPT/HCPCS: 76805

== ENCOUNTER → 2021-06-05 | Outpatient (CLI) | payer OTHER ==
[2021-06-05 16:05] LABS: BASOPHILS # (AUTO) 0.1 10^3/uL (0.0-0.1); BASOPHILS % (AUTO) 1 % (0-10); EOSINOPHILS # (AUTO) 0.5 10^3/uL (0.0-0.3); EOSINOPHILS % (AUTO) 6 % (0-10); HEMATOCRIT 34 % (35-52); HEMOGLOBIN 11.1 g/dL (11.5-16.0); LYMPHOCYTES # (AUTO) 1.9 10^3/uL (1.0-4.0); LYMPHOCYTES % (AUTO) 21 % (12-44); MEAN CORPUSCULAR HEMOGLOBIN 30 pg (25-34); MEAN CORPUSCULAR HGB CONC 33 g/dL (32-36); MEAN CORPUSCULAR VOLUME 92 fL (80-99); MEAN PLATELET VOLUME 9.2 fL (9.0-12.2); MONOCYTES # (AUTO) 0.3 10^3/uL (0.0-1.0); MONOCYTES % (AUTO) 4 % (0-12); NEUTROPHILS % (AUTO) 67 % (42-75); PLATELET COUNT 285 10^3/uL (130-400); WHITE BLOOD COUNT 8.9 10^3/uL (4.3-11.0)
[2021-06-05 16:07] LABS: ALBUMIN 3.6 GM/DL (3.2-4.5); POTASSIUM 3.6 MMOL/L (3.6-5.0)
[2021-06-05 16:08] LABS: CALCIUM 8.7 MG/DL (8.5-10.1)
[2021-06-05 16:09] LABS: TOTAL PROTEIN 6.3 GM/DL (6.4-8.2)
[2021-06-05 16:11] LABS: BILIRUBIN,TOTAL 0.5 MG/DL (0.1-1.0)
[2021-06-05 16:13] LABS: CREATININE SERUM 0.63 MG/DL (0.60-1.30)
== END ==
LOC: LABNPT 15:50
PROVIDERS: ATTEND Obstetrics & Gynecology
DX: Z36.9 Encounter for antenatal screening, unspecified (principal)
CPT/HCPCS: 80053; 82950; 85025; 86780; 86850

== ENCOUNTER → 2021-07-23 | Outpatient (CLI) | payer OTHER ==
--- NOTE | 2021-07-23 18:04 | Diagnostic Imaging Report ---
INDICATION: Evaluate for placenta previa, cervical length as well as evaluate umbilical cord and placental insertion. TECHNIQUE: Multiple real-time grayscale images were obtained over the gravid uterus. COMPARISON: 04/26/2021. FINDINGS: There is a single live fetus in a cephalic presentation. heart rate was recorded at 135 bpm. Placenta is posterior. Placental tip to the internal cervical os is 8.4 cm. Amniotic fluid volume is normal. Cervical length is 3.8 cm. Umbilical cord appears to have a normal insertion. cord Doppler is as follows: end: Peak systolic velocity 133 cm/s, end-diastolic velocity 38 cm/s, resistive index 0.72, SD ratio 3.5 Placental end: Peak systolic velocity 73 cm/s, end-diastolic velocity 30 cm/s, resistive index 0.59, SD ratio of 2.4 Biometrical measurements are as follows: Biparietal 8.13 cm, age 32 weeks 5 days. Head circumference 30.89 cm, age 34 weeks 4 days. Abdominal circumference 29.98 cm, age 34 weeks 0 days. Femur length 6.28 cm, age 32 weeks 4 days. Sonographic estimate age: 33 weeks 4 days. Sonographic estimated date of delivery: 09/06/2021. Estimated Weight: 2204 gm (+/- 322 gm). LMP percentile: 92%. heart rate: 135 beats per minute. number: 1 of 1. IMPRESSION: Single live IUP approximately 33-34 weeks gestational age showing normal interval growth when compared with prior exam. No complicating features are detected. Dictated by: Dictated on workstation # [id number]
== END ==
LOC: RAD 13:30
PROVIDERS: ATTEND Obstetrics & Gynecology
DX: O44.43 Low lying placenta NOS or without hemorrhage, third trimester (principal); Z3A.33 33 weeks gestation of pregnancy
CPT/HCPCS: 76805

== ENCOUNTER → 2021-09-02 | Outpatient (CLI) | payer OTHER ==
--- NOTE | 2021-09-02 17:31 | Diagnostic Imaging Report ---
INDICATION: 30-year-old female, history of gestational diabetes. TECHNIQUE: Multiple real-time grayscale images were obtained over the gravid uterus. COMPARISON: July 23, 2021. April 26, 2021. FINDINGS: There is a single living intrauterine in vertex presentation. The cervical length is estimated at 3.1 cm. The placental relationship to the cervical os is not well demonstrated. The heart rate is measured at 123 - 124 bpm. There is visualization of the stomach. The amniotic fluid index is normal and measures 15.8. Biometrical measurements are as follows: Biparietal 9.06 cm, age 36 weeks 6 days. Head circumference 33.25 cm, age 38 weeks 0 days. Abdominal circumference 34.24 cm, age 38 weeks 2 days. Femur length 7.12 cm, age 36 weeks 4 days. Sonographic estimate age: 37 weeks 3 days. Sonographic estimated date of delivery: 09/20/2021. Estimated Weight: 3245 gm (+/- 474 gm). LMP percentile: 62%. heart rate: 123 beats per minute. number: 1 of 1. IMPRESSION: 1. Single living intrauterine . 2. measurements as above. 3. Normal amniotic fluid index. 4. No demonstrated anatomic abnormality on incomplete assessment. Dictated by: Dictated on workstation # [id number]
== END ==
LOC: RAD 14:50
PROVIDERS: ATTEND Obstetrics & Gynecology
DX: O24.410 Gestational diabetes mellitus in pregnancy, diet controlled (principal); Z3A.36 36 weeks gestation of pregnancy
CPT/HCPCS: 76816

== ENCOUNTER 2021-09-11 19:16 | Inpatient (IN) | payer OTHER ==
[~2021-09-11] VITALS: Ht 162.6 cm; Wt 80.0 kg
[2021-09-11] VITALS (20 sets, daily range): BP systolic 100–124; BP diastolic 53–72
[2021-09-11] MEDS ORDERED: LACTATED RINGERS 1,000 ML IV ONE ×3 (20:09→21:15)
[2021-09-11] MEDS ORDERED: D5 LR IV SOLUTION 1,000 ML IV ONE (20:09)
[2021-09-11] MEDS ORDERED: MINERAL OIL 30 ML TOP PRN (20:15)
[2021-09-11] MEDS: D5 LR IV SOLUTION 1,000 ML IV SCH (20:15)
[2021-09-11 20:18] LABS: BASOPHILS # (AUTO) 0.1 10^3/uL (0.0-0.1); BASOPHILS % (AUTO) 1 % (0-10); EOSINOPHILS # (AUTO) 0.5 10^3/uL (0.0-0.3); EOSINOPHILS % (AUTO) 5 % (0-10); HEMATOCRIT 29 % (35-52); HEMOGLOBIN 9.7 g/dL (11.5-16.0); LYMPHOCYTES # (AUTO) 2.5 10^3/uL (1.0-4.0); LYMPHOCYTES % (AUTO) 24 % (12-44); MEAN CORPUSCULAR HEMOGLOBIN 28 pg (25-34); MEAN CORPUSCULAR HGB CONC 33 g/dL (32-36); MEAN CORPUSCULAR VOLUME 84 fL (80-99); MEAN PLATELET VOLUME 9.2 fL (9.0-12.2); MONOCYTES # (AUTO) 0.6 10^3/uL (0.0-1.0); MONOCYTES % (AUTO) 6 % (0-12); NEUTROPHILS # (AUTO) 6.4 10^3/uL (1.8-7.8); NEUTROPHILS % (AUTO) 63 % (42-75); PLATELET COUNT 264 10^3/uL (130-400); WHITE BLOOD COUNT 10.2 10^3/uL (4.3-11.0)
[2021-09-11 20:26] LABS: BILIRUBIN,URINE NEGATIVE (NEGATIVE); CLARITY,URINE SL CLOUDY; COLOR,URINE YELLOW; GLUCOSE, URINE (UA) NEGATIVE (NEGATIVE); KETONES,URINE NEGATIVE (NEGATIVE); LEUKOCYTE ESTERASE ,URINE TRACE (NEGATIVE); NITRITE,URINE NEGATIVE (NEGATIVE); PH,URINE 6.5 (5-9); PROTEIN,URINE NEGATIVE (NEGATIVE)
[2021-09-11] MEDS ORDERED: BUPIVACAINE 0.25% 30 ML (SENSORCAINE) VIAL ONE (20:29)
[2021-09-11] MEDS ORDERED: fentaNYL INJ 100 MCG/2 ML AMP ONE (20:29)
[2021-09-11 20:32] LABS: BACTERIA,URINE MODERATE /HPF
[2021-09-11] MEDS ORDERED: fentaNYL 2 mcg/ml BUPIVA 0.125 100 ML ONE (21:11)
[2021-09-11] MEDS ORDERED: NALOXONE 0.4 MG/ML 1 ML (NARCAN) VIAL IV PRN (21:15)
[2021-09-11] MEDS ORDERED: EPIDURAL (fentaNYL 2 MCG/ML BUPIVA 0.125%)100 ML BAG EPI PRN (21:15)
[2021-09-11] MEDS ORDERED: fentaNYL INJ 100 MCG/2 ML AMP INJ ONE (21:15)
[2021-09-11] MEDS: CATHETER FLUSH 10 ML SYR IV SCH (23:15)
[2021-09-12] VITALS (15 sets, daily range): BP systolic 108–120; BP diastolic 56–73
[2021-09-12] MEDS: ONDANSETRON 4 MG/2 ML (SDV) Z0FRAN IV PRN ×3 (00:45→09:48)
[2021-09-12] MEDS ORDERED: OXYTOCIN PRE-MIX DRIP 500 ML IV ONE (01:40)
[2021-09-12] MEDS ORDERED: LIDOCAINE/EPI 2% 1:200,00 (XYLOCAINE) 10 ML VIAL ONE (01:40)
[2021-09-12] MEDS ORDERED: MEASLES,MUMPS,RUBELLA 1 EA INJ SQ ONE (01:45)
[2021-09-12] MEDS ORDERED: OXYTOCIN PRE-MIX DRIP 500 ML IV SCH (01:45)
[2021-09-12] MEDS ORDERED: BENZOCAINE/MENTHOL (DERMOPLAST) 56 ML CAN TP PRN (01:45)
[2021-09-12] MEDS ORDERED: TETANUS,DIPTH,PERTUSS P/F (BOOSTRIX) 0.5 ML VIAL IM ONE (01:45)
[2021-09-12] MEDS ORDERED: NALOXONE 0.4 MG/ML 1 ML (NARCAN) VIAL IV PRN (01:45)
[2021-09-12] MEDS: IBUPROFEN 600 MG (MOTRIN) TAB PO SCH ×4 (02:23→20:52)
[2021-09-12] MEDS: ACETAMINOPHEN 500 MG TAB (TYLENOL) PO SCH ×4 (02:24→20:52)
[2021-09-12] MEDS: WITCH HAZEL(TUCKS) 40 EA JAR TOP PRN (04:45)
[2021-09-12] MEDS ORDERED: DIBUCAINE 1% OINTMENT 30 GM TUBE ONE (05:11)
[2021-09-12] MEDS ORDERED: DIBUCAINE 1% OINTMENT 30 GM TUBE TOP PRN (05:30)
[2021-09-12] MEDS ORDERED: CATHETER FLUSH 10 ML SYR IV SCH (06:00)
[2021-09-12] MEDS: CATHETER FLUSH 10 ML SYR IV SCH ×2 (06:00→14:00)
[2021-09-12] MEDS: D5 LR IV SOLUTION 1,000 ML IV SCH (06:32)
[2021-09-12] MEDS: DOCUSATE SODIUM 100 MG (COLACE) CAP PO SCH ×2 (08:24→20:51)
--- NOTE | 2021-09-12 13:39 | Anesthesia-Regional Post-Op ---
Regional Patient Condition Mental Status: Alert, Oriented x3 Circulation: Same as Pre-Op Headache: Absent Sensation: Full Recovery Motor Block: Absent Post Op Complications Complications None Follow Up Care/Instructions Patient Instructions None needed. Anesthesia/Patient Condition Patient is doing well, no complaints, stable vital signs, no apparent adverse anesthesia problems. No complications reported per nursing. JESUS DRISCOLL CRNA Sep 12, 2021 13:39
--- NOTE | 2021-09-12 16:17 | OPERATIVE REPORT ---
DATE OF SERVICE: 09/12/2021 PREPARTUM DIAGNOSIS: G6, para 2 at 38 weeks and 6 days gestation. DIAGNOSIS: Delivered a male, Apgars 6, 8. DELIVERY TYPE: Spontaneous vaginal delivery. DELIVERING PHYSICIAN: Dr. Plata. ANESTHESIA: Epidural. ESTIMATED BLOOD LOSS: 400 mL. COMPLICATIONS: None. CONDITION: Stable. GBS negative. DELIVERY NOTE: The patient presented to labor and delivery with complaints of painful contractions and was demonstrated to be in active labor. She was admitted, had epidural anesthesia and artificial rupture of membranes at 5 cm revealing clear fluid. She progressed to stage 2 with category 1 heart tones. She pushed through 2 contractions, delivering a male in the LUZ MARIA position. The nose and mouth were suctioned, and was placed on mom's abdomen for delayed cord clamping. A cord segment was obtained, and cord blood was drawn. The placenta was expressed and held. Uterine tone was achieved with Pitocin after delivery of the infant. Laceration extending from her clitoris to her urethra had a significant vascular component and was closed in two layers to obtain hemostasis with a 3-0 Vicryl suture. A red Dewayne Chani catheter was placed within the urethra to ensure urethral integrity during repair. A second-degree perineal laceration was repaired with the same suture. Mom and baby tolerated the delivery well. Job ID: [id number] DocumentID: [id number] Dictated Date: 09/12/2021 12:15:42 [employer]ster [employer] Date: 09/12/2021 13:06:47 Dictated By: Rhina Plata MD
[2021-09-13 02:56] VITALS: BP 102/59
[2021-09-13] MEDS: IBUPROFEN 600 MG (MOTRIN) TAB PO SCH ×2 (02:56→09:01)
[2021-09-13] MEDS: ACETAMINOPHEN 500 MG TAB (TYLENOL) PO SCH ×2 (02:56→09:01)
[2021-09-13 06:55] LABS: BASOPHILS # (AUTO) 0.1 10^3/uL (0.0-0.1); BASOPHILS % (AUTO) 1 % (0-10); EOSINOPHILS # (AUTO) 0.7 10^3/uL (0.0-0.3); EOSINOPHILS % (AUTO) 7 % (0-10); HEMATOCRIT 28 % (35-52); HEMOGLOBIN 8.8 g/dL (11.5-16.0); LYMPHOCYTES # (AUTO) 3.9 10^3/uL (1.0-4.0); LYMPHOCYTES % (AUTO) 37 % (12-44); MEAN CORPUSCULAR HEMOGLOBIN 28 pg (25-34); MEAN CORPUSCULAR HGB CONC 32 g/dL (32-36); MEAN CORPUSCULAR VOLUME 86 fL (80-99); MONOCYTES # (AUTO) 0.6 10^3/uL (0.0-1.0); MONOCYTES % (AUTO) 6 % (0-12); NEUTROPHILS % (AUTO) 48 % (42-75); PLATELET COUNT 248 10^3/uL (130-400); WHITE BLOOD COUNT 10.4 10^3/uL (4.3-11.0)
[2021-09-13 08:59] VITALS: BP 115/62
[2021-09-13] MEDS: DOCUSATE SODIUM 100 MG (COLACE) CAP PO SCH (09:01)
[2021-09-13] MEDS ORDERED: IBUP-844 PO (10:33)
[2021-09-13] MEDS ORDERED: OXC5T PO (10:33)
[2021-09-13] MEDS: WITCH HAZEL(TUCKS) 40 EA JAR TOP PRN (12:44)
--- NOTE | 2021-09-13 19:04 | DISCHARGE SUMMARY ---
DATE OF SERVICE: FINAL DIAGNOSES: 6, para 3-0-3-3 status post spontaneous vaginal delivery. PROCEDURES PERFORMED: Epidural, artificial rupture of membranes, spontaneous vaginal delivery, repair of perineal and periurethral laceration. HOSPITAL COURSE: The patient presented to labor and delivery with complaints of painful contractions and was found to be in active labor. She had an unremarkable labor prior, uncomplicated vaginal delivery with routine care. Postoperative vitals were stable. Lochia was reduced as is going well. She was discharged to home in stable condition with instructions for followup. For additional medications and instructions, Please see discharge medication reconciliation form. Job ID: [id number] DocumentID: [id number] Dictated Date: 09/13/2021 15:52:40 Anatomical Embalmer Date: 09/13/2021 18:12:34 Dictated By: Rhina Plata MD
[2021-09-16] MEDS ORDERED: OXYC5CAP18 PO (18:23)
== END 2021-09-13 13:35 | disposition home or self-care (01) | DRG 807 ==
LOC: LDRP 19:16 → WSo 19:16 → LDRP 19:52 → WS 09-12 05:00
PROVIDERS: ADMIT Obstetrics & Gynecology; ATTEND Obstetrics & Gynecology
PROC: 10E0XZZ Delivery of Products of Conception, External Approach (ICD-10-PCS; principal; 2021-09-12)
PROC: 0KQM0ZZ Repair Perineum Muscle, Open Approach (ICD-10-PCS; 2021-09-12)
PROC: 0UQMXZZ Repair Vulva, External Approach (ICD-10-PCS; 2021-09-12)
DX: O24.429 Gestational diabetes mellitus in childbirth, unspecified control (principal); Z37.0 Single live birth; O70.1 Second degree perineal laceration during delivery; O71.82 Other specified trauma to perineum and vulva; Z3A.38 38 weeks gestation of pregnancy
CPT/HCPCS: 36415; 81000; 84112; 85025; 86850; 86900; 86901; 87088; 99212